=== PATIENT | male | born 1930 | race Caucasian/White ===

== ENCOUNTER 2016-10-29 21:30 | Inpatient (IN) | payer MEDICARE ==
[2016-10-29] MEDS ORDERED: SODIUM CHLORIDE 0.9% 500 ML IV STA (21:34)
[2016-10-29] MEDS ORDERED: IPRATROPIUM 0.5 MG/2.5 ML NEBU INHALATION STA (21:34)
[2016-10-29] MEDS ORDERED: methylPREDNISolone SOD SUCCI 125 MG/2 ML VIAL IV STA (21:34)
[2016-10-29] MEDS ORDERED: ALBUTEROL NEBULIZED 2.5 MG/3 ML INHALATION STA (21:34)
[2016-10-29] MEDS ORDERED: SODIUM CHLORIDE 0.9% 1,000 ML IV STA (21:34)
[2016-10-29] MEDS ORDERED: AZITHROMYCIN 500 MG in SODIUM CHLORIDE 0.9% 250 ML IVPB STA (21:34)
[2016-10-29] MEDS ORDERED: IBUPROFEN 800 MG TAB PO STA (21:43)
[2016-10-29] MEDS ORDERED: ACETAMINOPHEN TAB 500 MG TAB PO STA (21:43)
--- NOTE | 2016-10-29 21:59 | ED ---
General Adult HPI - General Chief complaint: Shortness of Breath Stated complaint: sob,weakness Time Seen by Provider: 10/29/16 21:34 Source: patient, EMS, RN notes reviewed, old records reviewed Mode of arrival: EMS Limitations: no limitations - History of Present Illness Initial comments: This is an 86-year-old male the ER for evaluation Shartzer breath cough congestion. Recent does have significant medical history of COPD and heart disease. Patient denies specific chest at this time it does again admit to shortness of breath. Patient also has some swelling with chills. Patient has no recent travel history, recent hospitalization was in June. About 4 months ago. Patient states his symptoms are getting progressively worse over the last day or so. Decreased appetite and increased weakness. No abdominal pain. No nausea vomiting or diarrhea. Patient has no known sick contacts - Related Data Home Medications Medication Instructions Recorded Confirmed Aspirin 81 mg PO DAILY 08/05/14 07/12/16 Digoxin [Lanoxin] 125 mcg PO DAILY 08/05/14 07/12/16 Furosemide [Lasix] 40 mg PO BID 08/05/14 07/12/16 Imipramine HCl [Tofranil] 50 mg PO BID 08/05/14 07/12/16 Nitroglycerin Sl Tabs [Nitrostat] 0.4 mg SUBLINGUAL Q5M PRN 08/05/14 07/12/16 Warfarin [Coumadin] 10 mg PO HS 08/05/14 07/12/16 Allopurinol [Zyloprim] 300 mg PO DAILY 08/06/14 07/12/16 Insulin NPL/Insulin Lispro 20 units SQ HS 08/06/14 07/12/16 [humaLOG Mix 75-25 Kwikpen] Carbidopa-Levodopa 25-100 mg 1 tab PO TID 12/11/15 07/12/16 [Sinemet 25-100 mg] Cholecalciferol [Vitamin D3] 1,000 unit PO DAILY 12/11/15 07/12/16 Insulin NPL/Insulin Lispro 40 unit SQ QAM 12/11/15 07/12/16 [humaLOG Mix 75-25 Kwikpen] Levothyroxine Sodium [Synthroid] 25 mcg PO DAILY 12/11/15 07/12/16 Simvastatin [Zocor] 40 mg PO HS 12/11/15 07/12/16 metFORMIN HCL [Glucophage] 500 mg PO DAILY 12/11/15 07/12/16 Multivitamin [Men's Multi-Vitamin] 1 tab PO DAILY 12/12/15 07/12/16 rOPINIRole HCL [Requip] 0.5 mg PO TID 06/24/16 07/12/16 Previous Rx's Medication Instructions Recorded Donepezil [Aricept] 10 mg PO HS #10 tablet 12/14/15 Carvedilol [Coreg] 3.125 mg PO BID-W/MEALS #60 tab 06/30/16 Allergies Allergy/AdvReac Type Severity Reaction Status Date / Time phenytoin sodium Allergy Severe Rash/Hives Verified 10/29/16 22:46 [From Dilantin] phenytoin sodium extended Allergy Severe Rash/Hives Verified 10/29/16 22:46 [From Dilantin] zoster vaccine live Allergy Unknown Verified 10/29/16 22:46 amiodarone AdvReac Dyspnea Verified 10/29/16 22:46 spironolactone AdvReac Gynecomasti Verified 10/29/16 22:46 a Review of Systems ROS Statement: Those systems with pertinent positive or pertinent negative responses have been documented in the HPI. ROS Other: All systems not noted in ROS Statement are negative. Past Medical History Past Medical History: Atrial Fibrillation, Heart Failure, COPD, Dementia, Diabetes Mellitus, Hyperlipidemia, Hypertension, Thyroid Disorder Additional Past Medical History / Comment(s): gout, family stated that a geriatric neurologist at [facility] felt that pt had parkinsons(on meds), dr lindquist here did tests but family does'nt know results yet. 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 Replacement pacemaker in 2010. prosthetic right eye. ben holes 2007 Past Anesthesia/Blood Transfusion Reactions: No Reported Reaction Type of Cardiac Device: AICD Device Placement Date:: 2011 Past Psychological History: Depression Smoking Status: Former smoker Past Alcohol Use History: Occasional Additional Past Alcohol Use History / Comment(s): started smoking 0, quit 1954, smoked 1 ppd. Past Drug Use History: None Reported - Past Family History Mother Family Medical History: Blood Disorder Additional Family Medical History / Comment(s): famialy not sure what is was called Father Family Medical History: Myocardial Infarction (MS) General Exam Limitations: no limitations General appearance: alert, anxious, in distress Head exam: Present: atraumatic, normocephalic, normal inspection Eye exam: Present: normal appearance, PERRL, EOMI. Absent: scleral icterus, conjunctival injection, periorbital swelling ENT exam: Present: normal exam, mucous membranes moist Neck exam: Present: normal inspection. Absent: tenderness, meningismus, lymphadenopathy Respiratory exam: Present: normal lung sounds bilaterally, wheezes, decreased breath sounds, prolonged expiratory. Absent: respiratory distress, rales, rhonchi, stridor Cardiovascular Exam: Present: normal heart sounds. Absent: regular rate (Paced rhythm), systolic murmur, diastolic murmur, rubs, gallop, clicks GI/Abdominal exam: Present: soft, normal bowel sounds. Absent: distended, tenderness, guarding, rebound, rigid Extremities exam: Present: normal inspection, full ROM, normal capillary refill. Absent: tenderness, pedal edema, joint swelling, calf tenderness Back exam: Present: normal inspection Neurological exam: Present: alert, oriented X3, CN II-XII intact Psychiatric exam: Present: normal affect, normal mood Skin exam: Present: warm, dry, intact, normal color. Absent: rash Course Vital Signs 10/29/16 10/29/16 10/29/16 21:30 21:47 21:59 Temperature 102.8 F H Pulse Rate 61 60 Respiratory 20 20 Rate Blood Pressure 122/59 O2 Sat by Pulse 95 Oximetry 10/29/16 22:05 Temperature Pulse Rate 57 L Respiratory Rate Blood Pressure O2 Sat by Pulse Oximetry - Reevaluation(s) Reevaluation #1: 10/29/16 22:49 Patient is feeling mildly improved his breathing with breathing treatment Reevaluation #2: 10/29/16 22:49 Patient further feeling better with symptom therapy and fever control EKG Findings - EKG Comments: EKG Findings:: EKG shows paced rhythm rate of 61, WV 152, QRS 162, QTc 527 Medical Decision Making - Medical Decision Making 86 male to the ER evaluation of shortness of breath, positive fever, will start on prophylactic antibiotics rule out bacteremia, chest x-ray here negative at this time. Patient has no nausea vomiting or diarrhea, patient also found to have elevated troponin, non-ST elevated MS, patient is critically anticoagulated at this time, we'll admit for cardiac treatment and observation - Lab Data Result diagrams: 10/29/16 21:35 10/29/16 21:35 Lab Results 10/29/16 10/29/16 10/29/16 Range/Units 21:35 21:35 21:35 WBC 5.1 (3.8-10.6) k/uL RBC 3.79 L (4.30-5.90) m/uL Hgb 12.5 L (13.0-17.5) gm/dL Hct 36.7 L (39.0-53.0) % MCV 96.9 (80.0-100.0) fL MCH 32.9 (25.0-35.0) pg MCHC 34.0 (31.0-37.0) g/dL RDW 15.0 (11.5-15.5) % Plt Count 131 L (150-450) k/uL Neutrophils % 82 % Lymphocytes % 6 % Monocytes % 8 % Eosinophils % 1 % Basophils % 1 % Neutrophils # 4.2 (1.3-7.7) k/uL Lymphocytes # 0.3 L (1.0-4.8) k/uL Monocytes # 0.4 (0-1.0) k/uL Eosinophils # 0.0 (0-0.7) k/uL Basophils # 0.0 (0-0.2) k/uL PT (9.0-12.0) sec INR (<1.1) APTT (22.0-30.0) sec Sodium 138 (137-145) mmol/L Potassium 4.2 (3.5-5.1) mmol/L Chloride 95 L (98-107) mmol/L Carbon Dioxide 33 H (22-30) mmol/L Anion Gap 10 mmol/L BUN 25 H (9-20) mg/dL Creatinine 1.10 (0.66-1.25) mg/dL Est GFR (MDRD) Af Amer >60 (>60 ml/min/1.73 sqM) Est GFR (MDRD) Non-Af >60 (>60 ml/min/1.73 sqM) Glucose 126 H (74-99) mg/dL Calcium 8.9 (8.4-10.2) mg/dL Magnesium 1.6 (1.6-2.3) mg/dL Total Bilirubin 0.6 (0.2-1.3) mg/dL AST 32 (17-59) U/L ALT 33 (21-72) U/L Alkaline Phosphatase 91 (38-126) U/L Total Creatine Kinase 54 L (55-170) U/L CK-MB (CK-2) 0.3 (0.0-2.4) ng/mL CK-MB (CK-2) Rel Index 0.6 Troponin I 0.119 H* (0.000-0.034) ng/mL NT-Pro-B Natriuret Pep pg/mL Total Protein 6.7 (6.3-8.2) g/dL Albumin 3.5 (3.5-5.0) g/dL 10/29/16 10/29/16 Range/Units 21:35 21:35 WBC (3.8-10.6) k/uL RBC (4.30-5.90) m/uL Hgb (13.0-17.5) gm/dL Hct (39.0-53.0) % MCV (80.0-100.0) fL MCH (25.0-35.0) pg MCHC (31.0-37.0) g/dL RDW (11.5-15.5) % Plt Count (150-450) k/uL Neutrophils % % Lymphocytes % % Monocytes % % Eosinophils % % Basophils % % Neutrophils # (1.3-7.7) k/uL Lymphocytes # (1.0-4.8) k/uL Monocytes # (0-1.0) k/uL Eosinophils # (0-0.7) k/uL Basophils # (0-0.2) k/uL PT 28.3 H (9.0-12.0) sec INR 2.9 (<1.1) APTT 32.4 H (22.0-30.0) sec Sodium (137-145) mmol/L Potassium (3.5-5.1) mmol/L Chloride (98-107) mmol/L Carbon Dioxide (22-30) mmol/L Anion Gap mmol/L BUN (9-20) mg/dL Creatinine (0.66-1.25) mg/dL Est GFR (MDRD) Af Amer (>60 ml/min/1.73 sqM) Est GFR (MDRD) Non-Af (>60 ml/min/1.73 sqM) Glucose (74-99) mg/dL Calcium (8.4-10.2) mg/dL Magnesium (1.6-2.3) mg/dL Total Bilirubin (0.2-1.3) mg/dL AST (17-59) U/L ALT (21-72) U/L Alkaline Phosphatase (38-126) U/L Total Creatine Kinase (55-170) U/L CK-MB (CK-2) (0.0-2.4) ng/mL CK-MB (CK-2) Rel Index Troponin I (0.000-0.034) ng/mL NT-Pro-B Natriuret Pep 3070 pg/mL Total Protein (6.3-8.2) g/dL Albumin (3.5-5.0) g/dL - Radiology Data Radiology results: report reviewed (Chest x-ray is negative for acute disease), image reviewed Critical Care Time Critical Care Time: Yes Total Critical Care Time: 31 Disposition Clinical Impression: Fever, NSTEMI (non-ST elevated myocardial infarction), Acute exacerbation of chronic obstructive airways disease, Cardiac defibrillator in place Disposition: ADMITTED IP TO THIS HOSP Condition: Fair Referrals: Chucho Fan MD [Primary Care Provider] - 1-2 days
[2016-10-29 22:02] LABS: Basophils % (A) 1 %; CHCM 34.3; Eosinophils % (A) 1 %; HCT 36.7 % (39.0-53.0); HDW 3.11; HGB 12.5 gm/dL (13.0-17.5); Luc # (Auto) 0.13; Luc % (Auto) 2; Lymphocytes # (A) 0.3 k/uL (1.0-4.8); Lymphocytes % (A) 6 %; MCH 32.9 pg (25.0-35.0); MCV 96.9 fL (80.0-100.0); Mean Platelet Volume 9.1; Monocytes # (A) 0.4 k/uL (0-1.0); Monocytes % (A) 8 %; Neutrophils # (A) 4.2 k/uL (1.3-7.7); Neutrophils % (A) 82 %; RBC 3.79 m/uL (4.30-5.90); WBC 5.1 k/uL (3.8-10.6); WBC (Perox) 5.29
[2016-10-29 22:08] LABS: ALT 33 U/L (21-72); AST 32 U/L (17-59); Alkaline Phosphatase 91 U/L (38-126); Anion Gap 10 mmol/L; Blood Urea Nitrogen 25 mg/dL (9-20); Calcium 8.9 mg/dL (8.4-10.2); Carbon Dioxide 33 mmol/L (22-30); Chloride 95 mmol/L (98-107); Glucose 126 mg/dL (74-99); INR 2.9 (<1.1); Magnesium 1.6 mg/dL (1.6-2.3); Non-African American GFR(MDRD) >60 (>60 ml/min/1.73 sqM); Partial Thromboplastin Time 32.4 sec (22.0-30.0); Potassium 4.2 mmol/L (3.5-5.1); Prothrombin Time 28.3 sec (9.0-12.0); Sodium 138 mmol/L (137-145); Total Bilirubin 0.6 mg/dL (0.2-1.3); Total Protein 6.7 g/dL (6.3-8.2)
--- NOTE | 2016-10-29 22:24 | XR ---
EXAMINATION TYPE: XR chest 2V DATE OF EXAM: 10/29/2016 10:17 PM COMPARISON: 07/12/2016 HISTORY: Short of breath TECHNIQUE: Frontal and lateral views of the chest are obtained. FINDINGS: There is no heart failure nor confluent pneumonic infiltrate. There are no hilar masses. T here is a left axillary pacemaker with lead tips in the right ventricle. There are chest leads. There is no pleural effusion. IMPRESSION: No active cardiopulmonary disease. Mild cardiomegaly. No adverse change compared to old exam.
[2016-10-29 22:33] LABS: Creatine Kinase MB 0.3 ng/mL (0.0-2.4)
[2016-10-29 22:42] LABS: Troponin I 0.119 ng/mL (0.000-0.034)
[2016-10-29] MEDS ORDERED: ASPIRIN 81 MG CHEW PO STA (22:46)
[2016-10-29] MEDS ORDERED: NITROGLYCERIN SL TABS 0.4 MG TAB SUBLINGUAL PRN (22:46)
[2016-10-29] MEDS ORDERED: MORPHINE SULFATE 4 MG/ML SYRINGE IV PRN (22:46)
--- NOTE | 2016-10-29 23:37 | CT ---
EXAMINATION TYPE: CT brain wo con DATE OF EXAM: 10/29/2016 11:24 PM COMPARISON: 12/12/2015 HISTORY: Prior on synapse, pt leaning to the left, YASEMIN, weakness, HIstory of dementia and drainage of blood on the brain per patient CT DLP: 995.50 mGycm Automated exposure control for dose reduction was used. FINDINGS: There is cerebral cortical atrophy. There is no mass effect nor midline shift. There is no sign of in tracranial hemorrhage. There is bilateral frontal craniotomy defects noted. Sella turcica appears nor mal. There is dense calcification involving the right lobe. IMPRESSION: No acute intracranial abnormality. Cerebral atrophy. Brain is unchanged compared to old exam. There i s clearing of the frontal scalp soft tissue swelling compared to old exam.
[2016-10-30 00:13] LABS: Appearance,Urine Clear (Clear); Bilirubin,Urine Negative (Negative); Glucose,Urine (UA) Negative (Negative); Ketones,Urine Negative (Negative); Leukocyte Esterase,Urine Negative (Negative); Nitrite,Urine Negative (Negative); PH, Urine 5.5 (5.0-8.0); Protein,Urine Negative (Negative); Specific Gravity,Urine 1.018 (1.001-1.035); UA Billing (MACRO vs. MICRO) CHEM
[2016-10-30] MEDS: IPRATROPIUM-ALBUTEROL 3 ML NEB INHALATION SCH ×7 (01:09→23:50)
[2016-10-30 03:28] LABS: Cholesterol 83 mg/dL (<200); HDL Cholesterol 31 mg/dL (40-60); Triglycerides 59 mg/dL (<150)
[2016-10-30 04:14] LABS: Creatine Kinase MB 5.9 ng/mL (0.0-2.4); Troponin I 0.156 ng/mL (0.000-0.034)
[2016-10-30 06:02] LABS: Glucose,Whole Blood 250 mg/dL (75-99)
[2016-10-30] MEDS ORDERED: ASPIRIN 325 MG TAB PO SCH (09:00)
[2016-10-30] MEDS: ATORVASTATIN 80 MG TAB PO SCH (09:35)
[2016-10-30] MEDS ORDERED: Magnesium Replacement Protocol 1 EACH MISC MISCELLANE PRN (09:50)
[2016-10-30 10:47] LABS: Creatine Kinase MB 7.1 ng/mL (0.0-2.4); Troponin I 0.088 ng/mL (0.000-0.034)
[2016-10-30 11:23] LABS: Glucose,Whole Blood 317 mg/dL (75-99)
--- NOTE | 2016-10-30 11:26 | P.CRDCN ---
History of Present Illness Consult date: 10/30/16 Reason for Consult (text): elevated troponin Chief complaint: fever, chills History of present illness: This is a pleasant 86-year-old gentleman who follows with Dr. Prakash in the office. Has a known history of cardiomyopathy, BiV ICD implantation, recent nonischemic stress test and a known ejection fraction of 20-25%. Percentage the emergency department mainly with complaints of fever, chills and nausea without vomiting. Complained of mild shortness of breath. He does complain of a cough however this is chronic per the patient and his family. He does have a history of COPD. Upon admission EKG showed atrial sensed biventricular paced rhythm. Chest x-ray showed no acute cardiopulmonary process and a CT of the head showed no acute abnormalities. Last echo from June 2016 showed an ejection fraction of 20-25%. Laboratory values showed BUN 25 creatinine 1.10, INR 2.9, and a magnesium level I.6. Patient has had an episode of nonsustained VT through the night and magnesium is being supplemented. Patient's BNP is 3070. Upon examination, patient is feeling well. He denies any further complaints of fever or chills and no nausea. He has been afebrile since arriving to the floor. He has no complaints of orthopnea or PND. Denies any complaints of edema. Past Medical History Past Medical History: Atrial Fibrillation, Heart Failure, COPD, Dementia, Diabetes Mellitus, Hyperlipidemia, Hypertension, Thyroid Disorder Additional Past Medical History / Comment(s): gout, family stated that a geriatric neurologist at [facility] felt that pt had parkinsons(on meds), dr lindquist here did tests but family does'nt know results yet. 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 Replacement pacemaker in 2010. prosthetic right eye. ben holes 2007 Past Anesthesia/Blood Transfusion Reactions: No Reported Reaction Type of Cardiac Device: AICD Device Placement Date:: 2011 Past Psychological History: Depression Smoking Status: Former smoker Past Alcohol Use History: Occasional Additional Past Alcohol Use History / Comment(s): started smoking 1939, quit 1955, smoked 1 ppd. Past Drug Use History: None Reported - Past Family History Mother Family Medical History: Blood Disorder Additional Family Medical History / Comment(s): famialy not sure what is was called Father Family Medical History: Myocardial Infarction (DC) Medications and Allergies Home Medications Medication Instructions Recorded Confirmed Type Aspirin 81 mg PO DAILY 08/05/14 10/29/16 History Digoxin [Lanoxin] 125 mcg PO DAILY 08/05/14 10/29/16 History Imipramine HCl [Tofranil] 50 mg PO BID 08/05/14 10/29/16 History Nitroglycerin Sl Tabs [Nitrostat] 0.4 mg SUBLINGUAL Q5M PRN 08/05/14 10/29/16 History Warfarin [Coumadin] 10 mg PO HS 08/05/14 10/29/16 History Allopurinol [Zyloprim] 300 mg PO DAILY 08/06/14 10/29/16 History Carbidopa-Levodopa 25-100 mg 1 tab PO TID 12/11/15 10/29/16 History [Sinemet 25-100 mg] Cholecalciferol [Vitamin D3] 1,000 unit PO DAILY 12/11/15 10/29/16 History Levothyroxine Sodium [Synthroid] 25 mcg PO DAILY 12/11/15 10/29/16 History Simvastatin [Zocor] 40 mg PO HS 12/11/15 10/29/16 History metFORMIN HCL [Glucophage] 500 mg PO DAILY 12/11/15 10/29/16 History Multivitamin [Men's Multi-Vitamin] 1 tab PO DAILY 12/12/15 10/29/16 History rOPINIRole HCL [Requip] 0.5 mg PO TID 06/24/16 10/29/16 History Carvedilol [Coreg] 6.25 mg PO BID 10/29/16 10/29/16 History Furosemide [Lasix] 20 mg PO BID 10/29/16 10/29/16 History Warfarin [Coumadin] 1 mg PO HS 10/29/16 10/29/16 History Allergies Allergy/AdvReac Type Severity Reaction Status Date / Time phenytoin sodium Allergy Severe Rash/Hives Verified 10/29/16 22:46 [From Dilantin] phenytoin sodium extended Allergy Severe Rash/Hives Verified 10/29/16 22:46 [From Dilantin] zoster vaccine live Allergy Unknown Verified 10/29/16 22:46 amiodarone AdvReac Dyspnea Verified 10/29/16 22:46 spironolactone AdvReac Gynecomasti Verified 10/29/16 22:46 a Physical Exam Vitals: Vital Signs Temp Pulse Pulse Resp BP BP Pulse Ox 10/30/16 08:10 80 10/30/16 08:01 86 95 10/30/16 08:00 97.1 F L 67 16 130/58 99 10/30/16 04:00 98.0 F 72 20 88/40 95 10/30/16 01:18 79 10/30/16 01:09 85 10/30/16 00:21 101.9 F H 10/29/16 23:52 80 18 93/52 98 10/29/16 23:15 98.4 F 101 H 20 98/53 98 Intake and Output 10/29/16 10/30/16 10/30/16 22:59 06:59 14:59 Intake Total 650 Output Total 1 Balance 649 Intake: IV 650 Sodium Chloride 0.9% 1, 600 000 ml @ 100 mls/hr IV . Q10H STA Rx#:[id number] cefTRIAXone 1,000 mg In 50 Sodium Chloride 0.9% 50 ml @ 100 mls/hr IVPB ONCE STA Rx#:[id number] Output: Urine/Stool Mix 1 Other: Voiding Method Toilet Urinal # Voids 1 Weight 93.5 kg PHYSICAL EXAMINATION: HEENT: Head is atraumatic, normocephalic. Pupils equal, round. Neck is supple. There is no elevated jugular venous pressure. HEART EXAMINATION: Heart sounds regular, S1 and S2 normal. No murmur or gallop heard. CHEST EXAMINATION: Lungs are clear to auscultation and precussion. No chest wall tenderness is noted on palpation or with deep breathing. ABDOMEN: Soft, nontender. Bowel sounds are heard. No organomegaly noted. EXTREMITIES: 2+ peripheral pulses with no evidence of peripheral edema and no calf tenderness noted. NEUROLOGIC patient is awake, alert and oriented x3. . Results 10/29/16 21:35 10/29/16 21:35 Cardiac Enzymes 10/30/16 10/30/16 Range/Units 03:06 09:21 CK-MB (CK-2) 5.9 H* 7.1 H* (0.0-2.4) ng/mL Troponin I 0.156 H* 0.088 H* (0.000-0.034) ng/mL Lipids 10/30/16 Range/Units 03:06 Triglycerides 59 (<150) mg/dL Cholesterol 83 (<200) mg/dL HDL Cholesterol 31 L (40-60) mg/dL Current Medications Generic Name Dose Route Start Last Admin Trade Name Freq PRN Reason Stop Dose Admin Albuterol/Ipratropium 3 ml 10/30/16 00:00 10/30/16 07:58 Duoneb 0.5 Mg-3 Mg/3 Ml Soln INHALATION 3 ml RT-Q4H ABHAY Administration Aspirin 81 mg 10/31/16 09:00 Aspirin PO DAILY [facility] Atorvastatin Calcium 80 mg 10/30/16 09:00 10/30/16 09:35 Lipitor PO 80 mg DAILY [facility] Administration Carvedilol 6.25 mg 10/30/16 11:00 Coreg PO BID [facility] Furosemide 20 mg 10/30/16 11:00 Lasix PO BID [facility] Magnesium Sulfate/Dextrose 1 100 mls @ 100 mls/hr 10/30/16 10:00 gm/ IV Solution IVPB 10/30/16 11:59 Q1H [facility] Levothyroxine Sodium 25 mcg 10/30/16 11:00 Synthroid PO DAILY@0630 [facility] Miscellaneous Information 1 each 10/30/16 09:50 Magnesium Per Protocol MISCELLANE DAILY PRN Per Protocol Protocol Morphine Sulfate 4 mg 10/29/16 22:46 Morphine Sulfate (Inj) IV Q4HR PRN Chest Pain Multivitamins 1 each 10/31/16 12:00 Theragran PO DAILY@1200 [facility] Nitroglycerin 0.4 mg 10/29/16 22:46 Nitrostat SUBLINGUAL Q5M PRN Chest Pain Intake and Output 10/29/16 10/30/16 10/30/16 22:59 06:59 14:59 Intake Total 650 Output Total 1 Balance 649 Intake: IV 650 Sodium Chloride 0.9% 1, 600 000 ml @ 100 mls/hr IV . Q10H STA Rx#:[id number] cefTRIAXone 1,000 mg In 50 Sodium Chloride 0.9% 50 ml @ 100 mls/hr IVPB ONCE STA Rx#:[id number] Output: Urine/Stool Mix 1 Other: Voiding Method Toilet Urinal # Voids 1 Weight 93.5 kg Assessment and Plan Plan: Assessment and plan #1 fever of unknown origin #2 cardiomyopathy #3 chronic systolic heart failure, ejection fraction 20-25% without signs of overt heart failure #4 elevated troponins not suggestive of myocardial injury Cardiology's perspective, will resume cardiac medications. We will hold Coumadin with an INR of 2.9 and patient is currently on antibiotics. 2 sets of blood cultures to be done. We anticipate the patient will be discharged in the next 24 hours. We'll continue to follow the patient right further recommendations accordingly. RESPIRATORY MEDICINE PHYSICIAN note has been reviewed, I agree with a documented findings and plan of care. Patient was seen and examined.
[2016-10-30] MEDS: MAGNESIUM SULFATE-D5W PMX 1 GM in DEXTROSE/WATER 1 100ML.BAG IVPB SCH ×2 (12:00→13:06)
[2016-10-30] MEDS: LEVOTHYROXINE 25 MCG TAB PO SCH (12:00)
[2016-10-30] MEDS: CARVEDILOL 6.25 MG TAB PO SCH ×2 (12:00→21:51)
[2016-10-30] MEDS: FUROSEMIDE 20 MG TAB PO SCH ×2 (12:00→21:51)
[2016-10-30] MEDS ORDERED: NITROGLYCERIN SL TABS 0.4 MG TAB SUBLINGUAL PRN (12:24)
[2016-10-30] MEDS: DIGOXIN 125 MCG TAB PO SCH (13:04)
[2016-10-30] MEDS: INSULIN LISPRO (humaLOG) 300 UNIT/3 ML VIAL SQ SCH ×3 (13:05→21:52)
[2016-10-30] MEDS: CARBIDOPA-LEVODOPA 25-100 MG 1 EACH TAB PO SCH ×2 (14:50→21:52)
[2016-10-30 15:26] LABS: Hemoglobin A1C 6.4 % (4.2-6.1)
[2016-10-30 16:28] LABS: Glucose,Whole Blood 273 mg/dL (75-99)
[2016-10-30 20:51] LABS: Glucose,Whole Blood 146 mg/dL (75-99)
[2016-10-30] MEDS ORDERED: NON-FORMULARY DRUG (Simvastatin [Zocor] 40 MG) PO SCH (21:00)
[2016-10-30] MEDS: INSULIN NPL/INSULIN LISPRO 100 UNIT/ML 10 ML VIAL (Humalog 75/25) SQ SCH (21:52)
[2016-10-30] MEDS: DONEPEZIL 10 MG TAB PO SCH (21:52)
[2016-10-31] MEDS: IPRATROPIUM-ALBUTEROL 3 ML NEB INHALATION SCH ×6 (03:52→20:31)
[2016-10-31 06:12] LABS: Glucose,Whole Blood 169 mg/dL (75-99)
[2016-10-31 06:15] LABS: INR 1.7 (<1.1); Prothrombin Time 16.9 sec (9.0-12.0)
[2016-10-31] MEDS: INSULIN LISPRO (humaLOG) 300 UNIT/3 ML VIAL SQ SCH ×4 (07:34→20:36)
[2016-10-31] MEDS: DIPHENOX-ATROP 2.5-0.025 MG 1 EACH TAB PO PRN ×2 (07:35→12:33)
[2016-10-31] MEDS: LEVOTHYROXINE 25 MCG TAB PO SCH ×2 (07:35→09:25)
[2016-10-31] MEDS: INSULIN NPL/INSULIN LISPRO 100 UNIT/ML 10 ML VIAL (Humalog 75/25) SQ SCH ×2 (07:36→21:00)
[2016-10-31] MEDS: ALLOPURINOL 300 MG TAB PO SCH (09:25)
[2016-10-31] MEDS: ATORVASTATIN 80 MG TAB PO SCH (09:26)
[2016-10-31] MEDS: CARBIDOPA-LEVODOPA 25-100 MG 1 EACH TAB PO SCH ×3 (09:26→20:54)
[2016-10-31] MEDS: ASPIRIN 81 MG CHEW PO SCH (09:26)
[2016-10-31] MEDS: FUROSEMIDE 20 MG TAB PO SCH ×2 (09:27→20:54)
[2016-10-31] MEDS: metFORMIN 500 MG TAB PO SCH (09:27)
[2016-10-31] MEDS: DIGOXIN 125 MCG TAB PO SCH (09:34)
[2016-10-31] MEDS: BISMUTH SUBSALICYLATE 4,192 MG/240 ML BOTTLE PO SCH ×2 (10:49→20:53)
[2016-10-31] MEDS: SODIUM CHLORIDE 0.9% 1,000 ML IV SCH (10:54)
[2016-10-31 11:56] LABS: Glucose,Whole Blood 89 mg/dL (75-99)
[2016-10-31] MEDS: CHOLECALCIFEROL 1,000 UNIT TAB PO SCH (12:33)
[2016-10-31] MEDS: MULTIVITAMINS, THERA 1 EACH TAB PO SCH (12:33)
--- NOTE | 2016-10-31 14:40 | PN ---
This gentleman has ischemic cardiomyopathy, but he developed some diarrhea of weakness, dehydration, went to the shower and tripped on the shower chair and fell without any injuries. He is doing better today but complains of feeling weak and just had a large diarrhea with watery stool. I am recommending that we hydrate him, encourage oral fluids. Give him Lomotil and Kaopectate and hopefully this will reverse his dehydration and weak feeling. His not febrile anymore. The antibiotics have been held. He is volume depleted if any and we will cautiously hydrate him. Blood pressure is 104/60, pulse rate is 56 per minute. S1, S2 heard normally. Short systolic murmur noted. No JVD. LUNGS: Diminished air entry. Abdomen and lower extremity exam is unchanged.
[2016-10-31 16:20] LABS: Glucose,Whole Blood 116 mg/dL (75-99)
[2016-10-31] MEDS ORDERED: RX INFO: IV CONTRAST WAS GIVEN 1 EACH MISC MISCELLANE PRN (16:23)
[2016-10-31] MEDS: CARVEDILOL 12.5 MG TAB PO SCH (17:35)
--- NOTE | 2016-10-31 18:19 | HP ---
CHIEF COMPLAINT: Syncope, fever and elevated cardiac enzymes. HISTORY OF PRESENT ILLNESS: This is another admission for this 86-year-old white male. He has a long-standing history of coronary artery disease, diabetes, COPD, intracranial bleed, subdural hematoma, congestive heart failure and seizures. He was found to be confused and delirious and had a temperature of 102.2 according to the family and he was brought to the hospital. He has apparently had no vomiting, diarrhea, urinary complaints, cough, hemoptysis, chest pain, etc. In the emergency room, his troponins were slightly elevated. He had no history of seizures, focal neurologic deficits during this episode, etc. REVIEW OF SYSTEMS: He cannot give a clear history but denies any headaches, neurologic changes, changes in vision of the one eye, chest pain, cough, hemoptysis, sputum production, abdominal pain, vomiting, diarrhea, melena, hematochezia, urinary complaints, etc. Past medical history, family history and personal and social histories are all otherwise unchanged from his recent admitting and discharge summaries. HE IS ALLERGIC TO DILANTIN, AMIODARONE AND SPIRONOLACTONE. He is on: 1. Coumadin 11 mg a day. 2. Lasix 40 mg twice a day. 3. Metformin 500 mg once a day. 4. Levothyroxine 0.025 once a day. 5. Sinemet 25/100, 3 times a day. 6. Humalog 75/25, 40 units in the morning and 20 in the evening. 7. Zyloprim 300 once a day. 8. Coreg 6.25 twice a day. 9. Requip 0.5 2 times a day, Zocor 40 mg at bedtime. 10. Imipramine 50 mg twice a day. 11. Aricept 5 mg at night. 12. Lanoxin 0.125 once a day. 13. Nitrostat p.r.n. 14. Vitamin D 1000 units once a day. 15. 81 mg of aspirin. Past history is unchanged and unremarkable other than other than all of his cardiac problems. He currently is in chronic atrial fibrillation. Used to smoke and drink, but has stopped a long ago. PHYSICAL EXAM: Blood pressure is 100/48 with a pulse of 98 and irregularly irregular, respirations were 16 and he is afebrile. GENERAL: He appears slightly pale and in no distress. Skin was dry and lymph nodes are not enlarged. Head, ears, eyes, nose, mouth, and throat were normal. Neck veins were not distended. Thyroid is not enlarged. Chest demonstrated poor breath sounds with occasional rales and rhonchi. Cardiac demonstrated atrial fibrillation and there is an S4. The abdomen is soft and slightly protuberant. There are no masses or visceromegaly. Extremities are normal. Neurologic appears intact. IMPRESSION: 1. Fall probably with syncope due to sepsis. 2. Fever of unknown origin. 3. Questionable urinary tract infection. 4. History of coronary artery disease. 5. Congestive heart failure. 6. Arrhythmia with atrial fibrillation. 7. Type 2 insulin-dependent mellitus. 8. History chronic obstructive pulmonary disease. 9. History of subdural hematoma. 10. 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 11. Rule out acute myocardial infarction. PLAN: 1. Bed rest. 2. IV fluids. 3. Appropriate cultures and antibiotic management before Oncology consult.
--- NOTE | 2016-10-31 18:32 | PN ---
DATE OF SERVICE: 10/30/2016 CHIEF COMPLAINT: Syncope and fever. HISTORY OF PRESENT ILLNESS: This gentleman is improved. He is more alert and oriented. Temperature is down. Studies are pending. PHYSICAL EXAM: His chest is clear. Cardiac is normal except for atrial fibrillation. The abdomen soft, nontender. Bowel sounds are present. Extremities are normal. Neurologically, he is intact. IMPRESSION: 1. Syncope, etiology unknown. 2. Fever of unknown origin. 3. Probable sepsis, source unknown. 4. Coronary disease. 5. Congestive heart failure. 6. Type 2 diabetes. PLAN: 1. Continue to wait for appropriate cultures. 2. Wait for Cardiology evaluation.
--- NOTE | 2016-10-31 19:10 | CT ---
EXAMINATION TYPE: CT brain wo/w con DATE OF EXAM: 10/31/2016 6:15 PM COMPARISON: 10/29/2016 HISTORY: weakness CT DLP: 2128.6 mGycm, Automated exposure control for dose reduction was used. CONTRAST: Patient injected with 100 mL of Omnipaque 300. CT of the brain is performed utilizing 3 mm thick sections through the posterior fossa and 3 mm thick sections through the remaining calvarium. Study is performed within 24 hours of arrival to the hospital. No abnormal hyperdensity is present to suggest an acute intracranial hemorrhage. No mass lesion is evident. No acute infarcts are evident. Mild periventricular white matter hypodensity is present, likely on t he basis of chronic white matter ischemic changes. This appears stable from comparison. Ventricles and sulci are mildly prominent for the patient age. Postsurgical craniotomies are noted in the frontal regions and in the left parietal region. A right p arietal craniotomy may also be present. No abnormal enhancement is evident following contrast administration. Paranasal sinuses and mastoid air cells within the [id number] are clear. IMPRESSIONS: 1. Atrophy with periventricular white matter ischemic changes. 2. No acute intracranial process. 3. Postsurgical changes.
[2016-10-31 20:37] LABS: Glucose,Whole Blood 121 mg/dL (75-99)
[2016-10-31] MEDS: CARVEDILOL 6.25 MG TAB PO SCH (20:48)
[2016-10-31] MEDS: DONEPEZIL 10 MG TAB PO SCH (20:54)
[2016-10-31] MEDS ORDERED: IPRATROPIUM-ALBUTEROL 3 ML NEB INHALATION PRN (23:14)
[2016-11-01 05:49] LABS: Glucose,Whole Blood 111 mg/dL (75-99)
[2016-11-01] MEDS: INSULIN LISPRO (humaLOG) 300 UNIT/3 ML VIAL SQ SCH ×4 (06:25→21:23)
[2016-11-01] MEDS: SODIUM CHLORIDE 0.9% 1,000 ML IV SCH ×2 (06:26→16:50)
[2016-11-01] MEDS: LEVOTHYROXINE 25 MCG TAB PO SCH (06:26)
[2016-11-01] MEDS: CARVEDILOL 12.5 MG TAB PO SCH ×2 (06:26→17:01)
[2016-11-01] MEDS: INSULIN NPL/INSULIN LISPRO 100 UNIT/ML 10 ML VIAL (Humalog 75/25) SQ SCH ×2 (06:28→21:28)
[2016-11-01 06:31] LABS: Basophils % (A) 0 %; CHCM 33.7; Eosinophils % (A) 0 %; HCT 33.5 % (39.0-53.0); HDW 3.16; Luc # (Auto) 0.09; Luc % (Auto) 3; Lymphocytes # (A) 0.7 k/uL (1.0-4.8); Lymphocytes % (A) 20 %; MCH 32.2 pg (25.0-35.0); MCHC 32.7 g/dL (31.0-37.0); MCV 98.5 fL (80.0-100.0); Mean Platelet Volume 8.9; Monocytes # (A) 0.3 k/uL (0-1.0); Monocytes % (A) 9 %; Neutrophils # (A) 2.3 k/uL (1.3-7.7); Neutrophils % (A) 68 %; RBC 3.41 m/uL (4.30-5.90); WBC 3.3 k/uL (3.8-10.6)
[2016-11-01 06:35] LABS: ALT 35 U/L (21-72); AST 55 U/L (17-59); Alkaline Phosphatase 56 U/L (38-126); Anion Gap 9 mmol/L; Blood Urea Nitrogen 34 mg/dL (9-20); Calcium 7.3 mg/dL (8.4-10.2); Carbon Dioxide 28 mmol/L (22-30); Chloride 103 mmol/L (98-107); Glucose 107 mg/dL (74-99); Non-African American GFR(MDRD) >60 (>60 ml/min/1.73 sqM); Sodium 140 mmol/L (137-145); Total Bilirubin 0.5 mg/dL (0.2-1.3); Total Protein 5.2 g/dL (6.3-8.2)
[2016-11-01 06:43] LABS: Potassium 2.9 mmol/L (3.5-5.1)
[2016-11-01] MEDS: ATORVASTATIN 80 MG TAB PO SCH (07:36)
[2016-11-01] MEDS: ASPIRIN 81 MG CHEW PO SCH (07:36)
[2016-11-01] MEDS: BISMUTH SUBSALICYLATE 4,192 MG/240 ML BOTTLE PO SCH ×2 (07:36→21:22)
[2016-11-01] MEDS: CARBIDOPA-LEVODOPA 25-100 MG 1 EACH TAB PO SCH ×3 (07:37→21:23)
[2016-11-01] MEDS: ALLOPURINOL 300 MG TAB PO SCH (07:37)
[2016-11-01] MEDS: metFORMIN 500 MG TAB PO SCH (07:38)
[2016-11-01] MEDS: FUROSEMIDE 20 MG TAB PO SCH ×2 (07:38→21:23)
[2016-11-01] MEDS: IPRATROPIUM-ALBUTEROL 3 ML NEB INHALATION SCH ×4 (08:10→20:09)
[2016-11-01] MEDS: POTASSIUM CHLORIDE ER 20 MEQ TAB.ER PO SCH ×2 (09:14→11:42)
--- NOTE | 2016-11-01 10:53 | P.PN ---
Subjective 86-year-old male being seen on rounds. 2 daughters at the bedside updated on plan of care. Patient apparently had an episode the day before patient went to the shower tripped on the shower chair and fell without any injuries. Patient continues to report feeling weak. This been 1 documented loose stool at 5:30 this morning. On October 30 patient had 4 loose stools. Stool for C. diff was negative. Influenza A and B was negative. The potassium this morning was 2.9. Patient does report appetite is increasing. The potassium has been replaced. Objective - Vital Signs Vital signs: Vital Signs Temp 97.3 F L 11/01/16 09:50 Pulse 88 11/01/16 09:50 Resp 18 11/01/16 09:50 BP 117/56 11/01/16 09:50 Pulse Ox 96 11/01/16 09:50 Intake & Output 10/31/16 11/01/16 11/01/16 18:59 06:59 18:59 Intake Total 1140 150 240 Output Total 200 Balance 940 150 240 Weight 98 kg Intake: Intake, IV Titration 300 Amount Sodium Chloride 0.9% 1, 300 000 ml @ 75 mls/hr IV . [id number] [facility] Rx#:[id number] Oral 840 150 240 Output: Urine 200 Other: # Voids 2 2 # Bowel Movements 1 - Exam Physical exam 86-year-old male resting in bed reports feeling tired no loose stools during the night appetite increasing oriented 3 Lungs diminished at the bases otherwise adequate air movement Heart S1-S2 audible irregular monitor A. fib rate controlled denying pain Abdomen soft nontender bowel tones present Extremities below-knee KAVIN hose on nonpitting edema noted - Labs CBC & Chem 7: 11/01/16 05:49 11/01/16 05:49 Labs: Abnormal Lab Results - Last 24 Hours (Table) 10/31/16 10/31/16 11/01/16 Range/Units 16:18 20:35 05:46 WBC (3.8-10.6) k/uL RBC (4.30-5.90) m/uL Hgb (13.0-17.5) gm/dL Hct (39.0-53.0) % Plt Count (150-450) k/uL Lymphocytes # (1.0-4.8) k/uL Potassium (3.5-5.1) mmol/L BUN (9-20) mg/dL Glucose (74-99) mg/dL POC Glucose (mg/dL) 116 H 121 H 111 H (75-99) mg/dL Calcium (8.4-10.2) mg/dL Total Protein (6.3-8.2) g/dL Albumin (3.5-5.0) g/dL 11/01/16 11/01/16 Range/Units 05:49 05:49 WBC 3.3 L (3.8-10.6) k/uL RBC 3.41 L (4.30-5.90) m/uL Hgb 11.0 L (13.0-17.5) gm/dL Hct 33.5 L (39.0-53.0) % Plt Count 106 L (150-450) k/uL Lymphocytes # 0.7 L (1.0-4.8) k/uL Potassium 2.9 L* (3.5-5.1) mmol/L BUN 34 H (9-20) mg/dL Glucose 107 H (74-99) mg/dL POC Glucose (mg/dL) (75-99) mg/dL Calcium 7.3 L (8.4-10.2) mg/dL Total Protein 5.2 L (6.3-8.2) g/dL Albumin 2.5 L (3.5-5.0) g/dL Microbiology - Last 24 Hours (Table) 10/29/16 23:45 Urine Culture - Final Urine,Clean Catch Assessment and Plan Plan: Impression Shortness of breath decreased endurance present on admission suspect acute exacerbation COPD Electrolyte abnormality potassium 2.9 Mild protein calorie malnutrition suspect chronic due to poor caloric intake Present on admission febrile temp 102.8 likely due to bronchitis chest x-ray no evidence of pneumonia no evidence of sepsis cardiomyopathy ejection fraction 20-25% Chronic congestive heart failure systolic dysfunction EF 20-25% with no evidence of decompensation or signs of overt heart failure Biventricular ICD device with a recent nonischemic stress test Deconditioned D debilitated due to comorbidities Present on admission elevated troponins with no evidence of acute coronary ischemia Frequent loose stooling suspect viral C. diff negative Type 2 diabetes hemoglobin A1c 6.4 insulin requiring Plan Restart Coumadin monitor INR PT OT eval Discharge plan and progress possible subacute rehab appropriate Monitor blood sugars address as indicated Potassium to be replaced Respiratory treatments as ordered Questran and Imodium as ordered resume home meds as appropriate The above dictated assessment and findings were discussed with dr sylvia Dill and the plan of care have been dictated as directed. Kaylin Esteves nurse practitioner acting as a scribe for dr ward
[2016-11-01] MEDS: MULTIVITAMINS, THERA 1 EACH TAB PO SCH (11:42)
[2016-11-01] MEDS: CHOLECALCIFEROL 1,000 UNIT TAB PO SCH (11:42)
[2016-11-01] MEDS: CHOLESTYRAMINE (WITH SUGAR) 4 GM PACKET PO SCH ×2 (11:42→17:00)
[2016-11-01 11:53] LABS: Glucose,Whole Blood 68 mg/dL (75-99)
[2016-11-01 12:14] LABS: Glucose,Whole Blood 71 mg/dL (75-99)
--- NOTE | 2016-11-01 14:48 | P.PN ---
Subjective This is a pleasant 86-year-old gentleman who follows with Dr. Rosenberg in the office. Has a known history of cardiomyopathy, BiV ICD implantation, recent nonischemic stress test and a known ejection fraction of 20-25%. Presents to the emergency department mainly with complaints of fever, chills and nausea without vomiting. Complained of mild shortness of breath. He does complain of a cough however this is chronic per the patient and his family. He does have a history of COPD. Upon admission EKG showed atrial sensed biventricular paced rhythm. Chest x-ray showed no acute cardiopulmonary process and a CT of the head showed no acute abnormalities. Last echo from June 2016 showed an ejection fraction of 20-25%. After his arrival here patient has had several episodes of loose stools. He was initiated on antidiarrheal medication yesterday by Dr. Tiffanie Rehman, the diarrhea has lessened however he did have 2 episodes of loose stools through the night and one again this morning. Overall feeling weak. From a cardiac standpoint he is stable. Objective - Vital Signs Vital signs: Vital Signs Temp 97.3 F L 11/01/16 09:50 Pulse 90 11/01/16 11:54 Resp 18 11/01/16 09:50 BP 117/56 11/01/16 09:50 Pulse Ox 96 11/01/16 09:50 Intake & Output 10/31/16 11/01/16 11/01/16 18:59 06:59 18:59 Intake Total 1140 150 240 Output Total 200 Balance 940 150 240 Weight 98 kg Intake: Intake, IV Titration 300 Amount Sodium Chloride 0.9% 1, 300 000 ml @ 75 mls/hr IV . [id number] [facility] Rx#:[id number] Oral 840 150 240 Output: Urine 200 Other: # Voids 2 2 # Bowel Movements 1 - Exam PHYSICAL EXAMINATION: HEENT: Head is atraumatic, normocephalic. Pupils equal, round. Neck is supple. There is no elevated jugular venous pressure. HEART EXAMINATION: Heart sounds regular, S1 and S2 normal. No murmur or gallop heard. CHEST EXAMINATION: Lungs are clear to auscultation and precussion. No chest wall tenderness is noted on palpation or with deep breathing. ABDOMEN: Soft, nontender. Bowel sounds are heard. No organomegaly noted. EXTREMITIES: 2+ peripheral pulses with no evidence of peripheral edema and no calf tenderness noted. NEUROLOGIC patient is awake, alert and oriented x3. - Labs CBC & Chem 7: 11/01/16 05:49 11/01/16 05:49 Labs: Abnormal Lab Results - Last 24 Hours (Table) 10/31/16 10/31/16 11/01/16 Range/Units 16:18 20:35 05:46 WBC (3.8-10.6) k/uL RBC (4.30-5.90) m/uL Hgb (13.0-17.5) gm/dL Hct (39.0-53.0) % Plt Count (150-450) k/uL Lymphocytes # (1.0-4.8) k/uL Potassium (3.5-5.1) mmol/L BUN (9-20) mg/dL Glucose (74-99) mg/dL POC Glucose (mg/dL) 116 H 121 H 111 H (75-99) mg/dL Calcium (8.4-10.2) mg/dL Total Protein (6.3-8.2) g/dL Albumin (3.5-5.0) g/dL 11/01/16 11/01/16 11/01/16 Range/Units 05:49 05:49 11:50 WBC 3.3 L (3.8-10.6) k/uL RBC 3.41 L (4.30-5.90) m/uL Hgb 11.0 L (13.0-17.5) gm/dL Hct 33.5 L (39.0-53.0) % Plt Count 106 L (150-450) k/uL Lymphocytes # 0.7 L (1.0-4.8) k/uL Potassium 2.9 L* (3.5-5.1) mmol/L BUN 34 H (9-20) mg/dL Glucose 107 H (74-99) mg/dL POC Glucose (mg/dL) 68 L (75-99) mg/dL Calcium 7.3 L (8.4-10.2) mg/dL Total Protein 5.2 L (6.3-8.2) g/dL Albumin 2.5 L (3.5-5.0) g/dL 11/01/16 Range/Units 12:02 WBC (3.8-10.6) k/uL RBC (4.30-5.90) m/uL Hgb (13.0-17.5) gm/dL Hct (39.0-53.0) % Plt Count (150-450) k/uL Lymphocytes # (1.0-4.8) k/uL Potassium (3.5-5.1) mmol/L BUN (9-20) mg/dL Glucose (74-99) mg/dL POC Glucose (mg/dL) 71 L (75-99) mg/dL Calcium (8.4-10.2) mg/dL Total Protein (6.3-8.2) g/dL Albumin (3.5-5.0) g/dL Microbiology - Last 24 Hours (Table) 10/29/16 23:45 Urine Culture - Final Urine,Clean Catch Assessment and Plan Plan: Assessment and Plan Assessment and plan #1 fever of unknown origin #2 cardiomyopathy #3 chronic systolic heart failure, ejection fraction 20-25% without signs of overt heart failure #4 elevated troponins not suggestive of myocardial injury #5 diarrhea stools Plan From Cardiology perspective, we'll continue current medications. We will follow this patient along with you now on an as-needed basis only, please don't hesitate to call with any questions. DNP note has been reviewed, I agree with a documented findings and plan of care. Patient was seen and examined.
[2016-11-01 16:57] LABS: Glucose,Whole Blood 108 mg/dL (75-99)
[2016-11-01] MEDS ORDERED: WARFARIN 5 MG TAB PO SCH (18:00)
[2016-11-01 20:55] LABS: Glucose,Whole Blood 137 mg/dL (75-99)
[2016-11-01] MEDS: DONEPEZIL 10 MG TAB PO SCH (21:23)
--- NOTE | 2016-11-01 21:26 | PN ---
DATE OF SERVICE: 10/31/2016 CHIEF COMPLAINT: Fall, diarrhea, FUO. HISTORY OF PRESENT ILLNESS: This gentleman had a fall when he got up and he struck his forehead. CT is negative. He was not rendered unconscious and he has no focal neurologic deficits, headache, etc. He is having frequent episodes of diarrhea and C. difficile is negative. Lomotil was not helping. PHYSICAL EXAMINATION: He has a contusion on the middle of the forehead. His natural eye is normal. Pupils are mid range. Chest is clear. CARDIAC: Demonstrates atrial fibrillation. ABDOMEN: Soft, nontender. Bowel sounds are present. IMPRESSION: 1. Fall. 2. Fever, undetermined etiology. 3. Diarrhea. 4. Rule out myocardial infarction. 5. Arrhythmia. 6. Malaise, etiology unknown. PLAN: Continue to monitor vital signs, heart rhythm and rate, and await further results of cultures. If diarrhea continues, this will have to be further investigated.
[2016-11-02] MEDS: SODIUM CHLORIDE 0.9% 1,000 ML IV SCH ×4 (05:34→12:40)
[2016-11-02] MEDS: INSULIN NPL/INSULIN LISPRO 100 UNIT/ML 10 ML VIAL (Humalog 75/25) SQ SCH ×2 (06:27→20:08)
[2016-11-02] MEDS: LEVOTHYROXINE 25 MCG TAB PO SCH (06:28)
[2016-11-02 06:35] LABS: Glucose,Whole Blood 152 mg/dL (75-99)
[2016-11-02 07:09] LABS: Glucose,Whole Blood 146 mg/dL (75-99)
[2016-11-02] MEDS ORDERED: ceFAZolin 1,000 MG in DEXTROSE/WATER 1 50ML.BAG IVPB SCH (08:00)
[2016-11-02] MEDS: INSULIN LISPRO (humaLOG) 300 UNIT/3 ML VIAL SQ SCH ×4 (08:07→20:08)
[2016-11-02] MEDS: CARVEDILOL 12.5 MG TAB PO SCH ×2 (08:07→17:44)
[2016-11-02] MEDS: ATORVASTATIN 80 MG TAB PO SCH (08:08)
[2016-11-02] MEDS: FUROSEMIDE 20 MG TAB PO SCH ×2 (08:08→20:09)
[2016-11-02] MEDS: metFORMIN 500 MG TAB PO SCH (08:08)
[2016-11-02] MEDS: ALLOPURINOL 300 MG TAB PO SCH (08:08)
[2016-11-02] MEDS: ASPIRIN 81 MG CHEW PO SCH (08:08)
[2016-11-02] MEDS: CARBIDOPA-LEVODOPA 25-100 MG 1 EACH TAB PO SCH ×3 (08:08→20:08)
[2016-11-02] MEDS: IPRATROPIUM-ALBUTEROL 3 ML NEB INHALATION SCH ×4 (08:12→21:29)
[2016-11-02 08:52] LABS: INR 1.2 (<1.1); Prothrombin Time 12.1 sec (9.0-12.0)
[2016-11-02 09:11] LABS: ALT 28 U/L (21-72); AST 59 U/L (17-59); Alkaline Phosphatase 59 U/L (38-126); Anion Gap 7 mmol/L; Blood Urea Nitrogen 19 mg/dL (9-20); Calcium 7.9 mg/dL (8.4-10.2); Carbon Dioxide 25 mmol/L (22-30); Chloride 109 mmol/L (98-107); Glucose 88 mg/dL (74-99); Non-African American GFR(MDRD) >60 (>60 ml/min/1.73 sqM); Potassium 3.4 mmol/L (3.5-5.1); Sodium 141 mmol/L (137-145); Total Bilirubin 0.6 mg/dL (0.2-1.3); Total Protein 5.4 g/dL (6.3-8.2)
[2016-11-02] MEDS: CHOLESTYRAMINE (WITH SUGAR) 4 GM PACKET PO SCH ×2 (10:14→17:43)
--- NOTE | 2016-11-02 10:23 | CDI ---
In responding to this query, please exercise your independent professional judgment. The [facility] Coding Staff and Clinical Documentation Specialists appreciate your assistance in clarifying documentation, maintaining compliance with coding guidelines, accurately documenting patients condition and capturing severity of illness. The fact that a question is asked does not imply that any particular answer is desired or expected. Communication forms are a method of clarifying documentation and are not made part of the Legal Health Record. Thank you in advance for your clarification. Last Revision, May 2015 Lizamehnaz Blancas [address] [facility] [place] [address] Documentation Clarification Form Date: 11/02/2016 10:19:00 AM From: Josephine Solano Admit Date: 10/29/2016 10:49:00 PM Patient Name: Santosh Hathaway Visit Number: [id number] Dr. Cuhcho Fan Clinical Indicators: Abnormal Lab results on 11/01/2016 - K+ 2.9 Treatment: PO Potassium Clinical significance of diagnostic testing and treatment CANNOT be assumed or coded without physician documentation of significance if any. Please clarify what abnormal laboratory signifies: Abnormal Lab Value (please specify) Unable to determine Other, please specify Please document in your progress notes and discharge summary in order to capture severity of illness and risk of mortality. Include clinical findings that support your diagnosis. FYI: Press F11 to launch patient chart Place X here if this finding has no clinical significance, is not applicable or if you are not able to provide any additional documentation. JOAND
[2016-11-02 11:02] LABS: Glucose,Whole Blood 93 mg/dL (75-99)
--- NOTE | 2016-11-02 12:24 | P.PN ---
Subjective 86-year-old male being seen on rounds. Patient states the loose stools have stopped. No abdominal pain no nausea vomiting. Patient is aware of the plan of care patient will be evaluated for possible subacute rehab [facility] [place]. The cyanide case hardener and outreach and education social worker pursuing the discharge plan. Daughter is at bedside updated on plan of care Did note the blood cultures that were drawn on the seventh gram-positive cocci Hospital course 86-year-old male who follows with Dr. Prakash primary shortage worker in the office presented to the emergency room to be evaluated for a chief complaint of developing episode of nausea vomiting loose stools with a chronic cough. Patient additionally reportedly was experiencing chills. no recent travel. Patient's last hospitalization was in June 2016. Patient stated his symptoms became progressively worse over the last day or 2 decrease appetite increased weakness decreased endurance. Patient denied abdominal pain. Patient did report having chest discomfort. A cardiology consultation was requested. Patient has a known history of cardiomyopathy BIV ICD. Patient' s last echo was in June 2016 it showed an ejection fraction of 20-25%. Cardiac enzymes this admission were negative. Electrolytes were abnormal magnesium 1.6. BNP 3070 the white count on admission 5.1 the temp on admission was 102.8 the urinalysis was negative for evidence of a UTI influenza A and B was not detected C. diff no evidence of negative INR was 2.9 cardiology evaluated the patient resume cardiac meds recommended holding the Coumadin until the INR was 22 sets of blood cultures were ordered they felt the elevated troponins were not suggestive of a myocardial injury. Additionally patient was showing no signs of an overt heart failure. Patient was started on Lomotil and Questran with a noted improvement no further loose stools Objective - Vital Signs Vital signs: Vital Signs Temp 98.1 F 11/02/16 07:54 Pulse 74 11/02/16 07:54 Resp 18 11/02/16 07:54 BP 124/66 11/02/16 07:54 Pulse Ox 98 11/02/16 07:54 Intake & Output 11/01/16 11/02/16 11/02/16 18:59 06:59 18:59 Intake Total 240 Output Total 550 Balance 240 -550 Weight 104.5 kg Intake: Oral 240 Output: Urine 550 Other: Voiding Method Urinal Urinal Diaper Diaper Incontinent Incontinent # Voids 1 # Bowel Movements 1 - Exam Physical exam 86-year-old male sitting up on the edge of the bed reports feeling tired no loose stools during the night appetite increasing oriented 3 Lungs diminished at the bases otherwise adequate air movement Heart S1-S2 audible irregular monitor A. fib rate controlled denying pain Abdomen soft nontender bowel tones present Extremities below-knee KAVIN hose on nonpitting edema noted - Labs CBC & Chem 7: 11/01/16 05:49 11/02/16 08:20 Labs: Abnormal Lab Results - Last 24 Hours (Table) 11/01/16 11/01/16 11/01/16 Range/Units 12:02 16:45 20:54 PT (9.0-12.0) sec Potassium (3.5-5.1) mmol/L Chloride (98-107) mmol/L POC Glucose (mg/dL) 71 L 108 H 137 H (75-99) mg/dL Calcium (8.4-10.2) mg/dL Total Protein (6.3-8.2) g/dL Albumin (3.5-5.0) g/dL 11/02/16 11/02/16 11/02/16 Range/Units 06:24 07:03 08:20 PT 12.1 H (9.0-12.0) sec Potassium (3.5-5.1) mmol/L Chloride (98-107) mmol/L POC Glucose (mg/dL) 152 H 146 H (75-99) mg/dL Calcium (8.4-10.2) mg/dL Total Protein (6.3-8.2) g/dL Albumin (3.5-5.0) g/dL 11/02/16 Range/Units 08:20 PT (9.0-12.0) sec Potassium 3.4 L (3.5-5.1) mmol/L Chloride 109 H (98-107) mmol/L POC Glucose (mg/dL) (75-99) mg/dL Calcium 7.9 L (8.4-10.2) mg/dL Total Protein 5.4 L (6.3-8.2) g/dL Albumin 2.6 L (3.5-5.0) g/dL Assessment and Plan Plan: Impression Shortness of breath decreased endurance present on admission suspect acute exacerbation COPD Electrolyte abnormality potassium 2.9 Mild protein calorie malnutrition suspect chronic due to poor caloric intake Present on admission febrile temp 102.8 likely due to bronchitis chest x-ray no evidence of pneumonia no evidence of sepsis cardiomyopathy ejection fraction 20-25% Chronic congestive heart failure systolic dysfunction EF 20-25% with no evidence of decompensation or signs of overt heart failure Biventricular ICD device with a recent nonischemic stress test Deconditioned D debilitated due to comorbidities Present on admission elevated troponins with no evidence of acute coronary ischemia Frequent loose stooling suspect viral C. diff negative Type 2 diabetes hemoglobin A1c 6.4 insulin requiring Blood cultures drawn on October 29 times to gram-positive cocci Plan Consult infectious disease to the positive blood culture wait for the cultures to be finalized hypersensitivity Restart Coumadin monitor INR PT OT eval Discharge plan and progress possible subacute rehab appropriate Monitor blood sugars address as indicated Potassium to be replaced Respiratory treatments as ordered Questran and Imodium as ordered resume home meds as appropriate The above dictated assessment and findings were discussed with dr ward Impression and the plan of care have been dictated as directed. Kaylin Esteves nurse practitioner acting as a scribe for dr ward
[2016-11-02] MEDS: CHOLECALCIFEROL 1,000 UNIT TAB PO SCH (12:39)
[2016-11-02] MEDS: MULTIVITAMINS, THERA 1 EACH TAB PO SCH (12:39)
[2016-11-02] MEDS ORDERED: IV VANCOMYCIN PER PHARMACY 1 EACH MISC MISCELLANE PRN (13:02)
[2016-11-02] MEDS: VANCOMYCIN 1,750 MG in SODIUM CHLORIDE 0.9% 250 ML IVPB SCH ×2 (14:28→23:10)
[2016-11-02] MEDS: POTASSIUM CHLORIDE ER 20 MEQ TAB.ER PO SCH ×2 (14:28→16:22)
[2016-11-02 17:31] LABS: Glucose,Whole Blood 116 mg/dL (75-99)
[2016-11-02] MEDS: WARFARIN 7.5 MG TAB PO SCH (17:49)
[2016-11-02 20:07] LABS: Glucose,Whole Blood 148 mg/dL (75-99)
[2016-11-02] MEDS: DONEPEZIL 10 MG TAB PO SCH (20:07)
[2016-11-02 21:57] VITALS: RESP 16
--- NOTE | 2016-11-02 23:13 | P.CONS ---
History of Present Illness - Reason for Consult Consult date: 11/02/16 - Chief Complaint Sepsis - History of Present Illness 86-year-old male who is a poor historian presents to the extended care facility with evidence of a temperature of 102.2. Apparently at that point in time he was having delirium and confusion. The patient is feeling slightly better. But still not a good historian. The patient apparently lives with a daughter in a duplex setting. But has been getting weaker as of late. With his current illness and weakness does not believe the family will help take care of him and would go to rehab for some physical strengthening. Infectious diseases consultation requested regarding evidence of possible cultures. This pleasant gentleman relates that he is definitely had falls at home. In the days before coming to hospital. He is aware that his become very weak and is concerned. However is denying headache or visual change. His denying cough or sputum production. No hemoptysis. Denies nausea or emesis or diarrhea. He relates he ate some lasagna and was worried that maybe this made him sick and he was having some loose stool for several days after coming to hospital. He's had no melena or hematochezia. No dysuria or change in urinary habits. His nocturia has not changed. No skin rashes but has multiple bruises from his falls Review of Systems As per the HPI HEENT:Denies headache or acute visual change. Denies sinus or mouth discomforts. Denies neck stiffness or pain. Denies significant oral cavity pain. Denies difficulty on swallowing. Lungs: Denies significant shortness of breath, cough, sputum production, or hemoptysis. Cardiovascular: Denies significant shortness of breath, chest pain, chest wall pain, orthopnea, dyspnea on exertion, syncope Gastrointestinal:Denies nausea, vomiting, diarrhea, constipation, hematemesis, melena, hematochezia. No no significant change of bowel habit noticed. Musculoskeletal: denies significant myalgias or arthralgias. No new joint swelling. Denies new back pain. Skin: Denies new rash or lesions. No new ulcers or wounds are related.. Neuro: Denies headache his had generalized weakness multiple falls Psychiatric:Denies anxiety or depression. Endocrine: Increasing fatigue but denies weight gain Past Medical History Past Medical History: Atrial Fibrillation, Heart Failure, COPD, Dementia, Diabetes Mellitus, Hyperlipidemia, Hypertension, Thyroid Disorder Additional Past Medical History / Comment(s): gout, family stated that a geriatric neurologist at [facility] felt that pt had parkinsons(on meds), dr lindquist here did tests but family does'nt know results yet. 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 Replacement pacemaker in 2010. prosthetic right eye. ben holes 2007 Past Anesthesia/Blood Transfusion Reactions: No Reported Reaction Type of Cardiac Device: AICD Device Placement Date:: 2011 Past Psychological History: Depression Additional Psychological History / Comment(s): . Daughter lives next door. No current tobacco use or alcohol use. Retired labor. Denied experience or travel history. No animal exposures Smoking Status: Former smoker Past Alcohol Use History: Occasional Additional Past Alcohol Use History / Comment(s): started smoking 1939, quit 1954, smoked 1 ppd. Past Drug Use History: None Reported - Past Family History Mother Family Medical History: Blood Disorder Additional Family Medical History / Comment(s): famialy not sure what is was called Father Family Medical History: Myocardial Infarction (NE) Medications and Allergies Home Medications and Allergies Comment(s): Current Medications Albuterol/Ipratropium (Duoneb 0.5 Mg-3 Mg/3 Ml Soln) 3 ml INHALATION RT-QID PRN PRN Reason: Shortness Of Breath Or Wheezing Albuterol/Ipratropium (Duoneb 0.5 Mg-3 Mg/3 Ml Soln) 3 ml INHALATION RT-QID [facility] Last Admin: 11/02/16 21:29 Dose: Not Given Allopurinol (Zyloprim) 300 mg PO DAILY [facility] Last Admin: 11/02/16 08:08 Dose: 300 mg Aspirin (Aspirin) 81 mg PO DAILY [facility] Last Admin: 11/02/16 08:08 Dose: 81 mg Atorvastatin Calcium (Lipitor) 80 mg PO DAILY [facility] Last Admin: 11/02/16 08:08 Dose: 80 mg Carbidopa/Levodopa (Sinemet 25-100) 1 each PO TID [facility] Last Admin: 11/02/16 20:08 Dose: 1 each Carvedilol (Coreg) 12.5 mg PO BID-W/MEALS [facility] Last Admin: 11/02/16 17:44 Dose: 12.5 mg Cholecalciferol (Vitamin D3) 1,000 unit PO 1200 [facility] Last Admin: 11/02/16 12:39 Dose: 1,000 unit Cholestyramine Resin (Questran) 4 gm PO BID@1000,1800 [facility] Last Admin: 11/02/16 17:43 Dose: 4 gm Diphenoxylate HCl/Atropine (Lomotil) 1 each PO Q6HR PRN PRN Reason: Diarrhea Last Admin: 10/31/16 12:33 Dose: 1 each Donepezil HCl (Aricept) 10 mg PO HS [facility] Last Admin: 11/02/16 20:07 Dose: 10 mg Furosemide (Lasix) 20 mg PO BID [facility] Last Admin: 11/02/16 20:09 Dose: 20 mg Sodium Chloride (Saline 0.9%) 1,000 mls @ 50 mls/hr IV .Q20H [facility] Last Admin: 11/02/16 12:40 Dose: 50 mls/hr Ceftriaxone Sodium 1,000 mg/ (Sodium Chloride) 50 mls @ 100 mls/hr IVPB Q24H [facility] Last Admin: 11/02/16 17:50 Dose: 100 mls/hr Vancomycin HCl 1,750 mg/ (Sodium Chloride) 250 mls @ 125 mls/hr IVPB Q12HR@0000 ,1200 [facility] Last Admin: 11/02/16 14:28 Dose: 125 mls/hr Insulin Human Lispro (Humalog) 0 unit SQ ACHS [facility] PRN Reason: Protocol Last Admin: 11/02/16 20:08 Dose: 1 unit Insulin Lispro Protam/Lispro Human (Humalog Mix 75-25 Vial) 40 unit SQ DAILY@ 0630 [facility] Last Admin: 11/02/16 06:27 Dose: 40 unit Insulin Lispro Protam/Lispro Human (Humalog Mix 75-25 Vial) 20 unit SQ HS [facility] Last Admin: 11/02/16 20:08 Dose: 20 unit Levothyroxine Sodium (Synthroid) 25 mcg PO DAILY@0630 [facility] Last Admin: 11/02/16 06:28 Dose: 25 mcg Metformin HCl (Glucophage) 500 mg PO DAILY [facility] Last Admin: 11/02/16 08:08 Dose: 500 mg Miscellaneous Information (Magnesium Per Protocol) 1 each MISCELLANE DAILY PRN ; Protocol PRN Reason: Per Protocol Multivitamins (Theragran) 1 each PO DAILY@1200 [facility] Last Admin: 11/02/16 12:39 Dose: 1 each Nitroglycerin (Nitrostat) 0.4 mg SUBLINGUAL Q5M PRN PRN Reason: Chest Pain Ropinirole HCl (Requip) 0.5 mg PO TID [facility] Last Admin: 11/02/16 20:08 Dose: 0.5 mg Warfarin Sodium (Coumadin) 7.5 mg PO DAILY@1800 [facility] Last Admin: 11/02/16 17:49 Dose: 7.5 mg Home Medications Medication Instructions Recorded Confirmed Type Aspirin 81 mg PO DAILY 08/05/14 10/29/16 History Digoxin [Lanoxin] 125 mcg PO DAILY 08/05/14 10/29/16 History Imipramine HCl [Tofranil] 50 mg PO BID 08/05/14 10/29/16 History Nitroglycerin Sl Tabs [Nitrostat] 0.4 mg SUBLINGUAL Q5M PRN 08/05/14 10/29/16 History Warfarin [Coumadin] 10 mg PO HS 08/05/14 10/29/16 History Allopurinol [Zyloprim] 300 mg PO DAILY 08/06/14 10/29/16 History Carbidopa-Levodopa 25-100 mg 1 tab PO TID 12/11/15 10/29/16 History [Sinemet 25-100 mg] Cholecalciferol [Vitamin D3] 1,000 unit PO DAILY 12/11/15 10/29/16 History Levothyroxine Sodium [Synthroid] 25 mcg PO DAILY 12/11/15 10/29/16 History Simvastatin [Zocor] 40 mg PO HS 12/11/15 10/29/16 History metFORMIN HCL [Glucophage] 500 mg PO DAILY 12/11/15 10/29/16 History Multivitamin [Men's Multi-Vitamin] 1 tab PO DAILY 12/12/15 10/29/16 History rOPINIRole HCL [Requip] 0.5 mg PO TID 06/24/16 10/29/16 History Carvedilol [Coreg] 6.25 mg PO BID 10/29/16 10/29/16 History Furosemide [Lasix] 20 mg PO BID 10/29/16 10/29/16 History Warfarin [Coumadin] 1 mg PO HS 10/29/16 10/29/16 History Allergies Allergy/AdvReac Type Severity Reaction Status Date / Time phenytoin sodium Allergy Severe Rash/Hives Verified 10/29/16 22:46 [From Dilantin] phenytoin sodium extended Allergy Severe Rash/Hives Verified 10/29/16 22:46 [From Dilantin] zoster vaccine live Allergy Unknown Verified 10/29/16 22:46 amiodarone AdvReac Dyspnea Verified 10/29/16 22:46 spironolactone AdvReac Gynecomasti Verified 10/29/16 22:46 a Physical Exam Vitals: Vital Signs Temp Pulse Resp BP BP Pulse Ox 11/02/16 21:11 97.4 F L 62 16 128/61 100 11/02/16 15:00 97.3 F L 73 18 111/50 99 11/02/16 07:54 98.1 F 74 18 124/66 98 Intake and Output 11/02/16 11/02/16 11/03/16 14:59 22:59 06:59 Intake Total 400 Balance 400 Intake: Oral 400 Other: Voiding Method Urinal Urinal Diaper Diaper Incontinent Incontinent # Voids 2 # Bowel Movements 1 1 86-year-old male who is of a tall somewhat muscular build has multiple areas of ecchymosis from his falls HEENT: Anicteric conjunctiva are pink and moist nasal mucosa grossly intact without significant lesions, there is no thrush. Right eye prosthesis. Calvarium has a defect from the prior bur holes from his drainage of his subdural Neck: The neck is supple without significant lymphadenopathy or thyromegaly. Lungs: Good bilateral air entry without significant crackles or wheezing. There is no significant bronchial sounds. There is no egophony or dullness. Heart: Regular rate and rhythm with an audible S1-S2, no S3 no S4. There is no significant murmur click or rub, PMI was nondisplaced. Abdomen: Positive bowel sounds soft and nontender without palpable masses or organomegaly. There was no guarding or rebound. Extremities: The upper extremities have excellent pulses they are symmetric, no significant petechiae or telangiectasia. No splinter hemorrhages were noted. The lower extremities are free from significant edema. The peripheral pulses were 2+ and symmetric. Neuro: The patient is awake and alert but still somewhat vague. He has some generalized weakness. But no acute gross focal sensory motor deficits Skin is evidence of scattered ecchymosis especially in the right arm from his most recent fall. Results CBC & Chem 7: 11/01/16 05:49 11/02/16 08:20 Labs: Abnormal Lab Results - Last 24 Hours (Table) 11/02/16 11/02/16 11/02/16 Range/Units 06:24 07:03 08:20 PT 12.1 H (9.0-12.0) sec Potassium (3.5-5.1) mmol/L Chloride (98-107) mmol/L POC Glucose (mg/dL) 152 H 146 H (75-99) mg/dL Calcium (8.4-10.2) mg/dL Total Protein (6.3-8.2) g/dL Albumin (3.5-5.0) g/dL 11/02/16 11/02/16 11/02/16 Range/Units 08:20 17:29 20:05 PT (9.0-12.0) sec Potassium 3.4 L (3.5-5.1) mmol/L Chloride 109 H (98-107) mmol/L POC Glucose (mg/dL) 116 H 148 H (75-99) mg/dL Calcium 7.9 L (8.4-10.2) mg/dL Total Protein 5.4 L (6.3-8.2) g/dL Albumin 2.6 L (3.5-5.0) g/dL Laboratory Results WBC 3.3 k/uL (3.8-10.6) L 11/01/16 05:49 RBC 3.41 m/uL (4.30-5.90) L 11/01/16 05:49 Hgb 11.0 gm/dL (13.0-17.5) L 11/01/16 05:49 Hct 33.5 % (39.0-53.0) L 11/01/16 05:49 MCV 98.5 fL (80.0-100.0) 11/01/16 05:49 MCH 32.2 pg (25.0-35.0) 11/01/16 05:49 MCHC 32.7 g/dL (31.0-37.0) 11/01/16 05:49 RDW 15.0 % (11.5-15.5) 11/01/16 05:49 Plt Count 106 k/uL (150-450) L 11/01/16 05:49 Neutrophils % 68 % 11/01/16 05:49 Lymphocytes % 20 % 11/01/16 05:49 Monocytes % 9 % 11/01/16 05:49 Eosinophils % 0 % 11/01/16 05:49 Basophils % 0 % 11/01/16 05:49 Neutrophils # 2.3 k/uL (1.3-7.7) 11/01/16 05:49 Lymphocytes # 0.7 k/uL (1.0-4.8) L 11/01/16 05:49 Monocytes # 0.3 k/uL (0-1.0) 11/01/16 05:49 Eosinophils # 0.0 k/uL (0-0.7) 11/01/16 05:49 Basophils # 0.0 k/uL (0-0.2) 11/01/16 05:49 PT 12.1 sec (9.0-12.0) H 11/02/16 08:20 INR 1.2 (<1.1) 11/02/16 08:20 APTT 32.4 sec (22.0-30.0) H 10/29/16 21:35 Sodium 141 mmol/L (137-145) 11/02/16 08:20 Potassium 3.4 mmol/L (3.5-5.1) L 11/02/16 08:20 Chloride 109 mmol/L (98-107) H 11/02/16 08:20 Carbon Dioxide 25 mmol/L (22-30) 11/02/16 08:20 Anion Gap 7 mmol/L 11/02/16 08:20 BUN 19 mg/dL (9-20) 11/02/16 08:20 Creatinine 0.74 mg/dL (0.66-1.25) 11/02/16 08:20 Est GFR (MDRD) Af Amer >60 (>60 ml/min/1.73 sqM) 11/02/16 08:20 Est GFR (MDRD) Non-Af >60 (>60 ml/min/1.73 sqM) 11/02/16 08:20 Glucose 88 mg/dL (74-99) 11/02/16 08:20 POC Glucose (mg/dL) 148 mg/dL (75-99) H 11/02/16 20:05 POC Glu Licensing Analyst ID Keily Guerra 11/02/16 20:[address] Glu mg/dL 137 mg/dL 10/30/16 09:21 Hemoglobin A1c 6.4 % (4.2-6.1) H 10/30/16 09:21 Calcium 7.9 mg/dL (8.4-10.2) L 11/02/16 08:20 Magnesium 2.1 mg/dL (1.6-2.3) 10/31/16 05:31 Total Bilirubin 0.6 mg/dL (0.2-1.3) 11/02/16 08:20 AST 59 U/L (17-59) 11/02/16 08:20 ALT 28 U/L (21-72) 11/02/16 08:20 Alkaline Phosphatase 59 U/L (38-126) 11/02/16 08:20 Total Creatine Kinase 436 U/L (55-170) H 10/30/16 09:21 CK-MB (CK-2) 7.1 ng/mL (0.0-2.4) H* 10/30/16 09:21 CK-MB (CK-2) Rel Index 1.6 10/30/16 09:21 Troponin I 0.088 ng/mL (0.000-0.034) H* 10/30/16 09:21 NT-Pro-B Natriuret Pep 3070 pg/mL 10/29/16 21:35 Total Protein 5.4 g/dL (6.3-8.2) L 11/02/16 08:20 Albumin 2.6 g/dL (3.5-5.0) L 11/02/16 08:20 Triglycerides 59 mg/dL (<150) 10/30/16 03:06 Cholesterol 83 mg/dL (<200) 10/30/16 03:06 LDL Cholesterol, Calc 40 mg/dL (0-99) 10/30/16 03:06 HDL Cholesterol 31 mg/dL (40-60) L 10/30/16 03:06 Urine Color Yellow 10/29/16 23:45 Urine Appearance Clear (Clear) 10/29/16 23:45 Urine pH 5.5 (5.0-8.0) 10/29/16 23:45 Ur Specific [place] 1.018 (1.001-1.035) 10/29/16 23:45 Urine Protein Negative (Negative) 10/29/16 23:45 Urine Glucose (UA) Negative (Negative) 10/29/16 23:45 Urine Ketones Negative (Negative) 10/29/16 23:45 Urine Blood Negative (Negative) 10/29/16 23:45 Urine Nitrite Negative (Negative) 10/29/16 23:45 Urine Bilirubin Negative (Negative) 10/29/16 23:45 Urine Urobilinogen 2.0 mg/dL (<2.0) 10/29/16 23:45 Ur Leukocyte Esterase Negative (Negative) 10/29/16 23:45 C. difficile (EIA) Intrp Negative (Negative) 10/31/16 05:00 Influenza Type A RNA Not Detected (Not Detectd) 10/29/16 22:40 Influenza Type B (PCR) Not Detected (Not Detectd) 10/29/16 22:40 Microbiology 10/29/16 21:35 Blood Blood Culture Gram Stain - Preliminary 10/29/16 21:35 Blood Blood Culture - Preliminary 10/29/16 23:45 Urine,Clean Catch Urine Culture - Final Assessment and Plan (1) Fall Status: Acute (2) Gram-positive bacteremia Narrative/Plan: 86-year-old male with history of prior subdural hematoma requiring surgical drainage as well as ischemic cardiomyopathy with a pacemaker aicd in place presents to hospital with falls and increasing weakness. The patient was not feeling well and his family brought him to Hospital where he was on of temperature 102.2. Workup was initiated antibiotic therapy was started with Rocephin. However possible cultures have been call with gram-positive cocci in the call was received vancomycin therapy was started. Follow blood cultures are requested. His chest x-ray is clear. His been seen by cardiology with no significant new concerns. Brain CT does not show evidence of any new bleed. Urinalysis is benign. Influenza testing was negative. Concerns to spontaneous staph aureus bacteremia or that related to his underlying prior interventions is of concern. Is on vancomycin therapy is started and we will monitor. Patient does have relative leukopenia and thrombocytopenia as well as anemia. This will be monitored, if he continues to have a pancytopenia may need further workup also. Or is reactive due to underlying sepsis. Status: Acute
[2016-11-03] MEDS: SODIUM CHLORIDE 0.9% 1,000 ML IV SCH ×2 (04:20→08:00)
--- NOTE | 2016-11-03 06:01 | PN ---
DATE OF SERVICE: 11/01/2016 CHIEF COMPLAINT: Syncope, congestive heart failure, arrhythmia, intractable diarrhea, elevated troponin. HISTORY OF PRESENT ILLNESS: This gentleman has been doing a little bit better. The diarrhea has slowed. He is feeling much better. He is stronger. His orientation seems better. PHYSICAL EXAMINATION: His color is improved. Chest is clear. Cardiac exam is unchanged. He was in atrial fibrillation. ABDOMEN: Soft and bowel sounds are present. EXTREMITIES: Normal. IMPRESSION: 1. Fever. 2. Diarrhea; etiology unknown, improving. 3. Congestive heart failure. 4. Previous head injury with seizure. PLAN: No change in program and we are working on a discharge plan. ADDENDUM: Later in the night I was contacted that he had gram positive blood culture and he was started on ( ) IV.
[2016-11-03 06:06] LABS: Glucose,Whole Blood 136 mg/dL (75-99)
[2016-11-03] MEDS: INSULIN NPL/INSULIN LISPRO 100 UNIT/ML 10 ML VIAL (Humalog 75/25) SQ SCH ×2 (06:06→23:02)
[2016-11-03] MEDS: LEVOTHYROXINE 25 MCG TAB PO SCH (06:07)
--- NOTE | 2016-11-03 06:34 | PN ---
DATE OF SERVICE: 11/02/2016 CHIEF COMPLAINT: Diarrhea, Gram-positive septicemia, CAD, CHF. HISTORY OF PRESENT ILLNESS: The gentleman is doing fairly well. He was started on an antibiotic because of positive blood culture, but he is clinically not septic. We are working on a discharge plan. PHYSICAL EXAM: Chest is clear. The cardiac exam is normal. ABDOMEN: Soft, nontender. IMPRESSION: 1. Status post Gram-positive septicemia. 2. Diarrhea. 3. Syncope. 4. Coronary artery disease. 5. Congestive heart failure. 6. Possible myocardial infarction. PLAN: Continue to work on discharge planning and he may go to a shelter and it could be today and this will be arranged by the nurse practitioner.
[2016-11-03 06:51] LABS: Glucose,Whole Blood 135 mg/dL (75-99)
[2016-11-03] MEDS: CARVEDILOL 12.5 MG TAB PO SCH ×2 (07:58→18:04)
[2016-11-03] MEDS: INSULIN LISPRO (humaLOG) 300 UNIT/3 ML VIAL SQ SCH ×4 (07:58→22:56)
[2016-11-03] MEDS: ASPIRIN 81 MG CHEW PO SCH (07:59)
[2016-11-03] MEDS: metFORMIN 500 MG TAB PO SCH (07:59)
[2016-11-03] MEDS: ALLOPURINOL 300 MG TAB PO SCH (07:59)
[2016-11-03] MEDS: ATORVASTATIN 80 MG TAB PO SCH (08:00)
[2016-11-03] MEDS: CARBIDOPA-LEVODOPA 25-100 MG 1 EACH TAB PO SCH ×3 (08:00→22:56)
[2016-11-03] MEDS: FUROSEMIDE 20 MG TAB PO SCH ×2 (08:00→22:56)
[2016-11-03] MEDS: IPRATROPIUM-ALBUTEROL 3 ML NEB INHALATION SCH ×4 (08:33→19:56)
[2016-11-03 08:58] LABS: INR 1.4 (<1.1); Prothrombin Time 13.8 sec (9.0-12.0)
[2016-11-03] MEDS: CHOLESTYRAMINE (WITH SUGAR) 4 GM PACKET PO SCH ×2 (09:49→18:02)
[2016-11-03 10:56] LABS: C Reactive Protein 12.9 mg/L (<10.0)
[2016-11-03 11:34] LABS: Glucose,Whole Blood 63 mg/dL (75-99)
[2016-11-03 11:44] LABS: Glucose,Whole Blood 70 mg/dL (75-99)
[2016-11-03 12:25] LABS: ALT 24 U/L (21-72); AST 43 U/L (17-59); Alkaline Phosphatase 49 U/L (38-126); Anion Gap 6 mmol/L; Blood Urea Nitrogen 15 mg/dL (9-20); Carbon Dioxide 22 mmol/L (22-30); Chloride 112 mmol/L (98-107); Glucose 98 mg/dL (74-99); Non-African American GFR(MDRD) >60 (>60 ml/min/1.73 sqM); Potassium 4.1 mmol/L (3.5-5.1); Sodium 140 mmol/L (137-145); Total Bilirubin 0.4 mg/dL (0.2-1.3); Total Protein 4.7 g/dL (6.3-8.2)
[2016-11-03] MEDS: VANCOMYCIN 1,750 MG in SODIUM CHLORIDE 0.9% 250 ML IVPB SCH ×2 (13:06→23:10)
[2016-11-03] MEDS: MULTIVITAMINS, THERA 1 EACH TAB PO SCH (13:07)
[2016-11-03] MEDS: CHOLECALCIFEROL 1,000 UNIT TAB PO SCH (13:07)
[2016-11-03 16:53] LABS: Glucose,Whole Blood 107 mg/dL (75-99)
--- NOTE | 2016-11-03 17:47 | PN ---
CHIEF COMPLAINT: Sepsis. HISTORY OF PRESENT ILLNESS: This gentleman is doing fairly well and temperature has been down. He is having no problems. Because of his positive blood culture, infectious disease wants to keep him in the hospital for several more days on IV antibiotics. CHEST: Clear. CARDIAC: Normal. ABDOMEN: Soft, nontender. IMPRESSION: 1. Gram-positive septicemia. 2. Gastroenteritis. 3. Congestive heart failure. 4. Coronary artery disease. 5. Seizure disorder. PLAN: Continue with IV antibiotics for 2 to 3 more days as per guidelines from infectious disease.
[2016-11-03] MEDS: WARFARIN 7.5 MG TAB PO SCH (18:04)
[2016-11-03 20:33] LABS: Glucose,Whole Blood 135 mg/dL (75-99)
--- NOTE | 2016-11-03 22:42 | P.PN ---
Subjective Principal diagnosis: Sepsis 86-year-old male who is a poor historian presents to the extended care facility with evidence of a temperature of 102.2. Apparently at that point in time he was having delirium and confusion. The patient is feeling slightly better. But still not a good historian. The patient apparently lives with a daughter in a duplex setting. But has been getting weaker as of late. With his current illness and weakness does not believe the family will help take care of him and would go to rehab for some physical strengthening. Infectious diseases consultation requested regarding evidence of possible cultures. This pleasant gentleman relates that he is definitely had falls at home. In the days before coming to hospital. He is aware that his become very weak and is concerned. However is denying headache or visual change. His denying cough or sputum production. No hemoptysis. Denies nausea or emesis or diarrhea. He relates he ate some lasagna and was worried that maybe this made him sick and he was having some loose stool for several days after coming to hospital. He's had no melena or hematochezia. No dysuria or change in urinary habits. His nocturia has not changed. No skin rashes but has multiple bruises from his falls Objective - Vital Signs Vital signs: Vital Signs Temp 97.5 F L 11/03/16 15:00 Pulse 76 11/03/16 15:00 Resp 16 11/03/16 15:00 BP 131/60 11/03/16 15:00 Pulse Ox 94 L 11/03/16 15:00 Intake & Output 11/03/16 11/03/16 11/04/16 06:59 18:59 06:59 Intake Total 800 Output Total 450 Balance 350 Intake: Intake, IV Titration 400 Amount Sodium Chloride 0.9% 1, 400 000 ml @ 50 mls/hr IV . Q20H [facility] Rx#:[id number] Oral 400 Output: Urine 450 Other: Voiding Method Urinal Urinal Diaper Diaper Incontinent Incontinent # Voids 1 2 # Bowel Movements 1 - Exam 86-year-old male who is of a tall somewhat muscular build has multiple areas of ecchymosis from his falls HEENT: Anicteric conjunctiva are pink and moist nasal mucosa grossly intact without significant lesions, there is no thrush. Right eye prosthesis. Calvarium has a defect from the prior bur holes from his drainage of his subdural Neck: The neck is supple without significant lymphadenopathy or thyromegaly. Lungs: Good bilateral air entry without significant crackles or wheezing. There is no significant bronchial sounds. There is no egophony or dullness. Heart: Regular rate and rhythm with an audible S1-S2, no S3 no S4. There is no significant murmur click or rub, PMI was nondisplaced. Abdomen: Positive bowel sounds soft and nontender without palpable masses or organomegaly. There was no guarding or rebound. Extremities: The upper extremities have excellent pulses they are symmetric, no significant petechiae or telangiectasia. No splinter hemorrhages were noted. The lower extremities are free from significant edema. The peripheral pulses were 2+ and symmetric. Neuro: The patient is awake and alert but still somewhat vague. He has some generalized weakness. But no acute gross focal sensory motor deficits Skin is evidence of scattered ecchymosis especially in the right arm from his most recent fall. - Labs CBC & Chem 7: 11/01/16 05:49 11/03/16 08:05 Labs: Abnormal Lab Results - Last 24 Hours (Table) 11/03/16 11/03/16 11/03/16 Range/Units 06:02 06:50 08:05 ESR (0-15) mm/hr PT 13.8 H (9.0-12.0) sec Chloride (98-107) mmol/L POC Glucose (mg/dL) 136 H 135 H (75-99) mg/dL Calcium (8.4-10.2) mg/dL C-Reactive Protein (<10.0) mg/L Total Protein (6.3-8.2) g/dL Albumin (3.5-5.0) g/dL Prealbumin (18-36) mg/dL 11/03/16 11/03/16 11/03/16 Range/Units 08:05 08:05 08:05 ESR 32 H (0-15) mm/hr PT (9.0-12.0) sec Chloride 112 H (98-107) mmol/L POC Glucose (mg/dL) (75-99) mg/dL Calcium 8.0 L (8.4-10.2) mg/dL C-Reactive Protein 12.9 H (<10.0) mg/L Total Protein 4.7 L (6.3-8.2) g/dL Albumin 2.2 L (3.5-5.0) g/dL Prealbumin 12 L (18-36) mg/dL 11/03/16 11/03/16 11/03/16 Range/Units 11:22 11:43 16:52 ESR (0-15) mm/hr PT (9.0-12.0) sec Chloride (98-107) mmol/L POC Glucose (mg/dL) 63 L 70 L 107 H (75-99) mg/dL Calcium (8.4-10.2) mg/dL C-Reactive Protein (<10.0) mg/L Total Protein (6.3-8.2) g/dL Albumin (3.5-5.0) g/dL Prealbumin (18-36) mg/dL 11/03/16 Range/Units 20:32 ESR (0-15) mm/hr PT (9.0-12.0) sec Chloride (98-107) mmol/L POC Glucose (mg/dL) 135 H (75-99) mg/dL Calcium (8.4-10.2) mg/dL C-Reactive Protein (<10.0) mg/L Total Protein (6.3-8.2) g/dL Albumin (3.5-5.0) g/dL Prealbumin (18-36) mg/dL Laboratory Results WBC 3.3 k/uL (3.8-10.6) L 11/01/16 05:49 RBC 3.41 m/uL (4.30-5.90) L 11/01/16 05:49 Hgb 11.0 gm/dL (13.0-17.5) L 11/01/16 05:49 Hct 33.5 % (39.0-53.0) L 11/01/16 05:49 MCV 98.5 fL (80.0-100.0) 11/01/16 05:49 MCH 32.2 pg (25.0-35.0) 11/01/16 05:49 MCHC 32.7 g/dL (31.0-37.0) 11/01/16 05:49 RDW 15.0 % (11.5-15.5) 11/01/16 05:49 Plt Count 106 k/uL (150-450) L 11/01/16 05:49 Neutrophils % 68 % 11/01/16 05:49 Lymphocytes % 20 % 11/01/16 05:49 Monocytes % 9 % 11/01/16 05:49 Eosinophils % 0 % 11/01/16 05:49 Basophils % 0 % 11/01/16 05:49 Neutrophils # 2.3 k/uL (1.3-7.7) 11/01/16 05:49 Lymphocytes # 0.7 k/uL (1.0-4.8) L 11/01/16 05:49 Monocytes # 0.3 k/uL (0-1.0) 11/01/16 05:49 Eosinophils # 0.0 k/uL (0-0.7) 11/01/16 05:49 Basophils # 0.0 k/uL (0-0.2) 11/01/16 05:49 ESR 32 mm/hr (0-15) H 11/03/16 08:05 PT 13.8 sec (9.0-12.0) H 11/03/16 08:05 INR 1.4 (<1.1) 11/03/16 08:05 APTT 32.4 sec (22.0-30.0) H 10/29/16 21:35 Sodium 140 mmol/L (137-145) 11/03/16 08:05 Potassium 4.1 mmol/L (3.5-5.1) 11/03/16 08:05 Chloride 112 mmol/L (98-107) H 11/03/16 08:05 Carbon Dioxide 22 mmol/L (22-30) 11/03/16 08:05 Anion Gap 6 mmol/L 11/03/16 08:05 BUN 15 mg/dL (9-20) 11/03/16 08:05 Creatinine 0.75 mg/dL (0.66-1.25) 11/03/16 08:05 Est GFR (MDRD) Af Amer >60 (>60 ml/min/1.73 sqM) 11/03/16 08:05 Est GFR (MDRD) Non-Af >60 (>60 ml/min/1.73 sqM) 11/03/16 08:05 Glucose 98 mg/dL (74-99) 11/03/16 08:05 POC Glucose (mg/dL) 135 mg/dL (75-99) H 11/03/16 20:32 POC Glu Food Stylist ID Gina Linda 11/03/16 20:[address] Glu mg/dL 137 mg/dL 10/30/16 09:21 Hemoglobin A1c 6.4 % (4.2-6.1) H 10/30/16 09:21 Calcium 8.0 mg/dL (8.4-10.2) L 11/03/16 08:05 Magnesium 2.1 mg/dL (1.6-2.3) 10/31/16 05:31 Total Bilirubin 0.4 mg/dL (0.2-1.3) 11/03/16 08:05 AST 43 U/L (17-59) 11/03/16 08:05 ALT 24 U/L (21-72) 11/03/16 08:05 Alkaline Phosphatase 49 U/L (38-126) 11/03/16 08:05 Total Creatine Kinase 436 U/L (55-170) H 10/30/16 09:21 CK-MB (CK-2) 7.1 ng/mL (0.0-2.4) H* 10/30/16 09:21 CK-MB (CK-2) Rel Index 1.6 10/30/16 09:21 Troponin I 0.088 ng/mL (0.000-0.034) H* 10/30/16 09:21 C-Reactive Protein 12.9 mg/L (<10.0) H 11/03/16 08:05 NT-Pro-B Natriuret Pep 3070 pg/mL 10/29/16 21:35 Total Protein 4.7 g/dL (6.3-8.2) L 11/03/16 08:05 Albumin 2.2 g/dL (3.5-5.0) L 11/03/16 08:05 Prealbumin 12 mg/dL (18-36) L 11/03/16 08:05 Triglycerides 59 mg/dL (<150) 10/30/16 03:06 Cholesterol 83 mg/dL (<200) 10/30/16 03:06 LDL Cholesterol, Calc 40 mg/dL (0-99) 10/30/16 03:06 HDL Cholesterol 31 mg/dL (40-60) L 10/30/16 03:06 Urine Color Yellow 10/29/16 23:45 Urine Appearance Clear (Clear) 10/29/16 23:45 Urine pH 5.5 (5.0-8.0) 10/29/16 23:45 Ur Specific [place] 1.018 (1.001-1.035) 10/29/16 23:45 Urine Protein Negative (Negative) 10/29/16 23:45 Urine Glucose (UA) Negative (Negative) 10/29/16 23:45 Urine Ketones Negative (Negative) 10/29/16 23:45 Urine Blood Negative (Negative) 10/29/16 23:45 Urine Nitrite Negative (Negative) 10/29/16 23:45 Urine Bilirubin Negative (Negative) 10/29/16 23:45 Urine Urobilinogen 2.0 mg/dL (<2.0) 10/29/16 23:45 Ur Leukocyte Esterase Negative (Negative) 10/29/16 23:45 C. difficile (EIA) Intrp Negative (Negative) 10/31/16 05:00 Influenza Type A RNA Not Detected (Not Detectd) 10/29/16 22:40 Influenza Type B (PCR) Not Detected (Not Detectd) 10/29/16 22:40 Microbiology 10/29/16 21:35 Blood Blood Culture Gram Stain - Preliminary 10/29/16 21:35 Blood Blood Culture - Preliminary 10/29/16 23:45 Urine,Clean Catch Urine Culture - Final Follow-up blood culture is still pending and negative so far Assessment and Plan (1) Fall Status: Acute (2) Gram-positive bacteremia Narrative/Plan: 86-year-old male with history of prior subdural hematoma requiring surgical drainage as well as ischemic cardiomyopathy with a pacemaker aicd in place presents to hospital with falls and increasing weakness. The patient was not feeling well and his family brought him to Hospital where he was on of temperature 102.2. Workup was initiated antibiotic therapy was started with Rocephin. However possible cultures have been call with gram-positive cocci in the call was received vancomycin therapy was started. Follow blood cultures are requested. His chest x-ray is clear. His been seen by cardiology with no significant new concerns. Brain CT does not show evidence of any new bleed. Urinalysis is benign. Influenza testing was negative. Concerns to spontaneous staph aureus bacteremia or that related to his underlying prior interventions is of concern. Follow up blood cultures are processing negative so far await the final identification of the original blood cultures. Is on vancomycin therapy is started and we will monitor. Patient does have relative leukopenia and thrombocytopenia as well as anemia. This will be monitored, if he continues to have a pancytopenia may need further workup also. Or is reactive due to underlying sepsis. Status: Acute
[2016-11-03] MEDS: DONEPEZIL 10 MG TAB PO SCH (22:57)
[2016-11-04 06:17] LABS: Glucose,Whole Blood 43 mg/dL (75-99)
[2016-11-04] MEDS ORDERED: DEXTROSE 50%-WATER 50 ML SYRINGE IVP ONE (06:21)
[2016-11-04] MEDS: INSULIN NPL/INSULIN LISPRO 100 UNIT/ML 10 ML VIAL (Humalog 75/25) SQ SCH (06:25)
[2016-11-04 06:52] LABS: Glucose,Whole Blood 78 mg/dL (75-99)
[2016-11-04] MEDS: CARVEDILOL 12.5 MG TAB PO SCH (07:03)
[2016-11-04] MEDS: LEVOTHYROXINE 25 MCG TAB PO SCH (07:03)
[2016-11-04 08:09] LABS: Glucose,Whole Blood 88 mg/dL (75-99)
[2016-11-04] MEDS: INSULIN LISPRO (humaLOG) 300 UNIT/3 ML VIAL SQ SCH (08:55)
[2016-11-04 09:01] VITALS: BP 126/60; PULSE 57; TEMP 96.9
--- NOTE | 2016-11-04 09:37 | P.DS ---
Providers Date of admission: 10/29/16 22:49 Expected date of discharge: 11/04/16 Attending physician: Chucho Ward Consults: 11/03/16 10:38 Consult Physician Urgent Consulting Provider: Solomon Avila Consult Reason/Comments: Abnormal blood cultures Do you want consulting provider notified?: Yes Primary care physician: Chucho Ward [facility] Course: 86-year-old male patient presented on the day of admission to the emergency room patient was reportedly noted to have a temp of 102.2. Family was concerned the patient was getting confused which was different from the baseline increased fatigue decreased endurance. Patient apparently lives with a daughter who lives next door in a duplex setting. Patients daughter was concerned that the patient was feeling weak. Patient reportedly had been experiencing falls at home .the white count on admission was 3.3 patient was not tachycardic heart rate in the 60s blood pressure 122/59. Subsequent the patient was admitted chest x-ray in the emergency room was negative. Patient had no nausea vomiting diarrhea. Was found to have an elevated troponina cardiology consultation was requested. Last echo in June 2016 showed an ejection fraction of 20-25%. The magnesium level was noted to be low on admission 1.6. Patient had an episode of nonsustained V. tach magnesium was corrected there were no further episodes cardiology felt that the elevated troponins were not suggestive of any acute coronary ischemia no evidence of a myocardial infarction. There were no further recommendations they recommended optimizing medical management. Treat the fever of unknown origin. Patient denied nausea vomiting or diarrhea. But did note the patient did have an episode after being admitted of loose stools which has resolved patient that the loose stools were related to the lasagna that he had eaten. Patient denied abdominal pain Patient remained afebrile throughout the hospitalization. Infectious disease consultation was requested. Blood cultures 2 were felt to be a contaminant. Was no evidence of sepsis patient was seen by physical and occupational therapy and felt to be appropriate to transfer to the subacute rehab [facility] impression discharge diagnosis Present on admission abnormal labs hypokalemia hypo-magnesium suspect due to loose stool nausea vomiting prior to admission ,cardiac arrhythmia isolated episode after admission nonsustained V. tach short burst suspect due to low magnesium level corrected resolved Impression Shortness of breath decreased endurance present on admission suspect acute exacerbation COPD Electrolyte abnormality potassium 2.9and hypo-magnesium 1.6 Mild protein calorie malnutrition suspect chronic due to poor caloric intake Present on admission febrile temp 102.8 likely due to bronchitis chest x-ray no evidence of pneumonia no evidence of sepsis cardiomyopathy ejection fraction 20-25% Chronic congestive heart failure systolic dysfunction EF 20-25% with no evidence of decompensation or signs of overt heart failure Biventricular ICD device with a recent nonischemic stress test Deconditioned D debilitated due to comorbidities Present on admission elevated troponins with no evidence of acute coronary ischemia Frequent loose stooling suspect viral C. diff negative Type 2 diabetes hemoglobin A1c 6.4 insulin requiring Blood cultures drawn on October 29 times to gram-positive cocci felt to be a contaminant The above dictated assessment and findings were discussed with dr ward Impression and the plan of care have been dictated as directed. Kaylin Esteves nurse practitioner acting as a scribe for dr ward Patient Condition at Discharge: Fair Plan - Discharge Summary New Discharge Prescriptions: Insulin NPL/Insulin Lispro [humaLOG MIX 75-25 VIAL] 10 unit SQ HS #1 vial rOPINIRole HCL [Requip] 0.5 mg PO TID #90 tab Discharge Medication List Aspirin 81 mg PO DAILY 08/05/14 [History] Digoxin [Lanoxin] 125 mcg PO DAILY 08/05/14 [History] Imipramine HCl [Tofranil] 50 mg PO BID 08/05/14 [History] Nitroglycerin Sl Tabs [Nitrostat] 0.4 mg SUBLINGUAL Q5M PRN 08/05/14 [History] Allopurinol [Zyloprim] 300 mg PO DAILY 08/06/14 [History] Carbidopa-Levodopa 25-100 mg [Sinemet 25-100 mg] 1 tab PO TID 12/11/15 [History] Cholecalciferol [Vitamin D3] 1,000 unit PO DAILY 12/11/15 [History] Levothyroxine Sodium [Synthroid] 25 mcg PO DAILY 12/11/15 [History] Simvastatin [Zocor] 40 mg PO HS 12/11/15 [History] metFORMIN HCL [Glucophage] 500 mg PO DAILY 12/11/15 [History] Multivitamin [Men's Multi-Vitamin] 1 tab PO DAILY 12/12/15 [History] Donepezil [Aricept] 10 mg PO HS #10 tablet 12/14/15 [Rx] rOPINIRole HCL [Requip] 0.5 mg PO TID 12/01/16 [History] Carvedilol [Coreg] 6.25 mg PO BID 10/29/16 [History] Furosemide [Lasix] 20 mg PO BID 10/29/16 [History] Aspirin 81 mg PO DAILY chew 11/04/16 [Rx] INSULIN LISPRO (humaLOG) [humaLOG (formulary)] 0 unit SQ ACHS vial 11/04/16 [Rx ] Insulin NPL/Insulin Lispro [humaLOG MIX 75-25 VIAL] 10 unit SQ HS #1 vial [Rx] Insulin NPL/Insulin Lispro [humaLOG MIX 75-25 VIAL] 30 unit SQ DAILY@0630 vial 11/04/16 [Rx] Warfarin [Coumadin] 7.5 mg PO DAILY@1800 tab 11/04/16 [Rx] rOPINIRole HCL [Requip] 0.5 mg PO TID #90 tab 11/04/16 [Rx] Follow up Appointment(s)/Referral(s): Chucho Ward MD [Primary Care Provider] - 1-2 days Discharge Disposition: TRANSFER TO SNF/ECF
[2016-11-04] MEDS: IPRATROPIUM-ALBUTEROL 3 ML NEB INHALATION SCH ×2 (09:46→11:28)
[2016-11-04 10:54] VITALS: BMI 30.6
[2016-11-04] MEDS ORDERED: VANCOMYCIN TROUGH DUE 1 EACH MISC MISCELLANE ONE (11:00)
[2016-11-04] MEDS: ATORVASTATIN 80 MG TAB PO SCH (11:19)
[2016-11-04] MEDS: ALLOPURINOL 300 MG TAB PO SCH (11:19)
[2016-11-04] MEDS: ASPIRIN 81 MG CHEW PO SCH (11:19)
[2016-11-04] MEDS: metFORMIN 500 MG TAB PO SCH (11:20)
[2016-11-04] MEDS: CARBIDOPA-LEVODOPA 25-100 MG 1 EACH TAB PO SCH (11:20)
[2016-11-04] MEDS: FUROSEMIDE 20 MG TAB PO SCH (11:21)
[2016-11-04 11:27] LABS: INR 1.8 (<1.1)
[2016-11-04 11:31] LABS: Basophils % (A) 0 %; CH 33.2; CHCM 34.2; Eosinophils # (A) 0.1 k/uL (0-0.7); Eosinophils % (A) 2 %; HCT 35.2 % (39.0-53.0); HDW 3.35; HGB 11.7 gm/dL (13.0-17.5); Luc # (Auto) 0.23; Luc % (Auto) 4; Lymphocytes % (A) 18 %; MCH 32.4 pg (25.0-35.0); MCHC 33.2 g/dL (31.0-37.0); MCV 97.8 fL (80.0-100.0); Mean Platelet Volume 9.3; Monocytes # (A) 0.4 k/uL (0-1.0); Monocytes % (A) 7 %; Neutrophils # (A) 3.7 k/uL (1.3-7.7); Neutrophils % (A) 69 %; RDW 15.1 % (11.5-15.5); WBC 5.4 k/uL (3.8-10.6); WBC (Perox) 5.63
[2016-11-04 11:41] LABS: ALT 22 U/L (21-72); AST 44 U/L (17-59); Alkaline Phosphatase 63 U/L (38-126); Anion Gap 6 mmol/L; Blood Urea Nitrogen 13 mg/dL (9-20); Calcium 8.6 mg/dL (8.4-10.2); Carbon Dioxide 28 mmol/L (22-30); Chloride 105 mmol/L (98-107); Glucose 217 mg/dL (74-99); Non-African American GFR(MDRD) >60 (>60 ml/min/1.73 sqM); Potassium 4.6 mmol/L (3.5-5.1); Sodium 139 mmol/L (137-145); Total Bilirubin 0.6 mg/dL (0.2-1.3); Total Protein 5.7 g/dL (6.3-8.2)
[2016-11-04 11:55] LABS: Glucose,Whole Blood 175 mg/dL (75-99)
== END 2016-11-04 14:10 | DRG 191 ==
LOC: EC 21:30 → 6SEL 22:49 → 5MS5E 11-01 21:43
PROVIDERS: ADMIT Family Medicine; ATTEND Family Medicine
DX: J44.1 Chronic obstructive pulmonary disease with (acute) exacerbation (principal); I47.2 Ventricular tachycardia; D69.6 Thrombocytopenia, unspecified; G20 Parkinson's disease; E44.1 Mild protein-calorie malnutrition; I11.0 Hypertensive heart disease with heart failure; F03.90 Unspecified dementia, unspecified severity, without behavioral disturbance, psychotic disturbance, mood disturbance, and anxiety; E86.0 Dehydration; I48.91 Unspecified atrial fibrillation; I50.22 Chronic systolic (congestive) heart failure; E11.9 Type 2 diabetes mellitus without complications; E78.5 Hyperlipidemia, unspecified; D64.9 Anemia, unspecified; D72.819 Decreased white blood cell count, unspecified; I25.10 Atherosclerotic heart disease of native coronary artery without angina pectoris; I25.5 Ischemic cardiomyopathy; K52.9 Noninfective gastroenteritis and colitis, unspecified; M10.9 Gout, unspecified; W01.0XXA Fall on same level from slipping, tripping and stumbling without subsequent striking against object, initial encounter; Z79.01 Long term (current) use of anticoagulants; Z79.4 Long term (current) use of insulin; Z79.82 Long term (current) use of aspirin; Z79.899 Other long term (current) drug therapy; Z82.49 Family history of ischemic heart disease and other diseases of the circulatory system; Z87.891 Personal history of nicotine dependence; Z95.810 Presence of automatic (implantable) cardiac defibrillator; Z97.0 Presence of artificial eye
CPT/HCPCS: 36415; 70450; 70470; 71020; 80053; 80061; 80202; 81003; 82550; 82553; 83036; 83735; 83880; 84134; 84484; 85025; 85610; 85652; 85730; 86140; 87040; 87086; 87324; 87502; 93005; 94640; 94760; 96365; 96366; 96375; 99291

== ENCOUNTER → 2016-12-09 | Outpatient (CLI) | payer MEDICARE ==
--- NOTE | 2016-12-09 16:48 | PN ---
DATE OF SERVICE: 12/09/2016 This patient is an 86-year-old gentleman who has been followed in the sleep center for treatment of obstructive sleep apnea/hypopnea syndrome. Patient continues to use his CPAP equipment with the mask which he used before. No snoring with the machine. [place] Sleepiness Scale is 5. I checked his CPAP unit. Usage is 30 out of 30 nights for more than 4 hours. CPAP pressure is 11 cm of water. RAMP in automatic regimen. Reading from the machine showed significant relief, but at the same time apnea-hypopnea index is in mild range at 5.9. MEDICATIONS: 1. Allopurinol. 2. Aricept. 3. Aspirin. 4. Carbidopa Levodopa. 5. Carvedilol. 6. Digoxin. 7. Furosemide. 8. Imipramine. 9. Levothyroxine. 10. Metformin. 11. Nitroglycerin. 12. Ropinirole. 13. Simvastatin. 14. Vitamin D. 15. Warfarin. PHYSICAL EXAMINATION: Patient in no distress. VITAL SIGNS: BP 129/63, HR 100, RR 16. Height 5 feet 10 inches. Weight 210. BMI 30. Temperature 97.9. Oxygen saturation at room air 92%. HEENT: PERRPAT, EOMI. Evaluation of oropharynx showed tongue protrudes midline; low position of soft palate. NECK: Supple. No JVD. Thyroid is not palpable. LUNGS: Clear to percussion and to auscultation. Good air exchange. No wheezing or rhonchi. HEART: S1, S2 regular. No murmurs, gallops or rubs. ABDOMEN: Soft and nontender. Bowel sounds are present. No organomegaly appreciated. EXTREMITIES: No clubbing or cyanosis. MAINTENANCE REPAIRER: Awake, alert, and oriented x3. Cranial nerves 2 to 7 intact. There is no fasciculation or atrophy noted. No focal deficits observed. Very minimal tremor on [id number] testing. IMPRESSION: 1. Obstructive sleep apnea/hypopnea syndrome, controlled with CPAP at 11 cm of water. Patient has used equipment 100% of the time, benefiting from treatment. 2. Periodic limb movements. 3. Coronary artery disease, status post stent insertion. 4. History of atrial fibrillation. 5. History of congestive heart failure. 6. Hypertension. 7. Diabetes mellitus. 8. Hypothyroidism. 9. Parkinson's disease. 10. Status post prostatectomy. 11. Gout. 12. 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 PLAN: 1. Continue treatment with CPAP every night for the whole night. 2. Replace CPAP mask as soon as possible. Patient has significant leak from the mask. It also could be partially related to the fact that the mask is old. With the leak, patient continues to have practically normal respiration during sleep. 3. Patient does not drive. 4. Sleep hygiene with regular time in bed for at least 8 hours. Thank you very much for allowing me to participate in the management your patient. Sincerely, Gen Rome MD, PhD, FAASM. Diplomat of [employer], Sleep Medicine Board by [employer], [employer]
== END | disposition home or self-care (01) ==
LOC: SLEEP 13:12
PROVIDERS: ATTEND Internal Medicine
DX: G47.33 Obstructive sleep apnea (adult) (pediatric) (principal); I25.10 Atherosclerotic heart disease of native coronary artery without angina pectoris; Z95.5 Presence of coronary angioplasty implant and graft; I48.91 Unspecified atrial fibrillation; I50.9 Heart failure, unspecified; I10 Essential (primary) hypertension; E11.9 Type 2 diabetes mellitus without complications; E03.9 Hypothyroidism, unspecified; G20 Parkinson's disease; Z79.899 Other long term (current) drug therapy; Z79.01 Long term (current) use of anticoagulants; Z79.84 Long term (current) use of oral hypoglycemic drugs

== ENCOUNTER 2017-02-21 02:12 | Inpatient (IN) | payer MEDICARE ==
[2017-02-21 02:58] LABS: Basophils % (A) 0 %; CHCM 35.1; Eosinophils # (A) 0.3 k/uL (0-0.7); Eosinophils % (A) 5 %; HCT 40.2 % (39.0-53.0); HDW 3.15; HGB 13.6 gm/dL (13.0-17.5); Luc # (Auto) 0.09; Luc % (Auto) 2; Lymphocytes # (A) 1.6 k/uL (1.0-4.8); Lymphocytes % (A) 29 %; MCH 31.9 pg (25.0-35.0); MCHC 33.8 g/dL (31.0-37.0); MCV 94.5 fL (80.0-100.0); Mean Platelet Volume 9.6; Monocytes # (A) 0.5 k/uL (0-1.0); Monocytes % (A) 10 %; Neutrophils % (A) 54 %; RBC 4.26 m/uL (4.30-5.90); WBC 5.5 k/uL (3.8-10.6); WBC (Perox) 5.33
[2017-02-21 03:13] LABS: ALT 27 U/L (21-72); AST 32 U/L (17-59); Alkaline Phosphatase 93 U/L (38-126); Anion Gap 11 mmol/L; Blood Urea Nitrogen 22 mg/dL (9-20); Calcium 9.7 mg/dL (8.4-10.2); Carbon Dioxide 32 mmol/L (22-30); Chloride 97 mmol/L (98-107); Glucose 133 mg/dL (74-99); Non-African American GFR(MDRD) 58 (>60 ml/min/1.73 sqM); Potassium 3.9 mmol/L (3.5-5.1); Sodium 140 mmol/L (137-145); Total Bilirubin 0.6 mg/dL (0.2-1.3); Total Protein 7.3 g/dL (6.3-8.2)
[2017-02-21 03:15] LABS: INR 2.2 (<1.2); Prothrombin Time 21.4 sec (9.0-12.0)
--- NOTE | 2017-02-21 03:21 | CT ---
EXAM: CT Head Without Intravenous Contrast CLINICAL HISTORY: Neuro Deficits TECHNIQUE: Axial computed tomography images of the head/brain without intravenous contrast. CTDIvol: 57.4 mGy DLP: 961 mGy-cm. This CT exam was performed using one or more of the following dose reduction techniques: automated exposure control, adjustment of the mA and/or kV according to patient size, and/or use of iterative reconstruction technique. COMPARISON: CT head dated 10/31/16 FINDINGS: No evidence for acute intracranial hemorrhage, hydrocephalus, or herniation. Ill defined hypoattenuation in the right yolanda/midbrain may be artifact. Stable hypoattenuation the right frontal white matter. Redemonstrated are bilateral frontal and parietal ben hole craniotomies. There is generalized volume loss. Scattered periventricular and subcortical hypoattenuation likely related to chronic microvascular ischemic changes. Intracranial vascular calcifications. The visualized bilateral mastoid air cells are clear. The visualized portions of the paranasal sinuses are essentially clear without air fluid levels. There appears to be a right globe prosthesis. Please correlate with surgical history. IMPRESSION: No evidence for acute intracranial hemorrhage, hydrocephalus, or herniation. Ill defined hypoattenuation in the right yolanda/midbrain may be artifact. Please correlate with neurological findings.
[2017-02-21 03:30] LABS: Creatine Kinase MB 2.4 ng/mL (0.0-2.4)
[2017-02-21 03:39] LABS: Troponin I 0.083 ng/mL (0.000-0.034)
[2017-02-21] MEDS ORDERED: ASPIRIN 325 MG TAB PO STA (04:53)
[2017-02-21] MEDS ORDERED: NITROGLYCERIN SL TABS 0.4 MG TAB SUBLINGUAL PRN (04:56)
--- NOTE | 2017-02-21 04:58 | ED ---
Neuro HPI - General Chief Complaint: Neuro Symptoms/Deficit Stated Complaint: Possible TIA/CVA Symptoms Time Seen by Provider: 02/21/17 02:34 Source: patient, family Mode of arrival: EMS Limitations: no limitations - History of Present Illness -: hour(s) Initial Comments: This patient is an 86-year-old man presents to be evaluated for right-sided head and facial symptoms. The patient states that the symptoms had started in the evening. He is initially having a funny feeling to the right side of his scalp and face. This went on for number of hours when it did not improve the patient spoke with his daughter who convinced him to come to the emergency department. In addition when I speak with them they feel that he has worsened right facial droop. They note that his right eyelid is barely open and that the angle of his right mouth seems to be lower. They do state that he had the symptoms prior but that they were less notable and they are today. The patient is denying difficulty with speech or swallowing. Patient denies weakness to the right arm or leg. Patient denies headache fever or chills. Location: right face History of same: Yes Place: home Severity: mild Quality: weak Improves With: none Worsens With: none On Anticoagulants: Yes Associated Symptoms: denies other symptoms - Related Data Home Medications: Home Medications Medication Instructions Recorded Confirmed Aspirin 81 mg PO DAILY 08/05/14 02/21/17 Digoxin [Lanoxin] 125 mcg PO DAILY 08/05/14 02/21/17 Imipramine HCl [Tofranil] 50 mg PO BID 08/05/14 02/21/17 Nitroglycerin Sl Tabs [Nitrostat] 0.4 mg SUBLINGUAL Q5M PRN 08/05/14 02/21/17 Allopurinol [Zyloprim] 300 mg PO DAILY 08/06/14 02/21/17 Carbidopa-Levodopa 25-100 mg 1 tab PO TID 12/11/15 02/21/17 [Sinemet 25-100 mg] Cholecalciferol [Vitamin D3] 1,000 unit PO DAILY 12/11/15 02/21/17 Levothyroxine Sodium [Synthroid] 25 mcg PO DAILY 12/11/15 02/21/17 Simvastatin [Zocor] 40 mg PO HS 12/11/15 02/21/17 metFORMIN HCL [Glucophage] 500 mg PO DAILY 12/11/15 02/21/17 Multivitamin [Men's Multi-Vitamin] 1 tab PO DAILY 12/12/15 02/21/17 rOPINIRole HCL [Requip] 0.5 mg PO TID 06/24/16 02/21/17 Carvedilol [Coreg] 6.25 mg PO BID 10/29/16 02/21/17 Furosemide [Lasix] 20 mg PO BID 10/29/16 02/21/17 Insulin NPL/Insulin Lispro 20 unit SQ HS 02/21/17 02/21/17 [humaLOG MIX 75-25 VIAL] Insulin NPL/Insulin Lispro 40 unit SQ DAILY@0630 02/21/17 02/21/17 [humaLOG MIX 75-25 VIAL] Warfarin [Coumadin] 10 mg PO DAILY@1800 02/21/17 02/21/17 Previous Rx's Medication Instructions Recorded Donepezil [Aricept] 10 mg PO HS #10 tablet 12/14/15 Aspirin 81 mg PO DAILY chew 11/04/16 INSULIN LISPRO (humaLOG) [humaLOG 0 unit SQ ACHS vial 11/04/16 (formulary)] rOPINIRole HCL [Requip] 0.5 mg PO TID #90 tab 11/04/16 Allergies/Adverse Reactions: Allergies Allergy/AdvReac Type Severity Reaction Status Date / Time phenytoin sodium Allergy Severe Rash/Hives Verified 02/21/17 02:26 [From Dilantin] phenytoin sodium extended Allergy Severe Rash/Hives Verified 02/21/17 02:26 [From Dilantin] zoster vaccine live Allergy Unknown Verified 02/21/17 02:26 amiodarone AdvReac Dyspnea Verified 02/21/17 02:26 spironolactone AdvReac Gynecomasti Verified 02/21/17 02:26 a Review of Systems ROS Statement: Those systems with pertinent positive or pertinent negative responses have been documented in the HPI. ROS Other: All systems not noted in ROS Statement are negative. Constitutional: Reports: weakness. Denies: fever, chills Eyes: Denies: eye pain, vision change Respiratory: Reports: cough (Chronic). Denies: dyspnea Cardiovascular: Denies: chest pain, palpitations, orthopnea, edema, syncope Gastrointestinal: Denies: abdominal pain, vomiting, diarrhea Genitourinary: Denies: dysuria Musculoskeletal: Denies: back pain Skin: Denies: rash Neurological: Reports: as per HPI, weakness. Denies: numbness, paresthesias, confusion, abnormal gait Hematological/Lymphatic: Reports: other (Taking Coumadin) General Exam Limitations: no limitations General appearance: alert, in no apparent distress Head exam: Present: atraumatic, normocephalic Eye exam: Present: EOMI, other (Patient does have some right-sided facial droop. 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 Absent: scleral icterus, conjunctival injection ENT exam: Present: normal oropharynx Neck exam: Present: normal inspection, full ROM Respiratory exam: Present: rhonchi. Absent: respiratory distress, wheezes, rales, stridor Cardiovascular Exam: Present: regular rate, normal rhythm, systolic murmur. Absent: diastolic murmur, rubs, gallop GI/Abdominal exam: Present: soft. Absent: distended, tenderness, guarding, rebound, rigid, mass Extremities exam: Present: normal inspection, normal capillary refill. Absent: pedal edema, calf tenderness Back exam: Present: normal inspection. Absent: CVA tenderness (R), CVA tenderness (L) Neurological exam: Present: alert, oriented X3. Absent: CN II-XII intact ( Patient does have mild right-sided facial droop.), motor sensory deficit Psychiatric exam: Present: normal affect Skin exam: Present: warm, dry, intact, normal color. Absent: rash Stroke MDM - Lab Data Result diagrams: 02/21/17 02:20 02/21/17 02:20 Lab Results 02/21/17 02/21/17 02/21/17 Range/Units 02:20 02:20 02:20 WBC 5.5 (3.8-10.6) k/uL RBC 4.26 L (4.30-5.90) m/uL Hgb 13.6 (13.0-17.5) gm/dL Hct 40.2 (39.0-53.0) % MCV 94.5 (80.0-100.0) fL MCH 31.9 (25.0-35.0) pg MCHC 33.8 (31.0-37.0) g/dL RDW 15.0 (11.5-15.5) % Plt Count 145 L (150-450) k/uL Neutrophils % 54 % Lymphocytes % 29 % Monocytes % 10 % Eosinophils % 5 % Basophils % 0 % Neutrophils # 3.0 (1.3-7.7) k/uL Lymphocytes # 1.6 (1.0-4.8) k/uL Monocytes # 0.5 (0-1.0) k/uL Eosinophils # 0.3 (0-0.7) k/uL Basophils # 0.0 (0-0.2) k/uL PT (9.0-12.0) sec INR (<1.2) APTT (22.0-30.0) sec Sodium 140 (137-145) mmol/L Potassium 3.9 (3.5-5.1) mmol/L Chloride 97 L (98-107) mmol/L Carbon Dioxide 32 H (22-30) mmol/L Anion Gap 11 mmol/L BUN 22 H (9-20) mg/dL Creatinine 1.20 (0.66-1.25) mg/dL Est GFR (MDRD) Af Amer >60 (>60 ml/min/1.73 sqM) Est GFR (MDRD) Non-Af 58 (>60 ml/min/1.73 sqM) Glucose 133 H (74-99) mg/dL Calcium 9.7 (8.4-10.2) mg/dL Total Bilirubin 0.6 (0.2-1.3) mg/dL AST 32 (17-59) U/L ALT 27 (21-72) U/L Alkaline Phosphatase 93 (38-126) U/L Total Creatine Kinase 73 (55-170) U/L CK-MB (CK-2) 2.4 (0.0-2.4) ng/mL CK-MB (CK-2) Rel Index 3.3 Troponin I 0.083 H* (0.000-0.034) ng/mL Total Protein 7.3 (6.3-8.2) g/dL Albumin 4.1 (3.5-5.0) g/dL 02/21/17 Range/Units 02:20 WBC (3.8-10.6) k/uL RBC (4.30-5.90) m/uL Hgb (13.0-17.5) gm/dL Hct (39.0-53.0) % MCV (80.0-100.0) fL MCH (25.0-35.0) pg MCHC (31.0-37.0) g/dL RDW (11.5-15.5) % Plt Count (150-450) k/uL Neutrophils % % Lymphocytes % % Monocytes % % Eosinophils % % Basophils % % Neutrophils # (1.3-7.7) k/uL Lymphocytes # (1.0-4.8) k/uL Monocytes # (0-1.0) k/uL Eosinophils # (0-0.7) k/uL Basophils # (0-0.2) k/uL PT 21.4 H (9.0-12.0) sec INR 2.2 H (<1.2) APTT 29.0 (22.0-30.0) sec Sodium (137-145) mmol/L Potassium (3.5-5.1) mmol/L Chloride (98-107) mmol/L Carbon Dioxide (22-30) mmol/L Anion Gap mmol/L BUN (9-20) mg/dL Creatinine (0.66-1.25) mg/dL Est GFR (MDRD) Af Amer (>60 ml/min/1.73 sqM) Est GFR (MDRD) Non-Af (>60 ml/min/1.73 sqM) Glucose (74-99) mg/dL Calcium (8.4-10.2) mg/dL Total Bilirubin (0.2-1.3) mg/dL AST (17-59) U/L ALT (21-72) U/L Alkaline Phosphatase (38-126) U/L Total Creatine Kinase (55-170) U/L CK-MB (CK-2) (0.0-2.4) ng/mL CK-MB (CK-2) Rel Index Troponin I (0.000-0.034) ng/mL Total Protein (6.3-8.2) g/dL Albumin (3.5-5.0) g/dL - Medical Decision Making Patient is an 86-year-old man who comes emergency Department with change in the sensation of the right side of his face and scalp as well as right-sided facial droop. The symptoms place him outside of the window for TPA as well as his deficit being very mild. The patient did have pre-existing right facial droop but family states this is more pronounced today. Remainder of the neurologic exam normal. Case discussed with his physician Dr. Fan, who will admit with neurology consultation. - EKG Data -: EKG Interpreted by Me Rate: normal (Rate approximately 90 bpm) Interpretation: other (Twelve-lead EKG shows a paced rhythm rate approximately 90 bpm) Past Medical History Past Medical History: Atrial Fibrillation, Heart Failure, COPD, Dementia, Diabetes Mellitus, Hyperlipidemia, Hypertension, Thyroid Disorder Additional Past Medical History / Comment(s): gout, family stated that a geriatric neurologist at [facility] felt that pt had parkinsons(on meds), dr lindquist here did tests but family does'nt know results yet. 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 Replacement pacemaker in 2010. prosthetic right eye. ebn holes 2007 Past Anesthesia/Blood Transfusion Reactions: No Reported Reaction Type of Cardiac Device: AICD Device Placement Date:: 2011 Past Psychological History: Depression Smoking Status: Former smoker Past Alcohol Use History: Occasional Past Drug Use History: None Reported - Past Family History Mother Family Medical History: Blood Disorder Additional Family Medical History / Comment(s): famialy not sure what is was called Father Family Medical History: Myocardial Infarction (ME) Course Vital Signs 02/21/17 02/21/17 02/21/17 02:21 03:23 04:08 Temperature 98.5 F Pulse Rate 90 81 75 Respiratory 16 18 16 Rate Blood Pressure 136/65 129/57 131/60 O2 Sat by Pulse 98 95 96 Oximetry Disposition Clinical Impression: Elevated troponin I level, Cerebrovascular accident Disposition: ADMITTED IP TO THIS HOSP Condition: Fair Referrals: Chucho Fan MD [Primary Care Provider] - 1-2 days
[2017-02-21 06:06] LABS: Glucose,Whole Blood 129 mg/dL (75-99)
--- NOTE | 2017-02-21 06:09 | XR ---
CXR 1 View INDICATION: cough COMPARISON: Chest radiograph 10/29/16 FINDINGS: Left chest pacer device with leads appears grossly unchanged in position. The cardiomediastinal silhouette is unchanged. Mildly increased lung markings. No evidence for focal consolidation. There maybe some atelectasis at the lung bases. No evidence for pleural effusions. Calcifications of the aortic knob and descending thoracic aorta. Osseous structures are grossly unchanged. IMPRESSION: No definite evidence for a focal consolidation.
[2017-02-21] MEDS: INSULIN NPL/INSULIN LISPRO 100 UNIT/ML 10 ML VIAL (Humalog 75/25) SQ SCH (07:24)
[2017-02-21] MEDS: SODIUM CHLORIDE 0.9% 1,000 ML IV SCH (07:26)
[2017-02-21] MEDS: CARVEDILOL 6.25 MG TAB PO SCH ×2 (07:26→17:18)
[2017-02-21] MEDS: metFORMIN 500 MG TAB PO SCH (07:26)
[2017-02-21] MEDS: LEVOTHYROXINE 25 MCG TAB PO SCH (07:26)
[2017-02-21] MEDS ORDERED: NON-FORMULARY DRUG (Ropinirole Hcl [Requip] 0.5 MG) PO SCH (09:00)
[2017-02-21] MEDS ORDERED: FAMOTIDINE 20 MG TAB PO SCH (09:00)
[2017-02-21] MEDS: DIGOXIN 125 MCG TAB PO SCH (09:02)
[2017-02-21] MEDS: IMIPRAMINE 25 MG TAB PO SCH ×2 (09:02→21:40)
[2017-02-21] MEDS: FUROSEMIDE 20 MG TAB PO SCH ×2 (09:03→21:39)
[2017-02-21] MEDS: DOCUSATE 100 MG CAP PO SCH ×3 (09:03→23:01)
[2017-02-21] MEDS: CARBIDOPA-LEVODOPA 25-100 MG 1 EACH TAB PO SCH ×3 (09:03→21:40)
[2017-02-21] MEDS: ALLOPURINOL 300 MG TAB PO SCH (09:03)
[2017-02-21] MEDS: CHOLECALCIFEROL 1,000 UNIT TAB PO SCH (09:03)
[2017-02-21] MEDS: MULTIVITAMINS, THERA 1 EACH TAB PO SCH (09:03)
--- NOTE | 2017-02-21 09:05 | US ---
EXAMINATION TYPE: US carotid duplex BILAT DATE OF EXAM: 02/21/2017 COMPARISON: Carotid ultrasound December 25, 2013 CLINICAL HISTORY: Stenosis. Right facial droop, HTN EXAM MEASUREMENTS: RIGHT: Peak Systolic Velocity (PSV) cm/sec ----- Right CCA: 129.2 ----- Right ICA: 90.2 ----- Right ECA: 100.9 ICA/CCA ratio: 0.7 RIGHT: End Diastole cm/sec ----- Right CCA: 22.5 ----- Right ICA: 18.6 ----- Right ECA: 0.0 LEFT: Peak Systolic Velocity (PSV) cm/sec ----- Left CCA: 94.4 ----- Left ICA: 117.4 ----- Left ECA: 117.4 ICA/CCA ratio: 1.2 LEFT: End Diastole cm/sec ----- Left CCA: 11.5 ----- Left ICA: 17.6 ----- Left ECA: 0.0 VERTEBRALS (direction of flow): Right Vertebral: Antegrade Left Vertebral: Antegrade No elevated velocities or significant stenosis seen. Plaque seen in bilateral CCA's and bulbs. Bilat eral wall thickening. Grayscale images show moderate eccentric plaque at right carotid bulb and more mild to moderate eccen tric hyperechoic plaque at left carotid bulb. Velocity measurements and ratios are within normal limi ts in visualized portion of both internal carotid arteries. IMPRESSION: Mild to moderate atherosclerotic change bilaterally without hemodynamic significant sten osis seen in either internal carotid artery. Criteria for Assigning % of Stenosis / Diameter reduction (Estimation based on the indirect measurements of the internal carotid artery velocities (ICA PSV). 1. Normal (no stenosis)=ICA PSV < 125 cm/s: ratio < 2.0: ICA EDV<40 cm/s. 2. Less than 50% stenosis=ICA PSV < 125 cm/s: ratio < 2.0: ICA EDV<40 cm/s. 3. 50 to 69% stenosis=ICA PSV of 125 to 230 cm/s: ration 2.0 ? 4.0: ICA EDV 40-100 cm/s. 4. Greater than 70% stenosis to near occlusion= ICA PSV > 230 cm/s: ratio > 4.0: ICA EDV > 100 cm/s. 5. Near occlusion= ICA PSV velocities may be low or undetectable: variable ratio and ICA EDV. 6. Total occlusion=unable to detect flow.
[2017-02-21 12:02] LABS: Glucose,Whole Blood 69 mg/dL (75-99)
[2017-02-21 14:19] VITALS: BMI 27.8
[2017-02-21 17:22] LABS: Glucose,Whole Blood 179 mg/dL (75-99)
[2017-02-21] MEDS ORDERED: WARFARIN 10 MG TAB PO SCH (18:00)
[2017-02-21] MEDS ORDERED: DONEPEZIL 10 MG TAB PO SCH (21:00)
[2017-02-21] MEDS ORDERED: INSULIN NPL/INSULIN LISPRO 100 UNIT/ML 10 ML VIAL (Humalog 75/25) SQ SCH (21:00)
[2017-02-21] MEDS ORDERED: ATORVASTATIN 20 MG TAB PO SCH (21:00)
[2017-02-21 21:28] LABS: Glucose,Whole Blood 244 mg/dL (75-99)
[2017-02-22 05:50] LABS: Glucose,Whole Blood 132 mg/dL (75-99)
[2017-02-22] MEDS: SODIUM CHLORIDE 0.9% 1,000 ML IV SCH (06:09)
[2017-02-22] MEDS: CARVEDILOL 6.25 MG TAB PO SCH (06:10)
[2017-02-22] MEDS: metFORMIN 500 MG TAB PO SCH (06:10)
[2017-02-22] MEDS: LEVOTHYROXINE 25 MCG TAB PO SCH (06:10)
[2017-02-22 06:26] LABS: Cholesterol 97 mg/dL (<200); HDL Cholesterol 35 mg/dL (40-60); Triglycerides 80 mg/dL (<150)
[2017-02-22 06:29] LABS: INR 1.9 (<1.2); Prothrombin Time 18.6 sec (9.0-12.0)
[2017-02-22] MEDS: INSULIN NPL/INSULIN LISPRO 100 UNIT/ML 10 ML VIAL (Humalog 75/25) SQ SCH (07:04)
[2017-02-22 07:56] VITALS: RESP 16
[2017-02-22] MEDS: MULTIVITAMINS, THERA 1 EACH TAB PO SCH (08:04)
[2017-02-22] MEDS: DOCUSATE 100 MG CAP PO SCH (08:05)
[2017-02-22] MEDS: ALLOPURINOL 300 MG TAB PO SCH (08:05)
[2017-02-22] MEDS: CARBIDOPA-LEVODOPA 25-100 MG 1 EACH TAB PO SCH (08:06)
[2017-02-22] MEDS: FUROSEMIDE 20 MG TAB PO SCH (08:06)
[2017-02-22] MEDS: DIGOXIN 125 MCG TAB PO SCH (08:06)
[2017-02-22] MEDS: CHOLECALCIFEROL 1,000 UNIT TAB PO SCH (08:06)
[2017-02-22] MEDS: IMIPRAMINE 25 MG TAB PO SCH (08:07)
[2017-02-22] MEDS ORDERED: FAMOTIDINE 20 MG TAB PO SCH (09:00)
[2017-02-22] MEDS ORDERED: ASPIRIN 325 MG TAB PO SCH (09:00)
--- NOTE | 2017-02-22 09:24 | CONS ---
DATE OF CONSULTATION: 02/21/2017 CHIEF COMPLAINT: Stroke. HISTORY OF PRESENT ILLNESS: Mr. Hathaway is a pleasant 86-year-old male who is being evaluated by the Neurology Service today on 02/21/17 per the request of Dr. Fan for a stroke. The patient was brought into [facility] Emergency Room after he had been complaining of numbness and tingling involving his right face. His symptoms began a few days prior to arrival but he did not seek immediate medical attention. His daughter noticed that he was also having right facial drooping. He denies having any weakness or numbness in his extremities. The patient does have history of atrial fibrillation and is already on Coumadin and aspirin at home. His INR was therapeutic at 2.[address] scan of the brain was done, which showed hypoattenuation involving the right yolanda and mid-brain. There was also generalized atrophy and small vessel ischemic changes. Postsurgical changes are noticed with history of bur hole. The patient was admitted for further workup and management. His carotid Doppler showed no hemodynamically significant stenosis. His CBC was normal except for mild thrombocytopenia at 145,000. His comprehensive metabolic profile was normal. His cardiac enzymes showed slightly elevated troponin I at 0.083. At the time of my evaluation, the patient is lying in his bed and appears to be in no acute distress. He does have an obvious right eye ptosis. The patient does have a history of right eye injury and prosthesis. PAST MEDICAL HISTORY: Atrial fibrillation, history of pacemaker implantation, hypothyroidism, heart failure, chronic obstructive pulmonary disease, diabetes, dementia, dyslipidemia, hypertension, gout, history of prostate surgery, orthopedic surgery, hernia repair, and depression. SOCIAL HISTORY: The patient is a former smoker. He occasionally drinks alcohol. He denies any drug use. FAMILY HISTORY: Positive for heart disease. HOME MEDICATIONS: Reviewed in the chart. ALLERGIES: DILANTIN, AMIODARONE, SPIRONOLACTONE. REVIEW OF SYSTEMS: CONSTITUTIONAL: Negative. EYES: As mentioned above. ENT: Negative. CARDIOVASCULAR: As mentioned above. RESPIRATORY: Positive for occasional shortness of breath. NEUROLOGICAL: As mentioned above. GASTROINTESTINAL: Negative. GENITOURINARY: Negative. DERMATOLOGICAL: Negative. MUSCULOSKELETAL: Positive for occasional joint pain. ENDOCRINE: Positive for diabetes and hypothyroidism. PSYCHIATRIC: Positive for history of depression. PHYSICAL EXAM: Vital signs show a temperature of 97.4, pulse 80, respirations 20, blood pressure 129/53. GENERAL APPEARANCE: The patient is a well developed, elderly male who appears to be in no acute distress. HEENT: Normocephalic, atraumatic. Right eye ptosis is noticed. Right eye prosthesis is present. Mild right facial droop is seen. NECK: Supple with no masses felt. CARDIOVASCULAR: Regular rate and rhythm. ABDOMEN: Nontender and nondistended. EXTREMITIES: Trace edema with no clubbing. NEUROLOGICAL: The patient is awake, alert and oriented x3. Speech and language are normal. Strength is full in all four extremities. Sensory exam was normal to light touch in all four extremities. Cranial nerve testing showed right eye ptosis. Decreased sensation on the right face compared to the left, and mild right facial droop. A right eye prosthesis is present. No tremors or seizure like activity is seen. IMPRESSION: 1. Acute ischemic stroke, brainstem. 2. Right facial numbness and sensory deficit. 3. Right eye ptosis. 4. Coagulopathy. RECOMMENDATIONS: The patient does appear to have suffered an acute ischemic stroke involving the right yolanda and mid-brain. He is still having right eye ptosis, right facial sensory deficit, and a mild right facial droop. The patient is already on Coumadin and his INR is therapeutic. He is also on aspirin at home. No further medication changes recommended. Continue IV hydration as tolerated. The patient is unable to undergo any MRI imaging due to pacemaker implant history. I will repeat his CT scan of the brain without contrast tomorrow for comparison. I will order a fasting lipid panel, EEG and serum homocystine level continue monitoring his INR. I will continue to follow with you. Further recommendations to follow. Thank you Dr. Fan for allowing me to participate in the care of your patient. If you have any questions, please feel free to contact me. SREEDHAR
--- NOTE | 2017-02-22 09:35 | HP ---
CHIEF COMPLAINT: Difficulty speaking and right-sided weakness and dysesthesias. HISTORY OF PRESENT ILLNESS: This is another admission for this 86-year-old white female. He does have a long-standing history of heart disease and central nervous system problems. He fell a number of years ago and sustained a subdural hematoma, which had to be removed. He has been doing reasonably well lately, but occasionally becomes ( ) and dizzy and this is likely due to cerebrovascular insufficiency. He had another event like this on the day of admission where he had trouble speaking. He had right-side facial weakness and droop. His daughter brought him to the hospital and he is cleared now. REVIEW OF SYSTEMS: He has has no change in his hearing. He has had no shortness of breath, chest pain, cough, hemoptysis, abdominal pain, nausea, vomiting, hematemesis, melena, hematochezia, jaundice, hematuria, frequency, urgency, etc. Past medical history, family history and personal and social histories are all otherwise unremarkable. He does have history of seizures. His medications include: 1. Coumadin 10 mg a day. 2. Aricept 10 mg at bedtime 3. Ropinirole 0.5 t.i.d. 4. Lasix 20 mg twice a day. 5. ( ) 10 mg at bedtime. 6. Metformin 500 mg once a day. 7. Sinemet 25/100 t.i.d. 8. Humalog 75/25, forty units in the morning and 20 at night. 9. Zyloprim 300 mg once a day. 10. Coreg 6.25 twice a day. 11. Zocor 40 at bedtime. 12. Imipramine 50 twice a day. 13. Lanoxin 0.125 once a day. 14. Aspirin 81 mg a day. The remainder of his history is unremarkable. PHYSICAL EXAM: Blood pressure is 108/60. The pulse is 60 and regular. Respirations of 21 and he is afebrile. GENERAL: He appeared to be awake and alert in no acute distress. Skin color is normal. Skin is warm and dry. Lymph nodes are not enlargement. Head, ears, eyes, nose, mouth and throat are unchanged. He has the absence of one eye. Neck veins are not distended and carotids are normal. Chest is clear. Cardiac exam demonstrates what sounds like an irregular, irregular pulse. Abdomen is soft and nontender. Cardiac exam was unremarkable. EXTREMITIES: Normal. NEUROLOGICALLY: He had a little bit of difficulty speaking and some minimal weakness on the right side of the face and right upper extremity. IMPRESSION: 1. Left-side transient ischemia attack. 2. History of transient ischemic attacks. 3. History of head injury with subdural hematoma. 4. Seizure disorder. 5. Coronary artery disease. 6. Diabetes mellitus. PLAN: 1. Bed rest. 2. IV fluids. 3. Frequent monitoring of his neurologic status and vital signs. 4. Neurology consult. 5. Discuss with the daughters with regards to the diagnosis and the potential for a CVA in the next year. SREEDHAR
[2017-02-22] MEDS ORDERED: CARBIDOPA-LEVODOPA 25-100 MG 1 EACH TAB PO SCH (10:04)
[2017-02-22 11:55] LABS: Glucose,Whole Blood 140 mg/dL (75-99)
[2017-02-22 13:00] VITALS: BP 131/76; PULSE 74; TEMP 96.2
--- NOTE | 2017-02-22 14:16 | CT ---
EXAMINATION TYPE: CT brain wo con DATE OF EXAM: 02/22/2017 HISTORY: Follow up scan per patient. CT DLP: 1133.3 mGycm. Automated Exposure Control for Dose Reduction was Utilized. TECHNIQUE: CT scan of the head is performed without contrast. COMPARISON: CT brain from yesterday. FINDINGS: There is no acute intracranial hemorrhage or midline shift identified. There is diffuse v entricular and sulcal prominence consistent with diffuse age-related cerebral atrophy. There is low- attenuation in the periventricular white matter consistent with chronic small vessel ischemic change. Bilateral frontal ben holes with overlying metallic plates are redemonstrated. There is interval im provement or less artifact at level of right yolanda/midbrain on current study. Right globe prosthesis i s redemonstrated. Scleral calcification left globe is again seen with adjacent skin or soft tissue ca lcification lateral margin anteriorly redemonstrated. Visualized paranasal sinuses are clear. IMPRESSION: No acute intracranial hemorrhage or midline shift. There is mild to moderate diffuse ag e-related cerebral atrophy and chronic small vessel ischemic change redemonstrated.
--- NOTE | 2017-02-22 14:20 | P.DS ---
Providers Date of admission: 02/21/17 04:53 Expected date of discharge: 02/22/17 Attending physician: Chucho Fan Consults: 02/21/17 08:21 Consult Physician Routine Consulting Provider: Bernard Evans Consult Reason/Comments: tia vs cva Do you want consulting provider notified?: Yes Primary care physician: Chucho Fan Hospital Course: 86-year-old male who presented to the emergency room with a chief complaint of developing numbness and tingling involving the right side of his face. Symptoms occurred a few days prior to arrival the patient stated he did not seek immediate medical attention. Daughter also noted that the patient was experiencing right-sided facial drooping. Patient was not experiencing any numbness or tingling in his extremities. Patient does have a history of atrial fibrillation on anticoagulation Coumadin. The INR was therapeutic 2.2 on arrival. CAT scan of the brain done in the emergency room showed generalized atrophy and small vessel ischemic changes postsurgical changes were noted patient does have history of a bur hole. Patient was admitted to the services of the attending with a neurology consultation requested. Carotid Doppler studies showed no hemodynamic significant stenosis. CBC was unremarkable except does have a history of thrombocytopenia at [id number]. The patient came into the emergency room there was an improvement in patient's symptoms. But had not completely resolved Patient does have an obvious right eye ptosis, with history of a right eye injury with a prosthesis. There was a right side facial decreased sensation with a mild right facial droop noted neurology recommended a lipid panel be obtained. Repeat CT of the brain on February 22. Patient does have a past medical history of a head injury with subdural hematoma. Patient was felt to be hemodynamically stable on February 22 the patient could be discharged home Impression discharge diagnosis Present on admission right side facial droop with right side numbness and tingling of the face suspect due to CVA History of paroxysmal atrial fibrillation on anticoagulation Coumadin Seizure disorder History of a permanent pacemaker implantation COPD stable no evidence of an exacerbation Depressive disorder nonspecified Dementia with cognitive impairment Chronic systolic congestive heart failure EF 20-25% as evident on echocardiogram June 2016 with no evidence of an acute exacerbation Type 2 diabetes insulin requiring controlled The above impression and plan of care have been discussed and directed by signing physician. Kaylin Esteves nurse practitioner acting as scribe for signing physician. Patient Condition at Discharge: Fair Plan - Discharge Summary New Discharge Prescriptions: Continue Nitroglycerin Sl Tabs [Nitrostat] 0.4 mg SUBLINGUAL Q5M PRN PRN Reason: Chest Pain Digoxin [Lanoxin] 125 mcg PO DAILY Imipramine HCl [Tofranil] 50 mg PO BID Allopurinol [Zyloprim] 300 mg PO DAILY metFORMIN HCL [Glucophage] 500 mg PO DAILY Levothyroxine Sodium [Synthroid] 25 mcg PO DAILY Carbidopa-Levodopa 25-100 mg [Sinemet 25-100 mg] 1 tab PO TID Simvastatin [Zocor] 40 mg PO HS Cholecalciferol [Vitamin D3] 1,000 unit PO DAILY Multivitamin [Men's Multi-Vitamin] 1 tab PO DAILY rOPINIRole HCL [Requip] 0.5 mg PO TID Carvedilol [Coreg] 6.25 mg PO BID Furosemide [Lasix] 20 mg PO BID Aspirin 81 mg PO DAILY chew Insulin NPL/Insulin Lispro [humaLOG MIX 75-25 VIAL] 40 unit SQ DAILY@0630 Insulin NPL/Insulin Lispro [humaLOG MIX 75-25 VIAL] 20 unit SQ HS Warfarin [Coumadin] 10 mg PO DAILY@1800 Discharge Medication List Digoxin [Lanoxin] 125 mcg PO DAILY 08/05/14 [History] Imipramine HCl [Tofranil] 50 mg PO BID 08/05/14 [History] Nitroglycerin Sl Tabs [Nitrostat] 0.4 mg SUBLINGUAL Q5M PRN 08/05/14 [History] Allopurinol [Zyloprim] 300 mg PO DAILY 08/06/14 [History] Carbidopa-Levodopa 25-100 mg [Sinemet 25-100 mg] 1 tab PO TID 12/11/15 [History] Cholecalciferol [Vitamin D3] 1,000 unit PO DAILY 12/11/15 [History] Levothyroxine Sodium [Synthroid] 25 mcg PO DAILY 12/11/15 [History] Simvastatin [Zocor] 40 mg PO HS 12/11/15 [History] metFORMIN HCL [Glucophage] 500 mg PO DAILY 12/11/15 [History] Multivitamin [Men's Multi-Vitamin] 1 tab PO DAILY 12/12/15 [History] rOPINIRole HCL [Requip] 0.5 mg PO TID 06/24/16 [History] Carvedilol [Coreg] 6.25 mg PO BID 10/29/16 [History] Furosemide [Lasix] 20 mg PO BID 10/29/16 [History] Aspirin 81 mg PO DAILY chew 11/04/16 [Rx] Insulin NPL/Insulin Lispro [humaLOG MIX 75-25 VIAL] 20 unit SQ HS 02/21/17 [ History] Insulin NPL/Insulin Lispro [humaLOG MIX 75-25 VIAL] 40 unit SQ DAILY@0630 [History] Warfarin [Coumadin] 10 mg PO DAILY@1800 02/21/17 [History] Follow up Appointment(s)/Referral(s): Chucho Fan MD [Primary Care Provider] - 1-2 days Discharge Disposition: HOME SELF-CARE
--- NOTE | 2017-02-22 14:47 | P.PN ---
Subjective Principal diagnosis: Stroke This pleasant 86-year-old male continuing to be evaluated by the neurology service for stroke. His initial complaint was that of numbness and tingling over the right face. There've been going on for a few days. His family also noticed some right facial droop. His carotid Doppler showed no hemodynamically significant stenosis, an initial CT of the brain showed some hypoattenuation of the right yolanda and midbrain. A repeat CT confirmed this finding. There was no progression. He has a history of right eye injury with right prosthesis. He also has a history of hematoma requiring ben hole drainage. He has a history of atrial fibrillation for which she is on Coumadin. He also has a pacemaker. He also has a history of Parkinson's disease with mild dementia. Time of my exam he is resting comfortably in bed in no acute distress. Denies any new symptoms. He says his right facial symptoms are resolving. His cholesterol shows triglycerides of 80 total cholesterol 97 and LDL of 46 and HDL of 35 he is on Lipitor 20 mg daily. Objective - Vital Signs Vital signs: Vital Signs Temp 96.2 F L 02/22/17 12:00 Pulse 74 02/22/17 12:00 Resp 16 02/22/17 12:00 BP 131/76 02/22/17 12:00 Pulse Ox 100 02/22/17 12:00 Intake & Output 02/21/17 02/22/17 02/22/17 18:59 06:59 18:59 Intake Total 480 490 Output Total 950 550 Balance -470 -550 490 Weight 90.5 kg 92 kg Intake: IV 10 0.9 10 Oral 480 480 Output: Urine 950 550 Other: Voiding Method Urinal Toilet Urinal # Voids 2 - Constitutional General appearance: Present: average body habitus, cooperative, no acute distress - EENT EENT Comment(s): Right-sided ptosis, with prosthetic. Eyes: Present: ptosis ENT: Present: hearing grossly normal - Neck Neck: Present: normal ROM. Absent: rigidity - Respiratory Respiratory: negative: prolonged expiration, prolonged inspiration - Cardiovascular Rhythm: irregularly irregular - Gastrointestinal General gastrointestinal: Absent: distended, tenderness - Neurologic Neurologic Comment(s): Patient is alert awake and oriented 3. Speech-language are normal. There is mild facial droop on the right hand side with ptosis. Right-sided eye prosthetic. There is still mild right-sided sensory deficit to the face. He has full strength in bilateral upper lower extremities, With no sensory deficit. No tremors or seizure-like activities are seen. - Labs CBC & Chem 7: 02/21/17 02:20 02/21/17 02:20 Labs: Abnormal Lab Results - Last 24 Hours (Table) 02/21/17 02/21/17 02/21/17 Range/Units 15:17 16:48 21:28 PT (9.0-12.0) sec INR (<1.2) POC Glucose (mg/dL) 179 H 244 H (75-99) mg/dL Troponin I 0.070 H* (0.000-0.034) ng/mL HDL Cholesterol (40-60) mg/dL 02/22/17 02/22/17 02/22/17 Range/Units 05:36 05:36 05:48 PT 18.6 H (9.0-12.0) sec INR 1.9 H (<1.2) POC Glucose (mg/dL) 132 H (75-99) mg/dL Troponin I (0.000-0.034) ng/mL HDL Cholesterol 35 L (40-60) mg/dL 02/22/17 Range/Units 11:48 PT (9.0-12.0) sec INR (<1.2) POC Glucose (mg/dL) 140 H (75-99) mg/dL Troponin I (0.000-0.034) ng/mL HDL Cholesterol (40-60) mg/dL Assessment and Plan (1) Parkinsons disease Status: Chronic (2) Ptosis of eyebrow Status: Acute (3) Atrial fibrillation Status: Chronic (4) Cerebrovascular accident Status: Acute (5) Cardiac defibrillator in place Status: Chronic (6) Diabetes mellitus Status: Chronic Plan: Symptoms the patient has suffered an acute ischemic stroke of the yolanda and midbrain. His right-sided facial symptoms are improving but remain. He denies swallowing or speech problems. He will continue Coumadin with therapeutic INR monitoring. No medication changes are recommended at this time. Continue with physical occupational and speech therapy as needed. Otherwise cleared from a neurological standpoint.
[2017-02-22] MEDS ORDERED: INSULIN NPL/INSULIN LISPRO 100 UNIT/ML 10 ML VIAL (Humalog 75/25) SQ SCH (17:00)
--- NOTE | 2017-02-23 12:16 | EEG ---
DATE OF SERVICE: 02/22/2017 REASON FOR TESTING: Stroke. DESCRIPTION OF THE PROCEDURE: This EEG was performed using a 21 channel digital electroencephalograph, following the international 10 - 20 system. DESCRIPTION OF THE RECORDING: From the beginning of the tracing, and with the patient's eyes closed, the background rhythm was mostly consisting of 8 Hz alpha frequency in the posterior occipital leads. No obvious asymmetry is seen. Occasional muscle artifacts and movement artifacts are seen. Photic stimulation was performed with no driving response seen. No pathological waves were elicited. Hyperventilation was not performed. The patient remains awake throughout the tracing. No epileptiform discharges were seen. His EKG lead showed a regular rate and rhythm. INTERPRETATION: This awake EEG can be considered within normal limits. There is no asymmetry seen. No epileptiform discharges were noticed. The absence of epileptiform discharges does not rule out the diagnosis of epilepsy, therefore clinical correlation is recommended. MTDD
--- NOTE | 2017-02-23 14:09 | PN ---
CHIEF COMPLAINT: TIA. HISTORY OF PRESENT ILLNESS: This gentleman is doing well and he has almost completely regained the dysesthesias in the left side of the face and arm. His speech has returned. PHYSICAL EXAM: CHEST: Clear. CARDIAC: Normal. ABDOMEN: Soft, nontender. Cranial nerves are intact. He is oriented and alert. IMPRESSION: Right-sided transient ischemic attack. PLAN: Home today and he will be seen in a day or two. The situation is explained to the patient and the family. SREEDHAR
--- NOTE | 2017-02-23 14:14 | DS ---
CHIEF COMPLAINT: Difficulty talking and left face and arm dysesthesias. HISTORY OF PRESENT ILLNESS AND PHYSICAL EXAM: The details of this man's history and physical can be found in the initial workup. LABORATORY STUDIES: While he was in the hospital he had laboratory studies, details of which can be found in the laboratory section of the chart. COURSE IN THE HOSPITAL: After admission he was placed on bed rest, on intravenous fluids and he had frequent monitoring of his neurologic status and vital signs. He remained stable and his neurologic symptoms cleared. It was felt he could go home on the and he will go home on his usual diet, unchanged medications and usual activity and he will be seen in a day or two in the office. FINAL DIAGNOSES: 1. Transient ischemic attack. 2. Previous subdural hematoma. 3. Seizure disorder. 4. Coronary artery disease. 5. Diabetes. 6. Blind, right eye. OPERATIONS: None. CONSULTATIONS: Neurology. He is improved. SREEDHAR
== END 2017-02-22 15:12 | disposition home or self-care (01) | DRG 69 ==
LOC: EC 02:12 → 6SEL 04:53
PROVIDERS: ADMIT Family Medicine; ATTEND Family Medicine
DX: G45.9 Transient cerebral ischemic attack, unspecified (principal); I50.22 Chronic systolic (congestive) heart failure; I48.0 Paroxysmal atrial fibrillation; J44.9 Chronic obstructive pulmonary disease, unspecified; G40.909 Epilepsy, unspecified, not intractable, without status epilepticus; D69.6 Thrombocytopenia, unspecified; G20 Parkinson's disease; F02.80 Dementia in other diseases classified elsewhere, unspecified severity, without behavioral disturbance, psychotic disturbance, mood disturbance, and anxiety; I11.0 Hypertensive heart disease with heart failure; F32.9 Major depressive disorder, single episode, unspecified; I25.10 Atherosclerotic heart disease of native coronary artery without angina pectoris; E11.9 Type 2 diabetes mellitus without complications; T45.515A Adverse effect of anticoagulants, initial encounter; H02.401 Unspecified ptosis of right eyelid; R74.8 Abnormal levels of other serum enzymes; E03.9 Hypothyroidism, unspecified; M10.9 Gout, unspecified; H54.41 Blindness, right eye, normal vision left eye; E78.5 Hyperlipidemia, unspecified; M25.50 Pain in unspecified joint; Z97.0 Presence of artificial eye; Z79.899 Other long term (current) drug therapy; Z79.82 Long term (current) use of aspirin; Z79.4 Long term (current) use of insulin; Z79.01 Long term (current) use of anticoagulants; Z87.891 Personal history of nicotine dependence; Z82.49 Family history of ischemic heart disease and other diseases of the circulatory system; Z95.810 Presence of automatic (implantable) cardiac defibrillator; Z71.3 Dietary counseling and surveillance; Z88.7 Allergy status to serum and vaccine; Z88.8 Allergy status to other drugs, medicaments and biological substances; Z87.820 Personal history of traumatic brain injury; Z87.828 Personal history of other (healed) physical injury and trauma; Z87.438 Personal history of other diseases of male genital organs; Z86.69 Personal history of other diseases of the nervous system and sense organs
CPT/HCPCS: 36415; 70450; 71010; 80053; 80061; 82550; 82553; 83090; 84484; 85025; 85610; 85730; 93005; 93880; 95819; 99285

== ENCOUNTER 2017-05-26 18:21 | Inpatient (IN) | payer MEDICARE ==
[2017-05-26] MEDS ORDERED: SODIUM CHLORIDE 0.9% 1,000 ML IV STA (19:08)
[2017-05-26 19:31] LABS: Basophils % (A) 0 %; CH 32.7; Eosinophils # (A) 0.3 k/uL (0-0.7); Eosinophils % (A) 4 %; HCT 36.3 % (39.0-53.0); HDW 3.38; HGB 11.7 gm/dL (13.0-17.5); Luc # (Auto) 0.14; Luc % (Auto) 2; Lymphocytes # (A) 1.1 k/uL (1.0-4.8); Lymphocytes % (A) 15 %; MCH 31.4 pg (25.0-35.0); MCHC 32.3 g/dL (31.0-37.0); Mean Platelet Volume 8.8; Monocytes # (A) 0.7 k/uL (0-1.0); Monocytes % (A) 9 %; Neutrophils % (A) 69 %; RBC 3.74 m/uL (4.30-5.90); RDW 15.2 % (11.5-15.5); WBC 7.3 k/uL (3.8-10.6); WBC (Perox) 7.57
[2017-05-26 19:41] LABS: INR 4.5 (<1.2); Partial Thromboplastin Time 34.6 sec (22.0-30.0); Prothrombin Time 44.2 sec (9.0-12.0)
--- NOTE | 2017-05-26 19:48 | CT ---
EXAMINATION TYPE: CT brain indio glover DATE OF EXAM: 05/26/2017 COMPARISON: 02/22/[address] scan HISTORY: Syncope with head injury. CT DLP: 1649 mGycm Automated exposure control for dose reduction was used. TECHNIQUE: CT scan of the head and cervical spine are performed without contrast. FINDINGS: There is cerebral cortical atrophy. There is no mass effect nor midline shift. There is n o sign of intracranial hemorrhage. The calvarium is intact. There is deformity of the right lobe. Cervical vertebra have normal alignment. There is moderate hypertrophic anterior bridging osteophyte formation from C3 to T1 vertebra. Posterior elements are intact. There is no evidence of a fracture. Skull base is intact. There is calcified posterior cervical disc herniation at C3-4 and C5-6 with bon y spinal stenosis. IMPRESSION: Cerebral atrophy. No acute intracranial abnormality. No change. Old craniotomy defects noted. 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 No fracture.
[2017-05-26 19:54] LABS: ALT 16 U/L (21-72); AST 32 U/L (17-59); Alkaline Phosphatase 99 U/L (38-126); Anion Gap 12 mmol/L; Blood Urea Nitrogen 26 mg/dL (9-20); Calcium 9.1 mg/dL (8.4-10.2); Carbon Dioxide 27 mmol/L (22-30); Chloride 98 mmol/L (98-107); Glucose 86 mg/dL (74-99); Non-African American GFR(MDRD) >60 (>60 ml/min/1.73 sqM); Potassium 4.3 mmol/L (3.5-5.1); Sodium 137 mmol/L (137-145); Total Bilirubin 0.6 mg/dL (0.2-1.3); Total Protein 6.9 g/dL (6.3-8.2)
--- NOTE | 2017-05-26 20:23 | XR ---
EXAMINATION TYPE: XR chest 2V DATE OF EXAM: 05/26/2017 COMPARISON: 02/21/2017 HISTORY: Syncope TECHNIQUE: Frontal and lateral views of the chest are obtained. FINDINGS: There is no heart failure nor confluent pneumonic infiltrate. There is left axillary pacem aisha with the lead tips in the right ventricle. There are chest leads. Costophrenic angles are clear. There is spurring in the thoracic spine. IMPRESSION: No active cardiopulmonary disease. No change.
[2017-05-26 20:27] LABS: Creatine Kinase MB 2.1 ng/mL (0.0-2.4)
[2017-05-26 20:30] LABS: Troponin I 0.066 ng/mL (0.000-0.034)
--- NOTE | 2017-05-26 21:02 | ED ---
Syncope HPI - General Chief Complaint: Syncope Stated Complaint: syncope Time Seen by Provider: 05/26/17 18:51 Source: patient, family, EMS Mode of arrival: EMS Limitations: no limitations - History of Present Illness Initial Comments: 87 years old male, in the ER with his daughters they stated that he passed out 3 times today with falls and he passed out twice yesterday. He is also time and he was unable to get up and reactive to help him to get up. At this point he denies any headaches no history of blood thinners complaining about the back pain no chest pain no shortness of breath no abdominal pain no injury to upper or lower extremity - Related Data Home Medications Medication Instructions Recorded Confirmed Digoxin [Lanoxin] 125 mcg PO DAILY 08/05/14 05/26/17 Imipramine HCl [Tofranil] 50 mg PO BID 08/05/14 05/26/17 Nitroglycerin Sl Tabs [Nitrostat] 0.4 mg SUBLINGUAL Q5M PRN 08/05/14 05/26/17 Allopurinol [Zyloprim] 300 mg PO DAILY 08/06/14 05/26/17 Carbidopa-Levodopa 25-100 mg 1 tab PO TID 12/11/15 05/26/17 [Sinemet 25-100 mg] Cholecalciferol [Vitamin D3] 1,000 unit PO DAILY 12/11/15 05/26/17 Levothyroxine Sodium [Synthroid] 25 mcg PO DAILY 12/11/15 05/26/17 Simvastatin [Zocor] 40 mg PO HS 12/11/15 05/26/17 metFORMIN HCL [Glucophage] 500 mg PO DAILY 12/11/15 05/26/17 Multivitamin [Men's Multi-Vitamin] 1 tab PO DAILY 12/12/15 05/26/17 rOPINIRole HCL [Requip] 0.5 mg PO TID 06/24/16 05/26/17 Carvedilol [Coreg] 6.25 mg PO BID 10/29/16 05/26/17 Furosemide [Lasix] 20 mg PO BID 10/29/16 05/26/17 Insulin NPL/Insulin Lispro 20 unit SQ HS 02/21/17 05/26/17 [humaLOG MIX 75-25 VIAL] Insulin NPL/Insulin Lispro 40 unit SQ DAILY 02/21/17 05/26/17 [humaLOG MIX 75-25 VIAL] Warfarin [Coumadin] 10 mg PO HS 02/21/17 05/26/17 Donepezil [Aricept] 10 mg PO HS 05/26/17 05/26/17 Warfarin Sodium [Coumadin] 2.5 mg PO HS 05/26/17 05/26/17 Previous Rx's Medication Instructions Recorded Aspirin 81 mg PO DAILY chew 11/04/16 Allergies Allergy/AdvReac Type Severity Reaction Status Date / Time phenytoin sodium Allergy Severe Rash/Hives Verified 05/26/17 19:09 [From Dilantin] phenytoin sodium extended Allergy Severe Rash/Hives Verified 05/26/17 19:09 [From Dilantin] zoster vaccine live Allergy Unknown Verified 05/26/17 19:09 amiodarone AdvReac Dyspnea Verified 05/26/17 19:09 spironolactone AdvReac Gynecomasti Verified 05/26/17 19:09 a Review of Systems ROS Statement: Those systems with pertinent positive or pertinent negative responses have been documented in the HPI. ROS Other: All systems not noted in ROS Statement are negative. Past Medical History Past Medical History: Atrial Fibrillation, Heart Failure, COPD, Dementia, Diabetes Mellitus, Hyperlipidemia, Hypertension, Thyroid Disorder Additional Past Medical History / Comment(s): gout, family stated that a geriatric neurologist at [facility] felt that pt had parkinsons(on meds), dr lindquist here did tests but family does'nt know results yet. 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 Replacement pacemaker in 2010. prosthetic right eye. ben holes 2007 Past Anesthesia/Blood Transfusion Reactions: No Reported Reaction Type of Cardiac Device: AICD Device Placement Date:: 2011 Past Psychological History: Depression Smoking Status: Former smoker Past Alcohol Use History: Occasional Past Drug Use History: None Reported - Past Family History Mother Family Medical History: Blood Disorder Additional Family Medical History / Comment(s): famialy not sure what is was called Father Family Medical History: Myocardial Infarction ([place]) General Exam - General Exam Comments Initial Comments: General: The patient is awake and alert, in no distress, and does not appear acutely ill. GCS is 15 Skin: Skin is warm and dry and no rashes or lesions are noted. Eye: He had right eye injury years ago, left eye pupil is reactive to light and external ocular muscles are intact Ears, nose, mouth and throat: There are moist mucous membranes and no oral lesions. Neck: The neck is tender at C5 and C6 Cardiovascular: There is a regular rate and rhythm. No murmur, rub or gallop is appreciated. Respiratory: To auscultation bilateral, decreased breath sounds bilateral Gastrointestinal: Soft, non-distended, non-tender abdomen without masses or organomegaly noted. There is no rebound or guarding present. Bowel sounds are unremarkable. Back: There is no tenderness to palpation in the midline. There is no obvious deformity. Musculoskeletal: Normal ROM, no tenderness, There is no pedal edema. There is no calf tenderness or swelling. No cords were appreciated. Neurological: CN II-XII intact, Cranial nerves III through XII are intact. There are no obvious motor or sensory deficits. Coordination appears grossly intact. Speech is normal. Psychiatric: Cooperative, appropriate mood & affect, normal judgment. Limitations: no limitations Course Vital Signs 05/26/17 05/26/17 05/26/17 18:23 18:41 19:15 Temperature 98.3 F Pulse Rate 103 H 103 H Pulse Rate [ 103 H Pulse Oximetery ] Respiratory 16 18 Rate Blood Pressure 121/65 139/86 O2 Sat by Pulse 100 97 Oximetry 05/26/17 19:58 Temperature Pulse Rate 94 Pulse Rate [ Pulse Oximetery ] Respiratory 18 Rate Blood Pressure 113/58 O2 Sat by Pulse 100 Oximetry EKG Findings - EKG Comments: EKG Findings:: Him EKG is paced rhythm ventricular rate is 1 or 2 GA interval is 132 QRS duration is 162 QT/QTc is 410/534 Medical Decision Making - Lab Data Result diagrams: 05/26/17 18:36 05/26/17 18:36 Lab Results 05/26/17 05/26/17 05/26/17 Range/Units 18:36 18:36 18:36 WBC 7.3 (3.8-10.6) k/uL RBC 3.74 L (4.30-5.90) m/uL Hgb 11.7 L (13.0-17.5) gm/dL Hct 36.3 L (39.0-53.0) % MCV 97.0 (80.0-100.0) fL MCH 31.4 (25.0-35.0) pg MCHC 32.3 (31.0-37.0) g/dL RDW 15.2 (11.5-15.5) % Plt Count 168 (150-450) k/uL Neutrophils % 69 % Lymphocytes % 15 % Monocytes % 9 % Eosinophils % 4 % Basophils % 0 % Neutrophils # 5.0 (1.3-7.7) k/uL Lymphocytes # 1.1 (1.0-4.8) k/uL Monocytes # 0.7 (0-1.0) k/uL Eosinophils # 0.3 (0-0.7) k/uL Basophils # 0.0 (0-0.2) k/uL PT (9.0-12.0) sec INR (<1.2) APTT (22.0-30.0) sec Sodium 137 (137-145) mmol/L Potassium 4.3 (3.5-5.1) mmol/L Chloride 98 (98-107) mmol/L Carbon Dioxide 27 (22-30) mmol/L Anion Gap 12 mmol/L BUN 26 H (9-20) mg/dL Creatinine 1.10 (0.66-1.25) mg/dL Est GFR (MDRD) Af Amer >60 (>60 ml/min/1.73 sqM) Est GFR (MDRD) Non-Af >60 (>60 ml/min/1.73 sqM) Glucose 86 (74-99) mg/dL Calcium 9.1 (8.4-10.2) mg/dL Total Bilirubin 0.6 (0.2-1.3) mg/dL AST 32 (17-59) U/L ALT 16 L (21-72) U/L Alkaline Phosphatase 99 (38-126) U/L Total Creatine Kinase 148 (55-170) U/L CK-MB (CK-2) 2.1 (0.0-2.4) ng/mL CK-MB (CK-2) Rel Index 1.4 Troponin I 0.066 H* (0.000-0.034) ng/mL Total Protein 6.9 (6.3-8.2) g/dL Albumin 3.6 (3.5-5.0) g/dL 05/26/17 Range/Units 18:36 WBC (3.8-10.6) k/uL RBC (4.30-5.90) m/uL Hgb (13.0-17.5) gm/dL Hct (39.0-53.0) % MCV (80.0-100.0) fL MCH (25.0-35.0) pg MCHC (31.0-37.0) g/dL RDW (11.5-15.5) % Plt Count (150-450) k/uL Neutrophils % % Lymphocytes % % Monocytes % % Eosinophils % % Basophils % % Neutrophils # (1.3-7.7) k/uL Lymphocytes # (1.0-4.8) k/uL Monocytes # (0-1.0) k/uL Eosinophils # (0-0.7) k/uL Basophils # (0-0.2) k/uL PT 44.2 H (9.0-12.0) sec INR 4.5 H (<1.2) APTT 34.6 H (22.0-30.0) sec Sodium (137-145) mmol/L Potassium (3.5-5.1) mmol/L Chloride (98-107) mmol/L Carbon Dioxide (22-30) mmol/L Anion Gap mmol/L BUN (9-20) mg/dL Creatinine (0.66-1.25) mg/dL Est GFR (MDRD) Af Amer (>60 ml/min/1.73 sqM) Est GFR (MDRD) Non-Af (>60 ml/min/1.73 sqM) Glucose (74-99) mg/dL Calcium (8.4-10.2) mg/dL Total Bilirubin (0.2-1.3) mg/dL AST (17-59) U/L ALT (21-72) U/L Alkaline Phosphatase (38-126) U/L Total Creatine Kinase (55-170) U/L CK-MB (CK-2) (0.0-2.4) ng/mL CK-MB (CK-2) Rel Index Troponin I (0.000-0.034) ng/mL Total Protein (6.3-8.2) g/dL Albumin (3.5-5.0) g/dL Critical Care Time Total Critical Care Time: 35 Critical Care Time: Patient had a 4/and now 48 hours though his head CT is normal his cervical spine is unremarkable EKG is paced troponin is elevated 0.066 compressive metabolic panel and CBC are unremarkable INR is 4.5. Considering he is on Coumadin is not a candidate to go on heparin bolus. Dr. Fan and will call soft cardiology for further evaluation Disposition Clinical Impression: Syncope, Myocardial infarction Disposition: ADMITTED IP TO THIS HOSP Condition: Fair Referrals: Chucho Fan MD [Primary Care Provider] - 1-2 days
[2017-05-26] MEDS ORDERED: MORPHINE SULFATE 10 MG/ML SYRINGE IVP PRN (21:12)
[2017-05-26] MEDS ORDERED: NITROGLYCERIN SL TABS 0.4 MG TAB SUBLINGUAL PRN (21:12)
[2017-05-26] MEDS ORDERED: ACETAMINOPHEN TAB 325 MG TAB PO PRN (21:12)
[2017-05-26 21:21] LABS: Appearance,Urine Clear (Clear); Bacteria,Urine Rare /hpf; Bilirubin,Urine Negative (Negative); Glucose,Urine (UA) Negative (Negative); Ketones,Urine Negative (Negative); Leukocyte Esterase,Urine Moderate (Negative); Mucus,Urine Rare /hpf; Nitrite,Urine Negative (Negative); Particle Count 841; Protein,Urine Negative (Negative); RBC,Urine 2 /hpf (0-5); Specific Gravity,Urine 1.011 (1.001-1.035); UA Billing (MACRO vs. MICRO) MICRO; Urobilinogen,Urine <2.0 mg/dL (<2.0); WBC,Urine 9 /hpf (0-5)
[2017-05-26 21:54] LABS: INR 4.6 (<1.2); Prothrombin Time 45.5 sec (9.0-12.0)
[2017-05-26] MEDS: CARBIDOPA-LEVODOPA 25-100 MG 1 EACH TAB PO SCH (22:46)
[2017-05-27 01:06] LABS: Creatine Kinase MB 2.6 ng/mL (0.0-2.4); Troponin I 0.077 ng/mL (0.000-0.034)
[2017-05-27] MEDS: CARVEDILOL 6.25 MG TAB PO SCH ×2 (06:08→15:35)
[2017-05-27] MEDS: FUROSEMIDE 20 MG TAB PO SCH ×2 (06:08→15:34)
[2017-05-27] MEDS: LEVOTHYROXINE 25 MCG TAB PO SCH (06:08)
[2017-05-27 06:21] LABS: Glucose,Whole Blood 115 mg/dL (75-99)
[2017-05-27 06:47] LABS: Cholesterol 108 mg/dL (<200); HDL Cholesterol 35 mg/dL (40-60)
[2017-05-27 07:11] LABS: Creatine Kinase MB 2.6 ng/mL (0.0-2.4); Troponin I 0.101 ng/mL (0.000-0.034)
[2017-05-27] MEDS: CARBIDOPA-LEVODOPA 25-100 MG 1 EACH TAB PO SCH ×3 (09:32→21:42)
[2017-05-27] MEDS: IMIPRAMINE 25 MG TAB PO SCH ×2 (09:33→20:45)
[2017-05-27] MEDS: DIGOXIN 125 MCG TAB PO SCH (09:33)
[2017-05-27] MEDS: metFORMIN 500 MG TAB PO SCH (09:34)
[2017-05-27] MEDS: ALLOPURINOL 300 MG TAB PO SCH (09:35)
[2017-05-27] MEDS: ASPIRIN 325 MG TAB PO SCH (09:40)
--- NOTE | 2017-05-27 09:48 | P.CRDCN ---
History of Present Illness Consult date: 05/27/17 Chief complaint: Recurrent syncope History of present illness: This is a pleasant 87-year-old gentleman who sees Dr. Prakash in the office as an outpatient with a past medical history significant for coronary artery disease and prior coronary artery stenting with unknown details at this point, severe cardiomyopathy with a known EF between 20-25%, status post bi-V ICD, as well as paroxysmal atrial fibrillation was brought by his family to the emergency room because he was passing out. The patient is known to have this problem for the last year. Lately he has been experiencing it more often. Yesterday he had 3 episodes of loss of consciousness witnessed by his family. No chest pain or discomfort. No shortness of breath. No dizziness or lightheadedness around episodes. The EKG showed ventricular paced rhythm. The cardiac enzymes were checked and came in to be slightly abnormal. The computed tomography scan of the brain did not show any acute changes but it did show only chronic changes. Past Medical History Past Medical History: Atrial Fibrillation, Cancer, Heart Failure, COPD, Dementia , Diabetes Mellitus, Hyperlipidemia, Hypertension, Thyroid Disorder Additional Past Medical History / Comment(s): gout, family stated that a geriatric neurologist at [facility] felt that pt had parkinsons(on meds) rt eye prosthetic vision lt eye good,prostate cancer, influenza, History of Any Multi-Drug Resistant Organisms: None Reported Past Surgical History: Heart Catheterization With Stent, Hernia Repair, Orthopedic Surgery, Pacemaker, Prostate Surgery Additional Past Surgical History / Comment(s): plate in the left ankle, had the first pacemaker placed in roughly 2007. Replacement pacemaker in 2010. prosthetic right eye. ben holes 2007 for fluid on the brain Past Anesthesia/Blood Transfusion Reactions: No Reported Reaction Date of Last Stent Placement:: 2001 Type of Cardiac Device: AICD Device Placement Date:: 2011 Past Psychological History: Depression Additional Psychological History / Comment(s): . Daughter lives next door. No current tobacco use or alcohol use. Retired labor. Denied experience or travel history. No animal exposures Smoking Status: Former smoker Past Alcohol Use History: Occasional Additional Past Alcohol Use History / Comment(s): started smoking 1939, quit 1954, smoked 1 ppd. Past Drug Use History: None Reported - Past Family History Mother Family Medical History: Blood Disorder Additional Family Medical History / Comment(s): family not sure what is was called Father Family Medical History: Myocardial Infarction ([place]) Brother(s) Family Medical History: Cancer, Myocardial Infarction ([place]) Additional Family Medical History / Comment(s): brain cancer Medications and Allergies Home Medications Medication Instructions Recorded Confirmed Type Digoxin [Lanoxin] 125 mcg PO DAILY 08/05/14 05/27/17 History Imipramine HCl [Tofranil] 50 mg PO BID 08/05/14 05/27/17 History Nitroglycerin Sl Tabs [Nitrostat] 0.4 mg SUBLINGUAL Q5M PRN 08/05/14 05/27/17 History Allopurinol [Zyloprim] 300 mg PO DAILY 08/06/14 05/27/17 History Carbidopa-Levodopa 25-100 mg 1 tab PO TID 12/11/15 05/27/17 History [Sinemet 25-100 mg] Cholecalciferol [Vitamin D3] 1,000 unit PO DAILY 12/11/15 05/27/17 History Levothyroxine Sodium [Synthroid] 25 mcg PO DAILY 12/11/15 05/27/17 History Simvastatin [Zocor] 40 mg PO HS 12/11/15 05/27/17 History metFORMIN HCL [Glucophage] 500 mg PO DAILY 12/11/15 05/27/17 History Multivitamin [Men's Multi-Vitamin] 1 tab PO DAILY 12/12/15 05/27/17 History rOPINIRole HCL [Requip] 0.5 mg PO TID 06/24/16 05/27/17 History Carvedilol [Coreg] 6.25 mg PO BID 10/29/16 05/27/17 History Furosemide [Lasix] 20 mg PO BID 10/29/16 05/27/17 History Aspirin 81 mg PO DAILY chew 11/04/16 05/27/17 Rx Insulin NPL/Insulin Lispro 20 unit SQ HS 02/21/17 05/27/17 History [humaLOG MIX 75-25 VIAL] Insulin NPL/Insulin Lispro 40 unit SQ DAILY 02/21/17 05/27/17 History [humaLOG MIX 75-25 VIAL] Warfarin [Coumadin] 10 mg PO HS 02/21/17 05/27/17 History Donepezil [Aricept] 10 mg PO HS 05/26/17 05/27/17 History Warfarin Sodium [Coumadin] 2.5 mg PO HS 05/26/17 05/27/17 History Allergies Allergy/AdvReac Type Severity Reaction Status Date / Time phenytoin sodium Allergy Severe Rash/Hives Verified 05/26/17 23:50 [From Dilantin] phenytoin sodium extended Allergy Severe Rash/Hives Verified 05/26/17 23:50 [From Dilantin] zoster vaccine live Allergy Unknown Verified 05/26/17 23:50 amiodarone AdvReac Dyspnea Verified 05/26/17 23:50 spironolactone AdvReac Gynecomasti Verified 05/26/17 23:50 a Physical Exam Vitals: Vital Signs Temp Pulse Pulse Resp BP BP Pulse Ox 05/27/17 04:00 97.8 F 93 16 129/60 98 05/27/17 00:00 97.8 F 108 H 16 141/70 99 05/26/17 23:31 97.4 F L 105 H 18 162/72 100 05/26/17 22:21 88 18 147/65 100 05/26/17 21:19 97.1 F L 88 18 163/73 94 L 05/26/17 19:58 94 18 113/58 100 05/26/17 19:15 103 H 18 139/86 97 05/26/17 18:41 103 H 05/26/17 18:23 98.3 F 103 H 16 121/65 100 Intake and Output 05/26/17 05/27/17 05/27/17 22:59 06:59 14:59 Intake Total 500 Output Total 420 Balance 80 Intake: IV 500 Sodium Chloride 0.9% 1, 500 000 ml @ 100 mls/hr IV . Q10H STA Rx#:[id number] Output: Urine 420 Other: Voiding Method Urinal Weight 89.811 kg 91.8 kg - Constitutional General appearance: no acute distress - Respiratory Respiratory: bilateral: CTA - Cardiovascular Rhythm: regular Heart sounds: normal: S1, S2 Results 05/26/17 18:36 05/26/17 18:36 Cardiac Enzymes 05/26/17 05/26/17 05/27/17 Range/Units 18:36 18:36 00:18 AST 32 (17-59) U/L CK-MB (CK-2) 2.1 2.6 H* (0.0-2.4) ng/mL Troponin I 0.066 H* 0.077 H* (0.000-0.034) ng/mL 05/27/17 Range/Units 06:18 AST (17-59) U/L CK-MB (CK-2) 2.6 H* (0.0-2.4) ng/mL Troponin I 0.101 H* (0.000-0.034) ng/mL Coagulation 05/26/17 05/26/17 Range/Units 18:36 21:30 PT 44.2 H 45.5 H (9.0-12.0) sec APTT 34.6 H (22.0-30.0) sec Lipids 05/27/17 Range/Units 06:18 Triglycerides 127 (<150) mg/dL Cholesterol 108 (<200) mg/dL HDL Cholesterol 35 L (40-60) mg/dL CBC 05/26/17 Range/Units 18:36 WBC 7.3 (3.8-10.6) k/uL RBC 3.74 L (4.30-5.90) m/uL Hgb 11.7 L (13.0-17.5) gm/dL Hct 36.3 L (39.0-53.0) % Plt Count 168 (150-450) k/uL Comprehensive Metabolic Panel 05/26/17 Range/Units 18:36 Sodium 137 (137-145) mmol/L Potassium 4.3 (3.5-5.1) mmol/L Chloride 98 (98-107) mmol/L Carbon Dioxide 27 (22-30) mmol/L BUN 26 H (9-20) mg/dL Creatinine 1.10 (0.66-1.25) mg/dL Glucose 86 (74-99) mg/dL Calcium 9.1 (8.4-10.2) mg/dL AST 32 (17-59) U/L ALT 16 L (21-72) U/L Alkaline Phosphatase 99 (38-126) U/L Total Protein 6.9 (6.3-8.2) g/dL Albumin 3.6 (3.5-5.0) g/dL Current Medications Generic Name Dose Route Start Last Admin Trade Name Freq PRN Reason Stop Dose Admin Acetaminophen 650 mg 05/26/17 21:12 Tylenol Tab PO Q4HR PRN Mild Pain Allopurinol 300 mg 05/27/17 09:00 05/27/17 09:35 Zyloprim PO 300 mg DAILY [facility] Administration Aspirin 325 mg 05/27/17 09:00 05/27/17 09:40 Aspirin PO 325 mg DAILY [facility] Administration Atorvastatin Calcium 20 mg 05/27/17 21:00 Lipitor PO HS [facility] Carbidopa/Levodopa 1 each 05/26/17 22:00 05/27/17 09:32 Sinemet 25-100 PO 1 each TID [facility] Administration Carvedilol 6.25 mg 05/27/17 07:30 05/27/17 06:08 Coreg PO 6.25 mg BID-W/MEALS [facility] Administration Cholecalciferol 1,000 unit 05/27/17 12:00 Vitamin D3 PO DAILY@1200 [facility] Digoxin 125 mcg 05/27/17 09:00 05/27/17 09:33 Lanoxin PO 125 mcg DAILY [facility] Administration Donepezil HCl 10 mg 05/27/17 21:00 Aricept PO HS [facility] Furosemide 20 mg 05/27/17 06:00 05/27/17 06:08 Lasix PO 20 mg BID@0600,1800 [facility] Administration Imipramine HCl 50 mg 05/27/17 09:00 05/27/17 09:33 Tofranil PO 50 mg BID [facility] Administration Insulin Lispro Protam/Lispro Human 20 unit 05/27/17 21:00 Humalog Mix 75-25 Vial SQ HS [facility] Insulin Lispro Protam/Lispro Human 40 unit 05/27/17 09:00 Humalog Mix 75-25 Vial SQ DAILY [facility] Levothyroxine Sodium 25 mcg 05/27/17 06:30 05/27/17 06:08 Synthroid PO 25 mcg 0630 [facility] Administration Metformin HCl 500 mg 05/27/17 09:00 05/27/17 09:34 Glucophage PO 500 mg DAILY [facility] Administration Morphine Sulfate 2 mg 05/26/17 21:12 Morphine Sulfate (Inj) IVP Q5M PRN Chest Pain Multivitamins 1 each 05/27/17 12:00 Theragran PO DAILY@1200 [facility] Nitroglycerin 0.4 mg 05/26/17 21:12 Nitrostat SUBLINGUAL Q5M PRN Chest Pain Ropinirole HCl 0.5 mg 05/26/17 22:00 05/27/17 09:32 Requip PO 0.5 mg TID ABHAY Administration Intake and Output 05/26/17 05/27/17 05/27/17 22:59 06:59 14:59 Intake Total 500 Output Total 420 Balance 80 Intake: IV 500 Sodium Chloride 0.9% 1, 500 000 ml @ 100 mls/hr IV . Q10H STA Rx#:[id number] Output: Urine 420 Other: Voiding Method Urinal Weight 89.811 kg 91.8 kg 05/26/17 18:36 05/26/17 18:36 Assessment and Plan Assessment: This is a pleasant 87-year-old gentleman with a known CAD and prior stenting as well as severe cardiomyopathy and status post by the ICD as well as paroxysmal A. fib was admitted to the hospital with recurrent syncope. The cardiac enzymes are slightly abnormal but could be related to the severe cardiomyopathy and tachycardia. Acute myocardial infarction related to severe underlying CAD, be totally excluded but the patient did not have any symptoms of chest pain or chest discomfort which she speak against this. I wouldn't interrogated the device to make sure that the patient did not have any significant arrhythmia responsible for the episodes. Also I would suggest obtain a neurology consult to rule out any kind of seizure activity which could also be explained the situation. We'll continue following up with him.
[2017-05-27] MEDS: INSULIN NPL/INSULIN LISPRO 100 UNIT/ML 10 ML VIAL (Humalog 75/25) SQ SCH ×2 (09:52→20:51)
[2017-05-27 11:48] LABS: Glucose,Whole Blood 85 mg/dL (75-99)
[2017-05-27] MEDS: CHOLECALCIFEROL 1,000 UNIT TAB PO SCH (11:49)
[2017-05-27] MEDS: MULTIVITAMINS, THERA 1 EACH TAB PO SCH (11:49)
--- NOTE | 2017-05-27 14:21 | HP ---
HISTORY AND PHYSICAL CHIEF COMPLAINT: Multiple falls. HISTORY OF PRESENT ILLNESS: This is many admissions for this 87-year-old, white male, who has a long-standing history of coronary artery disease, cardiomyopathy, hypertension, atrial fibrillation, CHF, subdural hematoma, seizure disorder, and multiple episodes of syncope and falls. He came to the emergency room after he had apparently had 4 or 5 falls in the last several days. He has multiple ecchymoses on the legs and on the left side of the scalp. He is not complaining of any headache, focal neurologic deficits, lethargy and confusion, vomiting, etc. He has a very supportive family, but he lives alone and is adamant about not going into any other living arrangements. REVIEW OF SYSTEMS: He denies any changes in vision, hearing, headache, neurologic losses, chest pain, shortness of breath, hemoptysis, abdominal pain, vomiting, diarrhea, melena, etc. PAST MEDICAL HISTORY, FAMILY HISTORY, PERSONAL AND SOCIAL HISTORY: Demonstrate that he cannot take spironolactone, Dyazide, amiodarone. MEDICATIONS: Medications include donepezil 5 mg at bedtime, ropinirole 0.5 at bedtime, warfarin 10 mg once a day, furosemide 20 mg twice a day, metformin 500 mg once a day, levothyroxine 0.025 mg a day, Sinemet 25/100 t.i.d., Humalog 75/25 40 units in the morning and 20 at night, allopurinol 300 mg once a day, carvedilol 6.25 twice a day, simvastatin 40 mg at bedtime, imipramine 50 mg b.i.d., Lanoxin 0.125 once a day, aspirin 81 mg a day. Past medical history, family history, personal and social histories are otherwise unremarkable. He does not smoke or drink. PHYSICAL EXAMINATION: Blood pressure is 132/50 with a pulse of 80 and irregular irregular. Respirations 16. He is afebrile. GENERAL: He appeared to be well developed, well nourished, in no acute distress. His skin color was normal. Skin was dry. He had large ecchymosis on the left side of his head and several others on his arms and legs. Neck veins were not distended. The carotids were normal. Chest is clear. Cardiac exam demonstrated atrial fibrillation with a reasonable ventricular response. The abdomen is soft, nontender, without visceromegaly masses. Bowel sounds present. EXTREMITIES: Normal. Neurologically, he was intact. He is awake and alert. He had no focal or cranial nerve or sensory motor deficits. He is admitted to the hospital diagnosis number diagnoses: 1. Multiple syncopal events with falls, etiology unknown. 2. Seizure disorder. 3. Arrhythmias. 4. Coronary artery disease. 5. Cardiomyopathy. 6. Atrial fibrillation. 7. Previous history of intracranial bleed. PLAN: 1. Bed rest. 2. IV fluids. 3. Frequent monitoring of his neurologic status and vital signs. 4. Consult Cardiology. 5. Consult with Business Relationship Manager. MMODL / IJN: [id number] /
--- NOTE | 2017-05-27 14:21 | PN ---
PROGRESS NOTE DATE OF SERVICE: 05/27/2017 CHIEF COMPLAINT: Multiple episodes of syncope with falls. HISTORY OF PRESENT ILLNESS: This gentleman is awake and alert today and not complaining of any headache or focal neurologic deficits. PHYSICAL EXAM: Chest is clear and cardiac exam is normal. The abdomen is soft, nontender. Neurologically he is intact. IMPRESSION: 1. Multiple falls with syncope. 2. ? arrhythmia. 3. ? seizure disorder. PLAN: 1. Commercial Leasing Manager consult. 2. Gradually increase activity and continue on telemetry. MMODL / IJN: [id number] /
--- NOTE | 2017-05-27 14:58 | CDI ---
In responding to this query, please exercise your independent professional judgment. The [facility] Coding Staff and Clinical Documentation Specialists appreciate your assistance in clarifying documentation, maintaining compliance with coding guidelines, accurately documenting patients condition and capturing severity of illness. The fact that a question is asked does not imply that any particular answer is desired or expected. Communication forms are a method of clarifying documentation and are not made part of the Legal Health Record. Thank you in advance for your clarification. Last Revision, May 2015 Liza Blancas [address] [facility] [place] [address] Documentation Clarification Form Date: 05/27/2017 2:43:00 PM From: Alina Vance Admit Date: 05/26/2017 9:10:00 PM Patient Name: Santosh Hathaway Visit Number: [id number] Discharge Date: Dr. Salvador Coy Severe Cardiomyopathy is documented in your consult on 05/27/17. History/Risk Factors: Paroxysmal Atrial Fibrillation, Heart Failure, COPD, Dementia, Diabetes Mellitus, Hypertension Clinical indicators: Present with complaints of passing out x 3 episodes witnessed by his family. : CT Brain: No acute changes. EKG: ventricular paced rhythm. Echocardiogram: EF 20-25 % Treatment: Interrogate Pacemaker Monitor Labs ASA PO Coreg PO Lanoxin PO Lasix PO Lipitor PO In your professional opinion; can you please clarify the type of cardiomyopathy and underlying cause if known? Congenital Dilated Hypertrophic Ischemic Secondary, please indicate underlying cause if known Unable to determine Other, please specify Please document in your progress notes in order to capture severity of illness and risk of mortality. Include clinical findings that support your diagnosis. FYI: Press F11 to launch patient chart MTDD
--- NOTE | 2017-05-27 15:18 | CDI ---
In responding to this query, please exercise your independent professional judgment. The [facility] Coding Staff and Clinical Documentation Specialists appreciate your assistance in clarifying documentation, maintaining compliance with coding guidelines, accurately documenting patients condition and capturing severity of illness. The fact that a question is asked does not imply that any particular answer is desired or expected. Communication forms are a method of clarifying documentation and are not made part of the Legal Health Record. Thank you in advance for your clarification. Last Revision, September 2016 Liza Blancas [address] [facility] [place] [address] Documentation Clarification Form Date: 05/27/2017 2:58:00 PM From: Alina Vance Admit Date: 05/26/2017 9:10:00 PM Patient Name: Santosh Hathaway Visit Number: [id number] Discharge Date: Dr. Salvador Coy CHF is documented in the history of present illness. History/Risk Factors: Paroxysmal Atrial Fibrillation, Heart Failure, COPD, Dementia Diabetes, Mellitus, hypertension, bi-VICD Clinical Indicators: Per past medical history Labs: Troponin I 0.066, 0.077, 0.101 VS/Pulse OX: 121/65 103 16 98.3 100 % 2/l NC Echocardiogram Results: Severe Cardiomyopathy, EF 20-25 % (per your consult notes) Chest X Ray: No active cardiopulmonary disease Treatment: compliance monitor Lasix PO Coreg PO Lanoxin PO In your professional opinion, can you please clarify the acuity and type of CHF if known? Acute Systolic Heart Failure: Chronic Systolic Heart Failure Acute on Chronic Systolic Heart Failure Diastolic Heart Failure: Acute Chronic Acute on Chronic Systolic & Diastolic Heart Failure: Acute Chronic Acute on Chronic Unable to determine Other, please specify Please document in your progress notes in order to capture severity of illness and risk of mortality. Include clinical findings that support your diagnosis. FYI: Press F11 to launch patient chart. SREEDHAR
[2017-05-27 16:45] LABS: Glucose,Whole Blood 137 mg/dL (75-99)
[2017-05-27] MEDS: ATORVASTATIN 20 MG TAB PO SCH (20:45)
[2017-05-27] MEDS: DONEPEZIL 10 MG TAB PO SCH (20:45)
[2017-05-27 21:04] LABS: Glucose,Whole Blood 194 mg/dL (75-99)
[2017-05-28 06:08] LABS: Glucose,Whole Blood 105 mg/dL (75-99)
[2017-05-28] MEDS: FUROSEMIDE 20 MG TAB PO SCH ×2 (06:09→16:58)
[2017-05-28] MEDS: LEVOTHYROXINE 25 MCG TAB PO SCH (06:09)
[2017-05-28 06:54] LABS: INR 2.9 (<1.2); Prothrombin Time 27.8 sec (9.0-12.0)
[2017-05-28 06:55] LABS: Anion Gap 5 mmol/L; Blood Urea Nitrogen 25 mg/dL (9-20); Calcium 8.8 mg/dL (8.4-10.2); Carbon Dioxide 32 mmol/L (22-30); Chloride 100 mmol/L (98-107); Glucose 105 mg/dL (74-99); Non-African American GFR(MDRD) >60 (>60 ml/min/1.73 sqM); Potassium 4.1 mmol/L (3.5-5.1); Sodium 137 mmol/L (137-145)
[2017-05-28 07:02] LABS: Basophils % (A) 0 %; CH 32.3; CHCM 33.6; Eosinophils # (A) 0.3 k/uL (0-0.7); Eosinophils % (A) 7 %; HCT 29.8 % (39.0-53.0); HDW 3.29; Luc # (Auto) 0.09; Luc % (Auto) 2; Lymphocytes % (A) 21 %; MCH 31.8 pg (25.0-35.0); MCHC 32.8 g/dL (31.0-37.0); Mean Platelet Volume 8.6; Monocytes # (A) 0.6 k/uL (0-1.0); Monocytes % (A) 12 %; Neutrophils # (A) 2.8 k/uL (1.3-7.7); Neutrophils % (A) 58 %; RBC 3.07 m/uL (4.30-5.90); RDW 15.2 % (11.5-15.5); WBC 4.8 k/uL (3.8-10.6); WBC (Perox) 4.81
[2017-05-28 07:03] LABS: MCV 96.9 fL (80.0-100.0)
[2017-05-28] MEDS: CARVEDILOL 6.25 MG TAB PO SCH ×2 (07:14→16:58)
[2017-05-28] MEDS: CARBIDOPA-LEVODOPA 25-100 MG 1 EACH TAB PO SCH ×3 (08:20→21:14)
[2017-05-28] MEDS: ASPIRIN 325 MG TAB PO SCH (08:20)
[2017-05-28] MEDS: ALLOPURINOL 300 MG TAB PO SCH (08:20)
[2017-05-28] MEDS: DIGOXIN 125 MCG TAB PO SCH (08:20)
[2017-05-28] MEDS: IMIPRAMINE 25 MG TAB PO SCH ×2 (08:21→20:28)
[2017-05-28] MEDS: metFORMIN 500 MG TAB PO SCH (09:23)
[2017-05-28] MEDS: INSULIN NPL/INSULIN LISPRO 100 UNIT/ML 10 ML VIAL (Humalog 75/25) SQ SCH ×2 (09:23→21:14)
--- NOTE | 2017-05-28 10:02 | P.PN ---
Subjective Progress Note Date: 05/28/17 Principal diagnosis: Recurrent syncope This is a pleasant 87-year-old gentleman who sees Dr. Prakash in the office as an outpatient with a past medical history significant for coronary artery disease and prior coronary artery stenting with unknown details at this point, severe cardiomyopathy with a known EF between 20-25%, status post bi-V ICD, as well as paroxysmal atrial fibrillation was brought by his family to the emergency room because he was passing out. The patient is known to have this problem for the last year. Lately he has been experiencing it more often. Yesterday he had 3 episodes of loss of consciousness witnessed by his family. No chest pain or discomfort. No shortness of breath. No dizziness or lightheadedness around episodes. The EKG showed ventricular paced rhythm. The cardiac enzymes were checked and came in to be slightly abnormal. The computed tomography scan of the brain did not show any acute changes but it did show only chronic changes. The device was interrogated and revealed multiple episodes of atrial fibrillation. No ventricular arrhythmia noted. I would like to increase the dose of beta eugenie but the patient's blood pressure has been marginally low. Objective - Vital Signs Vital signs: Vital Signs Temp 97.7 F 05/28/17 08:00 Pulse 84 05/28/17 08:00 Resp 16 05/28/17 08:00 BP 132/55 05/28/17 08:00 Pulse Ox 97 05/28/17 08:00 Intake & Output 05/27/17 05/28/17 05/28/17 18:59 06:59 18:59 Intake Total 480 550 Output Total 400 1650 Balance 80 -1100 Weight 91.1 kg Intake: Oral 480 550 Output: Urine 400 1650 Other: Voiding Method Toilet Toilet - Constitutional General appearance: Present: no acute distress - Respiratory Respiratory: bilateral: CTA - Cardiovascular Heart sounds: normal: S1, S2 - Labs CBC & Chem 7: 05/28/17 05:59 05/28/17 05:59 Labs: Abnormal Lab Results - Last 24 Hours (Table) 05/27/17 05/27/17 05/28/17 Range/Units 16:43 21:02 05:59 RBC 3.07 L (4.30-5.90) m/uL Hgb 9.8 L D (13.0-17.5) gm/dL Hct 29.8 L (39.0-53.0) % Plt Count 134 L (150-450) k/uL PT (9.0-12.0) sec INR (<1.2) Carbon Dioxide (22-30) mmol/L BUN (9-20) mg/dL Glucose (74-99) mg/dL POC Glucose (mg/dL) 137 H 194 H (75-99) mg/dL 05/28/17 05/28/17 05/28/17 Range/Units 05:59 05:59 06:04 RBC (4.30-5.90) m/uL Hgb (13.0-17.5) gm/dL Hct (39.0-53.0) % Plt Count (150-450) k/uL PT 27.8 H (9.0-12.0) sec INR 2.9 H (<1.2) Carbon Dioxide 32 H (22-30) mmol/L BUN 25 H (9-20) mg/dL Glucose 105 H (74-99) mg/dL POC Glucose (mg/dL) 105 H (75-99) mg/dL Assessment and Plan Assessment: This is a pleasant 87-year-old gentleman with a known CAD and prior stenting as well as severe cardiomyopathy and status post by the ICD as well as paroxysmal A. fib was admitted to the hospital with recurrent syncope. The cardiac enzymes are slightly abnormal but could be related to the severe cardiomyopathy and tachycardia. Acute myocardial infarction related to severe underlying CAD, be totally excluded but the patient did not have any symptoms of chest pain or chest discomfort which she speak against this. The defibrillator was interrogated and revealed multiple episode of atrial fibrillation. Unfortunately we cannot increase the dose of beta eugenie in view of the borderline low blood pressure. At this point I recommended continue the current medical treatment. Trying to get the patient up and around. We'll continue following up with him.
[2017-05-28] MEDS: CHOLECALCIFEROL 1,000 UNIT TAB PO SCH (12:05)
[2017-05-28] MEDS: MULTIVITAMINS, THERA 1 EACH TAB PO SCH (12:05)
[2017-05-28 12:34] LABS: Glucose,Whole Blood 134 mg/dL (75-99)
--- NOTE | 2017-05-28 14:52 | PN ---
PROGRESS NOTE CHIEF COMPLAINT: Syncopal episode. HISTORY OF PRESENT ILLNESS: This gentleman is doing well. He has had no his arrhythmias, syncope, neurologic deficits, etc. He has been seen by Cardiology and they are recommending a neurology consult. PHYSICAL EXAMINATION: He is awake, alert and oriented. Chest is clear. Cardiac exam is normal. The abdomen is soft, nontender. Neurologically he is intact. IMPRESSION: 1. Syncopal events. 2. Coronary artery disease. 3. Cardiomyopathy. 4. Possible cardiac arrhythmias. 5. Possible seizure activity. PLAN: 1. Increase activity. 2. Neurology consult. 3. Work on discharge planning, whereby the family has already made arrangements for somebody to come in and live with him. MMODL / IJN: [id number] /
[2017-05-28 16:56] LABS: Glucose,Whole Blood 134 mg/dL (75-99)
[2017-05-28] MEDS: DONEPEZIL 10 MG TAB PO SCH (20:27)
[2017-05-28] MEDS: ATORVASTATIN 20 MG TAB PO SCH (20:28)
[2017-05-28 21:25] LABS: Glucose,Whole Blood 254 mg/dL (75-99)
[2017-05-29 05:42] LABS: CH 31.4; HDW 3.15; HGB 9.6 gm/dL (13.0-17.5); MCH 31.8 pg (25.0-35.0); MCHC 33.2 g/dL (31.0-37.0); MCV 95.7 fL (80.0-100.0); Mean Platelet Volume 9.2; RBC 3.03 m/uL (4.30-5.90); WBC 4.7 k/uL (3.8-10.6)
[2017-05-29 05:47] LABS: INR 1.9 (<1.2); Prothrombin Time 18.3 sec (9.0-12.0)
[2017-05-29 05:59] LABS: Anion Gap 7 mmol/L; Blood Urea Nitrogen 21 mg/dL (9-20); Calcium 8.6 mg/dL (8.4-10.2); Carbon Dioxide 29 mmol/L (22-30); Chloride 102 mmol/L (98-107); Glucose 99 mg/dL (74-99); Non-African American GFR(MDRD) >60 (>60 ml/min/1.73 sqM); Potassium 4.2 mmol/L (3.5-5.1); Sodium 138 mmol/L (137-145)
[2017-05-29] MEDS: FUROSEMIDE 20 MG TAB PO SCH ×2 (06:02→15:47)
[2017-05-29] MEDS: LEVOTHYROXINE 25 MCG TAB PO SCH (06:03)
[2017-05-29 06:05] LABS: Glucose,Whole Blood 114 mg/dL (75-99)
[2017-05-29] MEDS: CARVEDILOL 6.25 MG TAB PO SCH ×2 (06:55→15:46)
[2017-05-29] MEDS: DIGOXIN 125 MCG TAB PO SCH (08:39)
[2017-05-29] MEDS: ASPIRIN 325 MG TAB PO SCH (08:39)
[2017-05-29] MEDS: ALLOPURINOL 300 MG TAB PO SCH (08:39)
[2017-05-29] MEDS: CARBIDOPA-LEVODOPA 25-100 MG 1 EACH TAB PO SCH ×3 (08:39→20:56)
[2017-05-29] MEDS: metFORMIN 500 MG TAB PO SCH (08:40)
[2017-05-29] MEDS: IMIPRAMINE 25 MG TAB PO SCH ×2 (08:40→20:55)
[2017-05-29] MEDS: INSULIN NPL/INSULIN LISPRO 100 UNIT/ML 10 ML VIAL (Humalog 75/25) SQ SCH ×2 (08:44→20:55)
--- NOTE | 2017-05-29 10:53 | P.PN ---
Subjective Principal diagnosis: Recurrent syncope This is a pleasant 87-year-old gentleman who sees Dr. Prakash in the office as an outpatient with a past medical history significant for coronary artery disease and prior coronary artery stenting with unknown details at this point, severe cardiomyopathy with a known EF between 20-25%, status post bi-V ICD, as well as paroxysmal atrial fibrillation was brought by his family to the emergency room because he was passing out. The patient is known to have this problem for the last year. Lately he has been experiencing it more often. Yesterday he had 3 episodes of loss of consciousness witnessed by his family. No chest pain or discomfort. No shortness of breath. No dizziness or lightheadedness around episodes. The EKG showed ventricular paced rhythm. The cardiac enzymes were checked and came in to be slightly abnormal. The computed tomography scan of the brain did not show any acute changes but it did show only chronic changes. The device was interrogated and revealed multiple episodes of atrial fibrillation. No ventricular arrhythmia noted. I would consider increasing the dose of the beta eugenie if the blood pressure not marginally low any more. Objective - Vital Signs Vital signs: Vital Signs Temp 97.0 F L 05/29/17 07:38 Pulse 100 05/29/17 07:43 Resp 16 05/29/17 07:43 BP 140/59 05/29/17 07:38 Pulse Ox 97 05/29/17 07:38 Intake & Output 05/28/17 05/29/17 05/29/17 19:59 06:59 18:59 Intake Total Output Total Balance Weight Intake: Oral Output: Urine Other: Voiding Method # Voids 1 - Constitutional General appearance: Present: no acute distress - Respiratory Respiratory: bilateral: CTA - Cardiovascular Heart sounds: normal: S1, S2 - Labs CBC & Chem 7: 05/29/17 05:25 05/29/17 05:25 Labs: Abnormal Lab Results - Last 24 Hours (Table) 05/28/17 05/28/17 05/28/17 Range/Units 12:08 16:43 21:23 RBC (4.30-5.90) m/uL Hgb (13.0-17.5) gm/dL Hct (39.0-53.0) % RDW (11.5-15.5) % Plt Count (150-450) k/uL PT (9.0-12.0) sec INR (<1.2) BUN (9-20) mg/dL POC Glucose (mg/dL) 134 H 134 H 254 H (75-99) mg/dL 05/29/17 05/29/17 05/29/17 Range/Units 05:25 05:25 05:25 RBC 3.03 L (4.30-5.90) m/uL Hgb 9.6 L (13.0-17.5) gm/dL Hct 29.0 L (39.0-53.0) % RDW 16.0 H (11.5-15.5) % Plt Count 133 L (150-450) k/uL PT 18.3 H (9.0-12.0) sec INR 1.9 H (<1.2) BUN 21 H (9-20) mg/dL POC Glucose (mg/dL) (75-99) mg/dL 05/29/17 Range/Units 06:03 RBC (4.30-5.90) m/uL Hgb (13.0-17.5) gm/dL Hct (39.0-53.0) % RDW (11.5-15.5) % Plt Count (150-450) k/uL PT (9.0-12.0) sec INR (<1.2) BUN (9-20) mg/dL POC Glucose (mg/dL) 114 H (75-99) mg/dL Assessment and Plan Assessment: This is a pleasant 87-year-old gentleman with a known CAD and prior stenting as well as severe cardiomyopathy and status post by the ICD as well as paroxysmal A. fib was admitted to the hospital with recurrent syncope. The cardiac enzymes are slightly abnormal but could be related to the severe cardiomyopathy and tachycardia. Acute myocardial infarction related to severe underlying CAD, be totally excluded but the patient did not have any symptoms of chest pain or chest discomfort which she speak against this. The defibrillator was interrogated and revealed multiple episode of atrial fibrillation. Unfortunately we cannot increase the dose of beta eugenie in view of the borderline low blood pressure. At this point I recommended continue the current medical treatment. Consider increasing the dose of beta eugenie once the blood pressure is not markedly low on any more.
[2017-05-29 12:14] LABS: Glucose,Whole Blood 211 mg/dL (75-99)
[2017-05-29] MEDS: MULTIVITAMINS, THERA 1 EACH TAB PO SCH (12:42)
[2017-05-29] MEDS: CHOLECALCIFEROL 1,000 UNIT TAB PO SCH (12:42)
[2017-05-29 13:29] LABS: HGB 9.8 gm/dL (13.0-17.5)
--- NOTE | 2017-05-29 14:37 | P.CNNES ---
History of Present Illness Consult date: 05/29/17 Requesting physician: Chucho Fan Reason for Consult: Syncope History of Present Illness: Patient is a pleasant 86-year-old male who is being evaluated by the neurology service today on 05/29/2017 per the request of Dr. Fan for syncope. Patient was brought to [facility] emergency room after he had multiple syncopal episodes over the last few days. Family reports patient has been having syncopal episodes for the last year. These syncopal episodes are becoming more frequent. Family describes these episodes as patient suddenly stares into space leans to one side and then drops to the floor. Patient does not recall these events. Family does not describe seizure activity. He does not describe postictal state. Family and patient state he loses consciousness for only a few seconds. No lateralizing weakness or facial drooping is noted. 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 Patient does have history of atrial fibrillation and is already on Coumadin and aspirin at home. His INR was supratherapeutic at 4.5 on arrival. Computed tomography scan of the brain was done, which showed no acute intracranial abnormality. Old craniotomy defects noted. Cerebral atrophy was noted. 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 No fracture. Patient was admitted for further workup. EKG shows ventricular paced rhythm. Patient does have a pacemaker/defibrillator. Patient has history of paroxysmal atrial fibrillation. Patient had carotid Dopplers done January 2017 which showed no hemodynamically significant stenosis. Laboratory workup on admission showed PVCs 7.3, RBCs 3.74, hemoglobin 11.7, hematocrit 36.3. On admission, PTT was 44.2 with INR 4.5. Electrolytes were within normal limits. BUN 26 and creatinine 1.1. At the time of my evaluation, patient is lying in his bed and appears to be in no acute distress. Family is at the bedside. Review of Systems REVIEW OF SYSTEMS: Otherwise unremarkable and noncontributory. Past Medical History Past Medical History: Atrial Fibrillation, Cancer, Heart Failure, COPD, Dementia , Diabetes Mellitus, Hyperlipidemia, Hypertension, Thyroid Disorder Additional Past Medical History / Comment(s): gout, family stated that a geriatric neurologist at [facility] felt that pt had parkinsons(on meds) rt eye prosthetic vision lt eye good,prostate cancer, influenza, History of Any Multi-Drug Resistant Organisms: None Reported Past Surgical History: Heart Catheterization With Stent, Hernia Repair, Orthopedic Surgery, Pacemaker, Prostate Surgery Additional Past Surgical History / Comment(s): plate in the left ankle, had the first pacemaker placed in roughly 2007. Replacement pacemaker in 2010. prosthetic right eye. ben holes 2007 for fluid on the brain Past Anesthesia/Blood Transfusion Reactions: No Reported Reaction Date of Last Stent Placement:: 2001 Type of Cardiac Device: AICD Device Placement Date:: 2011 Past Psychological History: Depression Additional Psychological History / Comment(s): . Daughter lives next door. No current tobacco use or alcohol use. Retired labor. Denied experience or travel history. No animal exposures Smoking Status: Former smoker Past Alcohol Use History: Occasional Additional Past Alcohol Use History / Comment(s): started smoking 1939, quit 1954, smoked 1 ppd. Past Drug Use History: None Reported - Past Family History Mother Family Medical History: Blood Disorder Additional Family Medical History / Comment(s): family not sure what is was called Father Family Medical History: Myocardial Infarction (MS) Brother(s) Family Medical History: Cancer, Myocardial Infarction (MS) Additional Family Medical History / Comment(s): brain cancer Medications and Allergies Home Medications Medication Instructions Recorded Confirmed Type Digoxin [Lanoxin] 125 mcg PO DAILY 08/05/14 05/27/17 History Imipramine HCl [Tofranil] 50 mg PO BID 08/05/14 05/27/17 History Nitroglycerin Sl Tabs [Nitrostat] 0.4 mg SUBLINGUAL Q5M PRN 08/05/14 05/27/17 History Allopurinol [Zyloprim] 300 mg PO DAILY 08/06/14 05/27/17 History Carbidopa-Levodopa 25-100 mg 1 tab PO TID 12/11/15 05/27/17 History [Sinemet 25-100 mg] Cholecalciferol [Vitamin D3] 1,000 unit PO DAILY 12/11/15 05/27/17 History Levothyroxine Sodium [Synthroid] 25 mcg PO DAILY 12/11/15 05/27/17 History Simvastatin [Zocor] 40 mg PO HS 12/11/15 05/27/17 History metFORMIN HCL [Glucophage] 500 mg PO DAILY 12/11/15 05/27/17 History Multivitamin [Men's Multi-Vitamin] 1 tab PO DAILY 12/12/15 05/27/17 History rOPINIRole HCL [Requip] 0.5 mg PO TID 06/24/16 05/27/17 History Carvedilol [Coreg] 6.25 mg PO BID 10/29/16 05/27/17 History Furosemide [Lasix] 20 mg PO BID 10/29/16 05/27/17 History Aspirin 81 mg PO DAILY chew 11/04/16 05/27/17 Rx Insulin NPL/Insulin Lispro 20 unit SQ HS 02/21/17 05/27/17 History [humaLOG MIX 75-25 VIAL] Insulin NPL/Insulin Lispro 40 unit SQ DAILY 02/21/17 05/27/17 History [humaLOG MIX 75-25 VIAL] Warfarin [Coumadin] 10 mg PO HS 02/21/17 05/27/17 History Donepezil [Aricept] 10 mg PO HS 05/26/17 05/27/17 History Warfarin Sodium [Coumadin] 2.5 mg PO HS 05/26/17 05/27/17 History Propylene Glycol/Peg 400/Pf 1 dropper BOTH EYES BID 05/28/17 05/28/17 History [Systane 0.3-0.4% Eye Drops] Sodium Chloride 5% Ophth Soln 1 drops BOTH EYES BID 05/28/17 05/28/17 History [Enrico 128] Allergies Allergy/AdvReac Type Severity Reaction Status Date / Time phenytoin sodium Allergy Severe Rash/Hives Verified 05/26/17 23:50 [From Dilantin] phenytoin sodium extended Allergy Severe Rash/Hives Verified 05/26/17 23:50 [From Dilantin] zoster vaccine live Allergy Unknown Verified 05/26/17 23:50 amiodarone AdvReac Dyspnea Verified 05/26/17 23:50 spironolactone AdvReac Gynecomasti Verified 05/26/17 23:50 a Physical Examination - Vital Signs Vital Signs: Vital Signs Temp Pulse Resp BP Pulse Ox 05/29/17 12:00 98.1 F 90 16 111/56 98 05/29/17 07:43 100 16 05/29/17 07:38 97.0 F L 100 16 140/59 97 05/29/17 03:36 87 17 05/29/17 03:34 97.7 F 87 17 128/59 95 05/28/17 23:42 86 18 05/28/17 23:40 98.2 F 86 18 141/75 99 05/28/17 20:00 98.7 F 82 18 128/58 99 05/28/17 15:15 87 16 Intake and Output 05/28/17 05/29/17 05/29/17 23:59 06:59 14:59 Intake Total 400 Output Total 380 Balance 20 Intake: Oral 400 Output: Urine 380 Other: Voiding Method # Voids 1 Weight PHYSICAL EXAM: GENERAL APPEARANCE: Patient is a well-developed, male who appears to be in no acute distress. HEENT: Normocephalic, atraumatic, right eye ptosis is noted. Right eye prosthesis is present. No facial droop is seen. Neck is supple with no masses felt. CARDIOVASCULAR: Regular rate and rhythm. ABDOMEN: Nontender, nondistended. EXTREMITIES: Show no edema or clubbing. NEUROLOGICAL EXAM: Patient is awake, alert, and oriented 3. Speech and language are normal. Strength is full in all 4 extremities. Sensory exam is normal to light touch in all 4 extremities. Cranial nerve testing shows right eye ptosis. Right eye prosthesis is present. No tremors or seizure-like activity is noted. Results - Laboratory Findings CBC and BMP: 05/29/17 05:25 05/29/17 05:25 Abnormal Lab Findings: Abnormal Labs 05/26/17 05/26/17 05/26/17 18:36 18:36 18:36 RBC 3.74 L Hgb 11.7 L Hct 36.3 L RDW Plt Count PT INR APTT Carbon Dioxide BUN 26 H Glucose POC Glucose (mg/dL) ALT 16 L Total Creatine Kinase CK-MB (CK-2) Troponin I 0.066 H* HDL Cholesterol Ur Leukocyte Esterase Urine WBC Urine Bacteria Hyaline Casts Urine Mucus 05/26/17 05/26/17 05/26/17 18:36 21:00 21:30 RBC Hgb Hct RDW Plt Count PT 44.2 H 45.5 H INR 4.5 H 4.6 H APTT 34.6 H Carbon Dioxide BUN Glucose POC Glucose (mg/dL) ALT Total Creatine Kinase CK-MB (CK-2) Troponin I HDL Cholesterol Ur Leukocyte Esterase Moderate H Urine WBC 9 H Urine Bacteria Rare H Hyaline Casts 3 H Urine Mucus Rare H 05/27/17 05/27/17 05/27/17 00:18 06:18 06:18 RBC Hgb Hct RDW Plt Count PT INR APTT Carbon Dioxide BUN Glucose POC Glucose (mg/dL) ALT Total Creatine Kinase 181 H CK-MB (CK-2) 2.6 H* 2.6 H* Troponin I 0.077 H* 0.101 H* HDL Cholesterol 35 L Ur Leukocyte Esterase Urine WBC Urine Bacteria Hyaline Casts Urine Mucus 05/27/17 05/27/17 05/27/17 06:18 16:43 21:02 RBC Hgb Hct RDW Plt Count PT INR APTT Carbon Dioxide BUN Glucose POC Glucose (mg/dL) 115 H 137 H 194 H ALT Total Creatine Kinase CK-MB (CK-2) Troponin I HDL Cholesterol Ur Leukocyte Esterase Urine WBC Urine Bacteria Hyaline Casts Urine Mucus 05/28/17 05/28/17 05/28/17 05:59 05:59 05:59 RBC 3.07 L Hgb 9.8 L D Hct 29.8 L RDW Plt Count 134 L PT 27.8 H INR 2.9 H APTT Carbon Dioxide 32 H BUN 25 H Glucose 105 H POC Glucose (mg/dL) ALT Total Creatine Kinase CK-MB (CK-2) Troponin I HDL Cholesterol Ur Leukocyte Esterase Urine WBC Urine Bacteria Hyaline Casts Urine Mucus 05/28/17 05/28/17 05/28/17 06:04 12:08 16:43 RBC Hgb Hct RDW Plt Count PT INR APTT Carbon Dioxide BUN Glucose POC Glucose (mg/dL) 105 H 134 H 134 H ALT Total Creatine Kinase CK-MB (CK-2) Troponin I HDL Cholesterol Ur Leukocyte Esterase Urine WBC Urine Bacteria Hyaline Casts Urine Mucus 05/28/17 05/29/17 05/29/17 21:23 05:25 05:25 RBC 3.03 L Hgb 9.6 L Hct 29.0 L RDW 16.0 H Plt Count 133 L PT 18.3 H INR 1.9 H APTT Carbon Dioxide BUN Glucose POC Glucose (mg/dL) 254 H ALT Total Creatine Kinase CK-MB (CK-2) Troponin I HDL Cholesterol Ur Leukocyte Esterase Urine WBC Urine Bacteria Hyaline Casts Urine Mucus 05/29/17 05/29/17 05/29/17 05:25 06:03 11:55 RBC Hgb Hct RDW Plt Count PT INR APTT Carbon Dioxide BUN 21 H Glucose POC Glucose (mg/dL) 114 H 211 H ALT Total Creatine Kinase CK-MB (CK-2) Troponin I HDL Cholesterol Ur Leukocyte Esterase Urine WBC Urine Bacteria Hyaline Casts Urine Mucus Assessment and Plan Plan: Impression: 1. Syncope 2. History of TIA/CVA 3. History of atrial fibrillation, on Coumadin 4. Right eye ptosis/right eye prosthesis Recommendation: The patient does appear to be having more frequent syncopal episodes. It is doubtful these episodes are seizures. No seizure like activity is described. No post ictal symptoms are reported. CT of the brain did not show any evidence for contributing etiology. Cardiology has been consulted. Cardiology is recommending interrogation of his pacemaker/ defibrillator. Patient is already on Coumadin and his INR was high at 4.5 on admission. He is also on aspirin at home. No further medication changes recommended. The patient is unable to undergo any MRI imaging due to pacemaker implant history. I will order an EEG, a fasting lipid panel, and a serum homocystine level. Continue monitoring INR. I will continue to follow with you. Further recommendations to follow. Thank you for allowing me to participate in the care of your patient. Feel free to call with any questions or concerns. I performed an examination of the patient and discussed the management with the SUPERVISOR REWORK. I have reviewed the SUPERVISOR REWORK notes and agree with the findings and plan of care.
[2017-05-29 17:11] LABS: Glucose,Whole Blood 100 mg/dL (75-99)
[2017-05-29] MEDS: DONEPEZIL 10 MG TAB PO SCH (20:55)
[2017-05-29] MEDS: ATORVASTATIN 20 MG TAB PO SCH (20:55)
[2017-05-30] MEDS: FUROSEMIDE 20 MG TAB PO SCH ×2 (06:29→16:35)
[2017-05-30] MEDS: LEVOTHYROXINE 25 MCG TAB PO SCH (06:29)
[2017-05-30] MEDS: CARVEDILOL 6.25 MG TAB PO SCH ×2 (06:29→16:35)
[2017-05-30 06:42] LABS: Glucose,Whole Blood 150 mg/dL (75-99)
[2017-05-30] MEDS: CARBIDOPA-LEVODOPA 25-100 MG 1 EACH TAB PO SCH ×3 (09:04→22:07)
[2017-05-30] MEDS: ALLOPURINOL 300 MG TAB PO SCH (09:04)
[2017-05-30] MEDS: IMIPRAMINE 25 MG TAB PO SCH ×2 (09:04→20:33)
[2017-05-30] MEDS: ASPIRIN 325 MG TAB PO SCH (09:04)
[2017-05-30] MEDS: metFORMIN 500 MG TAB PO SCH (09:05)
[2017-05-30] MEDS: DIGOXIN 125 MCG TAB PO SCH (09:05)
[2017-05-30] MEDS: INSULIN NPL/INSULIN LISPRO 100 UNIT/ML 10 ML VIAL (Humalog 75/25) SQ SCH ×2 (09:12→20:33)
--- NOTE | 2017-05-30 09:38 | P.PN ---
Subjective Principal diagnosis: Recurrent syncope This is a pleasant 87-year-old gentleman who sees Dr. Rosenberg in the office as an outpatient with a past medical history significant for coronary artery disease and prior coronary artery stenting with unknown details at this point, severe cardiomyopathy with a known EF between 20-25%, status post bi-V ICD, as well as paroxysmal atrial fibrillation was brought by his family to the emergency room because he was passing out. The patient is known to have this problem for the last year. Lately he has been experiencing it more often. He had 3 episodes of loss of consciousness witnessed by his family. No chest pain or discomfort. No shortness of breath. No dizziness or lightheadedness around episodes. The EKG showed ventricular paced rhythm. The cardiac enzymes were checked and came in to be slightly abnormal. The computed tomography scan of the brain did not show any acute changes but it did show only chronic changes. The device was interrogated and revealed multiple episodes of atrial fibrillation. No ventricular arrhythmia noted. The patient had one episode yesterday when he was trying to statins of and he had possible seizure. Neurology consult was placed. An EEG was ordered as well. Beside that the patient had positive orthostatic check and I might consider doing a tilt table test down the line. Anyway he is only on Coreg for high blood pressure and cardiomyopathy. He was on HAILY inhibitor which was stopped in the past. Objective - Vital Signs Vital signs: Vital Signs Temp 97.2 F L 05/30/17 08:00 Pulse 76 05/30/17 08:00 Resp 18 05/30/17 08:00 BP 128/60 05/30/17 08:00 Pulse Ox 97 05/30/17 08:00 Intake & Output 05/29/17 05/30/17 05/30/17 18:59 06:59 18:59 Intake Total 580 360 Output Total 1230 1675 800 Balance -650 -1675 -440 Weight 90.9 kg Intake: Oral 580 360 Output: Urine 1230 1675 800 Other: Voiding Method Toilet Urinal # Voids 1 - Constitutional General appearance: Present: no acute distress - Respiratory Respiratory: bilateral: CTA - Cardiovascular Heart sounds: normal: S1, S2 - Labs CBC & Chem 7: 05/29/17 05:25 05/29/17 05:25 Labs: Abnormal Lab Results - Last 24 Hours (Table) 11/11/0805/29/17 05/29/17 Range/Units 05:59 11:55 17:08 Hgb 9.8 L D (13.0-17.5) gm/dL POC Glucose (mg/dL) 211 H 100 H (75-99) mg/dL 05/30/17 Range/Units 06:39 Hgb (13.0-17.5) gm/dL POC Glucose (mg/dL) 150 H (75-99) mg/dL Assessment and Plan Assessment: This is a pleasant 87-year-old gentleman with a known CAD and prior stenting as well as severe cardiomyopathy and status post by the ICD as well as paroxysmal A. fib was admitted to the hospital with recurrent syncope. The cardiac enzymes are slightly abnormal but could be related to the severe cardiomyopathy and tachycardia. Acute myocardial infarction related to severe underlying CAD, be totally excluded but the patient did not have any symptoms of chest pain or chest discomfort which she speak against this. The defibrillator was interrogated and revealed multiple episode of atrial fibrillation. Unfortunately we cannot increase the dose of beta eugenie in view of the borderline low blood pressure. We will follow-up with the neurology consult and we might consider doing a tilt table test.
[2017-05-30 12:21] LABS: Glucose,Whole Blood 129 mg/dL (75-99)
[2017-05-30] MEDS: MULTIVITAMINS, THERA 1 EACH TAB PO SCH (12:21)
[2017-05-30] MEDS: CHOLECALCIFEROL 1,000 UNIT TAB PO SCH (12:21)
--- NOTE | 2017-05-30 12:21 | P.PN ---
Progress Note - Text Progress Note Date: 05/30/17 This is an addendum on the progress note on this gentleman. I want to specify that the patient has severe ischemic cardiomyopathy. The patient does have currently congestive heart failure chronic secondary to systolic dysfunction
--- NOTE | 2017-05-30 16:25 | P.PN ---
Subjective Progress Note Date: 05/30/17 Patient is a pleasant 87-year-old male who is being followed by the neurology service for syncope. Patient and family report patient has had syncopal episodes over the last year but he has been experiencing syncope more often within the last week. Patient does have loss of consciousness with episodes. He states these episodes last 10-15 seconds. No seizure-like activity is described during these episodes. No postictal state as described following these episodes. Patient does have a pacemaker and EKG does show ventricularly paced rhythm. Patient had his device interrogated which revealed multiple episodes of atrial fibrillation. No ventricular arrhythmia was noted. Patient is scheduled to have a tilt table test done tomorrow. Patient had another episode of near syncope when he was going down for EEG testing today. It is highly doubtful these are seizure episodes. His syncopal episodes are more consistent with cardiac symptoms. At the time of my evaluation, patient is resting comfortably in bed and appears to be in no acute distress. Objective - Vital Signs Vital signs: Vital Signs Temp 97.8 F 05/30/17 12:00 Pulse 76 05/30/17 12:00 Resp 18 05/30/17 12:00 BP 116/58 05/30/17 12:00 Pulse Ox 97 05/30/17 12:00 Intake & Output 05/29/17 05/30/17 05/30/17 18:59 06:59 18:59 Intake Total 580 360 Output Total 1230 1675 800 Balance -650 -1675 -440 Weight 90.9 kg Intake: Oral 580 360 Output: Urine 1230 1675 800 Other: Voiding Method Toilet Urinal # Voids 1 500 - Exam PHYSICAL EXAM: GENERAL APPEARANCE: Patient is a well-developed, male who appears to be in no acute distress. HEENT: Normocephalic, atraumatic, no facial asymmetry is seen. Neck is supple with no masses felt. CARDIOVASCULAR: Regular rate and rhythm. ABDOMEN: Nontender, nondistended. EXTREMITIES: Show no edema or clubbing. NEUROLOGICAL EXAM: Patient is awake, alert, and oriented 3. Speech and language are normal. No facial asymmetry seen on cranial nerve testing. Strength is full in all 4 extremities. Sensory exam is normal to light touch in all 4 extremities. No tremors or seizure-like activity is noted. - Labs CBC & Chem 7: 05/29/17 05:25 05/29/17 05:25 Labs: Abnormal Lab Results - Last 24 Hours (Table) 05/29/17 05/30/17 05/30/17 Range/Units 17:08 06:39 12:19 POC Glucose (mg/dL) 100 H 150 H 129 H (75-99) mg/dL Assessment and Plan Plan: Impression: 1. Syncope 2. History of TIA/CVA 3. History of atrial fibrillation, on Coumadin 4. Right eye ptosis/right eye prosthesis Recommendation: The patient does appear to be having more frequent syncopal episodes. It is doubtful these episodes are seizures. No seizure like activity is described. No post ictal symptoms are reported. The syncopal episodes seem to be more consistent with cardiac events. Patient did have pacemaker device interrogated which did show multiple episodes of atrial fibrillation. Patient did have episode of syncope while on the monitor and the monitor did not reveal any abnormality. Patient is scheduled for tilt table test tomorrow. CT of the brain did not show any evidence for contributing etiology. Patient is unable to have MRI done due to pacemaker defibrillator. Patient is already on Coumadin and INR was 1.9 today. He is also on aspirin at home. No further medication changes recommended. The patient is unable to undergo any MRI imaging due to pacemaker implant history. EEG was done and results are pending. His fasting lipid panel was within normal limits except for low HDL of 35. Serum homocystine level is pending. Continue monitoring INR. Continue workup per cardiology, patient may need Holter monitor. Barring any abnormality in the EEG, patient is stable from a neurological standpoint for discharge. I will continue to follow with you on an as-needed basis. Feel free to call with any questions or concerns. I performed an examination of the patient and discussed the management with the HOME WEATHERIZING WORKER. I have reviewed the HOME WEATHERIZING WORKER notes and agree with the findings and plan of care.
[2017-05-30 16:51] LABS: Glucose,Whole Blood 158 mg/dL (75-99)
--- NOTE | 2017-05-30 18:12 | PN ---
PROGRESS NOTE DATE OF SERVICE: 05/29/17 CHIEF COMPLAINT: Syncope and falls. HISTORY OF PRESENT ILLNESS: This gentleman seems fine, was lying bed. When he gets up he has been getting lightheaded or actually falling. He has been following with Cardiology. We will also obtain neurology evaluation although he . REVIEW OF SYSTEMS: He feels fine. Having no headaches, neurologic problems, chest pain, no shortness of breath. No abdominal pain, palpitations, etc. PHYSICAL EXAM: CHEST: Clear. Cardiac exam demonstrates attial fibrillation. The abdomen is soft, nontender. IMPRESSION: 1. Syncope and frequent falls. 2. Coronary artery disease. 3. . 4. History of previous intracranial bleed and strokes. PLAN: Ask for neurology evaluation. MMODL / IJN: [id number] /
--- NOTE | 2017-05-30 18:18 | PN ---
PROGRESS NOTE DATE OF SERVICE: 05/30/17. CHIEF COMPLAINT: Syncopal episode. HISTORY OF PRESENT ILLNESS: This gentleman is doing well except he is still having episodes where he becomes nearly syncopal when he is standing up or walking. Neurology is doing some of the testing and tomorrow he is going for tilt-table study. Other than that he feels fine. PHYSICAL EXAM: CHEST: Clear. Cardiac exam demonstrated atrial fibrillation. The abdomen is soft. IMPRESSION: 1. Syncope. 2. Seizure disorder. 3. Status post intracranial bleed. 4. Coronary artery disease. 5. Arrhythmia. 6. Heart failure. PLAN: Tilt table test tomorrow and continue to work with neurology and cardiology. MMODL / IJN: [id number] /
--- NOTE | 2017-05-30 18:18 | EEG ---
ELECTROENCEPHALOGRAM REPORT DATE OF SERVICE: 05/30/2017. REASON FOR TESTING: Syncope. DESCRIPTION OF THE PROCEDURE: This EEG was performed using a 21 channel digital electroencephalograph, following international 10-20 system. DESCRIPTION OF THE RECORDING: From the beginning of the tracing, with patient's eyes closed, the background rhythm was mostly consisting of 8 hertz alpha frequency in the posterior occipital leads. No obvious asymmetry is seen. Photic stimulation was performed with no driving response seen. No pathological waves were elicited. Frequent muscle artifacts and occasional movement artifacts are seen. The patient remains awake throughout the tracing. No epileptiform discharges were seen. His EKG lead showed a regular rate and rhythm. INTERPRETATION: This awake EEG can be considered within normal limits. There is no asymmetry seen. No epileptiform discharges were noticed. The absence of epileptiform discharges does not rule out the diagnosis of epilepsy, therefore clinical correlation is recommended. MMESTEPHANIEL / IJKatelyn: [id number] /
[2017-05-30] MEDS: DONEPEZIL 10 MG TAB PO SCH (20:33)
[2017-05-30] MEDS: ATORVASTATIN 20 MG TAB PO SCH (20:33)
[2017-05-30 20:57] LABS: Glucose,Whole Blood 170 mg/dL (75-99)
[2017-05-31 06:16] LABS: Glucose,Whole Blood 137 mg/dL (75-99)
[2017-05-31] MEDS: CARVEDILOL 6.25 MG TAB PO SCH ×2 (06:25→17:37)
[2017-05-31] MEDS: FUROSEMIDE 20 MG TAB PO SCH ×2 (06:26→17:37)
[2017-05-31] MEDS: LEVOTHYROXINE 25 MCG TAB PO SCH (06:26)
[2017-05-31] MEDS: CARBIDOPA-LEVODOPA 25-100 MG 1 EACH TAB PO SCH ×3 (08:18→20:42)
[2017-05-31] MEDS: DIGOXIN 125 MCG TAB PO SCH (08:18)
[2017-05-31] MEDS: ALLOPURINOL 300 MG TAB PO SCH (08:19)
[2017-05-31] MEDS: ASPIRIN 325 MG TAB PO SCH (08:19)
[2017-05-31] MEDS: IMIPRAMINE 25 MG TAB PO SCH (08:19)
[2017-05-31] MEDS: INSULIN NPL/INSULIN LISPRO 100 UNIT/ML 10 ML VIAL (Humalog 75/25) SQ SCH ×2 (08:25→21:27)
[2017-05-31] MEDS ORDERED: SODIUM CHLORIDE 0.9% 1,000 ML IV ONE (09:23)
[2017-05-31] MEDS: metFORMIN 500 MG TAB PO SCH (11:57)
[2017-05-31] MEDS: MULTIVITAMINS, THERA 1 EACH TAB PO SCH (11:57)
[2017-05-31] MEDS: CHOLECALCIFEROL 1,000 UNIT TAB PO SCH (11:57)
[2017-05-31 12:00] LABS: Glucose,Whole Blood 205 mg/dL (75-99)
--- NOTE | 2017-05-31 12:50 | P.PCN ---
Preoperative Diagnosis: Twelve-lead ECG shows a paced rhythm with a right bundle branch block pattern in lead V1 and V2 Chest x-ray reveals a biventricular device Tilt table test report Baseline blood pressure 140/64 mmHg Baseline heart is 74 beats a minute patient was tilted upright at night was 70 per protocol. There was an immediate sudden and significant drop in blood pressure to 84 mmHg in the subsequently to 59 mmHg. He became symptomatic and was laid supine and his blood pressure returned to baseline Impression Orthostatic hypotension Discussed with Dr. rubi. Discontinue tricyclic antidepressants
--- NOTE | 2017-05-31 14:07 | PN ---
PROGRESS NOTE DATE OF SERVICE: 05/31/17 CHIEF COMPLAINT: Syncopal episode. HISTORY OF PRESENT ILLNESS: This gentleman is still having episodes of syncope when he gets up. His vital signs are normal. He is having no TIAs, auras, chest pain, palpitations, focal neurologic deficits, etc. He is not on anything for hypertension. He is going for a tilt-table test today. PHYSICAL EXAM: CHEST: Clear. Cardiac exam demonstrates atrial fibrillation and the abdomen is soft, nontender. EXTREMITIES: Normal. Neurological: He is awake and alert without any neurologic deficits. IMPRESSION: 1. Syncopal events, etiology unknown. 2. Previous subarachnoid hemorrhage and cerebrovascular accident. 3. Coronary artery disease, congestive heart failure and arrhythmia. PLAN: Await results of the tilt test. Otherwise, he can probably go home. Family has made arrangements for somebody to be with around the clock. MMFERMIN / NATHANIEL: [id number] /
--- NOTE | 2017-05-31 14:19 | P.PN ---
Subjective Progress Note Date: 05/31/17 Principal diagnosis: Syncope This is an 87-year-old gentleman who follows with Dr. Prakash in the office. His past medical history significant for coronary artery disease and prior coronary artery and stenting, severe ischemic cardiomyopathy with an ejection fraction of 20-25%, status post bi-V AICD as well as paroxysmal atrial fibrillation. Patient also has history of diabetes, hypertension, hyperlipidemia, hypothyroidism, COPD, and Parkinson's. He presented to the hospital following a syncopal episode. The patient was seen in consultation by Dr. Barbosa and recommended to undergo a tilt table test which was performed today. Tilt table test was positive, with patient having a significant drop in blood pressure to 84 systolic and subsequently 59 systolic, he became quite symptomatic. Patient had been on an anti-depressant in the form of Tofranil, this is known to cause significant orthostasis, therefore we will discontinue the Tofranil and continue to monitor. Patient was seen and examined, overall feeling well today. Objective - Vital Signs Vital signs: Vital Signs Temp 97.2 F L 05/31/17 11:19 Pulse 78 05/31/17 11:19 Resp 16 05/31/17 11:19 BP 116/54 05/31/17 11:19 Pulse Ox 96 05/31/17 11:19 Intake & Output 05/30/17 05/31/17 05/31/17 18:59 06:59 18:59 Intake Total 1200 10 525 Output Total 800 1200 100 Balance 400 -1190 425 Weight 89.7 kg Intake: IV 10 25 Sodium Chloride 0.9% 1, 10 000 ml @ 100 mls/hr IV . Q10H STA Rx#:[id number] Intake, IV Titration 120 Amount Sodium Chloride 0.9% 1, 120 000 ml As IV .STK-MED ONE Rx#:[id number] Oral 1200 380 Output: Urine 800 1200 100 Other: Voiding Method Toilet Urinal Urinal # Voids 500 - Exam PHYSICAL EXAMINATION: HEENT: Head is atraumatic, normocephalic. Pupils equal, round. Neck is supple. There is no elevated jugular venous pressure. HEART EXAMINATION: Heart S1, S2 normal. No murmur or gallop heard. CHEST EXAMINATION: Lungs are clear to auscultation and precussion. No chest wall tenderness is noted on palpation or with deep breathing. ABDOMEN: Soft, nontender. Bowel sounds are heard. No organomegaly noted. EXTREMITIES: 2+ peripheral pulses with no evidence of peripheral edema and no calf tenderness noted. NEUROLOGIC patient is awake, alert and oriented -3. . - Labs CBC & Chem 7: 05/29/17 05:25 05/29/17 05:25 Labs: Abnormal Lab Results - Last 24 Hours (Table) 05/30/17 05/30/17 05/31/17 Range/Units 16:48 20:55 06:08 POC Glucose (mg/dL) 158 H 170 H 137 H (75-99) mg/dL 05/31/17 Range/Units 11:41 POC Glucose (mg/dL) 205 H (75-99) mg/dL Assessment and Plan Plan: Assessment and Plan #1 syncope, status post tilt table test which was strongly positive for orthostasis #2 ischemic cardio myopathy with prior by V AICD #3 paroxysmal atrial fibrillation #4 coronary artery disease with prior stenting #5 hypertension #6 hyperlipidemia #7 diabetes #8 hypothyroidism #9 Parkinson's Plan Discontinue the patient's Tofranil as it has a significant effect on orthostatic hypotension. Continue his other medications. Patient has also been advised to mildly increase his salt intake and continue with the bilateral KAVIN hose. DNP note has been reviewed, I agree with a documented findings and plan of care. Patient was seen and examined.
[2017-05-31 17:06] LABS: Glucose,Whole Blood 126 mg/dL (75-99)
[2017-05-31] MEDS: ATORVASTATIN 20 MG TAB PO SCH (20:42)
[2017-05-31] MEDS: DONEPEZIL 10 MG TAB PO SCH (20:42)
[2017-05-31 20:51] LABS: Glucose,Whole Blood 153 mg/dL (75-99)
[2017-06-01 00:26] VITALS: RESP 18
[2017-06-01 03:45] VITALS: TEMP 97.2
[2017-06-01 06:08] LABS: Glucose,Whole Blood 131 mg/dL (75-99)
[2017-06-01] MEDS: CARVEDILOL 6.25 MG TAB PO SCH (06:28)
[2017-06-01] MEDS: FUROSEMIDE 20 MG TAB PO SCH (06:28)
[2017-06-01] MEDS: LEVOTHYROXINE 25 MCG TAB PO SCH (06:28)
[2017-06-01] MEDS: CARBIDOPA-LEVODOPA 25-100 MG 1 EACH TAB PO SCH (09:06)
[2017-06-01] MEDS: DIGOXIN 125 MCG TAB PO SCH (09:06)
[2017-06-01] MEDS: ALLOPURINOL 300 MG TAB PO SCH (09:06)
[2017-06-01] MEDS: metFORMIN 500 MG TAB PO SCH (09:06)
[2017-06-01] MEDS: ASPIRIN 325 MG TAB PO SCH (09:06)
[2017-06-01] MEDS: INSULIN NPL/INSULIN LISPRO 100 UNIT/ML 10 ML VIAL (Humalog 75/25) SQ SCH (09:07)
[2017-06-01 09:27] VITALS: PULSE 82
--- NOTE | 2017-06-01 10:20 | P.PN ---
Subjective Progress Note Date: 06/01/17 Principal diagnosis: Syncope This is an 87-year-old gentleman who follows with Dr. Prakash in the office. His past medical history significant for coronary artery disease and prior coronary artery and stenting, severe ischemic cardiomyopathy with an ejection fraction of 20-25%, status post bi-V AICD as well as paroxysmal atrial fibrillation. Patient also has history of diabetes, hypertension, hyperlipidemia, hypothyroidism, COPD, and Parkinson's. He presented to the hospital following a syncopal episode. The patient was seen in consultation by Dr. Barbosa and recommended to undergo a tilt table test which was performed today. Tilt table test was positive, with patient having a significant drop in blood pressure to 84 systolic and subsequently 59 systolic, he became quite symptomatic. Patient had been on an anti-depressant in the form of Tofranil, this is known to cause significant orthostasis, therefore we will discontinue the Tofranil and continue to monitor. Patient was seen and examined, overall feeling well today. 06/01/2017 Patient seen and examined this morning, overall feeling much better today. He did have an episode where his blood pressure dropped earlier this morning, since then it's been stable. Continue to hold the Tofranil. Patient has been instructed to take his time when changing position. Patient will follow-up with Dr. Rosenberg in the office in one week. If he continues to have orthostatic blood pressure changes of his follow-up appointment, we will consider the addition of Florinef or midodrine Objective - Vital Signs Vital signs: Vital Signs Temp 97.2 F L 06/01/17 03:10 Pulse 113 H 06/01/17 08:53 Resp 18 06/01/17 08:30 BP 107/53 06/01/17 08:53 Pulse Ox 100 06/01/17 08:30 Intake & Output 05/31/17 06/01/17 06/01/17 18:59 06:59 18:59 Intake Total 785 300 Output Total 600 2700 Balance 185 -2400 Weight 90.1 kg Intake: IV 25 Intake, IV Titration 120 Amount Sodium Chloride 0.9% 1, 120 000 ml As IV .STK-MED ONE Rx#:[id number] Oral 640 300 Output: Urine 600 2700 Other: Voiding Method Urinal Urinal - Exam PHYSICAL EXAMINATION: HEENT: Head is atraumatic, normocephalic. Pupils equal, round. Neck is supple. There is no elevated jugular venous pressure. HEART EXAMINATION: Heart S1, S2 normal. No murmur or gallop heard. CHEST EXAMINATION: Lungs are clear to auscultation and precussion. No chest wall tenderness is noted on palpation or with deep breathing. ABDOMEN: Soft, nontender. Bowel sounds are heard. No organomegaly noted. EXTREMITIES: 2+ peripheral pulses with no evidence of peripheral edema and no calf tenderness noted. NEUROLOGIC patient is awake, alert and oriented -3. . - Labs CBC & Chem 7: 05/29/17 05:25 05/29/17 05:25 Labs: Abnormal Lab Results - Last 24 Hours (Table) 05/31/17 05/31/17 05/31/17 Range/Units 11:41 16:38 20:48 POC Glucose (mg/dL) 205 H 126 H 153 H (75-99) mg/dL 06/01/17 Range/Units 06:04 POC Glucose (mg/dL) 131 H (75-99) mg/dL Assessment and Plan Plan: Assessment and Plan #1 syncope, status post tilt table test which was strongly positive for orthostasis #2 ischemic cardio myopathy with prior by V AICD #3 paroxysmal atrial fibrillation #4 coronary artery disease with prior stenting #5 hypertension #6 hyperlipidemia #7 diabetes #8 hypothyroidism #9 Parkinson's Plan Patient may be able to be discharged home today from cardiology's perspective. We will make him a follow-up appointment in the office with Dr. Rosenberg next week. We'll continue to hold the patient's Tofranil. Patient will have his orthostatics checked again in the office, if they continue to be significantly abnormal we will consider the addition of Florinef or midodrine. DNP note has been reviewed, I agree with a documented findings and plan of care. Patient was seen and examined.
[2017-06-01] MEDS: CHOLECALCIFEROL 1,000 UNIT TAB PO SCH (11:13)
[2017-06-01] MEDS: MULTIVITAMINS, THERA 1 EACH TAB PO SCH (11:13)
[2017-06-01 11:41] LABS: Glucose,Whole Blood 134 mg/dL (75-99)
[2017-06-01 11:58] VITALS: BP 126/58
--- NOTE | 2017-06-01 22:59 | DS ---
DISCHARGE SUMMARY CHIEF COMPLAINT: Syncope. HISTORY OF PRESENT ILLNESS AND PHYSICAL EXAM: Details of this man's history and physical can be found in the initial workup. LABORATORY STUDIES: While he was in a hospital, he had laboratory studies, details of which can be found in the laboratory section of his chart. COURSE IN HOSPITAL: After admission, he was placed on bed rest started on intravenous fluids and had frequent monitoring of his neurologic status and vital signs. Whenever he would get up and stand, he would become lightheaded or fall. He was found to have orthostatic hypotension. Tilt test which was positive. He was not on medication program that was likely the cause of hypotension, but was felt that some of his medications could be attributed and they were stopped. It was felt that he could go home with family members staying with him 24 hours a day and be seen in the office in a day or 2. FINAL DIAGNOSIS: 1. Syncope with falls. 2. Orthostatic hypotension. 3. Coronary artery disease. 4. Cardiomyopathy. 5. Atrial fibrillation. 6. Previous intracranial bleed. OPERATIONS: None. CONSULTATIONS: Cardiology and neurology. He is improved. MMODL / IJN: [id number] /
== END 2017-06-01 13:09 | disposition home health service (06) | DRG 312 ==
LOC: EC 18:21 → 6SEL 21:10
PROVIDERS: ADMIT Family Medicine; ATTEND Family Medicine
PROC: 4A03XB1 Measurement of Arterial Pressure, Peripheral, External Approach (ICD-10-PCS; 2017-05-31)
PROC: 4A02XFZ Measurement of Cardiac Rhythm, External Approach (ICD-10-PCS; principal; 2017-05-31 09:00)
DX: I95.1 Orthostatic hypotension (principal); G20 Parkinson's disease; J44.9 Chronic obstructive pulmonary disease, unspecified; M48.02 Spinal stenosis, cervical region; I11.0 Hypertensive heart disease with heart failure; I50.22 Chronic systolic (congestive) heart failure; F03.90 Unspecified dementia, unspecified severity, without behavioral disturbance, psychotic disturbance, mood disturbance, and anxiety; I48.0 Paroxysmal atrial fibrillation; G40.909 Epilepsy, unspecified, not intractable, without status epilepticus; E03.9 Hypothyroidism, unspecified; E11.9 Type 2 diabetes mellitus without complications; E78.5 Hyperlipidemia, unspecified; I25.10 Atherosclerotic heart disease of native coronary artery without angina pectoris; I25.5 Ischemic cardiomyopathy; H02.401 Unspecified ptosis of right eyelid; M10.9 Gout, unspecified; R29.6 Repeated falls; R79.1 Abnormal coagulation profile; Z79.01 Long term (current) use of anticoagulants; Z79.4 Long term (current) use of insulin; Z79.82 Long term (current) use of aspirin; Z79.899 Other long term (current) drug therapy; Z82.49 Family history of ischemic heart disease and other diseases of the circulatory system; Z85.46 Personal history of malignant neoplasm of prostate; Z86.73 Personal history of transient ischemic attack (TIA), and cerebral infarction without residual deficits; Z87.891 Personal history of nicotine dependence; Z95.5 Presence of coronary angioplasty implant and graft; Z95.810 Presence of automatic (implantable) cardiac defibrillator; Z97.0 Presence of artificial eye; Z88.7 Allergy status to serum and vaccine; Z88.8 Allergy status to other drugs, medicaments and biological substances
CPT/HCPCS: 36415; 70450; 71020; 72125; 80048; 80053; 80061; 81001; 82550; 82553; 84484; 85025; 85027; 85610; 85730; 93005; 93660; 95819; 96360; 96361; 99291

== ENCOUNTER 2017-12-25 19:29 | Inpatient (IN) | payer MEDICARE ==
[2017-12-25] MEDS ORDERED: IPRATROPIUM-ALBUTEROL 3 ML NEB INHALATION STA (19:44)
--- NOTE | 2017-12-25 19:47 | ED ---
Weakness HPI - General Chief complaint: Weakness Stated complaint: cough/weakness Time Seen by Provider: 12/25/17 19:35 Source: patient, family, RN notes reviewed Mode of arrival: wheelchair Limitations: no limitations - History of Present Illness Initial comments: This 87-year-old male with a history of multiple medical problems acute be gleaned from his chart was brought in for evaluation by his family with complaints of generalized weakness and seems be getting Progressively worse over last week he get a cough clear phlegm no fevers chills or sweats some chest pain with the cough he fell once in the past week he has no pain anywhere he did have a fever at home no chills or sweats no nausea vomiting diarrhea no other complaints at this time. MD Complaint: generalized weakness - Related Data Home Medications Medication Instructions Recorded Confirmed Digoxin [Lanoxin] 125 mcg PO DAILY 08/05/14 05/27/17 Nitroglycerin Sl Tabs [Nitrostat] 0.4 mg SUBLINGUAL Q5M PRN 08/05/14 05/27/17 Allopurinol [Zyloprim] 300 mg PO DAILY 08/06/14 05/27/17 Carbidopa-Levodopa 25-100 mg 1 tab PO TID 12/11/15 05/27/17 [Sinemet 25-100 mg] Levothyroxine Sodium [Synthroid] 25 mcg PO DAILY 12/11/15 05/27/17 Multivitamin [Men's Multi-Vitamin] 1 tab PO DAILY 12/12/15 05/27/17 Furosemide [Lasix] 20 mg PO BID 10/29/16 05/27/17 Insulin NPL/Insulin Lispro 20 unit SQ HS 02/21/17 05/27/17 [humaLOG MIX 75-25 VIAL] Insulin NPL/Insulin Lispro 40 unit SQ DAILY 02/21/17 05/27/17 [humaLOG MIX 75-25 VIAL] Warfarin [Coumadin] 10 mg PO HS 02/21/17 05/27/17 Warfarin Sodium [Coumadin] 2.5 mg PO HS 05/26/17 05/27/17 Propylene Glycol/Peg 400/Pf 1 dropper BOTH EYES BID 05/28/17 05/28/17 [Systane 0.3-0.4% Eye Drops] Sodium Chloride 5% Ophth Soln 1 drops BOTH EYES BID 05/28/17 05/28/17 [Enrico 128] Previous Rx's Medication Instructions Recorded Aspirin 81 mg PO DAILY chew 11/04/16 Acetaminophen Tab [Tylenol] 650 mg PO Q4HR PRN tab 06/01/17 Allergies Allergy/AdvReac Type Severity Reaction Status Date / Time phenytoin sodium Allergy Severe Rash/Hives Verified 12/25/17 19:32 [From Dilantin] phenytoin sodium extended Allergy Severe Rash/Hives Verified 12/25/17 19:32 [From Dilantin] zoster vaccine live Allergy Unknown Verified 12/25/17 19:32 amiodarone AdvReac Dyspnea Verified 12/25/17 19:32 spironolactone AdvReac Gynecomasti Verified 12/25/17 19:32 a Review of Systems ROS Statement: Those systems with pertinent positive or pertinent negative responses have been documented in the HPI. ROS Other: All systems not noted in ROS Statement are negative. 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 Replacement pacemaker in 2010. prosthetic right eye. ben holes 2007 for fluid on the brain Past Anesthesia/Blood Transfusion Reactions: No Reported Reaction Date of Last Stent Placement:: 2001 Type of Cardiac Device: AICD Device Placement Date:: 2011 Past Psychological History: Depression Smoking Status: Former smoker Past Alcohol Use History: Occasional Past Drug Use History: None Reported - Past Family History Mother Family Medical History: Blood Disorder Additional Family Medical History / Comment(s): family not sure what is was called Father Family Medical History: Myocardial Infarction ([place]) Brother(s) Family Medical History: Cancer, Myocardial Infarction ([place]) Additional Family Medical History / Comment(s): brain cancer General Exam - General Exam Comments Initial Comments: This is a well-developed well-nourished awake alert oriented 3 male Limitations: no limitations General appearance: alert, in no apparent distress Head exam: Present: atraumatic, normocephalic, normal inspection Eye exam: Present: normal appearance, PERRL, EOMI. Absent: scleral icterus, conjunctival injection, periorbital swelling ENT exam: Present: mucous membranes dry Neck exam: Present: normal inspection. Absent: tenderness, meningismus, lymphadenopathy Respiratory exam: Present: decreased breath sounds. Absent: respiratory distress, wheezes, rales, rhonchi, stridor, chest wall tenderness Cardiovascular Exam: Present: regular rate, normal rhythm, normal heart sounds. Absent: systolic murmur, diastolic murmur, rubs, gallop, clicks GI/Abdominal exam: Present: soft, normal bowel sounds. Absent: distended, tenderness, guarding, rebound, rigid Extremities exam: Present: normal inspection, full ROM, normal capillary refill. Absent: tenderness, pedal edema, joint swelling, calf tenderness Back exam: Present: normal inspection Neurological exam: Present: alert, oriented X3, CN II-XII intact Psychiatric exam: Present: normal affect, normal mood Skin exam: Present: warm, dry, intact, normal color. Absent: rash Course Vital Signs 12/25/17 12/25/17 12/25/17 19:30 20:12 20:19 Temperature 100 F H Pulse Rate 99 89 90 Respiratory 18 Rate Blood Pressure 122/58 O2 Sat by Pulse 97 Oximetry 12/25/17 21:19 Temperature Pulse Rate 66 Respiratory 18 Rate Blood Pressure 147/66 O2 Sat by Pulse 99 Oximetry - Reevaluation(s) Reevaluation #1: 12/25/17 21:28 The patient's Coumadin level subtherapeutic he will be placed on IV heparin at this time Medical Decision Making - Medical Decision Making I did discuss Pfizer the patient family patient does have evidence of fever of unknown origin at this time the urine is pending. He has have evidence of dehydration and elevated troponin. Patient will be admitted he will be placed on IV antibiotics as well as evaluation for elevated troponin and dehydration. - Lab Data Result diagrams: 12/25/17 19:50 12/25/17 19:50 Lab Results 12/25/17 12/25/17 12/25/17 Range/Units 19:50 19:50 19:50 WBC 8.1 (3.8-10.6) k/uL RBC 3.75 L (4.30-5.90) m/uL Hgb 11.8 L (13.0-17.5) gm/dL Hct 35.4 L (39.0-53.0) % MCV 94.5 (80.0-100.0) fL MCH 31.4 (25.0-35.0) pg MCHC 33.2 (31.0-37.0) g/dL RDW 13.8 (11.5-15.5) % Plt Count 184 (150-450) k/uL Neutrophils % 75 % Lymphocytes % 13 % Monocytes % 7 % Eosinophils % 2 % Basophils % 0 % Neutrophils # 6.1 (1.3-7.7) k/uL Lymphocytes # 1.1 (1.0-4.8) k/uL Monocytes # 0.6 (0-1.0) k/uL Eosinophils # 0.2 (0-0.7) k/uL Basophils # 0.0 (0-0.2) k/uL PT (9.0-12.0) sec INR (<1.2) APTT (22.0-30.0) sec Sodium 139 (137-145) mmol/L Potassium 3.5 (3.5-5.1) mmol/L Chloride 96 L (98-107) mmol/L Carbon Dioxide 30 (22-30) mmol/L Anion Gap 13 mmol/L BUN 30 H (9-20) mg/dL Creatinine 0.90 (0.66-1.25) mg/dL Est GFR (CKD-EPI)AfAm 90 (>60 ml/min/1.73 sqM) Est GFR (CKD-EPI)NonAf 78 (>60 ml/min/1.73 sqM) Glucose 224 H (74-99) mg/dL Plasma Lactic Acid Vj (0.7-2.0) mmol/L Calcium 8.4 (8.4-10.2) mg/dL Magnesium 1.6 (1.6-2.3) mg/dL Total Bilirubin 0.8 (0.2-1.3) mg/dL AST 38 (17-59) U/L ALT 19 L (21-72) U/L Alkaline Phosphatase 81 (38-126) U/L Total Creatine Kinase 347 H (55-170) U/L CK-MB (CK-2) 4.1 H* (0.0-2.4) ng/mL CK-MB (CK-2) Rel Index 1.2 Troponin I 0.116 H* (0.000-0.034) ng/mL NT-Pro-B Natriuret Pep pg/mL Total Protein 6.2 L (6.3-8.2) g/dL Albumin 3.1 L (3.5-5.0) g/dL 12/25/17 12/25/17 12/25/17 Range/Units 19:50 19:50 19:50 WBC (3.8-10.6) k/uL RBC (4.30-5.90) m/uL Hgb (13.0-17.5) gm/dL Hct (39.0-53.0) % MCV (80.0-100.0) fL MCH (25.0-35.0) pg MCHC (31.0-37.0) g/dL RDW (11.5-15.5) % Plt Count (150-450) k/uL Neutrophils % % Lymphocytes % % Monocytes % % Eosinophils % % Basophils % % Neutrophils # (1.3-7.7) k/uL Lymphocytes # (1.0-4.8) k/uL Monocytes # (0-1.0) k/uL Eosinophils # (0-0.7) k/uL Basophils # (0-0.2) k/uL PT 17.4 H (9.0-12.0) sec INR 1.9 H (<1.2) APTT 28.0 (22.0-30.0) sec Sodium (137-145) mmol/L Potassium (3.5-5.1) mmol/L Chloride (98-107) mmol/L Carbon Dioxide (22-30) mmol/L Anion Gap mmol/L BUN (9-20) mg/dL Creatinine (0.66-1.25) mg/dL Est GFR (CKD-EPI)AfAm (>60 ml/min/1.73 sqM) Est GFR (CKD-EPI)NonAf (>60 ml/min/1.73 sqM) Glucose (74-99) mg/dL Plasma Lactic Acid Vj 1.5 (0.7-2.0) mmol/L Calcium (8.4-10.2) mg/dL Magnesium (1.6-2.3) mg/dL Total Bilirubin (0.2-1.3) mg/dL AST (17-59) U/L ALT (21-72) U/L Alkaline Phosphatase (38-126) U/L Total Creatine Kinase (55-170) U/L CK-MB (CK-2) (0.0-2.4) ng/mL CK-MB (CK-2) Rel Index Troponin I (0.000-0.034) ng/mL NT-Pro-B Natriuret Pep 3600 pg/mL Total Protein (6.3-8.2) g/dL Albumin (3.5-5.0) g/dL - Radiology Data Radiology results: report reviewed (I did review the imaging and report no definite acute findings.), image reviewed Disposition Clinical Impression: Febrile illness, acute, Dehydration, Elevated troponin, Failure to thrive Disposition: ADMITTED IP TO THIS [facility] Condition: Stable Referrals: Chucho Fan MD [Primary Care Provider] - 1-2 days
[2017-12-25 20:10] LABS: Basophils % (A) 0 %; Eosinophils # (A) 0.2 k/uL (0-0.7); Eosinophils % (A) 2 %; HCT 35.4 % (39.0-53.0); HGB 11.8 gm/dL (13.0-17.5); Lymphocytes # (A) 1.1 k/uL (1.0-4.8); Lymphocytes % (A) 13 %; MCH 31.4 pg (25.0-35.0); MCHC 33.2 g/dL (31.0-37.0); MCV 94.5 fL (80.0-100.0); Mean Platelet Volume 9.1; Monocytes # (A) 0.6 k/uL (0-1.0); Monocytes % (A) 7 %; Neutrophils # (A) 6.1 k/uL (1.3-7.7); Neutrophils % (A) 75 %; Platelet Count 184 k/uL (150-450); RBC 3.75 m/uL (4.30-5.90); RDW 13.8 % (11.5-15.5); WBC 8.1 k/uL (3.8-10.6)
[2017-12-25 20:14] LABS: INR 1.9 (<1.2); Prothrombin Time 17.4 sec (9.0-12.0)
--- NOTE | 2017-12-25 20:17 | XR ---
EXAMINATION TYPE: XR chest 2V DATE OF EXAM: 12/25/2017 COMPARISON: Prior chest x-ray May 26, 2017 HISTORY: Weakness TECHNIQUE: Frontal and lateral views of the chest are obtained. FINDINGS: There is elevated left hemidiaphragm with lateral right mid and right basilar scarring and/ or atelectasis . The left lung is clear. There is no new focal airspace opacity or pneumothorax seen bilaterally. The cardiac silhouette size remains enlarged with multi lead pacemaker/AICD and atheros clerotic aorta. Multilevel moderate spurring in thoracic spine is present. IMPRESSION: Chronic changes and cardiomegaly without acute pulmonary process.
[2017-12-25 20:24] LABS: Albumin 3.1 g/dL (3.5-5.0); Calcium 8.4 mg/dL (8.4-10.2); Magnesium 1.6 mg/dL (1.6-2.3); Potassium 3.5 mmol/L (3.5-5.1); Total Bilirubin 0.8 mg/dL (0.2-1.3); Total Protein 6.2 g/dL (6.3-8.2)
[2017-12-25 20:38] LABS: Creatine Kinase MB 4.1 ng/mL (0.0-2.4); Troponin I 0.116 ng/mL (0.000-0.034)
[2017-12-25] MEDS ORDERED: NALOXONE 0.4 MG/ML 1 ML VIAL IV PRN (21:29)
[2017-12-25] MEDS ORDERED: HEPARIN SODIUM,PORCINE 5,000 UNIT/ML 1 ML VIAL IV ONE (21:31)
[2017-12-25] MEDS ORDERED: NITROGLYCERIN SL TABS 0.4 MG TAB SUBLINGUAL PRN (21:32)
[2017-12-25] MEDS ORDERED: ACETAMINOPHEN TAB 325 MG TAB PO PRN (21:32)
[2017-12-25] MEDS ORDERED: HEPARIN SODIUM,PORCINE/D5W PMX 25,000 UNIT in DEXTROSE/WATER 1 500ML.BAG IV SCH (21:45)
[2017-12-25] MEDS: SODIUM CHLORIDE 0.9% 1,000 ML IV SCH (21:54)
[2017-12-25] MEDS ORDERED: ACETAMINOPHEN TAB 325 MG TAB PO STA (21:58)
[2017-12-25] MEDS ORDERED: cefTRIAXone IN SWFI 1,000 MG/10 ML SYRINGE IVP STA (21:58)
[2017-12-25 22:59] VITALS: BMI 27.6
[2017-12-25] MEDS: CARBIDOPA-LEVODOPA 25-100 MG 1 EACH TAB PO SCH (23:42)
[2017-12-26] MEDS ORDERED: HEPARIN SODIUM,PORCINE 5,000 UNIT/ML 1 ML VIAL IV PRN (03:47)
[2017-12-26 04:14] LABS: Troponin I 0.115 ng/mL (0.000-0.034)
[2017-12-26 04:49] LABS: Basophils # (A) 0.1 k/uL (0-0.2); Basophils % (A) 1 %; Eosinophils # (A) 0.2 k/uL (0-0.7); Eosinophils % (A) 3 %; HCT 32.5 % (39.0-53.0); HGB 10.4 gm/dL (13.0-17.5); Hypochromasia Slight; INR 2.1 (<1.2); Lymphocytes # (A) 1.4 k/uL (1.0-4.8); Lymphocytes % (A) 22 %; MCH 31.8 pg (25.0-35.0); MCV 99.2 fL (80.0-100.0); Mean Platelet Volume 9.2; Monocytes # (A) 0.4 k/uL (0-1.0); Monocytes % (A) 7 %; Neutrophils % (A) 63 %; Platelet Count 172 k/uL (150-450); Prothrombin Time 19.3 sec (9.0-12.0); RBC 3.28 m/uL (4.30-5.90); RDW 13.8 % (11.5-15.5); WBC 6.4 k/uL (3.8-10.6)
[2017-12-26 05:11] LABS: Anion Gap 11 mmol/L; Blood Urea Nitrogen 30 mg/dL (9-20); Calcium 8.1 mg/dL (8.4-10.2); Carbon Dioxide 26 mmol/L (22-30); Chloride 101 mmol/L (98-107); Glucose 130 mg/dL (74-99); Potassium 3.8 mmol/L (3.5-5.1); Sodium 138 mmol/L (137-145)
[2017-12-26 05:26] LABS: Appearance,Urine Clear (Clear); Bilirubin,Urine Negative (Negative); Blood,Urine Trace (Negative); Color,Urine Yellow; Glucose,Urine (UA) Negative (Negative); Ketones,Urine Negative (Negative); Leukocyte Esterase,Urine Negative (Negative); Mucus,Urine Rare /hpf; Nitrite,Urine Negative (Negative); PH, Urine 5.5 (5.0-8.0); Protein,Urine Trace (Negative); RBC,Urine 21 /hpf (0-5); Specific Gravity,Urine 1.019 (1.001-1.035); WBC,Urine 2 /hpf (0-5)
[2017-12-26] MEDS: LEVOTHYROXINE 25 MCG TAB PO SCH (06:42)
[2017-12-26] MEDS: FUROSEMIDE 20 MG TAB PO SCH ×2 (08:23→20:59)
[2017-12-26] MEDS: MULTIVITAMINS, THERA 1 EACH TAB PO SCH (08:23)
[2017-12-26] MEDS: ARTIFICIAL TEARS-HYPROMELLOSE DROPS 15 ML BTL BOTH EYES SCH ×2 (08:23→20:59)
[2017-12-26] MEDS: ALLOPURINOL 300 MG TAB PO SCH (08:23)
[2017-12-26] MEDS: CARBIDOPA-LEVODOPA 25-100 MG 1 EACH TAB PO SCH ×3 (08:23→20:59)
[2017-12-26] MEDS: DIGOXIN 125 MCG TAB PO SCH (08:23)
[2017-12-26] MEDS: ASPIRIN 81 MG PO SCH (08:23)
[2017-12-26 09:38] LABS: Glucose,Whole Blood 187 mg/dL (75-99)
[2017-12-26] MEDS: SODIUM CHLORIDE 0.9% 1,000 ML IV SCH ×2 (09:38→23:04)
[2017-12-26] MEDS: INSULN ASP PRT/INSULIN ASPART 100 UNIT/ML 10 ML VIAL SQ SCH ×2 (09:38→23:05)
[2017-12-26] MEDS: SODIUM CHLORIDE 5% OPHTH DROPS 15 ML BTL BOTH EYES SCH ×2 (09:38→20:59)
[2017-12-26 10:04] LABS: Creatine Kinase MB 2.8 ng/mL (0.0-2.4); Troponin I 0.106 ng/mL (0.000-0.034)
--- NOTE | 2017-12-26 11:45 | P.CRDCN ---
History of Present Illness Consult date: 12/26/17 Requesting physician: Chucho Fan Reason for Consult (text): Abnormal troponins Chief complaint: Weakness, cough and fever History of present illness: This is an 87-year-old gentleman who follows regularly with Dr. Prakash in the office. He has a known history of coronary artery disease with prior stent placement, history of IV AICD implantation, ischemic cardiomyopathy with documented ejection fraction of 20-25%, paroxysmal atrial fibrillation, diabetes , hypertension, hyperlipidemia, mild dementia. Patient presents to the hospital with symptoms of progressive weakness, he also states that he's been having a fever at home with associated productive cough. Patient was apparently out in his front yard watering the plants, his legs became so weak that he fell down to the ground. He did not lose consciousness. He crawled over to the steps and waited for his son to arrive, he apparently was sitting outside for approximately 2 hours prior to his son's arrival. Patient denies having any chest discomfort. Blood pressure 118/48 with a heart rate in the 70s , 97% on room air. Temperature this morning is 99.3. Temperature on arrival 100. Chest x-ray does not reveal any acute pulmonary process. EKG shows ventricular paced rhythm. Laboratory data was reviewed, white blood cell count 6.4, hemoglobin 10.4, platelet count 172. INR is 2.1, sodium 138, potassium 3.8 , BUN 30, creatinine 0.8. BNP level 3600, troponin 0.11, 0.11, 0.10. At the time of my examination this morning, patient's main complaint is that he feels extremely weak. Does have some mild shortness of breath, continues to have a persistent cough. Past Medical History Past Medical History: Atrial Fibrillation, Cancer, Heart Failure, COPD, Dementia , Diabetes Mellitus, Hyperlipidemia, Hypertension, Thyroid Disorder Additional Past Medical History / Comment(s): gout, family stated that a geriatric neurologist at [facility] felt that pt had parkinsons(on meds) rt eye prosthetic vision lt eye good,prostate cancer, influenza, History of Any Multi-Drug Resistant Organisms: None Reported Past Surgical History: Heart Catheterization With Stent, Hernia Repair, Orthopedic Surgery, Pacemaker, Prostate Surgery Additional Past Surgical History / Comment(s): plate in the left ankle, had the first pacemaker placed in roughly 2007. Replacement pacemaker in 2010. prosthetic right eye. ben holes 2007 for fluid on the brain; male sling 2010 Past Anesthesia/Blood Transfusion Reactions: No Reported Reaction Date of Last Stent Placement:: 2001 Type of Cardiac Device: AICD Device Placement Date:: 2011 Past Psychological History: Depression Additional Psychological History / Comment(s): . Daughter lives next door. No current tobacco use or alcohol use. Retired labor. Denied experience or travel history. No animal exposures Smoking Status: Former smoker Past Alcohol Use History: Occasional Additional Past Alcohol Use History / Comment(s): started smoking 1939, quit 1954, smoked 1 ppd. Past Drug Use History: None Reported - Past Family History Mother Family Medical History: Blood Disorder Additional Family Medical History / Comment(s): family not sure what is was called Father Family Medical History: Myocardial Infarction ([place]) Brother(s) Family Medical History: Cancer, Myocardial Infarction ([place]) Additional Family Medical History / Comment(s): brain cancer Medications and Allergies Home Medications Medication Instructions Recorded Confirmed Type Digoxin [Lanoxin] 125 mcg PO DAILY 08/05/14 12/26/17 History Nitroglycerin Sl Tabs [Nitrostat] 0.4 mg SUBLINGUAL Q5M PRN 08/05/14 12/26/17 History Allopurinol [Zyloprim] 300 mg PO DAILY 08/06/14 12/26/17 History Carbidopa-Levodopa 25-100 mg 1 tab PO TID 12/11/15 12/26/17 History [Sinemet 25-100 mg] Levothyroxine Sodium [Synthroid] 25 mcg PO DAILY 12/11/15 12/26/17 History Multivitamin [Men's Multi-Vitamin] 1 tab PO DAILY 12/12/15 12/26/17 History Furosemide [Lasix] 20 mg PO DAILY 10/29/16 12/26/17 History Aspirin 81 mg PO DAILY chew 11/04/16 12/26/17 Rx Insulin NPL/Insulin Lispro 20 unit SQ HS 02/21/17 12/26/17 History [humaLOG MIX 75-25 VIAL] Insulin NPL/Insulin Lispro 40 unit SQ DAILY 02/21/17 12/26/17 History [humaLOG MIX 75-25 VIAL] Warfarin [Coumadin] 10 mg PO HS 02/21/17 12/26/17 History Propylene Glycol/Peg 400/Pf 1 dropper BOTH EYES BID 05/28/17 12/25/17 History [Systane 0.3-0.4% Eye Drops] Sodium Chloride 5% Ophth Soln 1 drops BOTH EYES BID 05/28/17 12/25/17 History [Enrico 128] Acetaminophen Tab [Tylenol] 650 mg PO Q4HR PRN tab 06/01/17 12/25/17 Rx Carvedilol [Coreg] 3.125 mg PO BID 12/26/17 12/26/17 History Cholecalciferol [Vitamin D3] 1,000 unit PO DAILY 12/26/17 12/26/17 History Simvastatin [Zocor] 40 mg PO HS 12/26/17 12/26/17 History metFORMIN HCL [Glucophage] 500 mg PO DAILY 12/26/17 12/26/17 History rOPINIRole HCL [Requip] 0.5 mg PO TID 12/26/17 12/26/17 History Allergies Allergy/AdvReac Type Severity Reaction Status Date / Time phenytoin sodium Allergy Severe Rash/Hives Verified 12/26/17 08:57 [From Dilantin] phenytoin sodium extended Allergy Severe Rash/Hives Verified 12/26/17 08:57 [From Dilantin] zoster vaccine live Allergy Unknown Verified 12/26/17 08:57 amiodarone AdvReac Dyspnea Verified 12/26/17 08:57 spironolactone AdvReac Gynecomasti Verified 12/26/17 08:57 a Physical Exam Vitals: Vital Signs Temp Pulse Pulse Resp BP BP Pulse Ox 12/26/17 08:00 99.3 F 77 18 118/48 97 12/26/17 04:00 97.8 F 71 17 109/52 98 12/26/17 00:00 98.7 F 88 18 127/55 97 12/25/17 22:03 98.7 F 85 18 127/55 97 12/25/17 21:55 101.1 F H 85 18 138/65 98 12/25/17 21:19 66 18 147/66 99 12/25/17 20:19 90 12/25/17 20:12 89 12/25/17 19:30 100 F H 99 18 122/58 97 Intake and Output 12/25/17 12/26/17 12/26/17 22:59 06:59 14:59 Intake Total 200 839.274 171.315 Output Total 340 Balance 200 499.274 171.315 Intake: Intake, IV Titration 839.274 171.315 Amount Heparin Sodium,Porcine/ 119.274 171.315 D5w Pmx 25,000 unit In Dextrose/Water 1 500ml. bag @ 11.2 UNITS/KG/HR 20 .11 mls/hr IV .Q24H ABHAY Rx#:[id number] Sodium Chloride 0.9% 1, 720 000 ml @ 80 mls/hr IV . [id number] ABHAY Rx#:[id number] Oral 200 Output: Urine 340 Other: Voiding Method Urinal Weight 89.811 kg 91.1 kg PHYSICAL EXAMINATION: GENERAL: HEENT: Head is atraumatic, normocephalic. Pupils equal, round. Sclera anicteric. Conjunctiva are clear. Mucous membranes of the mouth are moist. Neck is supple. There is no elevated jugular venous pressure.] bruit is heard. HEART EXAMINATION: Heart S1, S2 normal. No murmur or gallop heard. CHEST EXAMINATION: Lungs are clear to auscultation and precussion. No chest wall tenderness is noted on palpation or with deep breathing. ABDOMEN: Soft, nontender. Bowel sounds are heard. No organomegaly noted. EXTREMITIES: 2+ peripheral pulses with no evidence of peripheral edema and no calf tenderness noted. NEUROLOGIC patient is awake, alert and oriented -3. . Results 12/26/17 03:01 12/26/17 03:01 Cardiac Enzymes 12/25/17 12/25/17 12/26/17 Range/Units 19:50 19:50 03:01 AST 38 (17-59) U/L CK-MB (CK-2) 4.1 H* 3.0 H* (0.0-2.4) ng/mL Troponin I 0.116 H* 0.115 H* (0.000-0.034) ng/mL 12/26/17 Range/Units 09:03 AST (17-59) U/L CK-MB (CK-2) 2.8 H* (0.0-2.4) ng/mL Troponin I 0.106 H* (0.000-0.034) ng/mL Coagulation 12/25/17 12/26/17 12/26/17 Range/Units 19:50 03:01 03:01 PT 17.4 H 19.3 H (9.0-12.0) sec APTT 28.0 37.5 H (22.0-30.0) sec 12/26/17 Range/Units 09:03 PT (9.0-12.0) sec APTT 46.9 H (22.0-30.0) sec CBC 12/25/17 12/26/17 Range/Units 19:50 03:01 WBC 8.1 6.4 (3.8-10.6) k/uL RBC 3.75 L 3.28 L (4.30-5.90) m/uL Hgb 11.8 L 10.4 L (13.0-17.5) gm/dL Hct 35.4 L 32.5 L (39.0-53.0) % Plt Count 184 172 (150-450) k/uL Comprehensive Metabolic Panel 12/25/17 12/26/17 Range/Units 19:50 03:01 Sodium 139 138 (137-145) mmol/L Potassium 3.5 3.8 (3.5-5.1) mmol/L Chloride 96 L 101 (98-107) mmol/L Carbon Dioxide 30 26 (22-30) mmol/L BUN 30 H 30 H (9-20) mg/dL Creatinine 0.90 0.80 (0.66-1.25) mg/dL Glucose 224 H 130 H (74-99) mg/dL Calcium 8.4 8.1 L (8.4-10.2) mg/dL AST 38 (17-59) U/L ALT 19 L (21-72) U/L Alkaline Phosphatase 81 (38-126) U/L Total Protein 6.2 L (6.3-8.2) g/dL Albumin 3.1 L (3.5-5.0) g/dL Current Medications Generic Name Dose Route Start Last Admin Trade Name Freq PRN Reason Stop Dose Admin Acetaminophen 650 mg 12/25/17 21:32 Tylenol Tab PO Q4HR PRN Mild Pain Allopurinol 300 mg 12/26/17 09:00 12/26/17 08:23 Zyloprim PO 300 mg DAILY ABHAY Administration Artificial Tears 1 drops 12/26/17 09:00 12/26/17 08:23 Artificial Tear Drops BOTH EYES 1 drops BID ABHAY Administration Aspirin 81 mg 12/26/17 09:00 12/26/17 08:23 Aspirin PO 81 mg DAILY ABHAY Administration Carbidopa/Levodopa 1 each 12/25/17 22:00 12/26/17 08:23 Sinemet 25-100 PO 1 each TID ABHAY Administration Digoxin 125 mcg 12/26/17 09:00 12/26/17 08:23 Lanoxin PO 125 mcg DAILY ABHAY Administration Furosemide 20 mg 12/26/17 09:00 12/26/17 08:23 Lasix PO 20 mg BID ABHAY Administration Heparin Sodium (Porcine) 0 unit 12/26/17 03:47 12/26/17 04:08 Heparin IV 4,000 unit PER PROTOCOL PRN Administration Low PTT Protocol Heparin Sodium/Dextrose 25,000 500 mls @ 20.11 mls/hr 12/25/17 21:45 10:33 unit/ IV Solution IV 16 units/kg/hr .Q24H ABHAY 28.73 mls/hr Protocol Titration 11.2 UNITS/KG/HR Sodium Chloride 1,000 mls @ 80 mls/hr 12/25/17 21:30 12/26/17 09:38 Saline 0.9% IV 80 mls/hr .[id number] ABHAY Administration Insulin Aspart 40 unit 12/26/17 09:00 12/26/17 09:38 Novolog Mix 70-30 Vial SQ 40 unit DAILY ABHAY Administration Insulin Aspart 20 unit 12/26/17 21:00 Novolog Mix 70-30 Vial SQ HS ABHAY Levothyroxine Sodium 25 mcg 12/26/17 06:30 12/26/17 06:42 Synthroid PO 25 mcg 0630 ABHAY Administration Multivitamins 1 each 12/26/17 09:00 12/26/17 08:23 Theragran PO 1 each DAILY ABHAY Administration Naloxone HCl 0.2 mg 12/25/17 21:29 Narcan IV Q2M PRN Opioid Reversal Nitroglycerin 0.4 mg 12/25/17 21:32 Nitrostat SUBLINGUAL Q5M PRN Chest Pain Sodium Chloride 1 drops 12/26/17 09:00 12/26/17 09:38 Enrico 128 BOTH EYES 1 drops BID ABHAY Administration Warfarin Sodium 2.5 mg 12/26/17 18:00 Coumadin PO 1800 ABHAY Warfarin Sodium 10 mg 12/26/17 18:00 Coumadin PO 1800 ABHAY Intake and Output 12/25/17 12/26/17 12/26/17 22:59 06:59 14:59 Intake Total 200 839.274 171.315 Output Total 340 Balance 200 499.274 171.315 Intake: Intake, IV Titration 839.274 171.315 Amount Heparin Sodium,Porcine/ 119.274 171.315 D5w Pmx 25,000 unit In Dextrose/Water 1 500ml. bag @ 11.2 UNITS/KG/HR 20 .11 mls/hr IV .Q24H ABHAY Rx#:[id number] Sodium Chloride 0.9% 1, 720 000 ml @ 80 mls/hr IV . [id number] ABHAY Rx#:[id number] Oral 200 Output: Urine 340 Other: Voiding Method Urinal Weight 89.811 kg 91.1 kg 12/26/17 03:01 12/26/17 03:01 EKG Interpretations (text) EKG shows a ventricular paced rhythm. Assessment and Plan Plan: Assessment and plan #1 symptoms of progressive weakness with evidence of fever, unknown origin #2 ischemic cardiomyopathy with prior by V AICD #3 coronary artery disease with prior stent placement #4 mild congestive cardiac failure, acute on chronic systolic #5 abnormal troponins, not consistent with acute coronary syndrome, likely secondary to supply and demand mismatch. #6 hypertension #7 diabetes #8 hyperlipidemia Plan From cardiology's perspective, we will give the patient one time dose of IV Lasix and continue the rest of his medications as he takes at home. Troponin abnormality likely secondary to supply and demand mismatch. Further recommendations to follow. DNP note has been reviewed, I agree with a documented findings and plan of care. Patient was seen and examined.
[2017-12-26 11:57] LABS: Glucose,Whole Blood 274 mg/dL (75-99)
[2017-12-26] MEDS ORDERED: FUROSEMIDE 10 MG/ML 2 ML VIAL IV STA (12:12)
[2017-12-26] MEDS ORDERED: guaiFENesin-DM 100-10MG/5ML 10 ML CUP PO PRN (14:08)
[2017-12-26] MEDS ORDERED: Potassium Replacement Protocol 1 EACH MISC MISCELLANE PRN (14:09)
[2017-12-26] MEDS ORDERED: Magnesium Replacement Protocol 1 EACH MISC MISCELLANE PRN (14:09)
--- NOTE | 2017-12-26 14:53 | HP ---
HISTORY AND PHYSICAL CHIEF COMPLAINT: Weakness, confusion, fever. HISTORY OF PRESENT ILLNESS: This is another admission for this 87-year-old white male with multiple chronic diseases. He is brought him by the family when he became weak and somewhat confused and lethargic. He presented to the emergency room with fever. Chest x-ray did not demonstrate pneumonia and urine had not been collected. He had no other symptoms including headache, chest pain, shortness of breath, cough, hemoptysis, sputum production, dysuria, frequency, urgency, abdominal pain, etc. REVIEW OF SYSTEMS: Otherwise unremarkable. Past medical history, family history, and personal and social histories are complicated. He has a long-standing history of coronary artery disease, diabetes and frequent falls. He had a subdural hematoma many years ago and now has problems intermittently with seizures. He has congestive heart failure and atrial fibrillation. ALLERGIES: Include HAILY INHIBITORS, AMIODARONE, DILANTIN, AND SPIRONOLACTONE. CURRENT MEDICATIONS: Include Coumadin 5 mg Tuesday and Tuesday and 10 mg every other day except Tuesday, allopurinol 300 mg once a day, Levothyroxine 0.25 mg, Lasix 20 mg once a day, carvedilol 3.125 mg twice a day, metformin 500 mg once a day, Robinul 0.5 at bedtime, Humalog 75/25 40 units in the morning and 20 at night, donepezil 10 mg at bedtime, Sinemet 25/100 t.i.d., Zocor 40 at bedtime, imipramine 50 mg twice a day, Lanoxin 0.125 once a day, aspirin 81 mg a day. The remainder of history is unremarkable and unchanged otherwise. PHYSICAL EXAMINATION: Blood pressure 126/60 with a pulse of 104 and irregularly irregular. Respirations were 14, temperature is a 100.6. GENERAL: He appeared to be awake and alert. Skin color is normal. Skin is warm, dry. Head, ears, eyes, nose, mouth, and throat were unchanged. He has one eye missing on the left. Neck veins not distended. The chest demonstrates occasional rales. Cardiac exam is normal except for atrial fibrillation. The abdomen is soft, nontender. Extremities are normal. Neurologically, seems to be intact. IMPRESSION: 1. Fever of unknown origin. 2. Possible pneumonitis. 3. Possible urinary tract infection. 4. Coronary artery disease. 5. Atrial fibrillation. 6. Congestive heart failure. 7. Insulin dependent diabetes mellitus. 8. Previous subdural hematomas with secondary seizure disorder. PLAN: 1. Bed rest. 2. IV fluids. 3. Appropriate cultures. 4. Start Levaquin 250 mg once a day. 5. Rehydration. MMESTEPHANIEL / NATHANIEL: [id number] /
--- NOTE | 2017-12-26 14:59 | PN ---
PROGRESS NOTE CHIEF COMPLAINT: FUO. HISTORY OF PRESENT ILLNESS: This gentleman is doing fairly well. He is oriented and alert. Temperature is still up. PHYSICAL EXAM: Chest is clear. Cardiac exam is normal. Abdomen is soft, nontender. IMPRESSION: Fever of unknown origin. PLAN: 1. Appropriate cultures. 2. Continue to look for source of infection. 3. Start antibiotics. MMODL / IJN: [id number] /
[2017-12-26] MEDS ORDERED: POTASSIUM CHLORIDE ER 20 MEQ TAB.ER PO SCH (15:00)
[2017-12-26] MEDS ORDERED: guaiFENesin SYRUP 100MG/5ML 200 MG/10 ML CUP ONE (15:15)
[2017-12-26] MEDS: LEVOFLOXACIN 250 MG TAB PO SCH (15:18)
[2017-12-26] MEDS: MAGNESIUM SULFATE-D5W PMX 1 GM in DEXTROSE/WATER 1 100ML.BAG IVPB SCH ×2 (15:53→17:46)
[2017-12-26 16:55] LABS: Glucose,Whole Blood 210 mg/dL (75-99)
[2017-12-26] MEDS: INSULIN ASPART 100 UNIT/ML 1 ML 10 ML VIAL SQ SCH ×2 (17:46→23:05)
[2017-12-26] MEDS: WARFARIN 10 MG TAB PO SCH (17:46)
[2017-12-26] MEDS: WARFARIN 2.5 MG TAB PO SCH (17:46)
[2017-12-26] MEDS: CARVEDILOL 3.125 MG TAB PO SCH (17:46)
[2017-12-26 18:42] LABS: Hemoglobin A1C 7.3 % (4.0-6.0)
[2017-12-26 20:53] LABS: Glucose,Whole Blood 231 mg/dL (75-99)
[2017-12-26] MEDS: ATORVASTATIN 20 MG TAB PO SCH (20:59)
[2017-12-27 06:05] LABS: Glucose,Whole Blood 129 mg/dL (75-99)
[2017-12-27] MEDS: INSULIN ASPART 100 UNIT/ML 1 ML 10 ML VIAL SQ SCH ×4 (06:11→21:26)
[2017-12-27] MEDS: LEVOTHYROXINE 25 MCG TAB PO SCH (06:28)
[2017-12-27] MEDS: CARVEDILOL 3.125 MG TAB PO SCH ×2 (06:28→18:03)
[2017-12-27] MEDS: ALLOPURINOL 300 MG TAB PO SCH (08:16)
[2017-12-27] MEDS: CARBIDOPA-LEVODOPA 25-100 MG 1 EACH TAB PO SCH ×3 (08:16→21:25)
[2017-12-27] MEDS: ASPIRIN 81 MG PO SCH (08:16)
[2017-12-27] MEDS: FUROSEMIDE 20 MG TAB PO SCH ×2 (08:16→21:25)
[2017-12-27] MEDS: DIGOXIN 125 MCG TAB PO SCH (08:16)
[2017-12-27] MEDS: LEVOFLOXACIN 250 MG TAB PO SCH (08:16)
[2017-12-27] MEDS: MULTIVITAMINS, THERA 1 EACH TAB PO SCH (08:16)
[2017-12-27] MEDS: ARTIFICIAL TEARS-HYPROMELLOSE DROPS 15 ML BTL BOTH EYES SCH ×2 (08:17→21:25)
[2017-12-27] MEDS: SODIUM CHLORIDE 5% OPHTH DROPS 15 ML BTL BOTH EYES SCH ×2 (08:17→21:25)
[2017-12-27] MEDS: INSULN ASP PRT/INSULIN ASPART 100 UNIT/ML 10 ML VIAL SQ SCH ×2 (08:26→21:26)
[2017-12-27 11:37] LABS: Glucose,Whole Blood 159 mg/dL (75-99)
[2017-12-27] MEDS: SODIUM CHLORIDE 0.9% 1,000 ML IV SCH ×2 (12:41→23:30)
[2017-12-27 16:27] LABS: Glucose,Whole Blood 246 mg/dL (75-99)
[2017-12-27] MEDS: WARFARIN 10 MG TAB PO SCH (18:03)
[2017-12-27] MEDS: WARFARIN 2.5 MG TAB PO SCH (18:03)
--- NOTE | 2017-12-27 18:18 | PN ---
PROGRESS NOTE CHIEF COMPLAINT: Fever and and undisclosed infection. HISTORY OF PRESENT ILLNESS: This gentleman is doing well. Temperature has been down. He has had no problems. He has had no fever, cough, shortness of breath, urinary complaints, etc., and cultures have been negative. His troponin is elevated. He has been seen by Cardiology. PHYSICAL EXAMINATION: CHEST: Clear. Cardiac exam is unchanged with atrial fibrillation. The abdomen is soft and nontender. Extremities are normal. IMPRESSION: 1. Fever of unknown origin. 2. Elevated troponin. PLAN: He is doing well and we will probably discharge him tomorrow. MMODL / IJN: [id number] /
[2017-12-27 20:53] LABS: Glucose,Whole Blood 210 mg/dL (75-99)
[2017-12-27] MEDS: ATORVASTATIN 20 MG TAB PO SCH (21:25)
[2017-12-28 06:32] LABS: Glucose,Whole Blood 126 mg/dL (75-99)
[2017-12-28] MEDS: LEVOTHYROXINE 25 MCG TAB PO SCH (06:35)
[2017-12-28] MEDS: CARVEDILOL 3.125 MG TAB PO SCH (06:35)
[2017-12-28] MEDS: INSULIN ASPART 100 UNIT/ML 1 ML 10 ML VIAL SQ SCH ×2 (06:35→12:07)
[2017-12-28 08:42] VITALS: RESP 18
[2017-12-28] MEDS: ARTIFICIAL TEARS-HYPROMELLOSE DROPS 15 ML BTL BOTH EYES SCH (09:45)
[2017-12-28] MEDS: FUROSEMIDE 20 MG TAB PO SCH (09:45)
[2017-12-28] MEDS: MULTIVITAMINS, THERA 1 EACH TAB PO SCH (09:45)
[2017-12-28] MEDS: ALLOPURINOL 300 MG TAB PO SCH (09:45)
[2017-12-28] MEDS: SODIUM CHLORIDE 5% OPHTH DROPS 15 ML BTL BOTH EYES SCH (09:45)
[2017-12-28] MEDS: LEVOFLOXACIN 250 MG TAB PO SCH (09:45)
[2017-12-28] MEDS: CARBIDOPA-LEVODOPA 25-100 MG 1 EACH TAB PO SCH (09:45)
[2017-12-28] MEDS: ASPIRIN 81 MG PO SCH (09:45)
[2017-12-28] MEDS: DIGOXIN 125 MCG TAB PO SCH (09:45)
[2017-12-28] MEDS: INSULN ASP PRT/INSULIN ASPART 100 UNIT/ML 10 ML VIAL SQ SCH (09:52)
[2017-12-28 11:40] LABS: Glucose,Whole Blood 251 mg/dL (75-99)
[2017-12-28] MEDS: SODIUM CHLORIDE 0.9% 1,000 ML IV SCH (12:06)
[2017-12-28 12:10] VITALS: BP 127/60; PULSE 64; TEMP 97.2
--- NOTE | 2017-12-28 20:22 | DS ---
DISCHARGE SUMMARY CHIEF COMPLAINT: Delirium and fever, dehydration. HISTORY OF PRESENT ILLNESS AND PHYSICAL EXAM: Details of this man's history and physical can be found in the initial workup. LABORATORY STUDIES: While he was in the hospital, he had laboratory studies details of which can be found in the laboratory section of his chart. COURSE IN THE HOSPITAL: After admission he was placed on bedrest, started on intravenous fluids. Cultures were nondiagnostic. It was felt that this is either was due to possible urinary tract infection, atelectasis or minimal pneumonitis. While he was in the hospital, he continued to improve. He was doing well. It was felt he could go home on his usual activity, diet and medication on the 6th and he will follow up in the office. He also will be discharged on an antibiotic. FINAL DIAGNOSES: 1. Delirium. 2. Dehydration. 3. Undisclosed infection. 4. Coronary artery disease. 5. Congestive heart failure. 6. Seizure disorder. OPERATIONS: None. CONSULTATIONS: None. He is improved. MMODL / PARISN: [id number] /
== END 2017-12-28 14:40 | disposition home or self-care (01) | DRG 640 ==
LOC: EC 19:29 → 6SEL 21:29
PROVIDERS: ADMIT Family Medicine; ATTEND Family Medicine
DX: E86.0 Dehydration (principal); I50.23 Acute on chronic systolic (congestive) heart failure; F05 Delirium due to known physiological condition; G20 Parkinson's disease; I48.0 Paroxysmal atrial fibrillation; I11.0 Hypertensive heart disease with heart failure; F03.90 Unspecified dementia, unspecified severity, without behavioral disturbance, psychotic disturbance, mood disturbance, and anxiety; R50.9 Fever, unspecified; E11.9 Type 2 diabetes mellitus without complications; G40.909 Epilepsy, unspecified, not intractable, without status epilepticus; E07.9 Disorder of thyroid, unspecified; E78.5 Hyperlipidemia, unspecified; J44.9 Chronic obstructive pulmonary disease, unspecified; I25.5 Ischemic cardiomyopathy; I25.10 Atherosclerotic heart disease of native coronary artery without angina pectoris; F32.9 Major depressive disorder, single episode, unspecified; R77.9 Abnormality of plasma protein, unspecified; M10.9 Gout, unspecified; R62.7 Adult failure to thrive; Z79.82 Long term (current) use of aspirin; Z79.4 Long term (current) use of insulin; Z79.01 Long term (current) use of anticoagulants; Z79.890 Hormone replacement therapy; Z79.899 Other long term (current) drug therapy; Z95.810 Presence of automatic (implantable) cardiac defibrillator; Z97.0 Presence of artificial eye; Z87.891 Personal history of nicotine dependence; Z85.46 Personal history of malignant neoplasm of prostate; Z95.5 Presence of coronary angioplasty implant and graft; Z88.7 Allergy status to serum and vaccine; Z88.8 Allergy status to other drugs, medicaments and biological substances; Z82.49 Family history of ischemic heart disease and other diseases of the circulatory system; Z80.8 Family history of malignant neoplasm of other organs or systems; W19.XXXA Unspecified fall, initial encounter
CPT/HCPCS: 36415; 71046; 80048; 80053; 81001; 82550; 82553; 83036; 83605; 83735; 83880; 84484; 85025; 85610; 85730; 93005; 94640; 96365; 96376; 99285

== ENCOUNTER → 2018-02-16 | Outpatient (CLI) | payer MEDICARE ==
--- NOTE | 2018-02-16 14:15 | PN ---
PROGRESS NOTE DATE OF SERVICE: 02/16/2018 An 87-year-old gentleman who has been [facility] the [facility] for treatment of obstructive sleep apnea-hypopnea syndrome. Patient successfully continued to use his CPAP equipment every night and I feel that his mouth is dry in the morning. No snoring with the machine by family. [place] Sleepiness Scale is 4, which is normal. I checked CPAP unit. CPAP pressure is 11 cm of water. Usage is 28/30 nights for more than 4 hours. Average usage is 7.0 hours. Significant leak 55 L/minute. Apnea- hypopnea index only 2.7, which is totally normal. MEDICATIONS: Allopurinol, aspirin, carbidopa levodopa, carvedilol, digoxin, Furosemide, levothyroxine, metformin, nitroglycerin, ropinirole, simvastatin, vitamin D, warfarin. PHYSICAL EXAM: Patient in no distress. BP 142/67, HR 75, RR 16, height 5, 8, weight 201.8. Patient lost 9 pounds since previous visit. Temp is 98.0, oxygen saturation at room air 95%. OROPHARYNX: Low position of soft palate. Neck Supple, no JVD. Thyroid is not palpable. LUNGS Clear to percussion and to auscultation. Good air exchange. No wheezing or rhonchi. HEART S1, S2 regular. No murmurs, gallops, or rubs. ABDOMEN Soft and nontender. Bowel sounds are present. No organomegaly appreciated. EXTREMITIES No clubbing or cyanosis. COMMUNICATIONS FIELD TECHNICIAN Awake, alert, and oriented X3. Cranial nerves 2 to 7 intact. There is no fasciculation or atrophy. noted. No focal deficits observed. IMPRESSION: 1. Obstructive sleep apnea-hypopnea syndrome. Patient demonstrated great compliance with treatment, benefitting from treatment. 2. Coronary artery disease, status post stent insertion. 3. History of atrial fibrillation. 4. History of congestive heart failure. 5. Hypertension. 6. Diabetes mellitus. 7. Hypothyroidism. 8. History of Parkinson's disease. 9. Status post prostatectomy. 10.Gout. 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 PLAN: 1. Prescription for chin strap to prevent opening mouth during the sleep and leak probably related to that. 2. Sleep hygiene with regular time in bed for at least 8 hours. 3. No driving if feeling sleepiness. 4. Prescription for all necessary CPAP supplies including mask, tube, filters. Thank you very much for allowing me to participate in management of your patient. Sincerely, Gen Rome MD, PhD, FAASM Diplomat of [employer] Insurance Business Analyst of [facility] [place] KETTY / NATHANIEL: [id number] /
== END | disposition home or self-care (01) ==
LOC: SLEEP 13:05
PROVIDERS: ATTEND Internal Medicine
DX: G47.33 Obstructive sleep apnea (adult) (pediatric) (principal); I25.10 Atherosclerotic heart disease of native coronary artery without angina pectoris; I48.91 Unspecified atrial fibrillation; I50.9 Heart failure, unspecified; I10 Essential (primary) hypertension; E11.9 Type 2 diabetes mellitus without complications; E03.9 Hypothyroidism, unspecified; G20 Parkinson's disease; M10.9 Gout, unspecified; Z98.890 Other specified postprocedural states; Z90.79 Acquired absence of other genital organ(s); Z95.5 Presence of coronary angioplasty implant and graft; Z99.89 Dependence on other enabling machines and devices; Z79.899 Other long term (current) drug therapy; Z79.82 Long term (current) use of aspirin; Z79.84 Long term (current) use of oral hypoglycemic drugs; Z79.01 Long term (current) use of anticoagulants

== ENCOUNTER 2018-06-23 19:05 | Inpatient (IN) | payer MEDICARE ==
[2018-06-23] MEDS ORDERED: SODIUM CHLORIDE 0.9% 500 ML 500 ML IV STA (19:59)
[2018-06-23 20:47] LABS: Basophils % (A) 0 %; Eosinophils # (A) 0.2 k/uL (0-0.7); Eosinophils % (A) 6 %; HCT 37.7 % (39.0-53.0); HGB 13.1 gm/dL (13.0-17.5); Lymphocytes # (A) 0.7 k/uL (1.0-4.8); Lymphocytes % (A) 15 %; MCHC 34.7 g/dL (31.0-37.0); MCV 95.1 fL (80.0-100.0); Mean Platelet Volume 8.9; Monocytes # (A) 0.3 k/uL (0-1.0); Monocytes % (A) 6 %; Neutrophils % (A) 71 %; Platelet Count 107 k/uL (150-450); RBC 3.97 m/uL (4.30-5.90); RDW 14.3 % (11.5-15.5); WBC 4.2 k/uL (3.8-10.6)
[2018-06-23 20:56] LABS: ALT 21 U/L (21-72); AST 40 U/L (17-59); Albumin 3.7 g/dL (3.5-5.0); Alkaline Phosphatase 77 U/L (38-126); Anion Gap 8 mmol/L; Blood Urea Nitrogen 15 mg/dL (9-20); Calcium 8.8 mg/dL (8.4-10.2); Carbon Dioxide 30 mmol/L (22-30); Chloride 101 mmol/L (98-107); Glucose 132 mg/dL (74-99); Magnesium 1.8 mg/dL (1.6-2.3); Potassium 4.6 mmol/L (3.5-5.1); Sodium 139 mmol/L (137-145); Total Bilirubin 0.6 mg/dL (0.2-1.3); Total Protein 6.5 g/dL (6.3-8.2)
[2018-06-23 21:01] LABS: D-Dimer 0.29 mg/L FEU (<0.60); INR 3.5 (<1.2); Prothrombin Time 31.3 sec (9.0-12.0)
--- NOTE | 2018-06-23 21:05 | XR ---
EXAMINATION: XR chest 2V DATE AND TIME: 06/23/2018 8:55 PM CLINICAL INDICATION: Chest Pain TECHNIQUE: PA and lateral COMPARISON: 12/25/2017 FINDINGS: Cardiac pacemaker and EKG leads. The lungs are clear. The pleural spaces are negative. The cardiac silhouette is mild-moderately enlarged. The remainder of the mediastinal silhouette is unremarkable. The skeletal structures and soft tissues are negative for acute findings. IMPRESSION: NO ACUTE PROCESS.
[2018-06-23 21:07] LABS: Creatine Kinase MB 1.6 ng/mL (0.0-2.4)
[2018-06-23 21:09] LABS: Troponin I 0.077 ng/mL (0.000-0.034)
[2018-06-23] MEDS ORDERED: IPRATROPIUM-ALBUTEROL 3 ML NEB INHALATION STA (21:09)
--- NOTE | 2018-06-23 21:23 | ED ---
General Adult HPI - General Source: patient, family, RN notes reviewed Mode of arrival: wheelchair Limitations: no limitations <Craig Amin - Last Filed: 06/23/18 22:05> <Jeferson Pate - Last Filed: 06/23/18 22:17> - General Chief complaint: Upper Respiratory Infection Stated complaint: cough Time Seen by Provider: 06/23/18 19:37 - History of Present Illness Initial comments: 88-year-old male with a past medical history of A. fib, heart failure, COPD, diabetes, hypertension, hyperlipidemia presents to the emergency determine for a chief complaint of productive cough 4 days. Patient states the cough became productive in the past day. He states he has not seen primary care for this. He admits to mild shortness of breath and chest tightness with this cough. He denies any chest pain. He denies any fevers or chills. Patient has no other complaints at this time including shortness of breath, abdominal pain, nausea or vomiting, headache, or visual changes. (Craig Amin) - Related Data Home Medications Medication Instructions Recorded Confirmed Digoxin [Lanoxin] 125 mcg PO DAILY 08/05/14 06/23/18 Nitroglycerin Sl Tabs [Nitrostat] 0.4 mg SUBLINGUAL Q5M PRN 08/05/14 06/23/18 Allopurinol [Zyloprim] 300 mg PO DAILY 08/06/14 06/23/18 Carbidopa-Levodopa 25-100 mg 1 tab PO TID 12/11/15 06/23/18 [Sinemet 25-100 mg] Levothyroxine Sodium [Synthroid] 25 mcg PO DAILY 12/11/15 06/23/18 Multivitamin [Men's Multi-Vitamin] 1 tab PO DAILY 12/12/15 06/23/18 Insulin NPL/Insulin Lispro 20 unit SQ HS 02/21/17 06/23/18 [humaLOG MIX 75-25 VIAL] Insulin NPL/Insulin Lispro 40 unit SQ DAILY 02/21/17 12/26/17 [humaLOG MIX 75-25 VIAL] Propylene Glycol/Peg 400/Pf 1 dropper BOTH EYES BID 05/28/17 06/23/18 [Systane 0.3-0.4% Eye Drop] Sodium Chloride 5% Ophth Soln 1 drops BOTH EYES BID 05/28/17 06/23/18 [Enrico 128] Carvedilol [Coreg] 3.125 mg PO BID 12/26/17 06/23/18 Cholecalciferol [Vitamin D3] 1,000 unit PO DAILY 12/26/17 06/23/18 Simvastatin [Zocor] 40 mg PO HS 12/26/17 06/23/18 metFORMIN HCL [Glucophage] 500 mg PO DAILY 12/26/17 06/23/18 rOPINIRole HCL [Requip] 0.5 mg PO TID 12/26/17 06/23/18 Furosemide [Lasix] 20 mg PO DAILY 06/23/18 06/23/18 Warfarin [Coumadin] 5 mg PO MO 06/23/18 06/23/18 Warfarin [Coumadin] 10 mg PO SUTUWETHFRSA 06/23/18 06/23/18 Previous Rx's Medication Instructions Recorded Acetaminophen Tab [Tylenol] 650 mg PO Q4HR PRN tab 06/01/17 Aspirin 81 mg PO DAILY chew 12/28/17 Allergies Allergy/AdvReac Type Severity Reaction Status Date / Time phenytoin sodium Allergy Severe Rash/Hives Verified 06/23/18 19:42 [From Dilantin] phenytoin sodium extended Allergy Severe Rash/Hives Verified 06/23/18 19:42 [From Dilantin] zoster vaccine live Allergy Unknown Verified 06/23/18 19:42 amiodarone AdvReac Dyspnea Verified 06/23/18 19:42 spironolactone AdvReac Gynecomasti Verified 06/23/18 19:42 a Review of Systems ROS Other: All systems not noted in ROS Statement are negative. <Craig Amin - Last Filed: 06/23/18 22:05> ROS Other: All systems not noted in ROS Statement are negative. <Jeferson aPte - Last Filed: 06/23/18 22:17> ROS Statement: Those systems with pertinent positive or pertinent negative responses have been documented in the HPI. 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 Replacement pacemaker in 2010. prosthetic right eye. ben holes 2007 for fluid on the brain; male sling 2010 Past Anesthesia/Blood Transfusion Reactions: No Reported Reaction Date of Last Stent Placement:: 2001 Type of Cardiac Device: AICD Device Placement Date:: 2011 Past Psychological History: Depression Smoking Status: Former smoker Past Alcohol Use History: Occasional Past Drug Use History: None Reported - Past Family History Mother Family Medical History: Blood Disorder Additional Family Medical History / Comment(s): family not sure what is was called Father Family Medical History: Myocardial Infarction ([place]) Brother(s) Family Medical History: Cancer, Myocardial Infarction ([place]) Additional Family Medical History / Comment(s): brain cancer <Craig Amin P - Last Filed: 06/23/18 22:05> General Exam Limitations: no limitations General appearance: alert, in no apparent distress Head exam: Present: atraumatic, normocephalic, normal inspection Eye exam: Present: normal appearance, PERRL, EOMI. Absent: scleral icterus, conjunctival injection, periorbital swelling ENT exam: Present: normal exam, mucous membranes moist Neck exam: Present: normal inspection, full ROM. Absent: tenderness, meningismus, lymphadenopathy Respiratory exam: Present: wheezes (Minimal wheezing noted), decreased breath sounds (Mildly diminished breath sounds bilaterally). Absent: respiratory distress, rales, rhonchi, stridor Cardiovascular Exam: Present: regular rate, normal rhythm, normal heart sounds. Absent: systolic murmur, diastolic murmur, rubs, gallop, clicks GI/Abdominal exam: Present: soft, normal bowel sounds. Absent: distended, tenderness, guarding, rebound, rigid Neurological exam: Present: alert, oriented X3, CN II-XII intact Psychiatric exam: Present: normal affect, normal mood <Craig Amin P - Last Filed: 06/23/18 22:05> Vital Signs 06/23/18 06/23/18 06/23/18 19:11 20:30 21:38 Temperature 99.0 F Pulse Rate 96 98 98 Respiratory 18 22 22 Rate Blood Pressure 147/76 170/68 O2 Sat by Pulse 98 99 Oximetry 06/23/18 06/23/18 21:46 22:00 Temperature Pulse Rate 95 99 Respiratory 22 Rate Blood Pressure 170/73 O2 Sat by Pulse 98 Oximetry EKG Findings - EKG Comments: EKG Findings:: V paced, ventricular rate 96, AK interval 138, QTC 495 <Craig Amin - Last Filed: 06/23/18 22:05> Medical Decision Making - Lab Data Result diagrams: 06/23/18 20:27 06/23/18 20:27 - EKG Data -: EKG Interpreted by Me (and Dr Pate) <Craig Amin - Last Filed: 06/23/18 22:05> - Lab Data Result diagrams: 06/23/18 20:27 06/23/18 20:27 <Jeferson Pate - Last Filed: 06/23/18 22:17> - Medical Decision Making 88-year-old male with a comp located medical history presents to the emergency department for a chief complaint of productive cough and chest tightness for 4 days. Patient does have a history of COPD. Patient is afebrile. CBC is unremarkable. CMP is unremarkable. Troponin 0.077, patient currently on Coumadin with an INR of 3.5. EKG shows a ventricular paced rhythm. Chest x- ray shows no acute process. Influenza pending. At this time it is felt patient should be admitted for COPD exacerbation as well as serial troponins. Troponins often elevated in past laboratory studies as well but will be trended today. Patient will be kept on IV fluids and hydrated. (Craig Amin) The patient be admitted to Dr. Fan for acute exacerbation of COPD. Dr. Pate (Jeferson Pate) - Lab Data Lab Results 06/23/18 06/23/18 06/23/18 Range/Units 20:27 20:27 20:27 WBC 4.2 (3.8-10.6) k/uL RBC 3.97 L (4.30-5.90) m/uL Hgb 13.1 (13.0-17.5) gm/dL Hct 37.7 L (39.0-53.0) % MCV 95.1 (80.0-100.0) fL MCH 33.0 (25.0-35.0) pg MCHC 34.7 (31.0-37.0) g/dL RDW 14.3 (11.5-15.5) % Plt Count 107 L (150-450) k/uL Neutrophils % 71 % Lymphocytes % 15 % Monocytes % 6 % Eosinophils % 6 % Basophils % 0 % Neutrophils # 3.0 (1.3-7.7) k/uL Lymphocytes # 0.7 L (1.0-4.8) k/uL Monocytes # 0.3 (0-1.0) k/uL Eosinophils # 0.2 (0-0.7) k/uL Basophils # 0.0 (0-0.2) k/uL PT (9.0-12.0) sec INR (<1.2) APTT (22.0-30.0) sec D-Dimer (<0.60) mg/L FEU Sodium 139 (137-145) mmol/L Potassium 4.6 (3.5-5.1) mmol/L Chloride 101 (98-107) mmol/L Carbon Dioxide 30 (22-30) mmol/L Anion Gap 8 mmol/L BUN 15 (9-20) mg/dL Creatinine 0.75 (0.66-1.25) mg/dL Est GFR (CKD-EPI)AfAm >90 (>60 ml/min/1.73 sqM) Est GFR (CKD-EPI)NonAf 83 (>60 ml/min/1.73 sqM) Glucose 132 H (74-99) mg/dL Plasma Lactic Acid Vj (0.7-2.0) mmol/L Calcium 8.8 (8.4-10.2) mg/dL Magnesium 1.8 (1.6-2.3) mg/dL Total Bilirubin 0.6 (0.2-1.3) mg/dL AST 40 (17-59) U/L ALT 21 (21-72) U/L Alkaline Phosphatase 77 (38-126) U/L Total Creatine Kinase 162 (55-170) U/L CK-MB (CK-2) 1.6 (0.0-2.4) ng/mL CK-MB (CK-2) Rel Index 1.0 Troponin I 0.077 H* (0.000-0.034) ng/mL Total Protein 6.5 (6.3-8.2) g/dL Albumin 3.7 (3.5-5.0) g/dL 06/23/18 06/23/18 Range/Units 20:27 20:27 WBC (3.8-10.6) k/uL RBC (4.30-5.90) m/uL Hgb (13.0-17.5) gm/dL Hct (39.0-53.0) % MCV (80.0-100.0) fL MCH (25.0-35.0) pg MCHC (31.0-37.0) g/dL RDW (11.5-15.5) % Plt Count (150-450) k/uL Neutrophils % % Lymphocytes % % Monocytes % % Eosinophils % % Basophils % % Neutrophils # (1.3-7.7) k/uL Lymphocytes # (1.0-4.8) k/uL Monocytes # (0-1.0) k/uL Eosinophils # (0-0.7) k/uL Basophils # (0-0.2) k/uL PT 31.3 H (9.0-12.0) sec INR 3.5 H (<1.2) APTT 35.0 H (22.0-30.0) sec D-Dimer 0.29 (<0.60) mg/L FEU Sodium (137-145) mmol/L Potassium (3.5-5.1) mmol/L Chloride (98-107) mmol/L Carbon Dioxide (22-30) mmol/L Anion Gap mmol/L BUN (9-20) mg/dL Creatinine (0.66-1.25) mg/dL Est GFR (CKD-EPI)AfAm (>60 ml/min/1.73 sqM) Est GFR (CKD-EPI)NonAf (>60 ml/min/1.73 sqM) Glucose (74-99) mg/dL Plasma Lactic Acid Vj 1.5 (0.7-2.0) mmol/L Calcium (8.4-10.2) mg/dL Magnesium (1.6-2.3) mg/dL Total Bilirubin (0.2-1.3) mg/dL AST (17-59) U/L ALT (21-72) U/L Alkaline Phosphatase (38-126) U/L Total Creatine Kinase (55-170) U/L CK-MB (CK-2) (0.0-2.4) ng/mL CK-MB (CK-2) Rel Index Troponin I (0.000-0.034) ng/mL Total Protein (6.3-8.2) g/dL Albumin (3.5-5.0) g/dL Disposition Time of Disposition: 22:08 <Craig Amin - Last Filed: 06/23/18 22:05> <Jeferson Pate - Last Filed: 06/23/18 22:17> Clinical Impression: COPD exacerbation, Elevated troponin Disposition: ADMITTED IP TO THIS HOSP Condition: Good Referrals: Chucho Fan MD [Primary Care Provider] - 1-2 days
[2018-06-23] MEDS ORDERED: NITROGLYCERIN SL TABS 0.4 MG TAB SUBLINGUAL PRN (22:47)
[2018-06-23] MEDS ORDERED: ACETAMINOPHEN TAB 500 MG TAB PO STA (23:07)
[2018-06-23] MEDS: methylPREDNISolone SOD SUCCI 125 MG/2 ML VIAL IV SCH (23:49)
[2018-06-23 23:58] VITALS: BMI 28.5
[2018-06-24] MEDS: LEVOFLOXACIN 750MG-D5W PMX 750 MG in DEXTROSE/WATER 1 150ML.BAG IVPB SCH (00:01)
[2018-06-24] MEDS: PIPERACILLIN-TAZOBACTAM 3.375 GM in SODIUM CHLORIDE 0.9% 100 ML IVPB SCH ×4 (00:02→23:46)
[2018-06-24] MEDS ORDERED: ACETAMINOPHEN TAB 325 MG TAB PO PRN ×2 (01:19→10:02)
[2018-06-24 03:10] LABS: Creatine Kinase MB 1.5 ng/mL (0.0-2.4)
[2018-06-24 03:46] LABS: Troponin I 0.102 ng/mL (0.000-0.034)
[2018-06-24 06:11] LABS: Glucose,Whole Blood 249 mg/dL (75-99)
[2018-06-24] MEDS: INSULIN ASPART 100 UNIT/ML 1 ML 10 ML VIAL SQ SCH ×4 (06:23→21:23)
[2018-06-24] MEDS: methylPREDNISolone SOD SUCCI 125 MG/2 ML VIAL IV SCH ×4 (06:23→23:46)
[2018-06-24] MEDS: IPRATROPIUM-ALBUTEROL 3 ML NEB INHALATION SCH ×5 (07:48→20:44)
[2018-06-24] MEDS ORDERED: NITROGLYCERIN SL TABS 0.4 MG TAB SUBLINGUAL PRN (10:02)
[2018-06-24 10:13] LABS: Creatine Kinase MB 2.7 ng/mL (0.0-2.4)
[2018-06-24 10:27] LABS: Troponin I 0.082 ng/mL (0.000-0.034)
[2018-06-24 11:47] LABS: Glucose,Whole Blood 337 mg/dL (75-99)
--- NOTE | 2018-06-24 13:24 | HP ---
HISTORY AND PHYSICAL CHIEF COMPLAINT: Shortness of breath. HISTORY OF PRESENT ILLNESS: This is another admission for this 88-year-old white male with multiple medical problems including previous intracranial hemorrhage, CAD, congestive heart failure, arrhythmias, and diabetes. He had been having a little bit of difficulty breathing with lung congestion in the last several days. He probably had a URI. He suddenly became quite dyspneic; however, and came to the emergency room where he was diagnosed as having COPD. He also had a low-grade temperature and after he was admitted, it went up to 103. He probably has underlying pneumonitis as well. REVIEW OF SYSTEMS: He denies any confusion, falling, difficulty with vision in the one good eye, cough, hemoptysis, chest pain, syncope, palpitations, orthopnea, PND, abdominal pain, nausea, vomiting, melena, hematochezia, colitis, diverticulosis, diverticulitis, hemorrhoids, jaundice, hepatitis, cirrhosis, dysuria, frequency, urgency, etc. Past medical history, family history and personal and social histories reveal that he is allergic to HAILY INHIBITORS, AMIODARONE, DILANTIN and SPIRONOLACTONE. He is currently on: 1. Warfarin is 10 mg a day except Tuesday and Tuesday when he takes 5. 2. He is also on simvastatin 40. 3. Allopurinol 300. 4. Humalog 75/25 mix, 40 units in the morning, 20 at night. 5. Carvedilol 3.125 twice a day. 6. Lasix 20 once a day. 7. Metformin 500 once a day. 8. Ropinirole 0.5 three times a day. 9. Levothyroxine 0.025 once a day. 10.Donepezil 10 mg at bedtime. 11.Zyloprim 300 once a day. 12.Imipramine 50 mg twice a day. 13.Aspirin 81 mg a day. The remainder of his history is unremarkable and unchanged. PHYSICAL EXAM: Blood pressure 140/80 with a pulse of 83, respirations of 29, and temperature of 101.1. In general, he appeared to be pale and slightly dehydrated. Head, ears, eyes, nose, mouth, and throat were normal except for the absence of the left eye. Mucous membranes are slightly dry. Neck veins are not distended. Chest demonstrated occasional rales and rhonchi throughout. The cardiac exam demonstrated what sounded like sinus rhythm and no murmurs or extra sounds. The abdomen is soft, nontender and extremities normal. Neurologically, he is intact. IMPRESSION: 1. Probable pneumonitis. 2. Coronary artery disease. 3. History of congestive heart failure. 4. Insulin-dependent diabetes mellitus. 5. Previous intracranial bleed. PLAN: 1. Bed rest. 2. IV fluids. 3. IV antibiotics. 4. Updrafts. MMODL / IJN: [id number] /
--- NOTE | 2018-06-24 13:27 | PN ---
PROGRESS NOTE DATE OF SERVICE: 06/24/2018 CHIEF COMPLAINT: Pneumonitis. HISTORY OF PRESENT ILLNESS: This gentleman is still short of breath. His temperature is down this morning. PHYSICAL EXAM: He has decreased breath sounds on both sides with rales, rhonchi and occasional wheezing on expiration. Cardiac exam is normal and the abdomen is soft, nontender but he is pale. IMPRESSION: 1. Probable bronchial pneumonia. 2. Chronic obstructive pulmonary disease. 3. Coronary artery disease. 4. Diabetes. PLAN: 1. IV fluids and antibiotics with updrafts. 2. BNP. 3. He is being followed by Cardiology as well. MMODL / IJN: [id number] /
--- NOTE | 2018-06-24 14:18 | P.CRDCN ---
History of Present Illness History of present illness: This is a pleasant 88-year-old male past medical history significant for atrial fibrillation, coronary artery disease, status post AICD and permanent pacemaker implantation, hypertension, dyslipidemia, diabetes mellitus , COPD and dementia. He follows with Dr. Rosenberg in the office. We have been asked to see him in consultation secondary to elevated troponin. He presented to the hospital yesterday with complaints of cough. He states he has been coughing consistently for the previous 3 days however became worse yesterday. He states he is breathing up clear sputum. No fever or chills at home. Denies chest pain, shortness of breath, dizziness or palpitations. He has been diagnosed with bronchial pneumonia started on IV antibiotics and updrafts. Last evening he was febrile with a temperature of 103.3F. EKG reveals ventricular paced rhythm. Chest x-ray is negative for an acute cardiopulmonary process. Laboratory data reviewed, WBC 4.2, hemoglobin 13.1, platelets 17, INR 3.5, d- dimer 0.29, sodium 139, potassium 4.6, creatinine 0.75, magnesium 1.8, troponin 0.077, 0.102 and 0.082, NT proBNP 2610. Current cardiac medications include Coumadin, aspirin 81 mg daily, carvedilol 3.125 mg twice a day, digoxin 125 g daily, Lasix 20 mg daily and simvastatin 40 mg daily. Most recent echocardiogram performed in the office July 2017 reveals severely decreased systolic function with ejection fraction 30%, mild aortic regurgitation and moderate mitral regurgitation. At the time of my exam: CONSTITUTIONAL: Denies fever. Denies chills. EYES: Denies blurred vision. Denies vision changes. Denies eye pain. EARS, NOSE, MOUTH & THROAT: Denies headache. Denies sore throat. Denies ear pain. CARDIOVASCULAR: Denies chest pain. Denies shortness of breath. Denies orthopnea. Denies PND. Denies palpitations. RESPIRATORY: Denies cough. GASTROINTESTINAL: Denies abdominal pain. Denies diarrhea. Denies constipation. Denies nausea. Denies vomiting. MUSCULOSKELETAL: Denies myalgias. INTEGUMENTARY: Denies pruitis. Denies rash. NEUROLOGIC: Denies numbness. Denies tingling. Denies weakness. PSYCHIATRIC: Denies anxiety. Denies depression. ENDOCRINE: Denies fatigue. Denies weight change. Denies polydipsia. Denies polyurina. GENITOURINARY: Denies burning, hematuria or urgency with micturation. HEMATOLOGIC: Denies history of anemia. Denies bleeding. Blood pressure 153/67 heart rate 88 afebrile maintaining oxygen saturation on room air GENERAL: This is a 88-year-old male in no apparent distress at the time of my examination. HEENT: Head is atraumatic, normocephalic. Pupils are equal, round. Sclerae anicteric. Conjunctivae are clear. Mucous membranes of the mouth are moist. Neck is supple. There is no jugular venous distention. No carotid bruit is heard. LUNGS: Clear to auscultation no wheezes, rales or rhonchi. No chest wall tenderness is noted on palpation or with deep breathing. HEART: Regular rate and rhythm with systolic ejection murmur at the apex, no rubs or gallops. S1 and S2 heard. ABDOMEN: Soft, nontender. Bowel sounds are heard. No organomegaly noted. EXTREMITIES: No evidence of peripheral edema and no calf tenderness noted. VASCULAR: Radial and dorsalis pedis pulses palpated, no evidence of clubbing. NEUROLOGIC: Patient is awake, alert and oriented x3. ASSESSMENT Pneumonia Febrile illness Mildly elevated troponins not indicative of an acute coronary syndrome. History of coronary artery disease Chronic systolic heart failure, currently euvolemic Chronic atrial fibrillation on long-term anticoagulation Supratherapeutic INR Ischemic cardiomyopathy Hypertension Dyslipidemia PLAN Recommend changing him to Eliquis 2.5 mg twice a day once his INR is less than 2. Discontinue Coumadin and digoxin. Initiate on Entresto 24/26 mg twice a day, first dose tonight. Continue carvedilol 3.125 mg twice a day. Consider increasing the dose of his heart rate becomes elevated. Further recommendations to follow based upon clinical course. Thank you kindly for this consultation. Nurse Practitioner note has been reviewed, I agree with a documented findings and plan of care. Patient was seen and examined. 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 Replacement pacemaker in 2010. prosthetic right eye. ben holes 2007 for fluid on the brain; male sling 2010 Past Anesthesia/Blood Transfusion Reactions: No Reported Reaction Date of Last Stent Placement:: 2001 Type of Cardiac Device: AICD Device Placement Date:: 2011 Past Psychological History: Depression Additional Psychological History / Comment(s): . Daughter lives next door. No current tobacco use or alcohol use. Retired labor. Denied experience or travel history. No animal exposures Smoking Status: Former smoker Past Alcohol Use History: Occasional Additional Past Alcohol Use History / Comment(s): started smoking 1939, quit 1954, smoked 1 ppd. Past Drug Use History: None Reported - Past Family History Mother Family Medical History: Blood Disorder Additional Family Medical History / Comment(s): family not sure what is was called Father Family Medical History: Myocardial Infarction ([place]) Brother(s) Family Medical History: Cancer, Myocardial Infarction (CT) Additional Family Medical History / Comment(s): brain cancer Medications and Allergies Home Medications Medication Instructions Recorded Confirmed Type Digoxin [Lanoxin] 125 mcg PO DAILY 08/05/14 06/23/18 History Nitroglycerin Sl Tabs [Nitrostat] 0.4 mg SUBLINGUAL Q5M PRN 08/05/14 06/23/18 History Allopurinol [Zyloprim] 300 mg PO DAILY 08/06/14 06/23/18 History Carbidopa-Levodopa 25-100 mg 1 tab PO TID 12/11/15 06/23/18 History [Sinemet 25-100 mg] Levothyroxine Sodium [Synthroid] 25 mcg PO DAILY 12/11/15 06/23/18 History Multivitamin [Men's Multi-Vitamin] 1 tab PO DAILY 12/12/15 06/23/18 History Insulin NPL/Insulin Lispro 20 unit SQ HS 02/21/17 06/23/18 History [humaLOG MIX 75-25 VIAL] Insulin NPL/Insulin Lispro 40 unit SQ DAILY 02/21/17 12/26/17 History [humaLOG MIX 75-25 VIAL] Propylene Glycol/Peg 400/Pf 1 dropper BOTH EYES BID 05/28/17 06/23/18 History [Systane 0.3-0.4% Eye Drop] Sodium Chloride 5% Ophth Soln 1 drops BOTH EYES BID 05/28/17 06/23/18 History [Enrico 128] Acetaminophen Tab [Tylenol] 650 mg PO Q4HR PRN tab 06/01/17 06/23/18 Rx Carvedilol [Coreg] 3.125 mg PO BID 12/26/17 06/23/18 History Cholecalciferol [Vitamin D3] 1,000 unit PO DAILY 12/26/17 06/23/18 History Simvastatin [Zocor] 40 mg PO HS 12/26/17 06/23/18 History metFORMIN HCL [Glucophage] 500 mg PO DAILY 12/26/17 06/23/18 History rOPINIRole HCL [Requip] 0.5 mg PO TID 12/26/17 06/23/18 History Aspirin 81 mg PO DAILY chew 12/28/17 06/23/18 Rx Furosemide [Lasix] 20 mg PO DAILY 06/23/18 06/23/18 History Warfarin [Coumadin] 5 mg PO MO 06/23/18 06/23/18 History Warfarin [Coumadin] 10 mg PO SUTUWETHFRSA 06/23/18 06/23/18 History Allergies Allergy/AdvReac Type Severity Reaction Status Date / Time phenytoin sodium Allergy Severe Rash/Hives Verified 06/23/18 19:42 [From Dilantin] phenytoin sodium extended Allergy Severe Rash/Hives Verified 06/23/18 19:42 [From Dilantin] zoster vaccine live Allergy Unknown Verified 06/23/18 19:42 amiodarone AdvReac Dyspnea Verified 06/23/18 19:42 spironolactone AdvReac Gynecomasti Verified 06/23/18 19:42 a Physical Exam Vitals: Vital Signs Temp Pulse Pulse Resp BP BP Pulse Ox 06/24/18 05:18 97.8 F 68 16 108/67 97 06/24/18 04:00 86 18 06/24/18 00:00 101.3 F H 86 18 113/64 97 06/23/18 23:20 102 H 22 160/65 98 06/23/18 23:05 103.3 F H 101 H 22 157/68 98 06/23/18 22:38 101.4 F H 98 16 122/58 98 06/23/18 22:00 99 22 170/73 98 06/23/18 21:46 95 06/23/18 21:38 98 22 06/23/18 20:30 98 22 170/68 99 06/23/18 19:11 99.0 F 96 18 147/76 98 Intake and Output 06/23/18 06/24/18 06/24/18 22:59 06:59 14:59 Intake Total 480 Balance 480 Intake: Oral 480 Other: Voiding Method Urinal # Voids 2 Weight 92.986 kg 91.5 kg Results 06/23/18 20:27 06/23/18 20:27 Cardiac Enzymes 06/23/18 06/23/18 06/24/18 Range/Units 20:27 20:27 02:07 AST 40 (17-59) U/L CK-MB (CK-2) 1.6 1.5 (0.0-2.4) ng/mL Troponin I 0.077 H* 0.102 H* (0.000-0.034) ng/mL Coagulation 06/23/18 Range/Units 20:27 PT 31.3 H (9.0-12.0) sec APTT 35.0 H (22.0-30.0) sec CBC 06/23/18 Range/Units 20:27 WBC 4.2 (3.8-10.6) k/uL RBC 3.97 L (4.30-5.90) m/uL Hgb 13.1 (13.0-17.5) gm/dL Hct 37.7 L (39.0-53.0) % Plt Count 107 L (150-450) k/uL Comprehensive Metabolic Panel 06/23/18 Range/Units 20:27 Sodium 139 (137-145) mmol/L Potassium 4.6 (3.5-5.1) mmol/L Chloride 101 (98-107) mmol/L Carbon Dioxide 30 (22-30) mmol/L BUN 15 (9-20) mg/dL Creatinine 0.75 (0.66-1.25) mg/dL Glucose 132 H (74-99) mg/dL Calcium 8.8 (8.4-10.2) mg/dL AST 40 (17-59) U/L ALT 21 (21-72) U/L Alkaline Phosphatase 77 (38-126) U/L Total Protein 6.5 (6.3-8.2) g/dL Albumin 3.7 (3.5-5.0) g/dL Current Medications Generic Name Dose Route Start Last Admin Trade Name Freq PRN Reason Stop Dose Admin Acetaminophen 650 mg 06/24/18 01:19 Tylenol Tab PO Q6HR PRN Fever and/ or Pain Albuterol/Ipratropium 3 ml 06/24/18 08:00 06/24/18 07:48 Duoneb 0.5 Mg-3 Mg/3 Ml Soln INHALATION Not Given RT-QID ABHAY Levofloxacin 750 mg/ IV 150 mls @ 100 mls/hr 06/24/18 01:00 06/24/18 00:01 Solution IVPB 100 mls/hr Q24H ABHAY Administration Piperacillin Sod/Tazobactam 100 mls @ 25 mls/hr 06/24/18 00:00 06/24/18 00:02 Sod 3.375 gm/ Sodium Chloride IVPB 25 mls/hr Q8HR ABHAY Administration Insulin Aspart 0 unit 06/24/18 07:30 06/24/18 06:23 Novolog SQ 8 unit ACHS ABHAY Administration Protocol Methylprednisolone Sodium Succinate 60 mg 06/24/18 00:00 06/24/18 06:23 Solu-Medrol IV 60 mg Q6HR ABHAY Administration Nitroglycerin 0.4 mg 06/23/18 22:47 Nitrostat SUBLINGUAL Q5M PRN Chest Pain Intake and Output 06/23/18 06/24/18 06/24/18 22:59 06:59 14:59 Intake Total 480 Balance 480 Intake: Oral 480 Other: Voiding Method Urinal # Voids 2 Weight 92.986 kg 91.5 kg 06/23/18 20:27 06/23/18 20:27
[2018-06-24 14:34] LABS: Hemoglobin A1C 6.5 % (4.0-6.0)
[2018-06-24] MEDS: CARVEDILOL 3.125 MG TAB PO SCH (16:58)
[2018-06-24] MEDS: CARBIDOPA-LEVODOPA 25-100 MG 1 EACH TAB PO SCH ×2 (16:58→21:23)
[2018-06-24 17:09] LABS: Glucose,Whole Blood 312 mg/dL (75-99)
[2018-06-24] MEDS ORDERED: WARFARIN 10 MG TAB PO SCH (18:00)
[2018-06-24 21:14] LABS: Glucose,Whole Blood 343 mg/dL (75-99)
[2018-06-24] MEDS: ARTIFICIAL TEARS-HYPROMELLOSE DROPS 15 ML BTL BOTH EYES SCH (21:22)
[2018-06-24] MEDS: SODIUM CHLORIDE 5% OPHTH DROPS 15 ML BTL BOTH EYES SCH (21:23)
[2018-06-24] MEDS: SACUBITRIL/VALSARTAN 24 MG-26 MG TABLET PO SCH (21:23)
[2018-06-24] MEDS: INSULN ASP PRT/INSULIN ASPART 100 UNIT/ML 10 ML VIAL SQ SCH (21:23)
[2018-06-25] MEDS: LEVOFLOXACIN 750MG-D5W PMX 750 MG in DEXTROSE/WATER 1 150ML.BAG IVPB SCH ×2 (03:23→23:59)
[2018-06-25] MEDS: methylPREDNISolone SOD SUCCI 125 MG/2 ML VIAL IV SCH ×4 (06:18→23:57)
[2018-06-25] MEDS: CARVEDILOL 3.125 MG TAB PO SCH ×2 (06:18→17:56)
[2018-06-25] MEDS: LEVOTHYROXINE 25 MCG TAB PO SCH (06:18)
[2018-06-25] MEDS: INSULIN ASPART 100 UNIT/ML 1 ML 10 ML VIAL SQ SCH ×4 (06:18→21:08)
[2018-06-25 06:19] LABS: Glucose,Whole Blood 241 mg/dL (75-99)
[2018-06-25 06:55] LABS: INR 2.8 (<1.2); Prothrombin Time 25.5 sec (9.0-12.0)
[2018-06-25] MEDS: IPRATROPIUM-ALBUTEROL 3 ML NEB INHALATION SCH ×4 (07:55→20:46)
[2018-06-25] MEDS ORDERED: DIGOXIN 125 MCG TAB PO SCH (09:00)
[2018-06-25] MEDS: FUROSEMIDE 20 MG TAB PO SCH (09:03)
[2018-06-25] MEDS: metFORMIN 500 MG TAB PO SCH (09:03)
[2018-06-25] MEDS: ALLOPURINOL 300 MG TAB PO SCH (09:03)
[2018-06-25] MEDS: CARBIDOPA-LEVODOPA 25-100 MG 1 EACH TAB PO SCH ×3 (09:03→21:08)
[2018-06-25] MEDS: ASPIRIN 81 MG PO SCH (09:03)
[2018-06-25] MEDS: PIPERACILLIN-TAZOBACTAM 3.375 GM in SODIUM CHLORIDE 0.9% 100 ML IVPB SCH ×2 (09:03→17:56)
[2018-06-25] MEDS: ARTIFICIAL TEARS-HYPROMELLOSE DROPS 15 ML BTL BOTH EYES SCH ×2 (09:04→19:40)
[2018-06-25] MEDS: INSULN ASP PRT/INSULIN ASPART 100 UNIT/ML 10 ML VIAL SQ SCH ×2 (09:04→21:08)
[2018-06-25] MEDS: SODIUM CHLORIDE 5% OPHTH DROPS 15 ML BTL BOTH EYES SCH ×2 (09:04→19:40)
[2018-06-25] MEDS: SACUBITRIL/VALSARTAN 24 MG-26 MG TABLET PO SCH ×2 (09:07→22:10)
[2018-06-25] MEDS ORDERED: traZODone HCL 50 MG TAB PO PRN (12:17)
[2018-06-25 12:22] LABS: Glucose,Whole Blood 232 mg/dL (75-99)
--- NOTE | 2018-06-25 13:14 | P.PN ---
Subjective Progress Note Date: 06/25/18 This is a pleasant 88-year-old male past medical history significant for atrial fibrillation, coronary artery disease, status post AICD and permanent pacemaker implantation, hypertension, dyslipidemia, diabetes mellitus , COPD and dementia. He follows with Dr. Rosenberg in the office. We had been asked to see him in consultation secondary to elevated troponin. He presented to the hospital with complaints of cough. He states he has been coughing consistently for the previous 3 days however became worse yesterday. Currently receiving treatment for pneumonia. He was seen and examined today, still coughing but feels well overall. Still has some scattered rhonchi throughout. R plan is to initiate Eliquis on the patient once the INR becomes less than 2. INR today is 2.8. Objective - Vital Signs Vital signs: Vital Signs Temp 97.6 F 06/25/18 08:00 Pulse 64 06/25/18 11:48 Resp 16 06/25/18 04:00 BP 122/53 06/25/18 08:00 Pulse Ox 98 06/25/18 08:00 Intake & Output 06/24/18 06/25/18 06/25/18 18:59 06:59 18:59 Intake Total 480 Output Total 500 1900 550 Balance -500 -1420 -550 Weight 91.5 kg Intake: Oral 480 Output: Urine 500 1900 550 Other: Voiding Method Urinal Urinal # Voids 0 # Bowel Movements 1 0 - Exam At the time of my exam: CONSTITUTIONAL: Denies fever. Denies chills. EYES: Denies blurred vision. Denies vision changes. Denies eye pain. EARS, NOSE, MOUTH & THROAT: Denies headache. Denies sore throat. Denies ear pain. CARDIOVASCULAR: Denies chest pain. Denies shortness of breath. Denies orthopnea. Denies PND. Denies palpitations. RESPIRATORY: Denies cough. GASTROINTESTINAL: Denies abdominal pain. Denies diarrhea. Denies constipation. Denies nausea. Denies vomiting. MUSCULOSKELETAL: Denies myalgias. INTEGUMENTARY: Denies pruitis. Denies rash. NEUROLOGIC: Denies numbness. Denies tingling. Denies weakness. PSYCHIATRIC: Denies anxiety. Denies depression. ENDOCRINE: Denies fatigue. Denies weight change. Denies polydipsia. Denies polyurina. GENITOURINARY: Denies burning, hematuria or urgency with micturation. HEMATOLOGIC: Denies history of anemia. Denies bleeding. - Labs CBC & Chem 7: 06/23/18 20:27 06/23/18 20:27 Labs: Abnormal Lab Results - Last 24 Hours (Table) 06/24/18 06/24/18 06/24/18 Range/Units 02:07 16:39 21:12 PT (9.0-12.0) sec INR (<1.2) POC Glucose (mg/dL) 312 H 343 H (75-99) mg/dL Hemoglobin A1c 6.5 H (4.0-6.0) % 06/25/18 06/25/18 06/25/18 Range/Units 05:50 06:15 12:14 PT 25.5 H (9.0-12.0) sec INR 2.8 H (<1.2) POC Glucose (mg/dL) 241 H 232 H (75-99) mg/dL Hemoglobin A1c (4.0-6.0) % Microbiology - Last 24 Hours (Table) 06/23/18 20:27 Blood Culture - Preliminary Blood No Growth after 24 hours Assessment and Plan Plan: ASSESSMENT and plan #1 Pneumonia #2 Febrile illness #3 Mildly elevated troponins not indicative of an acute coronary syndrome. #4 History of coronary artery disease #5 Chronic systolic heart failure, currently euvolemic #6 Chronic atrial fibrillation on long-term anticoagulation #7 Supratherapeutic INR #8 Ischemic cardiomyopathy #9 Hypertension #10 Dyslipidemia Plan We will start the patient on Eliquis 2-1/2 mg one tablet by mouth twice a day once the INR is less than 2. At this point in time continue current medications. DNP note has been reviewed, I agree with a documented findings and plan of care. Patient was seen and examined.
[2018-06-25] MEDS: BENZOCAINE/MENTHOL LOZENG 1 EACH LOZENGE MUCOUS MEM PRN ×2 (13:18→19:35)
[2018-06-25 17:12] LABS: Glucose,Whole Blood 232 mg/dL (75-99)
[2018-06-25 21:01] LABS: Glucose,Whole Blood 263 mg/dL (75-99)
[2018-06-26] MEDS: PIPERACILLIN-TAZOBACTAM 3.375 GM in SODIUM CHLORIDE 0.9% 100 ML IVPB SCH ×2 (01:38→10:39)
[2018-06-26 03:29] VITALS: RESP 18
[2018-06-26 06:08] LABS: INR 2.3 (<1.2); Prothrombin Time 20.4 sec (9.0-12.0)
[2018-06-26] MEDS: LEVOTHYROXINE 25 MCG TAB PO SCH (06:17)
[2018-06-26] MEDS: methylPREDNISolone SOD SUCCI 125 MG/2 ML VIAL IV SCH ×2 (06:17→13:29)
[2018-06-26] MEDS: CARVEDILOL 3.125 MG TAB PO SCH (06:17)
[2018-06-26 06:22] LABS: Glucose,Whole Blood 219 mg/dL (75-99)
[2018-06-26] MEDS: INSULIN ASPART 100 UNIT/ML 1 ML 10 ML VIAL SQ SCH ×2 (06:34→13:30)
[2018-06-26] MEDS: BENZOCAINE/MENTHOL LOZENG 1 EACH LOZENGE MUCOUS MEM PRN ×2 (06:38→10:39)
[2018-06-26] MEDS: IPRATROPIUM-ALBUTEROL 3 ML NEB INHALATION SCH ×2 (08:04→11:35)
[2018-06-26] MEDS: metFORMIN 500 MG TAB PO SCH (09:30)
[2018-06-26] MEDS: SACUBITRIL/VALSARTAN 24 MG-26 MG TABLET PO SCH (09:30)
[2018-06-26] MEDS: ALLOPURINOL 300 MG TAB PO SCH (09:30)
[2018-06-26] MEDS: SODIUM CHLORIDE 5% OPHTH DROPS 15 ML BTL BOTH EYES SCH (09:31)
[2018-06-26] MEDS: CARBIDOPA-LEVODOPA 25-100 MG 1 EACH TAB PO SCH (09:31)
[2018-06-26] MEDS: ARTIFICIAL TEARS-HYPROMELLOSE DROPS 15 ML BTL BOTH EYES SCH (09:31)
[2018-06-26] MEDS: INSULN ASP PRT/INSULIN ASPART 100 UNIT/ML 10 ML VIAL SQ SCH (09:31)
[2018-06-26] MEDS: ASPIRIN 81 MG PO SCH (09:31)
[2018-06-26] MEDS: FUROSEMIDE 20 MG TAB PO SCH (09:31)
[2018-06-26 11:07] VITALS: TEMP 97.4
[2018-06-26 11:37] LABS: Glucose,Whole Blood 258 mg/dL (75-99)
--- NOTE | 2018-06-26 11:37 | P.PN ---
Subjective Progress Note Date: 06/26/18 This is a pleasant 88-year-old male past medical history significant for atrial fibrillation, coronary artery disease, status post AICD and permanent pacemaker implantation, hypertension, dyslipidemia, diabetes mellitus , COPD and dementia. He follows with Dr. Rosenberg in the office. We had been asked to see him in consultation secondary to elevated troponin. He presented to the hospital with complaints of cough. He states he has been coughing consistently for the previous 3 days however became worse yesterday. Currently receiving treatment for pneumonia. He was seen and examined today, still coughing but feels well overall. Still has some scattered rhonchi throughout. R plan is to initiate Eliquis on the patient once the INR becomes less than 2. INR today is 2.8. 06/26/2018 Patient seen and examined this morning, continues to have cough but overall feeling better. INR 2.3. We will start patient on Eliquis from tomorrow. His medications. Objective - Vital Signs Vital signs: Vital Signs Temp 97.4 F L 06/26/18 08:00 Pulse 70 06/26/18 08:13 Resp 18 06/26/18 03:29 BP 127/59 06/26/18 08:00 Pulse Ox 96 06/26/18 08:00 Intake & Output 06/25/18 06/26/18 06/26/18 18:59 06:59 18:59 Intake Total 570 240 Output Total 550 851 Balance -550 -281 240 Weight 93.5 kg Intake: IV 570 0.9 320 Levofloxacin 750Mg-D5w 150 Pmx 750 mg In Dextrose/ Water 1 150ml.bag @ 100 mls/hr IVPB Q24H ABHAY Rx#: [id number] Piperacillin-Tazobactam 3 100 .375 gm In Sodium Chloride 0.9% 100 ml @ 25 mls/hr IVPB Q8HR ABHAY Rx# :[id number] Oral 240 Output: Urine 550 850 Urine/Stool Mix 1 Other: # Voids 1 - Exam At the time of my exam: CONSTITUTIONAL: Denies fever. Denies chills. EYES: Denies blurred vision. Denies vision changes. Denies eye pain. EARS, NOSE, MOUTH & THROAT: Denies headache. Denies sore throat. Denies ear pain. CARDIOVASCULAR: Denies chest pain. Denies shortness of breath. Denies orthopnea. Denies PND. Denies palpitations. RESPIRATORY: Denies cough. GASTROINTESTINAL: Denies abdominal pain. Denies diarrhea. Denies constipation. Denies nausea. Denies vomiting. MUSCULOSKELETAL: Denies myalgias. INTEGUMENTARY: Denies pruitis. Denies rash. NEUROLOGIC: Denies numbness. Denies tingling. Denies weakness. PSYCHIATRIC: Denies anxiety. Denies depression. ENDOCRINE: Denies fatigue. Denies weight change. Denies polydipsia. Denies polyurina. GENITOURINARY: Denies burning, hematuria or urgency with micturation. HEMATOLOGIC: Denies history of anemia. Denies bleeding. - Labs CBC & Chem 7: 06/23/18 20:27 06/23/18 20:27 Labs: Abnormal Lab Results - Last 24 Hours (Table) 06/25/18 06/25/18 06/25/18 Range/Units 12:14 16:47 20:58 PT (9.0-12.0) sec INR (<1.2) POC Glucose (mg/dL) 232 H 232 H 263 H (75-99) mg/dL 06/26/18 06/26/18 Range/Units 05:21 06:21 PT 20.4 H (9.0-12.0) sec INR 2.3 H (<1.2) POC Glucose (mg/dL) 219 H (75-99) mg/dL Microbiology - Last 24 Hours (Table) 06/25/18 17:03 Gram Stain - Preliminary Sputum Sputum Culture - Preliminary 06/23/18 20:27 Blood Culture - Preliminary Blood No Growth after 48 hours Assessment and Plan Plan: ASSESSMENT and plan #1 Pneumonia #2 Febrile illness #3 Mildly elevated troponins not indicative of an acute coronary syndrome. #4 History of coronary artery disease #5 Chronic systolic heart failure, currently euvolemic #6 Chronic atrial fibrillation on long-term anticoagulation #7 Supratherapeutic INR #8 Ischemic cardiomyopathy #9 Hypertension #10 Dyslipidemia Plan We will start the patient on Eliquis 2-1/2 mg one tablet by mouth twice a day , from tomorrow. We will follow this patient along with you now on an as-needed basis only, please don't hesitate to call with any questions. DNP note has been reviewed, I agree with a documented findings and plan of care. Patient was seen and examined.
[2018-06-26 15:09] VITALS: BP 108/60; PULSE 101
[2018-06-26 16:31] LABS: Glucose,Whole Blood 217 mg/dL (75-99)
[2018-06-26] MEDS ORDERED: WARFARIN 5 MG TAB PO SCH (18:00)
--- NOTE | 2018-06-26 19:53 | PN ---
PROGRESS NOTE CHIEF COMPLAINT: Shortness of breath due to COPD and CHF. HISTORY OF PRESENT ILLNESS: This gentleman is doing little bit better. Breathing is improved. He does have a sore throat. PHYSICAL EXAM: He is afebrile. Throat is . Chest demonstrates improved breath sounds and there are no rales or rhonchi. Cardiac exam is normal. Abdomen is soft, nontender. IMPRESSION: 1. Exacerbation of chronic obstructive pulmonary disease. 2. Exacerbation of congestive heart failure. 3. Coronary artery disease. 4. Pharyngitis. PLAN: 1. Symptomatic treatment for sore throat. 2. Start to increase activity. 3. He will probably be able to go home tomorrow. MMODL / IJN: [id number] /
[2018-06-26] MEDS ORDERED: LEVOFLOXACIN 750 MG TAB PO SCH (22:00)
--- NOTE | 2018-06-27 00:43 | DS ---
DISCHARGE SUMMARY CHIEF COMPLAINT: Shortness of breath. HISTORY OF PRESENT ILLNESS AND PHYSICAL EXAM: Details of this man's history and physical can be found in the initial workup. LABORATORY STUDIES: While he was in the hospital, he had laboratory studies, details of which can be found in the laboratory section of his chart. COURSE IN HOSPITAL: After admission, he was placed on bedrest and started on intravenous fluids and placed on updrafts. It was felt that some of his difficulty was due to COPD, but also congestive heart failure. BNP was slightly elevated. He was evaluated and seen by Cardiology and his breathing improved. It is felt that he could go home on the . He will be seen in the office in a day or 2. We may increase his diuretic management or consider Entresto. FINAL DIAGNOSES: 1. Shortness of breath. 2. Exacerbation of chronic obstructive pulmonary disease. 3. Congestive heart failure. 4. Coronary artery disease. 5. Diabetes mellitus. 6. Previous intracranial bleed. 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 OPERATIONS: None. CONSULTATIONS: Cardiology. He is improved. MMFERMIN / PARISN: [id number] /
== END 2018-06-26 17:07 | disposition home or self-care (01) | DRG 190 ==
LOC: EC 19:05 → 3SCARD 22:11
PROVIDERS: ADMIT Family Medicine; ATTEND Family Medicine
DX: J44.1 Chronic obstructive pulmonary disease with (acute) exacerbation (principal); J18.0 Bronchopneumonia, unspecified organism; I50.22 Chronic systolic (congestive) heart failure; J44.0 Chronic obstructive pulmonary disease with (acute) lower respiratory infection; E11.9 Type 2 diabetes mellitus without complications; E78.5 Hyperlipidemia, unspecified; F03.90 Unspecified dementia, unspecified severity, without behavioral disturbance, psychotic disturbance, mood disturbance, and anxiety; G20 Parkinson's disease; G40.409 Other generalized epilepsy and epileptic syndromes, not intractable, without status epilepticus; I08.0 Rheumatic disorders of both mitral and aortic valves; I11.0 Hypertensive heart disease with heart failure; I25.10 Atherosclerotic heart disease of native coronary artery without angina pectoris; I25.5 Ischemic cardiomyopathy; I48.2 Chronic atrial fibrillation; R79.1 Abnormal coagulation profile; F32.9 Major depressive disorder, single episode, unspecified; M10.9 Gout, unspecified; J02.9 Acute pharyngitis, unspecified; R77.9 Abnormality of plasma protein, unspecified; E07.9 Disorder of thyroid, unspecified; Z79.01 Long term (current) use of anticoagulants; Z79.4 Long term (current) use of insulin; Z79.82 Long term (current) use of aspirin; Z79.890 Hormone replacement therapy; Z79.899 Other long term (current) drug therapy; Z95.810 Presence of automatic (implantable) cardiac defibrillator; Z97.0 Presence of artificial eye; Z87.891 Personal history of nicotine dependence; Z86.73 Personal history of transient ischemic attack (TIA), and cerebral infarction without residual deficits; Z85.46 Personal history of malignant neoplasm of prostate; Z88.7 Allergy status to serum and vaccine; Z88.8 Allergy status to other drugs, medicaments and biological substances; Z95.5 Presence of coronary angioplasty implant and graft; Z80.8 Family history of malignant neoplasm of other organs or systems; Z82.49 Family history of ischemic heart disease and other diseases of the circulatory system
CPT/HCPCS: 36415; 71046; 80053; 82550; 82553; 83036; 83605; 83735; 83880; 84484; 85025; 85379; 85610; 85730; 87040; 87070; 87205; 87502; 93005; 94640; 99284

== ENCOUNTER → 2018-08-15 | Outpatient (CLI) | payer MEDICARE ==
[2018-08-15 09:31] LABS: HCT 38.3 % (39.0-53.0); HGB 12.8 gm/dL (13.0-17.5); MCH 32.7 pg (25.0-35.0); MCHC 33.4 g/dL (31.0-37.0); Mean Platelet Volume 9.3; Platelet Count 141 k/uL (150-450); RBC 3.91 m/uL (4.30-5.90); RDW 14.8 % (11.5-15.5)
[2018-08-15 09:38] LABS: Potassium 5.1 mmol/L (3.5-5.1)
== END | disposition home or self-care (01) ==
LOC: LABPAT 09:03
PROVIDERS: ATTEND Internal Medicine Cardiovascular Disease
DX: Z01.812 Encounter for preprocedural laboratory examination (principal); I25.5 Ischemic cardiomyopathy
CPT/HCPCS: 36415; 80051; 82565; 84520; 85027

== ENCOUNTER 2018-08-23 06:44 | Day surgery (SDC) | payer MEDICARE ==
[2018-08-21 15:38] VITALS: BMI 28.0
[~2018-08-23 06:44] MED LIST: SODIUM CHLORIDE 0.9% 1,000 ML IV SCH; ceFAZolin 1,000 MG in SODIUM CHLORIDE 0.9% IRRIGATIO 250 ML IRRIGATION ONE; ceFAZolin IN SWFI 2 GM/20 ML SYRINGE IVP ONE
[2018-08-23 07:32] LABS: INR 1.4 (<1.2); Prothrombin Time 14.3 sec (9.0-12.0)
[2018-08-23 07:33] LABS: Glucose,Whole Blood 133 mg/dL (75-99)
[2018-08-23 07:34] VITALS: PULSE 78; RESP 20; TEMP 97.7
[2018-08-23] MEDS ORDERED: IV FLUID CONTINUATION 1,000 ML IV ONE (08:17)
[2018-08-23] MEDS ORDERED: PROPOFOL 10 MG/ML 20 ML VIAL IV ONE (08:20)
[2018-08-23] MEDS ORDERED: fentaNYL (PF) 50 MCG/ML 2 ML AMP ONE (08:20)
[2018-08-23] MEDS ORDERED: LIDOCAINE 1% INJ 10MG/ML (20 ML MDV) ONE (08:39)
[2018-08-23] MEDS ORDERED: LIDOCAINE 1% INJ 10MG/ML (20 ML MDV) SQ ONE (08:59)
[2018-08-23] MEDS ORDERED: ACETAMINOPHEN TAB 325 MG TAB PO PRN (09:41)
--- NOTE | 2018-08-23 11:36 | P.PCN ---
Date of Procedure: 08/23/18 Preoperative Diagnosis: History of by biventricular ICD implantation with recent evaluation showing battery depletion Postoperative Diagnosis: The same Procedure(s) Performed: Generator change Description of Procedure: HISTORY: This is a 88-year-old gentleman with history of by the ICD implantation was noted to have evidence of battery depletion. Patient is pacemaker dependent. He was brought in for generator replacement. CONSENT: I have discussed the risks and benefits as related to the above mentioned procedure and both sedation/analgesia as well as necessary blood product administration. The patient has indicated understanding and acceptance of the risks of the procedure discussed. PROCEDURE: Patient was brought to the lab in a fasting state. Department of anesthesia is noted . Anesthesia during the procedure. The skin over the existing pulse generator was infiltrated with lidocaine. An incision was made in the skin and was deepened until the pectoral fascia was exposed. Hemostasis was obtained. The existing pulse generator was pulled out of the pocket. The leads were disconnected and were checked for thresholds. Conscious Sedation: As per department of anesthesia Duration 46 minutes THRESHOLDS: ATRIAL: The minimal pacing threshold was 0.6 at a pulse width of 0.4 with impedance of 400 ohms. The P-wave is 3.5 RIGHT VENTRICULAR: The minimal pacing threshold was 0.8 V at pulse width of 0.4 with impedance of 380 ohms. R-wave: Could not be measured. THE LEFT VENTRICULAR: The minimal patient threshold was 1.25 at pulse width of 1. The impedance is 570. The R- wave could not be measured THE LEADS: ATRIAL:. The atrial lead is manufactured by [employer]. Model number is 5076. And the serial number is [id number] RIGHT VENTRICULAR: THIS IS MANUFACTURED BY [employer]. MODEL NUMBER IS [id number]. THE SERIAL NUMBER IS [id number]. LEFT VENTRICULAR: THIS IS MANUFACTURED BY [employer]. MODEL NUMBER IS [id number]. THE SERIAL NUMBER [id number] THE EXPLANTED DEVICE: THIS IS MANUFACTURED BY [employer] THE PRODUCT NUMBER IS [id number]. THE NEW DEVICE: THIS IS MANUFACTURED BY [employer] MODEL NUMBER IS [id number] AND THE SERIAL NUMBER [id number]. The leads were then connected to THE new pulse generator. Pacemaker seems to function normally. The pocket was irrigated with antibiotics. The pocket was closed in the usual fashion. Pectoral fascia was closed with 2-0 Prolene, the subcutaneous tissue was closed with 3-0 Prolene and the skin was closed with 4- 0 Prolene. Patient tolerated the procedure well . Patient will be monitored on the telemetry unit for 2-3 hours. If stable patient be discharged home later today PROGRAMMING: Bradycardia therapy: The pacemaker programmed to DDDR mode. The minimal rate is 50 and maximum rate is 110. Upper activity rate is programmed to 130. The outputs are programmed to 1.5 V in the atrium to Woltz in the right ventricle and 2.5 V in the left ventricle. TACHYCARDIA THERAPY: VF therapies programmed to 35 J 4 followed by 30 J with reverse polarity followed with 20 J with reverse polarity. Fast VT is programmed to burst pacing followed by cardioversion with 5 J, followed by 10 followed by 352 followed by 5 J. PLAN: Patient will be monitored the next 4 hours. If stable patient will be discharged home. FALOW UP:With Dr. Rosenberg in a week. Patient will continue home medication. He'll continue prophylactic antibiotics. We will also start Coumadin starting today. PT and INR as an outpatient. Patient will keep the dressing dry until seen in the office. He is advised to avoid any heavy exertion
[2018-08-23 16:53] VITALS: BP 149/70
== END 2018-08-23 16:45 | disposition home or self-care (01) ==
LOC: CATHEP 06:44
PROVIDERS: ATTEND Internal Medicine Cardiovascular Disease
DX: Z45.010 Encounter for checking and testing of cardiac pacemaker pulse generator [battery] (principal); I25.5 Ischemic cardiomyopathy; I25.10 Atherosclerotic heart disease of native coronary artery without angina pectoris; I11.0 Hypertensive heart disease with heart failure; I50.22 Chronic systolic (congestive) heart failure; Z87.891 Personal history of nicotine dependence; I48.2 Chronic atrial fibrillation; E78.5 Hyperlipidemia, unspecified; E11.9 Type 2 diabetes mellitus without complications; J44.9 Chronic obstructive pulmonary disease, unspecified; J40 Bronchitis, not specified as acute or chronic; E07.9 Disorder of thyroid, unspecified; Z82.49 Family history of ischemic heart disease and other diseases of the circulatory system; Z79.01 Long term (current) use of anticoagulants; Z79.82 Long term (current) use of aspirin; Z79.890 Hormone replacement therapy; Z79.4 Long term (current) use of insulin; Z79.899 Other long term (current) drug therapy; Z88.8 Allergy status to other drugs, medicaments and biological substances
CPT/HCPCS: 33264; 85610; C1882; J0690 ×2; J2001; J3010; J2704

== ENCOUNTER 2018-12-21 20:18 | Emergency (ER) | payer MEDICARE ==
[2018-12-21 21:14] VITALS: TEMP 97.8
--- NOTE | 2018-12-21 22:07 | ED ---
Extremity Problem HPI - General Chief complaint: Extremity Problem,Nontraumatic Stated complaint: swollen ankle & leg Time Seen by Provider: 12/21/18 21:21 Source: patient, family Mode of arrival: ambulatory Limitations: no limitations - History of Present Illness Initial comments: This patient is an 88-year-old man who presents to be evaluated for appr oximately 24 hours of progressive bilateral lower extremity swelling. He indicates to just above the ankles bilaterally. Patient is not aware of any inciting factor. He states that his come on gradually over the past day or so. He is not having any associated symptoms, please see review of systems. MD Complaint: extremity swelling Onset/Timin -: hour(s) Location: bilateral lower extremity History of Same: No Consistency: constant Improves with: nothing Worsens with: nothing Associated Symptoms: denies other symptoms - Related Data Home Medications Medication Instructions Recorded Confirmed Nitroglycerin Sl Tabs [Nitrostat] 0.4 mg SUBLINGUAL Q5M PRN 08/05/14 12/21/18 Allopurinol [Zyloprim] 300 mg PO DAILY 08/06/14 12/21/18 Levothyroxine Sodium [Synthroid] 25 mcg PO DAILY 12/11/15 12/21/18 Multivitamin [Men's Multi-Vitamin] 1 tab PO DAILY 12/12/15 12/21/18 Insulin NPL/Insulin Lispro 20 unit SQ HS 02/21/17 12/21/18 [humaLOG MIX 75-25 VIAL] Insulin NPL/Insulin Lispro 40 unit SQ DAILY 02/21/17 12/21/18 [humaLOG MIX 75-25 VIAL] Propylene Glycol/Peg 400/Pf 1 dropper BOTH EYES BID 05/28/17 12/21/18 [Systane 0.3-0.4% Eye Drop] Sodium Chloride 5% Ophth Soln 1 drops BOTH EYES BID PRN 05/28/17 12/21/18 [Enrico 128] Carvedilol [Coreg] 3.125 mg PO BID 12/26/17 12/21/18 Simvastatin [Zocor] 40 mg PO HS 12/26/17 12/21/18 metFORMIN HCL [Glucophage] 500 mg PO DAILY 12/26/17 12/21/18 rOPINIRole HCL [Requip] 0.5 mg PO TID 12/26/17 12/21/18 Furosemide [Lasix] 20 mg PO DAILY 06/23/18 12/21/18 Carbidopa-Levodopa 25-100 mg 1.5 tab PO TID 12/21/18 12/21/18 [Sinemet 25-100 mg] Warfarin [Coumadin] 5 mg PO MOORE 12/21/18 12/21/18 Warfarin [Coumadin] 10 mg PO [id number] 12/21/18 12/21/18 Previous Rx's Medication Instructions Recorded Aspirin 81 mg PO DAILY chew 12/28/17 Sacubitril/Valsartan [Entresto 24 1 each PO BID #60 tablet 06/26/18 mg-26 mg Tablet] Cephalexin [Keflex] 500 mg PO Q6HR #28 cap 12/22/18 Allergies Allergy/AdvReac Type Severity Reaction Status Date / Time phenytoin sodium Allergy Severe Rash/Hives Verified 12/21/18 21:32 [From Dilantin] phenytoin sodium extended Allergy Severe Rash/Hives Verified 12/21/18 21:32 [From Dilantin] zoster vaccine live Allergy Unknown Verified 12/21/18 21:32 amiodarone AdvReac Dyspnea Verified 12/21/18 21:32 spironolactone AdvReac Gynecomasti Verified 12/21/18 21:32 a Review of Systems ROS Statement: Those systems with pertinent positive or pertinent negative responses have been documented in the HPI. ROS Other: All systems not noted in ROS Statement are negative. Constitutional: Denies: fever, chills, weakness Respiratory: Denies: cough, dyspnea Cardiovascular: Reports: edema. Denies: chest pain, palpitations, orthopnea, syncope Gastrointestinal: Denies: abdominal pain, vomiting, diarrhea Genitourinary: Denies: dysuria, frequency, hematuria Musculoskeletal: Denies: back pain Skin: Denies: rash Neurological: Denies: headache, weakness, numbness Past Medical History Past Medical History: Atrial Fibrillation, Cancer, Heart Failure, COPD, Dementia, Diabetes Mellitus, Eye Disorder, Hyperlipidemia, Hypertension, Myocardial Infarction (CO), Musculoskeletal Disorder, Pneumonia, Sleep Apnea/CPAP/BIPAP, Thyroid Disorder Additional Past Medical History / Comment(s): Gout. Family stated that a geriatric neurologist at [facility] felt that pt had Parkinsons(on meds). Rt eye prosthetic, lt eye W/ DIABETIC RETINOPATHY. Prostate Cancer. MINOR BACK PROB. HX SILENT CO. USES CPAP. PNEUMONIA 06/23/18. AICD. Last Myocardial Infarction Date:: UNKNOWN History of Any Multi-Drug Resistant Organisms: None Reported Past Surgical History: AICD, Heart Catheterization With Stent, Hernia Repair, Orthopedic Surgery, Pacemaker, Prostate Surgery Additional Past Surgical History / Comment(s): Plate in the left ankle. first pacemaker placed in roughly 2007; THEN AICD. Replacement pacemaker in 2010. Prosthetic right eye. ben holes 2007 for fluid on the brain; male sling 2010. STENTS X2. Past Anesthesia/Blood Transfusion Reactions: No Reported Reaction Date of Last Stent Placement:: 2001 Type of Cardiac Device: AICD Device Placement Date:: 2011 Past Psychological History: Depression Smoking Status: Former smoker - Past Family History Mother Family Medical History: Blood Disorder Additional Family Medical History / Comment(s): family not sure what is was called Father Family Medical History: Myocardial Infarction ([place]) Brother(s) Family Medical History: Cancer, Myocardial Infarction (CO) Additional Family Medical History / Comment(s): brain cancer General Exam Limitations: no limitations General appearance: alert, in no apparent distress Head exam: Present: atraumatic, normocephalic ENT exam: Present: normal oropharynx Neck exam: Present: normal inspection Respiratory exam: Present: normal lung sounds bilaterally. Absent: respiratory distress, wheezes, rales, rhonchi, stridor Cardiovascular Exam: Present: regular rate, normal rhythm, normal heart sounds. Absent: systolic murmur, diastolic murmur, rubs, gallop GI/Abdominal exam: Present: soft. Absent: distended, tenderness, guarding, rebound, rigid, mass Extremities exam: Present: normal capillary refill, pedal edema (There is moderate pitting edema to above the ankles bilaterally). Absent: tenderness, calf tenderness Back exam: Present: normal inspection. Absent: CVA tenderness (R), CVA tenderness (L) Neurological exam: Present: alert Skin exam: Present: warm, dry, intact, normal color. Absent: rash Course Vital Signs 12/21/18 21:11 Temperature 97.8 F Pulse Rate 89 Respiratory 20 Rate Blood Pressure 140/69 O2 Sat by Pulse 99 Oximetry Medical Decision Making - Medical Decision Making Discussed results with patient and family members. Offered admission to begin diuresis and also for antibiotic therapy for what may be an early right ankle cellulitis. There is mild warmth. The patient states that he would rather at this point go home. We discussed appropriate further care and follow-up. The patient will return if there is any new symptoms developing or if there is any worsening. Return parameters discussed as well. - Lab Data Result diagrams: 12/21/18 21:47 12/21/18 21:47 Lab Results 12/21/18 12/21/18 12/21/18 Range/Units 21:47 21:47 21:47 WBC 4.8 (3.8-10.6) k/uL RBC 3.97 L (4.30-5.90) m/uL Hgb 12.2 L (13.0-17.5) gm/dL Hct 37.9 L (39.0-53.0) % MCV 95.5 (80.0-100.0) fL MCH 30.7 (25.0-35.0) pg MCHC 32.1 (31.0-37.0) g/dL RDW 14.6 (11.5-15.5) % Plt Count 137 L (150-450) k/uL Neutrophils % 48 % Lymphocytes % 35 % Monocytes % 9 % Eosinophils % 5 % Basophils % 0 % Neutrophils # 2.3 (1.3-7.7) k/uL Lymphocytes # 1.7 (1.0-4.8) k/uL Monocytes # 0.5 (0-1.0) k/uL Eosinophils # 0.3 (0-0.7) k/uL Basophils # 0.0 (0-0.2) k/uL D-Dimer (<0.60) mg/L FEU Sodium 141 (137-145) mmol/L Potassium 4.4 (3.5-5.1) mmol/L Chloride 106 (98-107) mmol/L Carbon Dioxide 30 (22-30) mmol/L Anion Gap 5 mmol/L BUN 20 (9-20) mg/dL Creatinine 0.92 (0.66-1.25) mg/dL Est GFR (CKD-EPI)AfAm 87 (>60 ml/min/1.73 sqM) Est GFR (CKD-EPI)NonAf 75 (>60 ml/min/1.73 sqM) Glucose 110 H (74-99) mg/dL Calcium 9.0 (8.4-10.2) mg/dL Total Bilirubin 0.4 (0.2-1.3) mg/dL AST 23 (17-59) U/L ALT 6 L (21-72) U/L Alkaline Phosphatase 67 (38-126) U/L Troponin I 0.041 H* (0.000-0.034) ng/mL NT-Pro-B Natriuret Pep pg/mL Total Protein 6.0 L (6.3-8.2) g/dL Albumin 3.5 (3.5-5.0) g/dL Urine Color Urine Appearance (Clear) Urine pH (5.0-8.0) Ur Specific Alna (1.001-1.035) Urine Protein (Negative) Urine Glucose (UA) (Negative) Urine Ketones (Negative) Urine Blood (Negative) Urine Nitrite (Negative) Urine Bilirubin (Negative) Urine Urobilinogen (<2.0) mg/dL Ur Leukocyte Esterase (Negative) 12/21/18 12/21/18 12/22/18 Range/Units 21:47 23:32 00:14 WBC (3.8-10.6) k/uL RBC (4.30-5.90) m/uL Hgb (13.0-17.5) gm/dL Hct (39.0-53.0) % MCV (80.0-100.0) fL MCH (25.0-35.0) pg MCHC (31.0-37.0) g/dL RDW (11.5-15.5) % Plt Count (150-450) k/uL Neutrophils % % Lymphocytes % % Monocytes % % Eosinophils % % Basophils % % Neutrophils # (1.3-7.7) k/uL Lymphocytes # (1.0-4.8) k/uL Monocytes # (0-1.0) k/uL Eosinophils # (0-0.7) k/uL Basophils # (0-0.2) k/uL D-Dimer 0.25 (<0.60) mg/L FEU Sodium (137-145) mmol/L Potassium (3.5-5.1) mmol/L Chloride (98-107) mmol/L Carbon Dioxide (22-30) mmol/L Anion Gap mmol/L BUN (9-20) mg/dL Creatinine (0.66-1.25) mg/dL Est GFR (CKD-EPI)AfAm (>60 ml/min/1.73 sqM) Est GFR (CKD-EPI)NonAf (>60 ml/min/1.73 sqM) Glucose (74-99) mg/dL Calcium (8.4-10.2) mg/dL Total Bilirubin (0.2-1.3) mg/dL AST (17-59) U/L ALT (21-72) U/L Alkaline Phosphatase (38-126) U/L Troponin I (0.000-0.034) ng/mL NT-Pro-B Natriuret Pep 1670 pg/mL Total Protein (6.3-8.2) g/dL Albumin (3.5-5.0) g/dL Urine Color Yellow Urine Appearance Clear (Clear) Urine pH 6.5 (5.0-8.0) Ur Specific Alna 1.030 (1.001-1.035) Urine Protein Negative (Negative) Urine Glucose (UA) Negative (Negative) Urine Ketones Negative (Negative) Urine Blood Negative (Negative) Urine Nitrite Negative (Negative) Urine Bilirubin Negative (Negative) Urine Urobilinogen 2.0 (<2.0) mg/dL Ur Leukocyte Esterase Negative (Negative) - EKG Data -: EKG Interpreted by Me (Paced rhythm) Interpretation: other (Rhythm is paced at 85 bpm) Disposition Clinical Impression: Cellulitis, Elevated troponin, Congestive heart failure Disposition: HOME SELF-CARE Condition: Fair Instructions (If sedation given, give patient instructions): Heart Failure (ER), Cellulitis (ED) Additional Instructions: As we discussed, take an extra dose of Lasix on the following 2 days. If any of the symptoms discussed develop or if you are feeling worse in anyway, return to the emergency department. Prescriptions: Cephalexin [Keflex] 500 mg PO Q6HR #28 cap Is patient prescribed a controlled substance at d/c from ED?: No Referrals: Chucho Fan MD [Primary Care Provider] - 1-2 days
[2018-12-21 22:33] LABS: Basophils % (A) 0 %; Eosinophils # (A) 0.3 k/uL (0-0.7); Eosinophils % (A) 5 %; HCT 37.9 % (39.0-53.0); HGB 12.2 gm/dL (13.0-17.5); Lymphocytes # (A) 1.7 k/uL (1.0-4.8); Lymphocytes % (A) 35 %; MCH 30.7 pg (25.0-35.0); MCHC 32.1 g/dL (31.0-37.0); MCV 95.5 fL (80.0-100.0); Monocytes # (A) 0.5 k/uL (0-1.0); Monocytes % (A) 9 %; Neutrophils # (A) 2.3 k/uL (1.3-7.7); Neutrophils % (A) 48 %; Platelet Count 137 k/uL (150-450); RBC 3.97 m/uL (4.30-5.90); RDW 14.6 % (11.5-15.5); WBC 4.8 k/uL (3.8-10.6)
[2018-12-21 22:46] LABS: Albumin 3.5 g/dL (3.5-5.0); Potassium 4.4 mmol/L (3.5-5.1); Total Bilirubin 0.4 mg/dL (0.2-1.3)
--- NOTE | 2018-12-22 00:15 | XR ---
EXAM: XR Chest, 2 Views CLINICAL HISTORY: ITS.REASON XR Reason: chf TECHNIQUE: Frontal and lateral views of the chest. COMPARISON: 08/05/14 FINDINGS: Cardiac silhouette borderline in size. Pacer again noted. No overt edema, consolidation or other acute cardiopulmonary findings. IMPRESSION: No acute cardiopulmonary findings.
[2018-12-22] MEDS ORDERED: FUROSEMIDE 10 MG/ML 4 ML VIAL IV STA (00:20)
[2018-12-22 00:29] LABS: Appearance,Urine Clear (Clear); Bilirubin,Urine Negative (Negative); Blood,Urine Negative (Negative); Color,Urine Yellow; Glucose,Urine (UA) Negative (Negative); Ketones,Urine Negative (Negative); Leukocyte Esterase,Urine Negative (Negative); Nitrite,Urine Negative (Negative); PH, Urine 6.5 (5.0-8.0); Protein,Urine Negative (Negative)
[2018-12-22] MEDS ORDERED: SULFAMETHOX-TMP 800-160MG 1 EACH TAB PO STA (00:36)
[2018-12-22 01:01] VITALS: BP 122/61; PULSE 78; RESP 18
== END 2018-12-22 01:15 | disposition home or self-care (01) ==
LOC: EC 20:18
DX: I11.0 Hypertensive heart disease with heart failure (principal); I50.9 Heart failure, unspecified; L03.115 Cellulitis of right lower limb; I48.91 Unspecified atrial fibrillation; E78.5 Hyperlipidemia, unspecified; F03.90 Unspecified dementia, unspecified severity, without behavioral disturbance, psychotic disturbance, mood disturbance, and anxiety; G47.30 Sleep apnea, unspecified; E07.9 Disorder of thyroid, unspecified; E11.319 Type 2 diabetes mellitus with unspecified diabetic retinopathy without macular edema; Z79.4 Long term (current) use of insulin; Z79.890 Hormone replacement therapy; Z79.02 Long term (current) use of antithrombotics/antiplatelets; Z79.01 Long term (current) use of anticoagulants; Z79.899 Other long term (current) drug therapy; Z88.8 Allergy status to other drugs, medicaments and biological substances; Z88.7 Allergy status to serum and vaccine; Z95.0 Presence of cardiac pacemaker; Z87.891 Personal history of nicotine dependence; Z85.46 Personal history of malignant neoplasm of prostate
CPT/HCPCS: 36415; 71046; 80053; 81003; 83880; 84484; 85025; 85379; 93005; 96374; 99284

== ENCOUNTER 2021-07-05 20:26 | Inpatient (IN) | payer MEDICARE ==
--- NOTE | 2021-07-05 20:44 | ED ---
General Adult HPI - General Stated complaint: Weakness Time Seen by Provider: 07/05/21 20:35 Source: patient, RN notes reviewed, old records reviewed - History of Present Illness Initial comments: 89-year-old male presenting with cough and weakness. Patient has had weakness over the past 24 hours. He had a minor fall yesterday with no injury however the patient was unable to get up from the floor for approximately 12 hours. He was found by family and taken to urgent care for evaluation. He did have an outpatient Covid test as he's had some cough and low-grade fevers. He denies chest pain or abdominal pain. Denies pain complaints from the fall. No significant head injury. - Related Data Home Medications Medication Instructions Recorded Confirmed Nitroglycerin Sl Tabs [Nitrostat] 0.4 mg SL Q5M PRN 08/05/14 07/05/21 allopurinoL [Zyloprim] 300 mg PO DAILY 08/06/14 07/05/21 Levothyroxine Sodium [Synthroid] 25 mcg PO DAILY 12/11/15 07/05/21 Multivitamin [Men's Multi-Vitamin] 1 tab PO DAILY 12/12/15 07/05/21 Insulin NPL/Insulin Lispro 20 unit SQ HS 02/21/17 07/05/21 [humaLOG MIX 75-25 VIAL] Insulin NPL/Insulin Lispro 40 unit SQ DAILY 02/21/17 07/05/21 [humaLOG MIX 75-25 VIAL] Propylene Glycol/Peg 400/Pf 1 drop BOTH EYES BID 05/28/17 07/05/21 [Systane 0.3-0.4% Eye Drop] Sodium Chloride 5% Ophth Soln 1 drop BOTH EYES BID 05/28/17 07/05/21 [Enrico 128] Simvastatin [Zocor] 40 mg PO HS 12/26/17 07/05/21 carvediloL [Coreg] 3.125 mg PO BID 12/26/17 07/05/21 metFORMIN HCL [Glucophage] 500 mg PO DAILY 12/26/17 07/05/21 rOPINIRole HCL [Requip] 0.5 mg PO TID 12/26/17 07/05/21 Carbidopa-Levodopa 25-100 mg 1.5 tab PO TID 12/21/18 07/05/21 [Sinemet 25-100 mg] Furosemide [Lasix] 40 mg PO DAILY 05/07/19 07/05/21 Aspirin EC [Ecotrin Low Dose] 81 mg PO DAILY 07/05/21 07/05/21 Cholecalciferol [Vitamin D3 (25 25 mcg PO DAILY 07/05/21 07/05/21 Mcg = 1000 Iu)] Sacubitril/Valsartan [Entresto 49 0.5 tab PO BID 07/05/21 07/05/21 mg-51 mg Tablet] Warfarin [Coumadin] 10 mg PO DIRECTED@0900 07/05/21 07/05/21 Allergies Allergy/AdvReac Type Severity Reaction Status Date / Time phenytoin sodium Allergy Severe Rash/Hives Verified 07/05/21 22:47 [From Dilantin] phenytoin sodium extended Allergy Severe Rash/Hives Verified 07/05/21 22:47 [From Dilantin] amiodarone Allergy Dyspnea Verified 07/05/21 22:47 zoster vaccine live Allergy Rash/Hives Verified 07/05/21 22:47 HAILY Inhibitors AdvReac Hypotension Verified 07/05/21 22:47 spironolactone AdvReac Gynecomasti Verified 07/05/21 22:47 a Review of Systems ROS Statement: Those systems with pertinent positive or pertinent negative responses have been documented in the HPI. ROS Other: All systems not noted in ROS Statement are negative. Past Medical History Past Medical History: Atrial Fibrillation, Cancer, Heart Failure, COPD, Dementia, Diabetes Mellitus, Eye Disorder, Hyperlipidemia, Hypertension, Myocardial Infarction ([place]), Musculoskeletal Disorder, Pneumonia, Sleep Apnea/CPAP/BIPAP, Thyroid Disorder Additional Past Medical History / Comment(s): Gout. Family stated that a geriatric neurologist at [facility] felt that pt had Parkinsons(on meds). Rt eye prosthetic, lt eye W/ DIABETIC RETINOPATHY. Prostate Cancer. MINOR BACK PROB. HX SILENT IN. USES CPAP. PNEUMONIA 06/23/18. AICD. Last Myocardial Infarction Date:: UNKNOWN History of Any Multi-Drug Resistant Organisms: None Reported Past Surgical History: AICD, Heart Catheterization With Stent, Hernia Repair, Orthopedic Surgery, Pacemaker, Prostate Surgery Additional Past Surgical History / Comment(s): Plate in the left ankle. first pacemaker placed in roughly 2007; THEN AICD. Replacement pacemaker in 2010. Prosthetic right eye. ben holes 2007 for fluid on the brain; male sling 2010. STENTS X2. Past Anesthesia/Blood Transfusion Reactions: No Reported Reaction Date of Last Stent Placement:: 2001 Type of Cardiac Device: AICD Device Placement Date:: 2011 Past Psychological History: Depression Additional Psychological History / Comment(s): . Daughter lives next door. No current tobacco use or alcohol use. Retired labor. Denied experience or travel history. No animal exposures Past Alcohol Use History: Occasional Additional Past Alcohol Use History / Comment(s): started smoking 1939, quit 1954, smoked 1 ppd. Past Drug Use History: None Reported - Past Family History Mother Family Medical History: Blood Disorder Additional Family Medical History / Comment(s): family not sure what is was called Father Family Medical History: Myocardial Infarction ([place]) Brother(s) Family Medical History: Cancer, Myocardial Infarction ([place]) Additional Family Medical History / Comment(s): brain cancer General Exam General appearance: alert, in no apparent distress Head exam: Present: atraumatic, normocephalic Eye exam: Present: normal appearance, PERRL Neck exam: Present: normal inspection. Absent: tenderness, meningismus Respiratory exam: Present: normal lung sounds bilaterally. Absent: respiratory distress, wheezes Cardiovascular Exam: Present: regular rate, normal rhythm GI/Abdominal exam: Present: soft. Absent: distended, tenderness, guarding, rebound Extremities exam: Present: normal inspection, normal capillary refill Neurological exam: Present: alert, oriented X3, CN II-XII intact. Absent: motor sensory deficit Psychiatric exam: Present: normal affect, normal mood Skin exam: Present: warm, dry, intact. Absent: cyanosis, diaphoretic Course Vital Signs 07/05/21 07/05/21 20:33 22:50 Temperature 100.9 F H Pulse Rate 59 L 60 Respiratory 20 19 Rate Blood Pressure 143/50 158/96 O2 Sat by Pulse 95 95 Oximetry EKG Findings - EKG Comments: EKG Findings:: Atrial sensed ventricular paced rhythm rate of 59, WA interval 150, QRS duration 162, QTC [address] segment elevation. Medical Decision Making - Medical Decision Making 89-year-old male presenting with generalized weakness, cough, concern for coronavirus. He does test positive for coronavirus on the emergency department. He is administered monoclonal antibodies. He had been previously vaccinated. Additional workup was ordered which did reveal a normal CBC, an elevated lactic acid of 3.6. An elevated CK of 6190. Troponin of 0.144 with previous history of troponin elevation. He does have a mildly elevated BUN/creatinine. He is given IV fluids in addition. Given his weakness and rhabdomyolysis he will be admitted. He is not being admitted for coronavirus. Case discussed with Dr. Fan who will accept admission, I returned testing including troponin levels will be trended and repeated. Cardiology is placed on consult. - Lab Data Result diagrams: 07/05/21 21:07/05/21 21: Lab Results 07/05/21 07/05/21 07/05/21 Range/Units 21: 21: 21: WBC 4.7 (3.8-10.6) k/uL RBC 3.50 L (4.30-5.90) m/uL Hgb 11.7 L (13.0-17.5) gm/dL Hct 34.8 L (39.0-53.0) % MCV 99.4 (80.0-100.0) fL MCH 33.4 (25.0-35.0) pg MCHC 33.6 (31.0-37.0) g/dL RDW 14.3 (11.5-15.5) % Plt Count 125 L (150-450) k/uL MPV 10.9 Neutrophils % 81 % Lymphocytes % 10 % Monocytes % 8 % Eosinophils % 0 % Basophils % 0 % Neutrophils # 3.8 (1.3-7.7) k/uL Lymphocytes # 0.5 L (1.0-4.8) k/uL Monocytes # 0.4 (0-1.0) k/uL Eosinophils # 0.0 (0-0.7) k/uL Basophils # 0.0 (0-0.2) k/uL Macrocytosis Slight PT 16.6 H (9.0-12.0) sec INR 1.7 H (<1.2) APTT 20.4 L (22.0-30.0) sec Sodium (137-145) mmol/L Potassium (3.5-5.1) mmol/L Chloride (98-107) mmol/L Carbon Dioxide (22-30) mmol/L Anion Gap mmol/L BUN (9-20) mg/dL Creatinine (0.66-1.25) mg/dL Est GFR (CKD-EPI)AfAm (>60 ml/min/1.73 sqM) Est GFR (CKD-EPI)NonAf (>60 ml/min/1.73 sqM) Glucose (74-99) mg/dL Plasma Lactic Acid Vj (0.7-2.0) mmol/L Calcium (8.4-10.2) mg/dL Magnesium (1.6-2.3) mg/dL Total Bilirubin (0.2-1.3) mg/dL AST (17-59) U/L ALT (4-49) U/L Alkaline Phosphatase (38-126) U/L Creatine Kinase (55-170) U/L Troponin I (0.000-0.034) ng/mL Total Protein (6.3-8.2) g/dL Albumin (3.5-5.0) g/dL Urine Color Urine Appearance (Clear) Urine pH (5.0-8.0) Ur Specific Priddy (1.001-1.035) Urine Protein (Negative) Urine Glucose (UA) (Negative) Urine Ketones (Negative) Urine Blood (Negative) Urine Nitrite (Negative) Urine Bilirubin (Negative) Urine Urobilinogen (<2.0) mg/dL Ur Leukocyte Esterase (Negative) Urine RBC (0-5) /hpf Urine WBC (0-5) /hpf Ur Squamous Epith Cells (0-4) /hpf Urine Bacteria (None) /hpf Cellular Casts (0) /lpf Hyaline Casts (0-2) /lpf Granular Casts (0) /lpf Urine Mucus (None) /hpf Coronavirus (PCR) Detected A (Not Detectd) 07/05/21 07/05/21 07/05/21 Range/Units 21:26 21:26 21:26 WBC (3.8-10.6) k/uL RBC (4.30-5.90) m/uL Hgb (13.0-17.5) gm/dL Hct (39.0-53.0) % MCV (80.0-100.0) fL MCH (25.0-35.0) pg MCHC (31.0-37.0) g/dL RDW (11.5-15.5) % Plt Count (150-450) k/uL MPV Neutrophils % % Lymphocytes % % Monocytes % % Eosinophils % % Basophils % % Neutrophils # (1.3-7.7) k/uL Lymphocytes # (1.0-4.8) k/uL Monocytes # (0-1.0) k/uL Eosinophils # (0-0.7) k/uL Basophils # (0-0.2) k/uL Macrocytosis PT (9.0-12.0) sec INR (<1.2) APTT (22.0-30.0) sec Sodium 139 (137-145) mmol/L Potassium 3.9 (3.5-5.1) mmol/L Chloride 105 (98-107) mmol/L Carbon Dioxide 25 (22-30) mmol/L Anion Gap 9 mmol/L BUN 36 H (9-20) mg/dL Creatinine 1.16 (0.66-1.25) mg/dL Est GFR (CKD-EPI)AfAm 65 (>60 ml/min/1.73 sqM) Est GFR (CKD-EPI)NonAf 56 (>60 ml/min/1.73 sqM) Glucose 172 H (74-99) mg/dL Plasma Lactic Acid Vj 3.6 H* (0.7-2.0) mmol/L Calcium 8.7 (8.4-10.2) mg/dL Magnesium 1.8 (1.6-2.3) mg/dL Total Bilirubin 0.5 (0.2-1.3) mg/dL AST 115 H (17-59) U/L ALT 22 (4-49) U/L Alkaline Phosphatase 64 (38-126) U/L Creatine Kinase 6190 H* (55-170) U/L Troponin I 0.144 H* (0.000-0.034) ng/mL Total Protein 5.8 L (6.3-8.2) g/dL Albumin 3.0 L (3.5-5.0) g/dL Urine Color Urine Appearance (Clear) Urine pH (5.0-8.0) Ur Specific Priddy (1.001-1.035) Urine Protein (Negative) Urine Glucose (UA) (Negative) Urine Ketones (Negative) Urine Blood (Negative) Urine Nitrite (Negative) Urine Bilirubin (Negative) Urine Urobilinogen (<2.0) mg/dL Ur Leukocyte Esterase (Negative) Urine RBC (0-5) /hpf Urine WBC (0-5) /hpf Ur Squamous Epith Cells (0-4) /hpf Urine Bacteria (None) /hpf Cellular Casts (0) /lpf Hyaline Casts (0-2) /lpf Granular Casts (0) /lpf Urine Mucus (None) /hpf Coronavirus (PCR) (Not Detectd) 07/05/21 Range/Units 22:02 WBC (3.8-10.6) k/uL RBC (4.30-5.90) m/uL Hgb (13.0-17.5) gm/dL Hct (39.0-53.0) % MCV (80.0-100.0) fL MCH (25.0-35.0) pg MCHC (31.0-37.0) g/dL RDW (11.5-15.5) % Plt Count (150-450) k/uL MPV Neutrophils % % Lymphocytes % % Monocytes % % Eosinophils % % Basophils % % Neutrophils # (1.3-7.7) k/uL Lymphocytes # (1.0-4.8) k/uL Monocytes # (0-1.0) k/uL Eosinophils # (0-0.7) k/uL Basophils # (0-0.2) k/uL Macrocytosis PT (9.0-12.0) sec INR (<1.2) APTT (22.0-30.0) sec Sodium (137-145) mmol/L Potassium (3.5-5.1) mmol/L Chloride (98-107) mmol/L Carbon Dioxide (22-30) mmol/L Anion Gap mmol/L BUN (9-20) mg/dL Creatinine (0.66-1.25) mg/dL Est GFR (CKD-EPI)AfAm (>60 ml/min/1.73 sqM) Est GFR (CKD-EPI)NonAf (>60 ml/min/1.73 sqM) Glucose (74-99) mg/dL Plasma Lactic Acid Vj (0.7-2.0) mmol/L Calcium (8.4-10.2) mg/dL Magnesium (1.6-2.3) mg/dL Total Bilirubin (0.2-1.3) mg/dL AST (17-59) U/L ALT (4-49) U/L Alkaline Phosphatase (38-126) U/L Creatine Kinase (55-170) U/L Troponin I (0.000-0.034) ng/mL Total Protein (6.3-8.2) g/dL Albumin (3.5-5.0) g/dL Urine Color Yellow Urine Appearance Cloudy (Clear) Urine pH 5.5 (5.0-8.0) Ur Specific Priddy 1.029 (1.001-1.035) Urine Protein 2+ H (Negative) Urine Glucose (UA) Negative (Negative) Urine Ketones Trace H (Negative) Urine Blood Large H (Negative) Urine Nitrite Negative (Negative) Urine Bilirubin Negative (Negative) Urine Urobilinogen 2.0 (<2.0) mg/dL Ur Leukocyte Esterase Moderate H (Negative) Urine RBC 6 H (0-5) /hpf Urine WBC 18 H (0-5) /hpf Ur Squamous Epith Cells 2 (0-4) /hpf Urine Bacteria Rare H (None) /hpf Cellular Casts 1 (0) /lpf Hyaline Casts 9 H (0-2) /lpf Granular Casts 3 (0) /lpf Urine Mucus Occasional H (None) /hpf Coronavirus (PCR) (Not Detectd) Disposition Clinical Impression: Elevated troponin I level, Dehydration, COVID-19, Rhabdomyolysis Disposition: ADMITTED IP TO THIS [facility] Condition: Serious Is patient prescribed a controlled substance at d/c from ED?: No Referrals: Chucho Fan MD [Primary Care Provider] - 1-2 days Decision to Admit Reason: Admit from EC Decision Date: 07/05/21 Decision Time: 23:05
[2021-07-05 21:42] LABS: Basophils % (A) 0 %; Eosinophils % (A) 0 %; HCT 34.8 % (39.0-53.0); HGB 11.7 gm/dL (13.0-17.5); Lymphocytes # (A) 0.5 k/uL (1.0-4.8); Lymphocytes % (A) 10 %; MCH 33.4 pg (25.0-35.0); MCHC 33.6 g/dL (31.0-37.0); MCV 99.4 fL (80.0-100.0); Macrocytosis Slight; Mean Platelet Volume 10.9; Monocytes # (A) 0.4 k/uL (0-1.0); Monocytes % (A) 8 %; Neutrophils # (A) 3.8 k/uL (1.3-7.7); Neutrophils % (A) 81 %; Platelet Count 125 k/uL (150-450); RDW 14.3 % (11.5-15.5); WBC 4.7 k/uL (3.8-10.6)
--- NOTE | 2021-07-05 21:47 | XR ---
EXAMINATION TYPE: XR chest 2V DATE OF EXAM: 07/05/2021 COMPARISON: 12/21/2018 HISTORY: Weakness TECHNIQUE: 2 views FINDINGS: There is no heart failure nor confluent pneumonic infiltrate. Costophrenic angles are clear . There is left axillary pacemaker. There are chest leads. IMPRESSION: No active cardiopulmonary disease. Normal heart. No change.
[2021-07-05 22:02] LABS: INR 1.7 (<1.2); Prothrombin Time 16.6 sec (9.0-12.0)
[2021-07-05 22:12] LABS: Calcium 8.7 mg/dL (8.4-10.2); Magnesium 1.8 mg/dL (1.6-2.3); Potassium 3.9 mmol/L (3.5-5.1); Total Bilirubin 0.5 mg/dL (0.2-1.3); Total Protein 5.8 g/dL (6.3-8.2)
[2021-07-05 22:27] LABS: Partial Thromboplastin Time 20.4 sec (22.0-30.0)
[2021-07-05 22:32] LABS: Appearance,Urine Cloudy (Clear); Bacteria,Urine Rare /hpf; Bilirubin,Urine Negative (Negative); Blood,Urine Large (Negative); Cellular Casts,Urine 1 /lpf (0); Color,Urine Yellow; Glucose,Urine (UA) Negative (Negative); Granular Casts,Urine 3 /lpf (0); Hyaline Casts,Urine 9 /lpf (0-2); Ketones,Urine Trace (Negative); Leukocyte Esterase,Urine Moderate (Negative); Mucus,Urine Occasional /hpf; Nitrite,Urine Negative (Negative); PH, Urine 5.5 (5.0-8.0); Protein,Urine 2+ (Negative); RBC,Urine 6 /hpf (0-5); Specific Gravity,Urine 1.029 (1.001-1.035); Squamous Epithelial Cell,Urine 2 /hpf (0-4); WBC,Urine 18 /hpf (0-5)
[2021-07-05] MEDS ORDERED: ACETAMINOPHEN TAB 325 MG TAB PO STA (22:41)
[2021-07-05] MEDS ORDERED: SODIUM CHLORIDE 0.9% 50 ML IVPB ONE (22:45)
[2021-07-05] MEDS ORDERED: SODIUM CHLORIDE 0.9% 1,000 ML IV ONE (23:00)
[2021-07-05] MEDS ORDERED: BAMLANIVIMAB (EUA) 700 MG, ETESEVIMAB (EUA) 1,400 MG in SODIUM CHLORIDE 0.9% 50 ML IVPB ONE (23:00)
[2021-07-05] MEDS ORDERED: NALOXONE 0.4 MG/ML 1 ML VIAL IV PRN (23:02)
[2021-07-05] MEDS ORDERED: ACETAMINOPHEN TAB 325 MG TAB PO PRN (23:02)
[2021-07-05] MEDS: SODIUM CHLORIDE 0.9% 1,000 ML IV SCH (23:35)
[2021-07-06 03:29] LABS: Basophils % (A) 0 %; Eosinophils % (A) 0 %; HCT 33.3 % (39.0-53.0); HGB 10.9 gm/dL (13.0-17.5); Lymphocytes # (A) 0.7 k/uL (1.0-4.8); Lymphocytes % (A) 17 %; MCH 33.9 pg (25.0-35.0); MCHC 32.7 g/dL (31.0-37.0); MCV 103.8 fL (80.0-100.0); Macrocytosis Moderate; Mean Platelet Volume 11.4; Monocytes # (A) 0.4 k/uL (0-1.0); Monocytes % (A) 8 %; Neutrophils # (A) 3.1 k/uL (1.3-7.7); Neutrophils % (A) 71 %; RBC 3.21 m/uL (4.30-5.90); RDW 14.9 % (11.5-15.5); WBC 4.3 k/uL (3.8-10.6)
[2021-07-06 03:36] LABS: Albumin 2.6 g/dL (3.5-5.0); Calcium 8.1 mg/dL (8.4-10.2); Potassium 3.7 mmol/L (3.5-5.1); Total Bilirubin 0.5 mg/dL (0.2-1.3); Total Protein 5.2 g/dL (6.3-8.2)
[2021-07-06 03:41] LABS: Platelet Count 101 k/uL (150-450)
[2021-07-06] MEDS: SODIUM CHLORIDE 0.9% 1,000 ML IV SCH ×3 (06:45→22:17)
[2021-07-06 09:08] LABS: Large Platelets Present
[2021-07-06] MEDS ORDERED: WARFARIN 10 MG TAB PO SCH (10:15)
[2021-07-06] MEDS ORDERED: FUROSEMIDE 40 MG TAB PO SCH (10:15)
[2021-07-06] MEDS: carvediloL 3.125 MG TAB PO SCH ×2 (10:27→16:44)
[2021-07-06] MEDS: SACUBITRIL/VALSARTAN 49 MG-51 MG TABLET PO SCH ×2 (10:54→22:16)
[2021-07-06 11:51] LABS: INR 1.5 (<1.2); Prothrombin Time 14.7 sec (9.0-12.0)
[2021-07-06 11:59] LABS: Glucose,Whole Blood 106 mg/dL (75-99)
--- NOTE | 2021-07-06 12:07 | P.CRDCN ---
History of Present Illness History of present illness: HISTORY OF PRESENTING ILLNESS This is a pleasant 89-year-old male past medical history significant for chronic persistent atrial fibrillation On coumadin, coronary artery disease with prior P CI (unknown details), ischemic cardiomyopathy status post Bi V ICD 2011, hypertension, type 2 diabetes, dyslipidemia, former tobacco use, hypothyroidism. He follows in the office with Dr. Rosenberg. We have been asked to see in consultation for elevated troponin. Patient presents to the emergency department with complaints of generalized weakness and a mechanical fall at home. Past couple days he has been having symptoms of a cough and generalized weakness. He states he was getting out of bed around 1:30AM 07/05/21 and he slipped on something, he fell to the ground, he was too weak to get up, he states he tried to crawl to get help but was unable to. His family found him on the ground. EMS was called and patient was brought to the emergency department. He denies loss of consciousness, lightheadedness, dizziness, chest pain, or shortness of breath. He denies symptoms of orthopnea or PND. On admission patient found to be COVID-19 positive DIAGNOSTICS EKG reveals atrial sensed V paced rhythm HR 59 Telemetry tracings at bedside indicate paced rhythm Chest xray No active cardiopulmonary disease Most recent echocardiogram 10/2019 in the office revealed EF of 3035 percent, mild concentric hypertrophy, grade 3 diastolic dysfunction, moderate mitral regurgitation, mild aortic regurgitation, mild to moderate tricuspid regurgitation Laboratory reviewed, WBC 4.3, hemoglobin 10.9, platelets 101, INR 1.5, sodium 138, potassium 3.7, BUN 38, serum creatinine 1.2, troponin 0.14, 0.20, 0.20 Current home medications include Coumadin 10 mg Tuesday and Tuesday, 10 mg daily other days of the week, PRN nitro, aspirin 81mg daily, simvastatin 40mg nightly, Entresto 49-51mg BID, synthryoid, metformin, carvedilol 3.125mg BID, Lasix 40mg daily, Sinemet, allopurinol, Insulin REVIEW OF SYSTEMS At the time of my exam: CONSTITUTIONAL: Denies fever or chills. CARDIOVASCULAR: Denies chest pain, shortness of breath, orthopnea, PND or palpitations. RESPIRATORY: + cough. GASTROINTESTINAL: Denies abdominal pain, diarrhea, constipation, nausea or vomiting. MUSCULOSKELETAL: Denies myalgias. NEUROLOGIC: Denies numbness, tingling, headache or weakness. ENDOCRINE: Denies fatigue, weight change, polydipsia or polyurina. GENITOURINARY: Denies burning, hematuria or urgency with micturation. HEMATOLOGIC: Denies history of anemia or bleeding. PHYSICAL EXAMINATION Blood pressure 139/55 HR 84, afebrile, SpO2 100% on 2L nasal cannula CONSTITUTIONAL: No apparent distress. HEENT: Head is normocephalic. Pupils are equal, round. Sclerae anicteric. Mucous membranes of the mouth are moist. No JVD. No carotid bruit. CHEST EXAMINATION: Lungs are diminished bilaterally to auscultation. No chest wall tenderness is noted on palpation or with deep breathing. HEART EXAMINATION: Regular rate and rhythm. S1, S2 heard. Systolic ejection murmur at apex. No gallops or rub. ABDOMEN: Soft, nontender. Positive bowel sounds. EXTREMITIES: 2+ peripheral pulses, mild bilateral non-pitting lower extremity edema and no calf tenderness. SKIN: warm, dry NEUROLOGIC EXAMINATION: Patient is awake, alert and oriented x3. ASSESSMENT Covid-19 infection Elevated troponin, chronic, trend not indicative of acute coronary syndrome, patient without any chest pain or shortness of breath, EKG with no evidence of acute ischemia Chronic persistent atrial fibrillation [id number] score 6, On coumadin Subtherapeutic INR Coronary artery disease with prior PCI (unknown details) Ischemic cardiomyopathy status post Bi V ICD 2011 Hypertension Type 2 diabetes Dyslipidemia Former tobacco use Hypothyroidism PLAN -Obtain 2D echocardiogram and doppler study to assess cardiac structure and function. -Resume home Entresto, Coumadin, statin, carvedilol -Further recommendations based on clinical course Thank you kindly for this consultation. Nurse Practitioner note has been reviewed, I agree with a documented findings an d plan of care. Patient was seen and examined. 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/last seizure many years ago, cardiomyopathy/defibrillator, silent CA, parkinson's disease, prostate cancer with surgery, BRYAN with Cpap use, back and cervical pain, bronchitis, gout, hypothyroid, Last Myocardial Infarction Date:: UNKNOWN History of Any Multi-Drug Resistant Organisms: None Reported Past Surgical History: AICD, Bladder Surgery, Heart Catheterization With Stent, Orthopedic Surgery, Pacemaker, Prostate Surgery Additional Past Surgical History / Comment(s): Pacer/defibrillator/last gen change was in 2019, TTT, PCI with 2 stents, 2008 ben holes in brain, L ankle fracture with repair, prostatectomy, R eye enucleation/prosthesis, male sling Past Anesthesia/Blood Transfusion Reactions: No Reported Reaction Date of Last Stent Placement:: 2001 Type of Cardiac Device: AICD Device Placement Date:: 2011 Smoking Status: Former smoker - Past Family History Mother Family Medical History: Blood Disorder Additional Family Medical History / Comment(s): family not sure what is was called Father Family Medical History: Myocardial Infarction (CA) Additional Family Medical History / Comment(s): Father of a CA in his 70s. Brother(s) Family Medical History: Cancer, Myocardial Infarction ([place]) Additional Family Medical History / Comment(s): brain cancer Medications and Allergies Home Medications Medication Instructions Recorded Confirmed Type Nitroglycerin Sl Tabs [Nitrostat] 0.4 mg SL Q5M PRN 08/05/14 07/05/21 History allopurinoL [Zyloprim] 300 mg PO DAILY 08/06/14 07/05/21 History Levothyroxine Sodium [Synthroid] 25 mcg PO DAILY 12/11/15 07/05/21 History Multivitamin [Men's Multi-Vitamin] 1 tab PO DAILY 12/12/15 07/05/21 History Insulin NPL/Insulin Lispro 20 unit SQ HS 02/21/17 07/05/21 History [humaLOG MIX 75-25 VIAL] Insulin NPL/Insulin Lispro 40 unit SQ DAILY 02/21/17 07/05/21 History [humaLOG MIX 75-25 VIAL] Propylene Glycol/Peg 400/Pf 1 drop BOTH EYES BID 05/28/17 07/05/21 History [Systane 0.3-0.4% Eye Drop] Sodium Chloride 5% Ophth Soln 1 drop BOTH EYES BID 05/28/17 07/05/21 History [Enrico 128] Simvastatin [Zocor] 40 mg PO HS 12/26/17 07/05/21 History carvediloL [Coreg] 3.125 mg PO BID 12/26/17 07/05/21 History metFORMIN HCL [Glucophage] 500 mg PO DAILY 12/26/17 07/05/21 History rOPINIRole HCL [Requip] 0.5 mg PO TID 12/26/17 07/05/21 History Carbidopa-Levodopa 25-100 mg 1.5 tab PO TID 12/21/18 07/05/21 History [Sinemet 25-100 mg] Furosemide [Lasix] 40 mg PO DAILY 05/07/19 07/05/21 History Aspirin EC [Ecotrin Low Dose] 81 mg PO DAILY 07/05/21 07/05/21 History Cholecalciferol [Vitamin D3 (25 25 mcg PO DAILY 07/05/21 07/05/21 History Mcg = 1000 Iu)] Sacubitril/Valsartan [Entresto 49 0.5 tab PO BID 07/05/21 07/05/21 History mg-51 mg Tablet] Warfarin [Coumadin] 10 mg PO SUTUWETHSA 07/05/21 07/06/21 History Warfarin [Coumadin] 5 mg PO MOFR 07/06/21 07/06/21 History Allergies Allergy/AdvReac Type Severity Reaction Status Date / Time phenytoin sodium Allergy Severe Rash/Hives Verified 07/05/21 22:47 [From Dilantin] phenytoin sodium extended Allergy Severe Rash/Hives Verified 07/05/21 22:47 [From Dilantin] amiodarone Allergy Dyspnea Verified 07/05/21 22:47 zoster vaccine live Allergy Rash/Hives Verified 07/05/21 22:47 HAILY Inhibitors AdvReac Hypotension Verified 07/05/21 22:47 spironolactone AdvReac Gynecomasti Verified 07/05/21 22:47 a Physical Exam Vitals: Vital Signs Temp Pulse Pulse Resp BP BP Pulse Ox 07/06/21 11:28 98.8 F 84 20 139/55 100 07/06/21 08:00 98.5 F 96 20 160/74 99 07/06/21 06:00 74 14 142/66 99 07/06/21 04:00 80 21 107/51 98 07/06/21 03:39 99.1 F 68 18 131/54 100 07/06/21 02:00 89 18 151/57 98 07/06/21 00:00 52 L 23 143/45 98 07/05/21 22:50 60 19 158/96 95 07/05/21 22:00 58 L 20 116/84 97 07/05/21 20:33 100.9 F H 59 L 20 143/50 95 Intake and Output 07/05/21 07/06/21 07/06/21 22:59 06:59 14:59 Output Total 250 Balance -250 Output: Urine 250 Other: Weight 95.254 kg 95.254 kg Results 07/06/21 03:04 07/06/21 03:04 Cardiac Enzymes 07/05/21 07/05/21 07/06/21 Range/Units 21:26 21:26 00:01 AST 115 H (17-59) U/L Troponin I 0.144 H* 0.202 H* (0.000-0.034) ng/mL 07/06/21 07/06/21 Range/Units 03:04 03:04 AST 120 H (17-59) U/L Troponin I 0.208 H* (0.000-0.034) ng/mL Coagulation 07/05/21 Range/Units 21:26 PT 16.6 H (9.0-12.0) sec APTT 20.4 L (22.0-30.0) sec CBC 07/05/21 07/06/21 Range/Units 21:26 03:04 WBC 4.7 4.3 (3.8-10.6) k/uL RBC 3.50 L 3.21 L (4.30-5.90) m/uL Hgb 11.7 L 10.9 L (13.0-17.5) gm/dL Hct 34.8 L 33.3 L (39.0-53.0) % Plt Count 125 L 101 L (150-450) k/uL Comprehensive Metabolic Panel 07/05/21 07/06/21 Range/Units 21:26 03:04 Sodium 139 138 (137-145) mmol/L Potassium 3.9 3.7 (3.5-5.1) mmol/L Chloride 105 106 (98-107) mmol/L Carbon Dioxide 25 29 (22-30) mmol/L BUN 36 H 38 H (9-20) mg/dL Creatinine 1.16 1.20 (0.66-1.25) mg/dL Glucose 172 H 108 H (74-99) mg/dL Calcium 8.7 8.1 L (8.4-10.2) mg/dL AST 115 H 120 H (17-59) U/L ALT 22 21 (4-49) U/L Alkaline Phosphatase 64 55 (38-126) U/L Total Protein 5.8 L 5.2 L (6.3-8.2) g/dL Albumin 3.0 L 2.6 L (3.5-5.0) g/dL Current Medications Generic Name Dose Route Start Last Admin Trade Name Freq PRN Reason Stop Dose Admin Acetaminophen 650 mg 07/05/21 23:02 Acetaminophen Tab 325 Mg Tab PO Q6HR PRN Mild Pain or Fever > 100.5 Atorvastatin Calcium 20 mg 07/06/21 21:00 Atorvastatin 20 Mg Tab PO HS ABHAY Carvedilol 3.125 mg 07/06/21 10:15 07/06/21 10:27 Carvedilol 3.125 Mg Tab PO 3.125 mg AC-BID ABHAY Administration Sodium Chloride 1,000 mls @ 130 mls/hr 07/05/21 23:00 07/06/21 06:45 Saline 0.9% IV Not Given .[id number] [facility] Miscellaneous Information 0 each 07/06/21 10:18 Warfarin Per Pharmacy MISCELLANE DIRECTED PRN ANTICOAG Naloxone HCl 0.2 mg 07/05/21 23:02 Naloxone 0.4 Mg/Ml 1 Ml Vial IV Q2M PRN Opioid Reversal Sacubitril/Valsartan 0.5 each 07/06/21 10:15 07/06/21 10:54 Sacubitril/Valsartan 49 Mg-51 Mg Tablet PO 0.5 each BID ABHAY Administration Intake and Output 07/05/21 07/06/21 07/06/21 22:59 06:59 14:59 Output Total 250 Balance -250 Output: Urine 250 Other: Weight 95.254 kg 95.254 kg Patient Weight 07/07/21 06:59 Weight 95.254 kg 07/06/21 03:04 07/06/21 03:04
--- NOTE | 2021-07-06 12:24 | ECHOF ---
Referral Reason: MEASUREMENTS -------- HEIGHT: 180.3 cm WEIGHT: 95.3 kg BP: RVIDd: 2.5 cm (< 3.3) IVSd: 1.4 cm (0.6 - 1.1) LVIDd: 5.9 cm (3.9 - 5.3) LVPWd: 1.3 cm (0.6 - 1.1) IVSs: 1.6 cm LVIDs: 5.0 cm LVPWs: 1.4 cm LAESV Index (A-L): 21.78 ml/m Ao Diam: 4.3 cm (2.0 - 3.7) AV Cusp: 2.4 cm (1.5 - 2.6) LA Diam: 3.9 cm (2.7 - 3.8) MV EXCURSION: 21.866 mm (> 18.000) MV EF SLOPE: 150 mm/s (70 - 150) EPSS: 0.9 cm MV E Josh: 0.83 m/s MV DecT: 172 ms MV A Josh: 1.06 m/s MV E/A Ratio: 0.78 AR PHT: 945 ms RAP: 5.00 mmHg RVSP: 26.20 mmHg FINDINGS -------- Paced rhythm. This was a technically adequate study. The left ventricular size is normal. There is moderate concentric left ventricular hypertrophy. O verall left ventricular systolic function is moderate-severely impaired with, an EF between 30 - 35 % . The right ventricle is normal in size. The left atrial size is normal. The right atrial size is normal. Aortic valve is trileaflet and is mildly thickened. There is mild aortic regurgitation. The mitral valve is normal. The mitral valve leaflets are mildly thickened. Mild mitral annular c alcification present. Mild mitral regurgitation is present. The tricuspid valve appears structurally normal. Mild tricuspid regurgitation present. Right vent ricular systolic pressure is normal at < 35 mmHg. There is no pulmonic regurgitation present. 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 There is no pericardial effusion. CONCLUSIONS -------- 1. The left ventricular size is normal. 2. There is moderate concentric left ventricular hypertrophy. 3. Overall left ventricular systolic function is moderate-severely impaired with, an EF between 30 - 35 %. 4. Aortic valve is trileaflet and is mildly thickened. 5. There is mild aortic regurgitation. 6. The mitral valve leaflets are mildly thickened. 7. Mild mitral annular calcification present. 8. Mild mitral regurgitation is present. 9. Mild tricuspid regurgitation present. 10. 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 There is no pericardial effusion. DOWEL PIN MAN: Flori Rosales RDCS
[2021-07-06] MEDS: CARBIDOPA-LEVODOPA 25-100 MG 1 EACH TAB PO SCH ×2 (16:44→22:16)
[2021-07-06 16:54] LABS: Glucose,Whole Blood 140 mg/dL (75-99)
[2021-07-06] MEDS ORDERED: WARFARIN 10 MG TAB PO ONE (18:00)
--- NOTE | 2021-07-06 18:58 | HP ---
HISTORY AND PHYSICAL CHIEF COMPLAINT: Fall, mental status changes and rhabdomyolysis. HISTORY OF PRESENT ILLNESS: This is another admission for this 89-year-old white male who lives alone. He has had a longstanding history of many problems, including coronary artery disease, congestive heart failure, COPD, previous hemorrhagic CVA, cardiac arrhythmia, diabetes and frequent falling. Apparently he fell at home and could not get up. His family found him after several hours. He was brought to the emergency room, where he seemed to be stabilized but did have evidence of rhabdomyolysis. In the emergency room he had a temperature of 100.9. BUN was 36 with a creatinine 1.16. He had a CK of 6190. Lactic acid was 3.6. His troponin was up slightly. There were red blood cells in the urine. REVIEW OF SYSTEMS: He seemed to respond appropriately but seem tired and possibly slightly delirious. He denied headache or chest pain. He denied shortness of breath, nausea, vomiting, diarrhea, melena, hematochezia, jaundice, dysuria, frequency, urgency, hematuria, etc. Past medical history, family history, and personal and social histories were otherwise essentially unremarkable. He is ALLERGIC to HAILY INHIBITORS, AMIODARONE, DILANTIN AND SPIRONOLACTONE. He is on allopurinol 300 mg once a day, metformin 500 mg once a day, 40 units of insulin in the morning and 20 at night, Coumadin 10 mg once a day on Tuesday, Tuesday, , Tuesday and Tuesday. He is also on Sinemet 25/100 one and a half 1 tablets 3 times a day, ropinirole 0.5 t.i.d., Lasix 40 mg once a day, carvedilol 3.125 twice a day, simvastatin 40, levothyroxine 0.025, Entresto 49-51 one and a half tablet twice a day, propylene glycol glycerin ophthalmic solution both eyes twice a day, and aspirin 81 mg a day. He does not smoke or drink at this time. PHYSICAL EXAMINATION: Blood pressure is 115/60 with a pulse 76, respirations of 10 and afebrile. In general he appeared to be well developed, well nourished, in no acute distress. Skin color is normal. Skin is warm and dry. Lymph nodes are not enlarged. Head, ears, eyes, nose, mouth and throat were normal. Neck veins were not distended. Thyroid is not enlarged. Chest is clear. Cardiac exam is normal and the abdomen is soft and nontender. Extremities are normal. Neurologically he is intact. IMPRESSION: 1. Syncope with rhabdomyolysis. 2. History of coronary artery disease. 3. Congestive heart failure. 4. History of chronic obstructive pulmonary disease. 5. History of subdural hematoma and hemorrhagic cerebrovascular accident. 6. Type 2 insulin-dependent diabetes mellitus. PLAN: 1. Bedrest. 2. IV fluids. 3. Monitor vital signs and cardiac rhythm. 4. Physical therapy. 5. Discharge planning. MMODL / IJN: [id number] /
[2021-07-06 20:06] LABS: Glucose,Whole Blood 153 mg/dL (75-99)
--- NOTE | 2021-07-06 20:14 | PN ---
PROGRESS NOTE DATE OF SERVICE: 07/06/2021 CHIEF COMPLAINT: Fall with rhabdomyolysis. HISTORY OF PRESENT ILLNESS: This gentleman seems to be slightly drowsy, but he is able to be awake and then is alert and oriented. He denies headaches. PHYSICAL EXAMINATION: His chest is clear. Cardiac exam is normal. Abdomen is soft, nontender. Extremities are normal. IMPRESSION: 1. Fall with rhabdomyolysis. 2. Mild delirium. 3. Diabetes mellitus. PLAN: Continue to increase activity and continue IV fluids for renal protection. MMODL / IJN: [id number] /
[2021-07-06] MEDS: ATORVASTATIN 20 MG TAB PO SCH (22:15)
[2021-07-06] MEDS: ARTIFICIAL TEARS-HYPROMELLOSE DROPS 15 ML BTL BOTH EYES SCH (22:15)
[2021-07-06] MEDS: SODIUM CHLORIDE 5% OPHTH DROPS 15 ML BTL BOTH EYES SCH (22:15)
[2021-07-06] MEDS: INSULN ASP PRT/INSULIN ASPART 100 UNIT/ML 10 ML VIAL SQ SCH (22:16)
[2021-07-07] MEDS: SODIUM CHLORIDE 0.9% 1,000 ML IV SCH ×3 (06:19→22:15)
[2021-07-07 06:24] LABS: Glucose,Whole Blood 107 mg/dL (75-99)
[2021-07-07 06:34] LABS: INR 1.4 (<1.2); Prothrombin Time 13.9 sec (9.0-12.0)
[2021-07-07] MEDS: carvediloL 3.125 MG TAB PO SCH ×2 (07:07→17:48)
[2021-07-07] MEDS: LEVOTHYROXINE 25 MCG TAB PO SCH (07:07)
[2021-07-07] MEDS: CARBIDOPA-LEVODOPA 25-100 MG 1 EACH TAB PO SCH ×3 (08:19→22:14)
[2021-07-07] MEDS: metFORMIN 500 MG TAB PO SCH (08:19)
[2021-07-07] MEDS: SACUBITRIL/VALSARTAN 49 MG-51 MG TABLET PO SCH ×2 (08:19→22:39)
[2021-07-07] MEDS: allopurinoL 300 MG TAB PO SCH (08:19)
[2021-07-07] MEDS: SODIUM CHLORIDE 5% OPHTH DROPS 15 ML BTL BOTH EYES SCH ×2 (08:20→22:15)
[2021-07-07 08:27] LABS: HCT 31.9 % (39.0-53.0); HGB 10.4 gm/dL (13.0-17.5); Hypochromasia Slight; MCH 33.9 pg (25.0-35.0); MCHC 32.6 g/dL (31.0-37.0); MCV 104.2 fL (80.0-100.0); Macrocytosis Moderate; Mean Platelet Volume 10.4; Platelet Count 108 k/uL (150-450); RBC 3.06 m/uL (4.30-5.90); RDW 14.9 % (11.5-15.5); WBC 2.7 k/uL (3.8-10.6)
[2021-07-07] MEDS: INSULN ASP PRT/INSULIN ASPART 100 UNIT/ML 10 ML VIAL SQ SCH ×2 (08:30→22:20)
[2021-07-07] MEDS: ARTIFICIAL TEARS-HYPROMELLOSE DROPS 15 ML BTL BOTH EYES SCH ×2 (08:31→22:15)
[2021-07-07 08:35] LABS: Calcium 7.7 mg/dL (8.4-10.2); Potassium 3.7 mmol/L (3.5-5.1)
[2021-07-07] MEDS ORDERED: ASPIRIN 81 MG PO SCH (09:00)
[2021-07-07] MEDS ORDERED: WARFARIN 10 MG TAB PO SCH (10:06)
[2021-07-07 11:45] LABS: Glucose,Whole Blood 91 mg/dL (75-99)
--- NOTE | 2021-07-07 11:51 | P.PN ---
Subjective This is a pleasant 89-year-old male past medical history significant for chronic persistent atrial fibrillation On coumadin, coronary artery disease with prior PCI (unknown details), ischemic cardiomyopathy status post Bi V ICD 2011, hypertension, type 2 diabetes, dyslipidemia, former tobacco use, hypothyroidism. He follows in the office with Dr. Rosenberg. We have been asked to see in consultation for elevated troponin. Patient presents to the emergency department with complaints of generalized weakness and a mechanical fall at home. Past couple days he has been having symptoms of a cough and generalized weakness. On admission patient found to be COVID-19 positive. Patient seen at bedside, no acute distress. He states he is feeling better. D enies shortness of breath or chest pain. His echocardiogram revealed similar findings to echo in 10/2019, no new findings, EF 30-35%, mild MR, mild TR, aortic root 4.3cm. Labs reviewed, INR 1.4, WBC 2.7, Hgb 10.4, Plt 108, Sodium 140, K 3.7, BUN 25, sCr 0.88. He's currently maintained on Coumadin 10 mg, aspirin 81 mg daily, atorvastatin 20 mg daily, carvedilol 3.125 mg twice a day, Entresto 49 mg/51 mg twice a day. PHYSICAL EXAMINATION Blood pressure 123/63 HR 72, afebrile SpO2 97% on room air CONSTITUTIONAL: No apparent distress. HEENT: Neck Supple. No JVD EXTREMITIES: mild bilateral non-pitting lower extremity edema NEUROLOGIC EXAMINATION: Patient is awake, alert and oriented x3. ASSESSMENT Covid-19 infection Elevated troponin, chronic, trend not indicative of acute coronary syndrome, patient without any chest pain or shortness of breath, EKG with no evidence of acute ischemia Chronic persistent atrial fibrillation [id number] score 6, On coumadin Subtherapeutic INR Coronary artery disease with prior PCI (unknown details) Ischemic cardiomyopathy status post Bi V ICD 2011 Hypertension Type 2 diabetes Dyslipidemia Former tobacco use Hypothyroidism PLAN -We will check coverage for Eliquis, consult case management, per case management Eliquis is covered with $45/month co-pay and patient will have a free month on discharge. We will switch to Eliquis and discontinue Coumadin. -Continue home Entresto, statin, and carvedilol -Further recommendations based on clinical course Thank you kindly for this consultation. Nurse Practitioner note has been reviewed, I agree with a documented findings and plan of care. Patient was seen and examined. Objective - Vital Signs Vital signs: Vital Signs Temp 98.3 F 07/07/21 08:00 Pulse 72 07/07/21 08:00 Resp 16 07/07/21 08:00 BP 123/63 07/07/21 08:00 Pulse Ox 97 07/07/21 08:00 Intake & Output 07/06/21 07/07/21 07/07/21 18:59 06:59 18:59 Intake Total 722 Output Total 250 1100 Balance 472 -1100 Weight 95.254 kg 101.5 kg Intake: Intake, IV Titration 240 Amount Sodium Chloride 0.9% 1, 240 000 ml @ 130 mls/hr IV . [id number] [facility] Rx#:[id number] Oral 482 Output: Urine 250 1100 Straight 500 Other: Voiding Method Urinal Incontinent Diaper - Labs CBC & Chem 7: 07/07/21 05:05 07/07/21 05:05 Labs: Abnormal Lab Results - Last 24 Hours (Table) 07/06/21 07/06/21 07/06/21 Range/Units 10:50 11:57 16:51 WBC (3.8-10.6) k/uL RBC (4.30-5.90) m/uL Hgb (13.0-17.5) gm/dL Hct (39.0-53.0) % MCV (80.0-100.0) fL Plt Count (150-450) k/uL PT 14.7 H (9.0-12.0) sec INR 1.5 H (<1.2) Chloride (98-107) mmol/L BUN (9-20) mg/dL POC Glucose (mg/dL) 106 H 140 H (75-99) mg/dL Calcium (8.4-10.2) mg/dL 07/06/21 07/07/21 07/07/21 Range/Units 20:05 05:05 05:05 WBC 2.7 L (3.8-10.6) k/uL RBC 3.06 L (4.30-5.90) m/uL Hgb 10.4 L (13.0-17.5) gm/dL Hct 31.9 L (39.0-53.0) % MCV 104.2 H (80.0-100.0) fL Plt Count 108 L (150-450) k/uL PT 13.9 H (9.0-12.0) sec INR 1.4 H (<1.2) Chloride (98-107) mmol/L BUN (9-20) mg/dL POC Glucose (mg/dL) 153 H (75-99) mg/dL Calcium (8.4-10.2) mg/dL 07/07/21 07/07/21 Range/Units 05:05 06:21 WBC (3.8-10.6) k/uL RBC (4.30-5.90) m/uL Hgb (13.0-17.5) gm/dL Hct (39.0-53.0) % MCV (80.0-100.0) fL Plt Count (150-450) k/uL PT (9.0-12.0) sec INR (<1.2) Chloride 112 H (98-107) mmol/L BUN 25 H (9-20) mg/dL POC Glucose (mg/dL) 107 H (75-99) mg/dL Calcium 7.7 L (8.4-10.2) mg/dL Microbiology - Last 24 Hours (Table) 07/05/21 22:02 Urine Culture - Preliminary Urine,Voided
[2021-07-07 16:42] LABS: Glucose,Whole Blood 102 mg/dL (75-99)
[2021-07-07] MEDS ORDERED: WARFARIN 10 MG TAB PO ONE (18:00)
[2021-07-07 20:44] LABS: Glucose,Whole Blood 121 mg/dL (75-99)
[2021-07-07] MEDS: ATORVASTATIN 20 MG TAB PO SCH (22:14)
[2021-07-07] MEDS: APIXABAN 5 MG TAB PO SCH (22:15)
[2021-07-08] MEDS: SODIUM CHLORIDE 0.9% 1,000 ML IV SCH ×3 (05:04→22:10)
[2021-07-08 06:08] LABS: Glucose,Whole Blood 76 mg/dL (75-99)
[2021-07-08 06:13] LABS: INR 1.4 (<1.2)
[2021-07-08] MEDS: carvediloL 3.125 MG TAB PO SCH ×2 (07:05→16:43)
[2021-07-08] MEDS: LEVOTHYROXINE 25 MCG TAB PO SCH (07:06)
[2021-07-08] MEDS: CARBIDOPA-LEVODOPA 25-100 MG 1 EACH TAB PO SCH ×3 (08:18→22:23)
[2021-07-08] MEDS: allopurinoL 300 MG TAB PO SCH (08:19)
[2021-07-08] MEDS: metFORMIN 500 MG TAB PO SCH (08:19)
[2021-07-08] MEDS: APIXABAN 5 MG TAB PO SCH ×2 (08:19→22:23)
[2021-07-08] MEDS: SACUBITRIL/VALSARTAN 49 MG-51 MG TABLET PO SCH ×2 (08:19→22:24)
[2021-07-08] MEDS: SODIUM CHLORIDE 5% OPHTH DROPS 15 ML BTL BOTH EYES SCH ×2 (08:22→22:24)
[2021-07-08] MEDS: INSULN ASP PRT/INSULIN ASPART 100 UNIT/ML 10 ML VIAL SQ SCH ×2 (08:43→22:24)
[2021-07-08] MEDS: ARTIFICIAL TEARS-HYPROMELLOSE DROPS 15 ML BTL BOTH EYES SCH ×2 (08:43→22:24)
--- NOTE | 2021-07-08 11:29 | PN ---
PROGRESS NOTE DATE OF SERVICE: 07/07/2021 CHIEF COMPLAINT: Fall, generalized weakness and rhabdomyolysis. HISTORY OF PRESENT ILLNESS: This gentleman seems to be doing fairly well. He is not having any significant pain. He has had no shortness of breath, fever, chills, etc. PHYSICAL EXAMINATION: He is awake and alert. Color is good. Chest is clear. The cardiac exam is unremarkable. The abdomen is soft and nontender. Extremities are normal. IMPRESSION: 1. Fall. 2. Rhabdomyolysis. 3. COVID-19. 4. Acute kidney injury. 5. Previous intracranial bleed. 6. Diabetes. PLAN: Slowly progress activity and refer for physical therapy. MMODL / IJN: [id number] /
--- NOTE | 2021-07-08 13:30 | P.PN ---
Subjective This is a pleasant 89-year-old male past medical history significant for chronic persistent atrial fibrillation On coumadin, coronary artery disease with prior PCI (unknown details), ischemic cardiomyopathy status post Bi V ICD 2011, hypertension, type 2 diabetes, dyslipidemia, former tobacco use, hypothyroidism. He follows in the office with Dr. Rosenberg. We have been asked to see in consultation for elevated troponin. Patient presents to the emergency department with complaints of generalized weakness and a mechanical fall at home. Past couple days he has been having symptoms of a cough and generalized weakness. On admission patient found to be COVID-19 positive. Patient seen at bedside, no acute distress. He states he is feeling better. D enies shortness of breath or chest pain. He continues to have a cough. He endorses that he may have a problem at home taking care of himself. Case management and Social work have been consulted His echocardiogram revealed similar findings to echo in 10/2019, no new findings, EF 30-35%, mild MR, mild TR, aortic root 4.3cm. His Eliquis prescription was covered and he has been switched to Eliquis and coumadin has been discontinued Labs reviewed, INR 1.4. He's currently maintained on Eliquis 5mg BID, atorvastatin 20 mg daily, carvedilol 3.125 mg twice a day, Entresto 49 mg/51 mg twice a day. PHYSICAL EXAMINATION Blood pressure 123/63 HR 72, afebrile SpO2 97% on room air CONSTITUTIONAL: No apparent distress. HEENT: Neck Supple. No JVD EXTREMITIES: mild bilateral non-pitting lower extremity edema NEUROLOGIC EXAMINATION: Patient is awake, alert and oriented x3. ASSESSMENT Covid-19 infection Elevated troponin, chronic, trend not indicative of acute coronary syndrome, patient without any chest pain or shortness of breath, EKG with no evidence of acute ischemia Chronic persistent atrial fibrillation [id number] score 6, On coumadin Subtherapeutic INR Coronary artery disease with prior PCI (unknown details) Ischemic cardiomyopathy status post Bi V ICD 2011 Hypertension Type 2 diabetes Dyslipidemia Former tobacco use Hypothyroidism PLAN -Continue Eliquis 5mg BID, consult case management, per case management Eliquis is covered with $45/month co-pay and patient will have a free month on discharge. -Continue home Entresto, statin, and carvedilol -Further recommendations based on clinical course Thank you kindly for this consultation. Nurse Practitioner note has been reviewed, I agree with a documented findings and plan of care. Patient was seen and examined. Objective - Vital Signs Vital signs: Vital Signs Temp 98 F 07/08/21 12:00 Pulse 69 07/08/21 12:00 Resp 20 07/08/21 12:00 BP 124/65 07/08/21 12:00 Pulse Ox 97 07/08/21 12:00 Intake & Output 07/07/21 07/08/21 07/08/21 18:59 06:59 18:59 Intake Total 480 Output Total 450 Balance -450 480 Weight 105 kg Intake: Oral 480 Output: Urine 450 Other: Voiding Method Urinal Urinal # Voids 1 0 # Bowel Movements 1 - Labs CBC & Chem 7: 07/07/21 05:05 07/07/21 05:05 Labs: Abnormal Lab Results - Last 24 Hours (Table) 07/07/21 07/07/21 07/08/21 Range/Units 16:40 20:29 05:40 PT 14.0 H (9.0-12.0) sec INR 1.4 H (<1.2) POC Glucose (mg/dL) 102 H 121 H (75-99) mg/dL Microbiology - Last 24 Hours (Table) 07/05/21 22:02 Urine Culture - Final Urine,Voided
--- NOTE | 2021-07-08 14:17 | PN ---
PROGRESS NOTE CHIEF COMPLAINT: Fall with COVID. HISTORY OF PRESENT ILLNESS: This gentleman remains very weak. Other than that, he seems fairly stable. He is awake, oriented and alert. He realizes that he is too weak to go home. He denies any chest pain, shortness of breath, body aches, nausea, vomiting, diarrhea, etc. PHYSICAL EXAMINATION: Vital signs are normal. Color is good. Chest is clear. Cardiac exam is normal and the abdomen is soft and nontender. Extremities are slightly edematous at 3 to 4+. IMPRESSION: 1. Frequent falling. 2. Rhabdomyolysis. 3. Diabetes mellitus. 4. History of intracranial bleed. 5. Peripheral edema. 6. General debility. PLAN: 1. Increase activity. 2. Continue with physical therapy. 3. Work on discharge planning. He is requesting to go to a shelter. KETTY / NATHANIEL: [id number] /
[2021-07-08] MEDS ORDERED: WARFARIN 5 MG TAB PO SCH (18:00)
[2021-07-08] MEDS ORDERED: WARFARIN 10 MG TAB PO ONE (18:00)
[2021-07-08 20:59] LABS: Glucose,Whole Blood 128 mg/dL (75-99)
[2021-07-08] MEDS: ATORVASTATIN 20 MG TAB PO SCH (22:23)
[2021-07-09] MEDS: SODIUM CHLORIDE 0.9% 1,000 ML IV SCH (05:10)
[2021-07-09 05:33] VITALS: RESP 18
[2021-07-09 06:06] LABS: Glucose,Whole Blood 64 mg/dL (75-99)
[2021-07-09 06:14] LABS: Glucose,Whole Blood 81 mg/dL (75-99)
[2021-07-09] MEDS: LEVOTHYROXINE 25 MCG TAB PO SCH (06:38)
[2021-07-09] MEDS: carvediloL 3.125 MG TAB PO SCH (06:38)
[2021-07-09 09:09] LABS: INR 1.3 (<1.2); Prothrombin Time 13.6 sec (9.0-12.0)
[2021-07-09 09:20] LABS: Calcium 8.3 mg/dL (8.4-10.2); Potassium 4.8 mmol/L (3.5-5.1)
[2021-07-09] MEDS: metFORMIN 500 MG TAB PO SCH (10:15)
[2021-07-09] MEDS: APIXABAN 5 MG TAB PO SCH (10:15)
[2021-07-09] MEDS: SACUBITRIL/VALSARTAN 49 MG-51 MG TABLET PO SCH (10:15)
[2021-07-09] MEDS: allopurinoL 300 MG TAB PO SCH (10:15)
[2021-07-09] MEDS: CARBIDOPA-LEVODOPA 25-100 MG 1 EACH TAB PO SCH (10:15)
[2021-07-09] MEDS: ARTIFICIAL TEARS-HYPROMELLOSE DROPS 15 ML BTL BOTH EYES SCH (10:16)
[2021-07-09] MEDS: SODIUM CHLORIDE 5% OPHTH DROPS 15 ML BTL BOTH EYES SCH (10:17)
[2021-07-09] MEDS: INSULN ASP PRT/INSULIN ASPART 100 UNIT/ML 10 ML VIAL SQ SCH (10:18)
[2021-07-09 10:31] VITALS: TEMP 98
[2021-07-09 11:35] LABS: Glucose,Whole Blood 120 mg/dL (75-99)
--- NOTE | 2021-07-09 11:35 | P.PN ---
Subjective This is a pleasant 89-year-old male past medical history significant for chronic persistent atrial fibrillation On coumadin, coronary artery disease with prior PCI (unknown details), ischemic cardiomyopathy status post Bi V ICD 2011, hypertension, type 2 diabetes, dyslipidemia, former tobacco use, hypothyroidism. He follows in the office with Dr. Rosenberg. We have been asked to see in consultation for elevated troponin. Patient presents to the emergency department with complaints of generalized weakness and a mechanical fall at home. Past couple days he has been having symptoms of a cough and generalized weakness. On admission patient found to be COVID-19 positive. Patient seen at bedside, no acute distress. He is feeling better, and has more energy. Denies shortness of breath or chest pain. His echocardiogram revealed similar findings to echo in 10/2019, no new findings, EF 30-35%, mild MR, mild TR, aortic root 4.3cm. His Eliquis prescription was covered and he has been switched to Eliquis and coumadin has been discontinued. He's currently maintained on Eliquis 5mg BID, atorvastatin 20 mg daily, carvedilol 3.125 mg twice a day, Entresto 49 mg/51 mg twice a day. Laboratory reviewed, sodium 136, potassium 4.8, BUN 21, serum creatinine 0.8 PHYSICAL EXAMINATION Blood pressure 143/51 HR 69, afebrile SpO2 97% on room air CONSTITUTIONAL: No apparent distress. HEENT: Neck Supple. No JVD NEUROLOGIC EXAMINATION: Patient is awake, alert and oriented x3. ASSESSMENT Covid-19 infection Elevated troponin, chronic, trend not indicative of acute coronary syndrome, patient without any chest pain or shortness of breath, EKG with no evidence of acute ischemia Chronic persistent atrial fibrillation [id number] score 6, On coumadin Subtherapeutic INR Coronary artery disease with prior PCI (unknown details) Ischemic cardiomyopathy status post Bi V ICD 2011 Hypertension Type 2 diabetes Dyslipidemia Former tobacco use Hypothyroidism PLAN -Continue Eliquis 5mg BID, consult case management, per case management Eliquis is covered with $45/month co-pay and patient will have a free month on discharge. -Continue home Entresto, statin, and carvedilol -From a cardiology perspective, patient is stable. We will follow the patient as needed. -Patient to follow up with Dr. Rosenberg as an outpatient. Thank you kindly for this consultation. Nurse Practitioner note has been reviewed, I agree with a documented findings and plan of care. Patient was seen and examined. Objective - Vital Signs Vital signs: Vital Signs Temp 98.0 F 07/09/21 08:00 Pulse 69 07/09/21 08:00 Resp 18 07/09/21 08:00 BP 143/51 07/09/21 08:00 Pulse Ox 97 07/09/21 08:00 Intake & Output 07/08/21 07/09/21 07/09/21 18:59 06:59 18:59 Intake Total 720 240 118 Output Total 475 Balance 720 -235 118 Weight 107 kg Intake: Oral 720 240 118 Output: Urine 475 Other: Voiding Method Urinal - Labs CBC & Chem 7: 07/07/21 05:05 07/09/21 08:14 Labs: Abnormal Lab Results - Last 24 Hours (Table) 07/08/21 07/09/21 07/09/21 Range/Units 20:44 05:53 08:14 PT (9.0-12.0) sec INR (<1.2) Sodium 136 L (137-145) mmol/L BUN 21 H (9-20) mg/dL Glucose 128 H (74-99) mg/dL POC Glucose (mg/dL) 128 H 64 L (75-99) mg/dL Calcium 8.3 L (8.4-10.2) mg/dL 07/09/21 Range/Units 08:14 PT 13.6 H (9.0-12.0) sec INR 1.3 H (<1.2) Sodium (137-145) mmol/L BUN (9-20) mg/dL Glucose (74-99) mg/dL POC Glucose (mg/dL) (75-99) mg/dL Calcium (8.4-10.2) mg/dL
[2021-07-09 13:03] VITALS: BP 112/65; PULSE 84
[2021-07-09 13:47] VITALS: BMI 32.8
--- NOTE | 2021-07-09 14:36 | CDI ---
Documentation Clarification Form Date: 07/09/2021 02:20:37 PM From: Velma Euceda RN CCDS Admit Date: 07/05/2021 11:02:00 PM Patient Name: Santosh Hathaway Visit Number: [id number] Discharge Date: ATTENTION: The Clinical Documentation Specialists (CDI) and [facility] Coding Staff appreciate your assistance in clarifying documentation. Please respond to the clarification below the line at the bottom and electronically sign. The CDI & [facility] Coding staff will review the response and follow-up if needed. Please note: Queries are made part of the Legal Health Record. If you have any questions, please contact the author of this message via ITS. Dr. Chucho Fan Your patient has the documented diagnosis of unspecified CHF 07/06, H&P. Additional information regarding the type, acuity of CHF is requested. History/Risk Factors:89 y/o male presents to the ED via EMS after family found him and he couldnt get up. Medical History: CAD, Cardiac arrhythmia and AICD. 07/06, Cardiology consult. Clinical Indicators: VS/Pulse OX: B/P 143/50, HR 59, Temp 100.9F Oral, RR 20, SpO2 95% ra Echocardiogram Results: 07/06 EF 30-35%. Mild aortic regurgitation, Mitral valve leaflets are mildly thickened. Mild mitral annular calcification present. Mild mitral regurgitation. Mild tricuspid regurgitation present. Chest X Ray: 07/05 No cardiopulmonary disease Treatment: 07/06 to current Coreg 3.125mg PO AC BID, 07/06 and d/c 07/06 Lasix 40mg PO Daily. In your professional opinion, can you please clarify the acuity and type of CHF if known? [ ] Chronic Systolic Heart Failure (reduced EF) [ ] Other, please specify [ ] Unable to determine (Template Last Revised: August 2020) MTDD
--- NOTE | 2021-07-09 14:39 | DS ---
DISCHARGE SUMMARY CHIEF COMPLAINT: Weakness with fall and inability to get up, rhabdomyolysis. HISTORY OF PRESENT ILLNESS AND PHYSICAL EXAMINATION: Details of this man's history and physical can be found in the initial workup. LABORATORY STUDIES: While he was in the hospital he had laboratory studies, details of which can be found in the laboratory section of his chart. COURSE IN THE HOSPITAL: After admission he was placed on bedrest, started in intravenous fluids, and attention was paid to his vital signs and renal function. He had no further difficulty. He recognized that he was too weak to live alone at home any more and requested to be set up for inpatient physical therapy and rehabilitation. A bed was found at [facility] on 07/09, and he will be transferred there. FINAL DIAGNOSES: 1. Fall with inability to get up. 2. General debility and weakness. 3. COVID-19. 4. Rhabdomyolysis. 5. Coronary artery disease. 6. History of congestive heart failure. 7. History of previous subdural hematoma. 8. Renal failure. 9. Type 2 diabetes. OPERATIONS: None. CONSULTATION: Pulmonology. He is improved. MMODL / IJN: [id number] /
--- NOTE | 2021-07-09 14:45 | CDI ---
Documentation Clarification Form Date: 07/09/2021 02:37:00 PM From: Velma Euceda RN CCDS Admit Date: 07/05/2021 11:02:00 PM Patient Name: Santosh Hathaway Visit Number: [id number] Discharge Date: ATTENTION: The Clinical Documentation Specialists (CDI) and [facility] Coding Staff appreciate your assistance in clarifying documentation. Please respond to the clarification below the line at the bottom and electronically sign. The CDI & [facility] Coding staff will review the response and follow-up if needed. Please note: Queries are made part of the Legal Health Record. If you have any questions, please contact the author of this message via ITS. Dr. Chucho Fan Rhabdomyolysis is documented 07/06, H&P. Additional clarification regarding the type of rhabdomyolysis is requested. History/Risk Factors: History/Risk Factors:89 y/o male presents to the ED via EMS after family found him after several hours and he could not get up. Medical History: DM, CAD, Cardiac arrhythmia and AICD. 07/06, H&P Clinical Indicators: 07/05 Creatinine Kinase 6190 VS/Pulse OX: B/P 143/50, HR 59, Temp 100.9F Oral, RR 20, SpO2 95% ra Treatment: 07/05 0.9NS 1L bolus x 1 Please clarify the type of rhabdomyolysis, if known: [ ] Traumatic rhabdomyolysis due to fall [ ] Traumatic rhabdomyolysis due to prolonged immobility [ ] Other, please specify [ ] Unable to Determine (Template Last Revised: September 2020) MTDD
--- NOTE | 2021-07-11 16:25 | MISC ---
MISCELLANOUS REPORT QUERY: Chronic congestive heart failure. MMODL / IJN: [id number] /
--- NOTE | 2021-07-11 16:25 | MISC ---
MISCELLANOUS REPORT QUERY: Traumatic rhabdomyolysis due to fall. MMODL / IJN: [id number] /
== END 2021-07-09 15:50 | DRG 178 ==
LOC: EC 20:26 → 3SCARD 23:02
PROVIDERS: ADMIT Family Medicine; ATTEND Family Medicine
PROC: XW033F6 Introduction of Bamlanivimab Monoclonal Antibody into Peripheral Vein, Percutaneous Approach, New Technology Group 6 (ICD-10-PCS; principal; 2021-07-05)
DX: U07.1 COVID-19 (principal); I42.9 Cardiomyopathy, unspecified; I48.19 Other persistent atrial fibrillation; N17.9 Acute kidney failure, unspecified; T79.6XXA Traumatic ischemia of muscle, initial encounter; E03.9 Hypothyroidism, unspecified; E11.319 Type 2 diabetes mellitus with unspecified diabetic retinopathy without macular edema; E78.5 Hyperlipidemia, unspecified; E86.0 Dehydration; F02.80 Dementia in other diseases classified elsewhere, unspecified severity, without behavioral disturbance, psychotic disturbance, mood disturbance, and anxiety; G20 Parkinson's disease; G40.909 Epilepsy, unspecified, not intractable, without status epilepticus; I25.10 Atherosclerotic heart disease of native coronary artery without angina pectoris; I25.2 Old myocardial infarction; I50.9 Heart failure, unspecified; I11.0 Hypertensive heart disease with heart failure; J44.9 Chronic obstructive pulmonary disease, unspecified; R29.6 Repeated falls; R79.1 Abnormal coagulation profile; W18.30XA Fall on same level, unspecified, initial encounter; Y92.009 Unspecified place in unspecified non-institutional (private) residence as the place of occurrence of the external cause; Z79.01 Long term (current) use of anticoagulants; Z79.82 Long term (current) use of aspirin; Z79.84 Long term (current) use of oral hypoglycemic drugs; Z79.890 Hormone replacement therapy; Z79.899 Other long term (current) drug therapy; Z80.8 Family history of malignant neoplasm of other organs or systems; Z82.49 Family history of ischemic heart disease and other diseases of the circulatory system; Z85.46 Personal history of malignant neoplasm of prostate; Z86.73 Personal history of transient ischemic attack (TIA), and cerebral infarction without residual deficits; Z87.891 Personal history of nicotine dependence; Z95.0 Presence of cardiac pacemaker; Z97.0 Presence of artificial eye; Z98.61 Coronary angioplasty status; R77.8 Other specified abnormalities of plasma proteins; R55 Syncope and collapse; X58.XXXA Exposure to other specified factors, initial encounter; R41.0 Disorientation, unspecified
CPT/HCPCS: 36415; 71046; 80048; 80053; 81001; 82550; 83605; 83735; 84484; 85025; 85027; 85610; 85730; 87086; 87635; 93005; 93306; 94760; 99285